=== PATIENT | female | born 1960 | race Two or more races ===

== ENCOUNTER 2020-06-28 11:04 | Outpatient (REF) | payer MEDICAID, SELFPAY ==
--- NOTE | ~2020-06-28 | XR_ITS ---
EXAMINATION: XR CHEST CLINICAL INFORMATION: R06.00 - Dyspnea, unspecified COMPARISON: Chest radiograph 08/09/2019 TECHNIQUE: 2 views of the chest were obtained. FINDINGS: The heart is within normal size. The vascularity is normal. There is mild coarsening bronchiolar markings but no hyperinflation and no airspace consolidation, groundglass opacity, or effusion. The costophrenic sulci are clear. The hilar and mediastinal contours and visualized bony structures are unremarkable. XR/XR chest 2V IMPRESSION: Mild coarsening bronchiolar markings. No hyperinflation or airspace opacities.
[2020-06-28 11:58] LABS: MANUAL DIFF FLAG NO
[2020-06-28 12:03] LABS: Basophils Percent Auto 0.3 % (0-2); Eosinophils Absolute Auto 0.1 X10*3/uL (0.0-0.4); Eosinophils Percent Auto 1.4 % (0-4); Hematocrit 33.8 % (37-47); Hemoglobin 10.3 g/dl (12.0-16.0); Imm Gran Abs Auto 0.03 X10*3/uL (0.00-0.03); Imm Gran Pct Auto 0.5 % (0.0-0.4); Lymphocytes Absolute Auto 1.5 X10*3/uL (1.2-4.9); Lymphocytes Percent Auto 23.1 % (20-40); Mean Corpuscular HGB Conc 30.5 g/dl (31.0-35.0); Mean Corpuscular Hemoglobin 26.8 pg (27.0-33.0); Mean Corpuscular Volume 87.8 fL (80-98); Mean Platelet Volume 8.6 fL (9.4-12.3); Monocytes Absolute Auto 0.6 X10*3/uL (0.1-1.2); Monocytes Percent Auto 9.2 % (2-11); Neutrophils Absolute Auto 4.1 X10*3/uL (2.0-8.3); Neutrophils Percent Auto 65.5 % (45-73); Platelet Count 268 X10*3/uL (160-400); Red Blood Count 3.85 X10*6/uL (4.20-5.50); Red Cell Distribution Width 15.9 % (11.0-16.0); White Blood Count 6.3 X10*3/uL (4.8-10.8)
== END 2020-06-28 11:05 | disposition home or self-care (01) ==
LOC: HO.XRAY 11:04
PROVIDERS: PCP Internal Medicine; Visit Provider Internal Medicine Pulmonary Disease
DX: R06.00 Dyspnea, unspecified (principal); R05 Cough
CPT/HCPCS: 36415; 71046; 82785; 85025; 86003; 99202

== ENCOUNTER 2020-07-07 08:20 | Outpatient (REF) | payer MEDICAID, SELFPAY ==
--- NOTE | 2020-07-07 17:21 | PFT_ITS ---
INDICATION: Dyspnea. SPIROMETRY: The FEV1 to FVC 96% with an FEV1 of 1.31 L, which is 51% predicted, and an FVC of 1.37 L, which is 42% predicted. There was a significant response to bronchodilators noted. Maximum voluntary ventilation 59% predicted. LUNG VOLUMES: Total lung capacity 73% predicted with an expiratory reserve volume of 90% predicted. DIFFUSION CAPACITY: DLCO 42% predicted. To note, the DLCO/VA was 96% predicted. COMPARISONS: None. INTERPRETATION: No obstructive ventilatory defects noted. There was a significant response to bronchodilators noted and also mild to moderate decrease in the maximum voluntary ventilation secondary to deconditioning, although cannot rule out neuromuscular conditions. Lung volumes demonstrated a mild restrictive ventilatory defect with a significant decrease in the expiratory reserve volume likely due to an elevated BMI. Neuromuscular conditions or interstitial lung conditions cannot be ruled out. In addition to that, there was moderate to severe diffusion impairment that completely normalized after correcting for the alveolar volume. Clinical correlation warranted. Graham Schwab MD MR/MODL / [id number]
== END 2020-07-07 08:21 | disposition home or self-care (01) ==
LOC: HO.RESP 08:20
PROVIDERS: PCP Internal Medicine; Visit Provider Internal Medicine Pulmonary Disease
DX: R06.00 Dyspnea, unspecified (principal)
CPT/HCPCS: 94060; 94727; 94729; 99212

== ENCOUNTER → 2020-07-18 10:31 | Outpatient (BNVA) | payer MEDICAID, SELFPAY | PROVIDERS: PCP Internal Medicine; Visit Provider Internal Medicine Pulmonary Disease | DX: J45.50 Severe persistent asthma, uncomplicated (principal); R05 Cough | CPT/HCPCS: 99212 ==

== ENCOUNTER 2020-07-28 10:02 | Outpatient (REF) | payer MEDICAID, SELFPAY ==
[2020-07-28 13:44] LABS: Glucose Urine UA NEG (NEG); Leukocyte Esterase Urine NEG (NEG); Nitrite Urine NEG (NEG); PH 5.5 (5.0-8.0); Specific Gravity - Urine >= 1.030 (1.005-1.025); Urine Blood NEG (NEG); Urine Ketones 5 MG/DL (NEG); Urine Protein TRACE MG/DL (NEG-TRACE)
[2020-07-28 13:54] LABS: Appearance Urine HAZY; Color Urine YELLOW
[2020-07-28 14:12] LABS: Alanine Aminotransferase 14 U/L (0-31); Albumin Level 4.3 g/dL (3.5-5.0); Alkaline Phosphatase 79 U/L (39-117); Anion Gap 17 (12-20); Aspartate Amino Transferase 16 U/L (5-31); Bilirubin Total 0.4 mg/dL (0.0-1.0); Blood Urea Nitrogen 24 mg/dL (9-16); C Reactive Protein 0.51 mg/dL (< or = 0.50); Calcium 9.2 mg/dL (8.4-10.2); Carbon Dioxide 27 mmol/L (22-29); Chloride 101 mmol/L (96-108); Estimated Glomerular Filt Rate 59; Glucose Random 152 mg/dL (60-115); Potassium 4.7 mmol/L (3.3-5.1); Sodium 140 mmol/L (135-145); Total Protein 6.9 g/dL (6.5-8.0)
[2020-07-28 14:25] LABS: Ferritin 8 ng/mL (10-250)
[2020-07-31 15:32] LABS: Gliadin Deamidated IgA Ab 2 Units; Gliadin Deamidated IgG Ab 2 Units
[2020-07-31 23:11] LABS: Immunoglobulin E 11 kU/L (<OR=114)
[2020-07-31 23:37] LABS: Transglutaminase Ab IgG 1 U/mL; Transglutaminase IgA 1 U/mL
== END 2020-07-28 10:03 | disposition home or self-care (01) ==
LOC: HO.LAB 10:02
PROVIDERS: Internal Medicine Pulmonary Disease; PCP Internal Medicine; Referring Provider Internal Medicine; Visit Provider Nurse Practitioner
DX: R13.10 Dysphagia, unspecified (principal); K21.9 Gastro-esophageal reflux disease without esophagitis; R19.7 Diarrhea, unspecified; R11.2 Nausea with vomiting, unspecified; E66.01 Morbid (severe) obesity due to excess calories; J45.50 Severe persistent asthma, uncomplicated; E03.9 Hypothyroidism, unspecified; G89.4 Chronic pain syndrome; Z68.41 Body mass index [BMI] 40.0-44.9, adult; D64.9 Anemia, unspecified; R35.0 Frequency of micturition; Z12.11 Encounter for screening for malignant neoplasm of colon
CPT/HCPCS: 36415; 80053; 81003; 82728; 82785; 83516; 86140; 99202

== ENCOUNTER → 2020-08-02 12:48 | Outpatient (REF) | payer MEDICAID, SELFPAY ==
--- NOTE | 2020-08-02 12:50 | CA_ITS ---
Transthoracic Echocardiogram Patient (Last, First, Middle): Mel More, Gender: Female Date of : 1960 Age: 60 Procedure Date: 08/02/2020 Procedure Type: Transthoracic Echocardiogram Location: OP Height: 162.56 cm Weight: 115.21 kg BSA: 2.17 m2 Heart Rate: bpm BP: 118 / 72 mmHg Bank Courier: ALEJANDRO Referring MD: Lucien Segura MD Grinding Wheel Inspector: Rikki Roa MD Symptoms: R06.00 - Dyspnea, unspecified Study Quality: Technically Difficult ECG Rhythm: Sinus Conclusions: - 1. Normal LV systolic function with mild LVH with impaired relaxation filling pattern 2. Normal cardiac valvular Doppler with limited visualization cardiac valves Findings Procedure Information Contrast agent, definity, is being given per protocol without apparent complications. The patient receives contrast. Left Ventricle Normal left ventricular size and systolic function. There is mildly increased left ventricular wall thickness. The visually estimated ejection fraction is between 60-65%. Spectral Doppler is indicative of an impaired relaxation filling pattern. E/E prime ratio is between 8 and 15 consistent with indeterminate filling pressures. Right Ventricle The right ventricle was not well visualized. Atria The left atrium is normal in size. Interatrial shunt cannot be excluded. The right atrium was not well visualized. Aortic Valve The aortic valve structure and function is likely normal. There is no aortic valve stenosis. There is no aortic valve regurgitation. Mitral Valve Likely normal mitral valve structure and function. There is trace mitral valve regurgitation. There is no mitral valve stenosis. Pulmonic Valve The pulmonic valve was not well visualized. Tricuspid Valve The tricuspid valve was not well visualized. Tricuspid regurgitation envelope is inadequate for calculation of right ventricular systolic pressure. Great Vessels All visible segments of the aorta are normal in size. The pulmonary artery was not well visualized. Venous The inferior vena cava was not well visualized. Pericardium/Pleural The pericardium was not well visualized. Prior Study Comparison No significant change compared to prior study dated: 09/06/2017. Measurements 2D Linear Measurements IVSd: 1.34 0.6-0.9/0.6-1.0 cm LVIDd: 4.39 3.9-5.3/4.2-5.9 cm LVIDd Index: 2.02 2.4-3.2/2.2-3.1 cm/m2 LVIDs: 3.49 2.0-3.6 cm LVPWd: 1.22 0.7-1.1 cm Ao Root: 3.00 2.1-3.5 cm LA Diam: 3.30 2.7-3.8/3.0-4.0 cm LAIDs Index: 1.52 1.5-2.3 cm/m2 LV Mass: 261.14 67-162/88-224 g LV Mass Index: 120.34 43-95/49-115 g/m2 LVOT Diam: 2.20 3.0+(-)1.3 cm 2D Systolic Function EF 4C: 65.40 >55% EF 2C: 56.80 >55% EF BiP: 62.30 >55% Mitral Valve MV Pk E: 0.75 MV PK A: 0.80 MV Decel Time: 209.00 E/A: 0.90 E'Lateral: 8.05 E'Medial: 5.11 E/E' Med: 14.70 E/E' Lat: 9.40 PHT: 61.00 MVA PHT: 3.61 Decel [place]: 3.59 Aortic Valve AoV Pk Blaine: 1.79 AoV Mn Blaine: 1.29 AoV VTI: 0.31 AoV Pk Grad: 13.00 Aov Mn Grad: 8.00 BAUTISTA Cont.VTI: 3.15 LVOT LVOT Pk Blaine: 1.47 LVOT Mn Blaine: 1.09 LVOT VTI: 0.26 LVOT Pk Grad: 9.00 LVOT Mn Grad: 6.00 LVOT Diam: 2.20 LVOT Area: 3.80 Diastolic Function MV Pk E: 0.75 MV Pk A: 0.80 E/A: 0.90 E'Medial: 5.11 E/E' Med: 14.70 E' Laterial: 8.05 E/E' Lat: 9.40 Great Vessels Aorta Ao Root-2D: 3.00 2.0-3.7 cm Ao Asc: 3.30 2.1-3.4 cm Ao Arch: 2.70 Pulmonary Valve PV Pk Blaine: 1.30 Peak PV Grad: 7.00 Updated in Other Vendor System with Status of Final Rikki Roa MD electronically signed on 08/02/2020 5:26:13 PM with status of Final
== END ==
LOC: HO.CARD 12:48
PROVIDERS: Visit Provider Internal Medicine Pulmonary Disease
DX: R06.00 Dyspnea, unspecified (principal)
CPT/HCPCS: 87045; 87046; 93306; Q9957

== ENCOUNTER 2020-08-05 | Outpatient (REF) | payer MEDICAID, SELFPAY ==
[2020-08-16 08:13] LABS: FIT Int Ctl YES; FIT1 NEGATIVE (NEGATIVE); FIT2 NEGATIVE (NEGATIVE)
== END 2020-08-05 00:01 ==
LOC: HO.LNP
PROVIDERS: Visit Provider Nurse Practitioner
DX: R19.7 Diarrhea, unspecified (principal); D64.9 Anemia, unspecified; R13.10 Dysphagia, unspecified
CPT/HCPCS: 82274

== ENCOUNTER 2020-08-22 08:10 | Outpatient (REF) | payer MEDICAID, SELFPAY | END 2020-08-22 08:11 | disposition home or self-care (01) | LOC: HO.MDS 08:10 | PROVIDERS: PCP Internal Medicine; Visit Provider Internal Medicine Pulmonary Disease | DX: J45.50 Severe persistent asthma, uncomplicated (principal) | CPT/HCPCS: 96372; J0517 ==

== ENCOUNTER 2020-09-19 08:50 | Outpatient (REF) | payer MEDICAID, SELFPAY | END 2020-09-19 08:51 | disposition home or self-care (01) | LOC: HO.MDS 08:50 | PROVIDERS: PCP Internal Medicine; Visit Provider Internal Medicine Pulmonary Disease | DX: J45.50 Severe persistent asthma, uncomplicated (principal) | CPT/HCPCS: 96372; 99212; J0517 ==

== ENCOUNTER 2020-10-17 09:02 | Outpatient (REF) | payer MEDICAID, SELFPAY | END 2020-10-17 09:03 | disposition home or self-care (01) | LOC: HO.MDS 09:02 | PROVIDERS: PCP Internal Medicine; Visit Provider Internal Medicine Pulmonary Disease | DX: J45.50 Severe persistent asthma, uncomplicated (principal) | CPT/HCPCS: 96372; J0517 ==

== ENCOUNTER 2020-11-14 09:47 | Outpatient (REF) | payer MEDICAID, SELFPAY | END 2020-11-14 09:48 | disposition home or self-care (01) | LOC: HO.MDS 09:47 | PROVIDERS: Visit Provider Internal Medicine Pulmonary Disease | DX: J45.50 Severe persistent asthma, uncomplicated (principal) | CPT/HCPCS: 96372; J0517 ==

== ENCOUNTER → 2020-12-18 12:54 | Outpatient (BNVA) | payer MEDICAID, SELFPAY | PROVIDERS: PCP Internal Medicine; Referring Provider Internal Medicine; Visit Provider Nurse Practitioner | DX: Z12.11 Encounter for screening for malignant neoplasm of colon (principal); K21.9 Gastro-esophageal reflux disease without esophagitis; R19.7 Diarrhea, unspecified; R13.10 Dysphagia, unspecified; Z80.0 Family history of malignant neoplasm of digestive organs | CPT/HCPCS: 99212 ==

== ENCOUNTER 2021-01-15 13:34 | Outpatient (REF) | payer MEDICAID, SELFPAY | END 2021-01-15 13:35 | disposition home or self-care (01) | LOC: HO.MDS 13:34 | PROVIDERS: PCP Internal Medicine; Visit Provider Internal Medicine Pulmonary Disease | DX: J45.50 Severe persistent asthma, uncomplicated (principal) | CPT/HCPCS: 96372; J0517 ==

== ENCOUNTER 2021-03-28 13:36 | Outpatient (REF) | payer MEDICAID, SELFPAY ==
--- NOTE | ~2021-03-28 | XR_ITS ---
EXAMINATION: XR chest 2V CLINICAL INFORMATION: Reason for Exam U09.9 - Post COVID-19 condition, unspecified COMPARISON: Chest radiograph 06/28/2020 TECHNIQUE: 2 views of the chest XR/XR chest 2V FINDINGS/IMPRESSION: Increased interstitial prominence which may reflect sequelae of atypical/viral infection or interstitial edema. No pneumothorax. Similar appearance of biapical pleural thickening. Unchanged cardiomediastinal silhouette.
== END 2021-03-28 13:37 | disposition home or self-care (01) ==
LOC: HO.XRAY 13:36
PROVIDERS: PCP Internal Medicine; Visit Provider Internal Medicine Pulmonary Disease
DX: R06.02 Shortness of breath (principal); U09.9 Post COVID-19 condition, unspecified; J45.50 Severe persistent asthma, uncomplicated; R06.00 Dyspnea, unspecified
CPT/HCPCS: 71046; 99212

== ENCOUNTER → 2021-05-18 13:47 | Outpatient (BNVA) | payer MEDICAID, SELFPAY | PROVIDERS: PCP Internal Medicine; Visit Provider Internal Medicine Pulmonary Disease | DX: J45.50 Severe persistent asthma, uncomplicated (principal); R06.00 Dyspnea, unspecified | CPT/HCPCS: 94618; 99212 ==

== ENCOUNTER → 2021-05-23 14:33 | Outpatient (REF) | payer MEDICAID, SELFPAY ==
--- NOTE | 2021-05-23 14:37 | CA_ITS ---
Transthoracic Echocardiogram Patient (Last, First, Middle): Mel More, Gender: Female Date of : 1960 Age: 61 Procedure Date: 05/23/2021 Procedure Type: Transthoracic Echocardiogram Location: OP Height: 162.56 cm Weight: 113.85 kg BSA: 2.15 m2 Heart Rate: bpm BP: 110 / 70 mmHg Clam Shovel Operator: WAYNE Gutierrez MD: Lucien Segura MD Digital Production Operator: Rikki Roa MD Symptoms: R06.00 - Dyspnea, unspecified Study Quality: Technically Difficult ECG Rhythm: Sinus Conclusions: - 1. Technically limited study despite use of contrast agent 2. Normal LV systolic function with mild LVH with impaired relaxation filling pattern with LVEF of 60 65% 3. Limited evaluation of cardiac valves with normal Dopplers Findings Left Ventricle Normal left ventricular size and systolic function. There is mildly increased left ventricular wall thickness. The visually estimated ejection fraction is between 60-65%. Spectral Doppler is indicative of an impaired relaxation filling pattern. E/E prime ratio is between 8 and 15 consistent with indeterminate filling pressures. Right Ventricle Normal right ventricular cavity size and systolic function. Atria The left atrium was not well visualized. Interatrial shunt cannot be excluded. The right atrium was not well visualized. Aortic Valve The aortic valve was not well visualized. There is no aortic valve stenosis. There is no aortic valve regurgitation. Mitral Valve The mitral valve was not well visualized. There is trace mitral valve regurgitation. There is no mitral valve stenosis. Pulmonic Valve The pulmonic valve was not well visualized. Tricuspid Valve Likely normal tricuspid valve structure and function. The right ventricular systolic pressure is normal. Great Vessels The aorta was not well visualized. The pulmonary artery was not well visualized. Venous The inferior vena cava was not well visualized. Pericardium/Pleural The pericardium was not well visualized. Prior Study Comparison No significant change compared to prior study dated: 08/02/2020. Measurements 2D Linear Measurements IVSd: 1.19 0.6-0.9/0.6-1.0 cm LVIDd: 4.56 3.9-5.3/4.2-5.9 cm LVIDd Index: 2.12 2.4-3.2/2.2-3.1 cm/m2 LVIDs: 3.37 2.0-3.6 cm LVPWd: 1.24 0.7-1.1 cm LA Diam: 3.70 2.7-3.8/3.0-4.0 cm LAIDs Index: 1.72 1.5-2.3 cm/m2 LV Mass: 256.58 67-162/88-224 g LV Mass Index: 119.34 43-95/49-115 g/m2 LVOT Diam: 2.00 3.0+(-)1.3 cm 2D Systolic Function EF 4C: 65.40 >55% EF 2C: 55.50 >55% EF BiP: 62.70 >55% Mitral Valve MV Pk E: 0.85 MV PK A: 0.82 MV Decel Time: 162.00 E/A: 1.00 E'Lateral: 10.60 E'Medial: 5.22 E/E' Med: 16.20 E/E' Lat: 8.00 PHT: 48.00 MVA PHT: 4.58 Decel [place]: 5.22 Aortic Valve AoV Pk Blaine: 1.52 AoV Mn Blaine: 0.99 AoV VTI: 0.26 AoV Pk Grad: 9.00 Aov Mn Grad: 4.00 ABUTISTA Cont.VTI: 3.13 LVOT LVOT Pk Blaine: 1.36 LVOT Mn Blaine: 0.95 LVOT VTI: 0.26 LVOT Pk Grad: 7.00 LVOT Mn Grad: 4.00 LVOT Diam: 2.00 LVOT Area: 3.14 Diastolic Function MV Pk E: 0.85 MV Pk A: 0.82 E/A: 1.00 E'Medial: 5.22 E/E' Med: 16.20 E' Laterial: 10.60 E/E' Lat: 8.00 Right Ventricle TAPSE (mm): 16.80 TVS' Blaine: 10.30 Tricuspid Valve TR Pk Blaine: 2.39 TR Pk Grad: 23.00 Great Vessels Aorta Sinus of Valsalva: 3.08 2.0-3.5 cm Ao Asc: 3.40 2.1-3.4 cm Ao Arch: 3.20 Updated in Other Vendor System with Status of Final Rikki Roa MD electronically signed on 05/24/2021 8:38:11 AM with status of Final
== END ==
LOC: HO.CARD 14:33
PROVIDERS: Visit Provider Internal Medicine Pulmonary Disease
DX: R06.00 Dyspnea, unspecified (principal)
CPT/HCPCS: 93306; Q9957

== ENCOUNTER 2021-05-30 10:57 | Outpatient (REF) | payer MEDICAID, SELFPAY ==
--- NOTE | ~2021-05-30 | MM_ITS ---
EXAMINATION: MM SCREENING DIGITAL BREAST TOMOSYNTHESIS, BILATERAL CLINICAL INFORMATION: Screening. Asymptomatic. The lifetime risk of breast cancer based on the Tyrer-Cuzick Model is 9%. COMPARISON: Mammography: 10/15/2017 (new baseline); targeted left breast ultrasound 10/17/2017. TECHNIQUE: Digital breast tomosynthesis is performed in both the craniocaudal and mediolateral oblique views along with computer-aided detection (CAD). Synthesized 2D images are generated from the tomosynthesis. Additional bilateral CC and right MLO views are provided. FINDINGS: The breasts are almost entirely fatty (ACR BI-RADS breast composition Category a). There are no significant masses, abnormal calcifications, or other abnormalities. Incidental intramammary node again seen posterior 3:00 left breast. The axilla and skin contours are unremarkable. MM/MM tomosynthesis screening BI IMPRESSION: No mammographic evidence of malignancy. ASSESSMENT: BI-RADS 2: Benign RECOMMENDATION: Routine annual mammography screening. This patient's information was entered into a reminder system with a target due date for their next mammogram.
== END 2021-05-30 10:58 | disposition home or self-care (01) ==
LOC: HO.MAMMO 10:57
PROVIDERS: PCP Internal Medicine; Visit Provider Internal Medicine
DX: Z12.31 Encounter for screening mammogram for malignant neoplasm of breast (principal)
CPT/HCPCS: 77063; 77067

== ENCOUNTER 2021-06-20 09:42 | Outpatient (REF) | payer MEDICAID, SELFPAY | END 2021-06-20 09:43 | disposition home or self-care (01) | LOC: HO.MDS 09:42 | PROVIDERS: PCP Internal Medicine; Visit Provider Internal Medicine Pulmonary Disease | DX: J45.50 Severe persistent asthma, uncomplicated (principal) | CPT/HCPCS: 96372; 99212; J0517 ==

== ENCOUNTER 2021-09-21 09:41 | Outpatient (REF) | payer MEDICAID, SELFPAY ==
--- NOTE | ~2021-09-21 | XR_ITS ---
EXAMINATION: KNEE X-RAY CLINICAL INFORMATION: Pain COMPARISON: None TECHNIQUE: Standing AP view of both knees and lateral and sunrise view of the right knee FINDINGS: Right: Bone alignment is normal. No fracture or dislocation is seen. There is a sclerotic lesion with lucent center in the proximal tibial metaphysis probably representing an old bone infarct. There are small osteophytes at the lateral femoral tibial joint. The joint spaces are normal. There is no joint effusion. Standing AP view of the left knee demonstrates degenerative change at the lateral femoral tibial joint and sclerotic lesion with lucent center in the proximal tibial metaphysis probably representing a bone infarct. XR/XR knee RT 2V IMPRESSION: Mild degenerative changes at the lateral femoral tibial joints. 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
--- NOTE | ~2021-09-21 | XR_ITS ---
EXAMINATION: KNEE X-RAY CLINICAL INFORMATION: Pain COMPARISON: None TECHNIQUE: Standing AP view of both knees and lateral and sunrise view of the right knee FINDINGS: Right: Bone alignment is normal. No fracture or dislocation is seen. There is a sclerotic lesion with lucent center in the proximal tibial metaphysis probably representing an old bone infarct. There are small osteophytes at the lateral femoral tibial joint. The joint spaces are normal. There is no joint effusion. Standing AP view of the left knee demonstrates degenerative change at the lateral femoral tibial joint and sclerotic lesion with lucent center in the proximal tibial metaphysis probably representing a bone infarct. XR/XR knee standing BI IMPRESSION: Mild degenerative changes at the lateral femoral tibial joints. 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
== END 2021-09-21 09:42 | disposition home or self-care (01) ==
LOC: HO.HOSX 09:41
PROVIDERS: Visit Provider Orthopaedic Surgery
DX: M25.561 Pain in right knee (principal); M17.11 Unilateral primary osteoarthritis, right knee; M54.16 Radiculopathy, lumbar region; M71.21 Synovial cyst of popliteal space [Baker], right knee; Z96.643 Presence of artificial hip joint, bilateral
CPT/HCPCS: 73560; 73565; 99212

== ENCOUNTER 2021-10-29 11:45 | Outpatient (REF) | payer MEDICAID, SELFPAY ==
--- NOTE | ~2021-10-29 | XR_ITS ---
EXAMINATION: XR LUMBOSACRAL SPINE WITH OBLIQUES CLINICAL INFORMATION: Radiculopathy. COMPARISON: None TECHNIQUE: AP, both oblique, and lateral views of the lumbar spine. Lateral view of the lumbosacral junction. FINDINGS: There is normal lumbar lordosis. The vertebral heights and alignment are normal. Mild loss of L5-S1 disc height is seen. On oblique views there is no pars defect or listhesis. No acute fracture or dislocation seen. No lytic or sclerotic process. There are bilateral hip prostheses seen. The soft tissues are normal. XR/XR lumbar spine 6V w bending IMPRESSION: Mild degenerative disc changes L5-S1 disc level. No visible acute fracture or dislocation seen. No pars defect or listhesis.
== END 2021-10-29 11:46 | disposition home or self-care (01) ==
LOC: HO.XRAY 11:45
PROVIDERS: PCP Internal Medicine; Visit Provider Nurse Practitioner Family
DX: M47.816 Spondylosis without myelopathy or radiculopathy, lumbar region (principal); M54.16 Radiculopathy, lumbar region; M62.830 Muscle spasm of back; M25.562 Pain in left knee
CPT/HCPCS: 72114; 99202

== ENCOUNTER 2021-11-27 06:14 | Outpatient (REF) | payer MEDICAID, SELFPAY ==
--- NOTE | ~2021-11-27 | FL_ITS ---
EXAMINATION: XR FLUOROSCOPY WITH IMAGES CLINICAL INFORMATION: M25.562 - Pain in left knee COMPARISON: Radiographs right knee 09/21/2021 TECHNIQUE: Fluoroscopy performed by Dr. Hoang Sanford. Fluoroscopy time: 0.2 minutes. Cumulative Dose: 1.43 mGy. DAP: 0.390 Gy-cm2. Images: 2. FINDINGS: There are 2 spinal needles adjacent to the distal femoral shaft with tips at mid depth, presumably on medial and lateral sides. There is a spinal needle overlying the proximal tibia mid depth, presumably on medial side. There is intramedullary proximal tibial bone infarcts again seen similar to prior radiographs. FL/FL guidance in treatment room IMPRESSION: Fluoroscopy for pain management procedures.
== END 2021-11-27 06:15 | disposition home or self-care (01) ==
LOC: CF 06:14
PROVIDERS: Visit Provider Anesthesiology
DX: M25.562 Pain in left knee (principal); M54.16 Radiculopathy, lumbar region; M47.816 Spondylosis without myelopathy or radiculopathy, lumbar region; M62.830 Muscle spasm of back; E66.01 Morbid (severe) obesity due to excess calories; E88.81 Metabolic syndrome and other insulin resistance; E11.9 Type 2 diabetes mellitus without complications
CPT/HCPCS: 64454

== ENCOUNTER → 2021-12-04 10:56 | Outpatient (BNVA) | payer MEDICAID, SELFPAY | PROVIDERS: PCP Internal Medicine; Visit Provider Nurse Practitioner Family | DX: M47.816 Spondylosis without myelopathy or radiculopathy, lumbar region (principal); M54.16 Radiculopathy, lumbar region; M62.830 Muscle spasm of back; M25.562 Pain in left knee; E66.01 Morbid (severe) obesity due to excess calories; M17.11 Unilateral primary osteoarthritis, right knee | CPT/HCPCS: 99212 ==

== ENCOUNTER 2021-12-24 08:36 | Outpatient (REF) | payer MEDICAID, SELFPAY ==
--- NOTE | ~2021-12-24 | MR_ITS ---
EXAMINATION: MR LUMBAR SPINE WITHOUT CONTRAST CLINICAL INFORMATION: Spondylosis. Bilateral lower some new pain, numbness, and weakness. COMPARISON: Lumbar spine radiographs 10/29/2021. TECHNIQUE: MRI of the lumbar spine was obtained using routine sequences without contrast. FINDINGS: Alignment is normal. Vertebral heights are preserved. No acute bone marrow signal changes. There is disc desiccation at multiple levels within the lumbar spine. The tip of the conus medullaris is located at L1. No mass effect on the conus. Visualized distal cord signal intensity is normal. At L1-L2, L2-L3, and L3-L4 the annular contours are normal. No canal or neuroforaminal compromise at these 3 levels. At L4-L5 there is a slightly bulging disc. No canal stenosis. No mass effect on the traversing or foraminal nerve roots. At L5-S1 there is a slightly bulging disc. Bilateral facet degenerative change. No canal stenosis. Partial effacement of the perineural fat with mild mass effect on both L5 foraminal nerve roots. Limited visualization of the retroperitoneal anatomy reveals no abnormal finding. Psoas and paraspinal muscle groups are symmetric. MR/MR lumbar spine wo con IMPRESSION: There is disc degeneration at the levels of L4-L5 and L5-S1. A bulging disc in conjunction with facet degenerative change at L5-S1 causes mild mass effect on both L5 foraminal nerve roots. Otherwise no substantial mass effect on the traversing or foraminal nerve roots elsewhere within the lumbar spine. No canal stenosis.
== END 2021-12-24 08:37 | disposition home or self-care (01) ==
LOC: HO.MRI 08:36
PROVIDERS: Visit Provider Nurse Practitioner Family
DX: M47.812 Spondylosis without myelopathy or radiculopathy, cervical region (principal); M54.16 Radiculopathy, lumbar region; M62.830 Muscle spasm of back
CPT/HCPCS: 72148

== ENCOUNTER 2022-01-08 06:10 | Outpatient (REF) | payer MEDICAID, SELFPAY | END 2022-01-08 06:11 | disposition home or self-care (01) | LOC: CF 06:10 | PROVIDERS: Visit Provider Anesthesiology | DX: Z13.89 Encounter for screening for other disorder (principal) ==

== ENCOUNTER → 2022-02-06 09:33 | Outpatient (BNVA) | payer MEDICAID, SELFPAY | PROVIDERS: PCP Internal Medicine; Visit Provider Anesthesiology | DX: M47.816 Spondylosis without myelopathy or radiculopathy, lumbar region (principal); M17.11 Unilateral primary osteoarthritis, right knee; M71.21 Synovial cyst of popliteal space [Baker], right knee; E66.01 Morbid (severe) obesity due to excess calories; G47.33 Obstructive sleep apnea (adult) (pediatric); Z68.41 Body mass index [BMI] 40.0-44.9, adult; Z96.643 Presence of artificial hip joint, bilateral | CPT/HCPCS: 99212 ==

== ENCOUNTER 2022-03-12 06:10 | Outpatient (REF) | payer MEDICAID, SELFPAY ==
--- NOTE | ~2022-03-12 | FL_ITS ---
EXAMINATION: XR FLUOROSCOPY WITH IMAGES CLINICAL INFORMATION: Pain COMPARISON: Right knee 09/21/2021 TECHNIQUE: Fluoroscopy Supervised By: Liana Mcqueen. Fluoroscopy Time: 0.0. DAP: 0.257 Gycm2. Images: 2. FINDINGS: There are 2 digital images of left knee revealing needle positioned medial to the proximal tibial cortex. There is a geographic intramedullary lesion proximal tibia likely a known bone infarct. FL/FL guidance in treatment room IMPRESSION: Fluoroscopy was provided to referrer for pain management.
== END 2022-03-12 06:11 | disposition home or self-care (01) ==
LOC: CF 06:10
PROVIDERS: Visit Provider Anesthesiology
DX: M25.562 Pain in left knee (principal); M47.816 Spondylosis without myelopathy or radiculopathy, lumbar region; M17.11 Unilateral primary osteoarthritis, right knee; G47.33 Obstructive sleep apnea (adult) (pediatric); E66.01 Morbid (severe) obesity due to excess calories; M19.90 Unspecified osteoarthritis, unspecified site; M17.12 Unilateral primary osteoarthritis, left knee
CPT/HCPCS: 64447

== ENCOUNTER → 2022-03-20 09:55 | Outpatient (BNVA) | payer MEDICAID, SELFPAY | PROVIDERS: PCP Internal Medicine; Visit Provider Internal Medicine Endocrinology, Diabetes & Metabolism | DX: E11.9 Type 2 diabetes mellitus without complications (principal); Z79.84 Long term (current) use of oral hypoglycemic drugs | CPT/HCPCS: 82947; 83036; 99202 ==

== ENCOUNTER 2022-04-16 06:30 | Outpatient (REF) | payer MEDICAID, SELFPAY ==
--- NOTE | ~2022-04-16 | FL_ITS ---
EXAMINATION: XR FLUOROSCOPY WITH IMAGES CLINICAL INFORMATION: Spondylosis without myelopathy or radiculopathy. COMPARISON: None available TECHNIQUE: Fluoroscopy Supervised By: Liana Mcqueen Fluoroscopy Time: 0.8 minutes Cumulative Dose: 28.2 mGy DAP: 7.97 Gycm2 Images: 6 FINDINGS: There are 6 digital images obtained with the needle positioned adjacent to the L5, L4 and L3 pedicles with contrast opacifying the soft tissues. The visualized vertebral height and alignment are normal. There is mild spondylosis at the L3-L4 and L4-L5 disc levels. No lytic or sclerotic process is seen. FL/FL guidance in treatment room IMPRESSION: 1. Fluoroscopy guidance was provided to the referring physician for pain management. 2. There is mild spondylosis at L3-L4 and L4-L5 disc levels.
== END 2022-04-16 06:31 | disposition home or self-care (01) ==
LOC: CF 06:30
PROVIDERS: Visit Provider Anesthesiology
DX: M47.816 Spondylosis without myelopathy or radiculopathy, lumbar region (principal); M17.11 Unilateral primary osteoarthritis, right knee; M17.12 Unilateral primary osteoarthritis, left knee; G47.33 Obstructive sleep apnea (adult) (pediatric); E66.01 Morbid (severe) obesity due to excess calories
CPT/HCPCS: 64493; 64494

== ENCOUNTER → 2022-07-01 08:16 | Outpatient (BNVA) | payer MEDICAID, SELFPAY | PROVIDERS: PCP Internal Medicine; Visit Provider Dietitian, Registered | DX: E11.9 Type 2 diabetes mellitus without complications (principal) | CPT/HCPCS: 97802 ==

== ENCOUNTER → 2022-08-08 10:24 | Outpatient (BNVA) | payer MEDICAID, SELFPAY | PROVIDERS: PCP Internal Medicine; Visit Provider Nurse Practitioner Family | DX: M62.830 Muscle spasm of back (principal); M25.562 Pain in left knee; M17.11 Unilateral primary osteoarthritis, right knee; M47.816 Spondylosis without myelopathy or radiculopathy, lumbar region; E66.01 Morbid (severe) obesity due to excess calories; Z68.41 Body mass index [BMI] 40.0-44.9, adult | CPT/HCPCS: 99212 ==

== ENCOUNTER 2022-08-27 06:08 | Outpatient (REF) | payer MEDICAID, SELFPAY ==
--- NOTE | ~2022-08-27 | FL_ITS ---
EXAMINATION: XR FLUOROSCOPY WITH IMAGES CLINICAL INFORMATION: Spondylosis without myelopathy or radiculopathy, lumbar region. COMPARISON: None available. TECHNIQUE: Fluoroscopy Supervised By: Dr. Hoang Sanford. Fluoroscopy Time: 0.6 minutes. Cumulative Dose: 27.9 mGy. DAP: 0.484 Gycm2. Images: 7. FINDINGS: There are 7 digital images obtained revealing needle positioned bilaterally adjacent to S1, L5 L4 pedicles with contrast opacifying the adjacent soft tissues. FL/FL guidance in treatment room IMPRESSION: Fluoroscopy was provided to referring physician for pain management.
== END 2022-08-27 06:09 | disposition home or self-care (01) ==
LOC: CF 06:08
PROVIDERS: Visit Provider Anesthesiology
DX: M47.816 Spondylosis without myelopathy or radiculopathy, lumbar region (principal)
CPT/HCPCS: 64493; 64494

== ENCOUNTER 2022-08-27 10:51 | Outpatient (AMB) | payer MEDICAID, SELFPAY ==
[2022-08-27 10:59] VITALS: BP 98/72; PULSE 68; RESP 14; O2SAT 94; BMI 40.0
--- NOTE | 2022-08-27 10:59 | A.OFFVIS_ITS ---
Intake Vital Signs 08/27/22 10:59 08/27/22 12:33 Height 5 ft 4 in 54 ft Weight 233 lb 235 lb BMI 40.0 0.4 BP 98/72 118/70 Blood Pressure Location Rt brachial Lt brachial Position Sitting Sitting Respiration 14 14 Pulse 68 67 Pulse Source Pulse Oximeter Pulse Oximeter Pulse Oximetry (%) 94 97 Oxygen Delivery Method Room Air Room Air Comment Pre-op Post-op Intake Visit Reasons: BILATERAL DIAGNOSTIC L3, L4, DRL5 MBB Allergies No Known Allergies [No Known Allergies*] Allergy (Verified 08/27/22 11:00) [facility] Medical History Anemia Anxiety and depression Diabetes Dysphagia Environmental allergies Family history of colon cancer in father Generalized arthritis GERD (gastroesophageal reflux disease) High cholesterol History of cellulitis Hypothyroid Lumbar spondylosis Morbid obesity ELSIE (obstructive sleep apnea) Osteoarthritis of right knee Severe persistent asthma Synovial cyst of popliteal space [Schultz], right knee Urinary frequency Surgical History History of left hip replacement History of right hip replacement Hx of appendectomy Hx of hernia repair Hx of hysterectomy, total Family History Mother HTN (hypertension) Diabetes Skin cancer Father No problems noted. Father HTN (hypertension) Heart attack Social History Household Members: Family Alcohol intake: never Patient Tobacco Use Status: Never used Tobacco Physical Exam Vital Signs: Last Vital Signs Pulse 67 08/27/22 12:33 Resp 14 08/27/22 12:33 BP 118/70 08/27/22 12:33 Pulse Ox 97 08/27/22 12:33 Oxygen Delivery Method Room Air 08/27/22 12:33 BMI result Body Mass Index 0.4 Results Reviewed Results Reviewed: 08/27/22 11:40 Lidocaine HCl 2 % MPF [Xylocaine 2 % MPF] 5 ml .ROUTE .[facility] Assessment & Plan Assessment & Plan (1) Spondylosis of lumbar region without myelopathy or radiculopathy: Code(s): M47.816 - Spondylosis without myelopathy or radiculopathy, lumbar region Plan: Diagnostic medial branch block L3,L4 dorsal ramus L5 bilateral.? ? Informed consent was explained to the patient. All questions were explained and? answered.? The patient was taken inside the operating room where she was positioned prone on the operating table. Time-out was performed delineating correct site, side, the nature of the procedure, patient's allergy, . All operating room staff was participating in OR time-out procedure. ? ? The lower back was prepped with ChloraPrep and draped with sterile towels.? C- arm was brought over the operating field and sq picture of L4-, L5 vertebra and S1 AREA were delineated on the screen.? Point of interest were delineated as confluence of superior articular process of L4 and L5 vertebra bilaterally with corresponding transverse processes as well as confluence of the sacral alae bilaterally with superior articular process of S1.? The projection of the point of interest to the skin were injected with the small amount of local anesthetic lidocaine 2% 1-1.5 cc.? After that 22 gauge 3.5 inch spinal needle was driven sequentially to the points of interest in tunnel vision fashion. After needles gently contacted the bone at the point of interests the needle was injected with small amount of the contrast.? The injection of the contrast did not demonstrate any intravascular or intrathecal spread of the contrast.? After that injection of the? ropivacaine 0.5%-1cc was performed at each needle location.??after that the needles were removed and Bandaids were applied. ? Upon completion of the injections? needle was? removed and sterile Band-Aids were applied.? The patient tolerated procedure very well. Orders: Orders FL guidance in treatment room 08/27/22 M47.816 - Spondylosis without myelopathy or radiculopathy, lumbar region Coding Level of Care Code Procedure Only Diagnoses Spondylosis of lumbar region without myelopathy or radiculopathy M47.816
[2022-08-27 12:33] VITALS: BP 118/70; PULSE 67; RESP 14; O2SAT 97
== END 2022-08-27 12:12 | disposition home or self-care (01) ==
PROVIDERS: PCP Internal Medicine; Visit Provider Anesthesiology
DX: M47.816 Spondylosis without myelopathy or radiculopathy, lumbar region (principal)
CPT/HCPCS: 64493; 64494

== ENCOUNTER 2023-04-03 14:11 | Outpatient (REF) | payer MEDICAID, SELFPAY ==
[2023-04-03 17:47] LABS: Alanine Aminotransferase 16 U/L (0-31); Albumin Level 4.2 g/dL (3.5-5.0); Alkaline Phosphatase 97 U/L (39-117); Anion Gap 11 (12-20); Aspartate Amino Transferase 20 U/L (5-31); Bilirubin Total 0.3 mg/dL (0.0-1.0); Blood Urea Nitrogen 18 mg/dL (9-16); Calcium 9.2 mg/dL (8.4-10.2); Carbon Dioxide 27 mmol/L (22-29); Chloride 106 mmol/L (96-108); Cholesterol 203 mg/dL (<200); Estimated Glomerular Filt Rate > 60; Glucose Random 89 mg/dL (60-115); HDL Cholesterol 35 mg/dL (>40); LDL Cholesterol Calculated 109 mg/dL (<100); Potassium 4.3 mmol/L (3.3-5.1); Sodium 140 mmol/L (135-145); Total Protein 6.9 g/dL (6.5-8.0); Triglycerides 298 mg/dL (<150)
[2023-04-03 18:03] LABS: TSH reflex Free T4 0.35 uIU/mL (0.32-4.0)
== END 2023-04-03 14:12 | disposition home or self-care (01) ==
LOC: HO.CHCLDS 14:11
PROVIDERS: Visit Provider Internal Medicine
DX: E11.9 Type 2 diabetes mellitus without complications (principal)
CPT/HCPCS: 36415; 80053; 80061; 84443

== ENCOUNTER 2023-05-13 13:56 | Outpatient (AMB) | payer MEDICAID, SELFPAY ==
--- NOTE | 2023-05-13 13:58 | MHC.OFFVIS ---
Intake Vital Signs 05/13/23 13:59 Height 5 ft 4 in Weight 226 lb 6.636 oz BMI 38.9 BP 130/74 Blood Pressure Location Lt brachial Position Sitting Pulse 76 Pulse Source Pulse Oximeter Intake Visit Reasons: T2DM- left v/m Intake Note: Patient present today to follow up on Type 2 Diabetes Mellitus. Last Diabetic Eye exam: 2021 Last Podiatry Visit: Doesn't have one Random Glucose: 97 mg/dl HgA1C: 6.2% Clinical Program Director Required: No Accompanied by: MANAGER DIGITAL AD OPERATIONS Allergies No Known Allergies [No Known Allergies*] Allergy (Verified 05/13/23 14:05) HPI HPI Comments History of Present Illness Details 63 YO F who is seen in consultation for T2DM at the request of PCP. Initially diagnosed with T2DM in 2006. Never seen endo before Was initially started on treatment with metformin . Current regimen metformin 500 mg BID Glucometer download shows she is checking her point cares twice a day. Average glucose is 150 with standard deviation of 23 and range of 118-206. 91% range with 9% hyperglycemia and no hypoglycemia Not Reports low sugars . Family history of T2DM in mother, aunt . Has eyes checked yearly, last eye exam Feb 2021, needs to make appt denies retinopathy. Has neuropathy, not , sees podiatry. Denies nephropathy, on LAILA/ARB. Has HLD, on statin.simvastatin but not in med list Denies CAD. Not Had diabetes education. [facility] Medical History Anemia Anxiety and depression Diabetes Dysphagia Environmental allergies Family history of colon cancer in father Generalized arthritis GERD (gastroesophageal reflux disease) High cholesterol History of cellulitis Hypothyroid Lumbar spondylosis Morbid obesity ELSIE (obstructive sleep apnea) Osteoarthritis of right knee Severe persistent asthma Synovial cyst of popliteal space [Schultz], right knee Urinary frequency Surgical History History of left hip replacement History of right hip replacement Hx of appendectomy Hx of hernia repair Hx of hysterectomy, total Family History Mother HTN (hypertension) Diabetes Skin cancer Father No problems noted. Father HTN (hypertension) Heart attack Social History Household Members: Family Alcohol intake: never Patient Tobacco Use Status: Never used Tobacco Physical Exam Vital Signs: Last Vital Signs Pulse 76 05/13/23 13:59 BP 130/74 05/13/23 13:59 BMI result Body Mass Index 38.9 Absence of Cushingoid features. Absence of acromegalic features. Neck exam reveals nl size thyroid about 15 gms. No thyroid nodules palpable. No carotid bruits present. Lungs CTA. Heart S1 S2, Reg R/R. No M/R/ G. Skin exam reveals absence of vitiligo or acanthosis nigricans. Abdominal exam reveals Soft NT/ND with NA BS. No organomegaly present. Neck Other: . Extrem Other: Visual exam of foot performed. No ulcerations or open lesions. No onchomycosis, no callouses.Pulses 2 + distally Sensation intact to monofilament exam. Vibratory sensation sensed is intact with 128 Hz tuning fork Results AMB Hemoglobin A1c AMB Hemoglobin A1c 6.2 % Last Edit by JACKSON Mead on 05/13/23 14:18 Results Reviewed Results Reviewed: Laboratory Last Values Glucose (Clinic) 97 mg/dL (60-115) 05/13/23 14:08 Assessment & Plan Assessment & Plan (1) Diabetes: Code(s): E11.9 - Type 2 diabetes mellitus without complications Plan: This 62-year-old female with history of type 2 diabetes being treated metformin, with excellent glycemic control and no known microvascular or macrovascular complications Plan is continue present treatment. At this point, patient returned to the care of her primary care provider returned back to endocrinology should her HbA1c deteriorate. Her primary care provider can reinitiate the Trulicity when is available or substitute another G LP 1 like Ozempic or Mounjaro Orders: Orders AMB Hemoglobin A1c Today E11.9 - Type 2 diabetes mellitus without complications, Z13.9 - Encounter for screening, unspecified Coding Level of Care Code Est Pt Level 4 (16025) Diagnoses Diabetes E11.9
[2023-05-13 13:59] VITALS: BP 130/74; PULSE 76; BMI 38.9
[2023-05-13 14:12] LABS: Glucose, Whole Blood 97 mg/dL (60-115)
== END 2023-05-13 14:22 | disposition home or self-care (01) ==
PROVIDERS: PCP Internal Medicine; Referring Provider Internal Medicine; Visit Provider Internal Medicine Endocrinology, Diabetes & Metabolism
DX: Z13.9 Encounter for screening, unspecified (principal); E11.9 Type 2 diabetes mellitus without complications
CPT/HCPCS: 99214

== ENCOUNTER → 2023-05-13 13:56 | Outpatient (BNVA) | payer MEDICAID, SELFPAY | PROVIDERS: PCP Internal Medicine; Visit Provider Internal Medicine Endocrinology, Diabetes & Metabolism | DX: E11.9 Type 2 diabetes mellitus without complications (principal) | CPT/HCPCS: 82947; 83036; 99212 ==

== ENCOUNTER 2023-07-18 11:30 | Outpatient (AMB) | payer MEDICAID, SELFPAY ==
--- NOTE | 2023-07-18 11:32 | MHC.OFFVIS ---
Vital Signs 07/18/23 11:34 Height 5 ft 4 in Weight 225 lb 15.581 oz BMI 38.8 BP 100/60 Blood Pressure Location Rt brachial Position Sitting Pulse 68 Pulse Source Pulse Oximeter Intake Visit Reasons: T2DM/lvm Intake Note: Patient present today to follow up on Type 2 Diabetes Mellitus. Last Diabetic Eye exam: Approx 2 years, patient is due Last Podiatry Visit: Does not see a Emergency Management Program Specialist Random Glucose: 236 mg/dl HgA1C: 6.2% 05/13/2023 Pmo Consultant Required: Yes Pmo Consultant Language: Blemish Remover Name: Diane, Medical Staff LM Accompanied by: Sister Allergies No Known Allergies [No Known Allergies*] Allergy (Verified 07/18/23 11:36) Medication List - Last Reconciled 07/18/23 by Brielle Arita PA-C acetaminophen 1,000 mg PO DAILY PRN acetaminophen-codeine 300-30 mg 1 tab PO Q8H PRN benralizumab (Fasenra) 30 mg every 4 weeks for the 1st 3 doses, then every 8 weeks, subcut; 28 days bisacodyl (Dulcolax (bisacodyl)) 10 mg (2 x 5 mg) PO BEDTIME 2 days blood sugar diagnostic (FreeStyle Lite Strips) As directed- checks 4X/day blood-glucose meter (FreeStyle [place] Lite kit) As directed cholecalciferol (vitamin D3) 25 mcg PO DAILY cholecalciferol (vitamin D3) 50 mcg PO DAILY clotrimazole 1% appl topical fluoxetine (Prozac) 20 mg PO BID fluticasone propion-salmeterol 250-50 mcg/dose (Advair Diskus) 1 ea inhalation fluticasone propion-salmeterol 500-50 mcg/dose (Advair Diskus) 1 ea inhalation tcqhevclcxh-sajujammq-vegujeni 200-62.5-25 mcg (Trelegy Ellipta) 1 inh inhalation DAILY 30 days furosemide 40 mg PO DAILY levothyroxine 50 mcg PO DAILY lidocaine 5% 0 patches topical lisinopril 5 mg PO DAILY magnesium 200 mg PO DAILY metformin 500 mg PO BID montelukast 10 mg PO BEDTIME naloxone 4 mg/actuation 0 sprays intranasal omeprazole 20 mg PO BID 30 days oxybutynin chloride 5 mg PO DAILY pantoprazole 40 mg PO BID peg 3350-electrolytes 236-22.74-6.74 -5.86 gram (Golytely) 240 mL PO Q10M 1 day sucralfate (Carafate) 2 grams (2 x 1 gram) PO .daily at 2pm 30 days tizanidine 4 mg PO Q8H PRN 30 days trazodone 150 mg PO BEDTIME PRN triamcinolone acetonide 0.1% appl topical HPI HPI T2DM/lvm: Details: Patient is a 63-year-old female with a significant past medical history of obesity, type 2 diabetes, hyperlipidemia, hypothyroidism, and hypertension presenting today for a follow-up regarding her diabetes. Her last A1c was 6.6. She is currently on metformin 500 mg twice a day. She used to be on Trulicity. She states that this is stopped because of supply issues. She wants to be on Ozempic to help with weight loss. She states that she tolerated the Trulicity well. No family history of thyroid cancer. No personal history of pancreatitis.. She checks her blood sugars. She denies any known history of nephropathy, retinopathy. She is on an LAILA-inhibitor. Her blood pressure today in the office is 100/60. She is on nothing for cholesterol at this point. She is working on her diet. She does report that sometimes she gets tingly in her feet. On exam DP pulse on left is diminished to 1+ and she does report that she does get pain in her calf with walking. She states that she will have to stop and rest and the pain resolves. Her legs are not swollen. This happens in both legs and the left is worse than the right. She states that sometimes it feels like her blood sugars are low when they are around 80. This happened at night sometimes. She would like to cut on the metformin. She states she generally takes it once a day but will sometimes take it twice a day. PENDING SALE TO [facility] Medical History Anemia Anxiety and depression Diabetes Dysphagia Environmental allergies Family history of colon cancer in father Generalized arthritis GERD (gastroesophageal reflux disease) High cholesterol History of cellulitis Hypothyroid Lumbar spondylosis Morbid obesity ELSIE (obstructive sleep apnea) Osteoarthritis of right knee Severe persistent asthma Synovial cyst of popliteal space [Schultz], right knee Urinary frequency Surgical History History of left hip replacement History of right hip replacement Hx of appendectomy Hx of hernia repair Hx of hysterectomy, total Family History Mother HTN (hypertension) Diabetes Skin cancer Father No problems noted. Father HTN (hypertension) Heart attack Social History Household Members: Family Alcohol intake: never Patient Tobacco Use Status: Never used Tobacco Physical Exam Vital Signs: BMI result Body Mass Index 38.8 Const Orientation/consciousness: patient oriented x3 HEENT Ears: hearing grossly normal bilaterally Neck Thyroid: Thyroid normal Lymphatic: no lymphadenopathy noted Resp Auscultation: clear to auscultation bilaterally Cardio Rate: regular rate Rhythm: regular rhythm Heart sounds: S1 normal heart sound present and S2 normal heart sound present Skin General skin exam: no rashes or lesions noted Neuro General: patient oriented x3, gait normal and no focal motor deficits Extrem Other: DP pulse on right 2+ and DP pulse on left 1+. Monofilament sensation intact. Vibratory sensation present but diminished. Skin intact. Results Reviewed Results Reviewed: Laboratory Tests 04/03/23 05/13/23 05/13/23 14:12 14:08 14:11 Sodium 140 Potassium 4.3 Chloride 106 Carbon Dioxide 27 Anion Gap 11 L BUN 18 H Creatinine 0.82 Estimated GFR > 60 Glucose (Clinic) 97 Hgb A1c (Clinic) 6.2 H AST 20 ALT 16 Alkaline Phosphatase 97 Triglycerides 298 H Cholesterol 203 H LDL Cholesterol, Calc 109 H HDL Cholesterol 35 L TSH 0.35 Assessment & Plan Assessment & Plan (1) Controlled type 2 diabetes mellitus: Code(s): E11.9 - Type 2 diabetes mellitus without complications Category: Medical Qualifiers: Diabetes mellitus intermodal truck driver insulin use: without intermodal truck driver use Diabetes mellitus complication status: with circulatory complication Diabetes mellitus complication detail: with other circulatory complications Qualified Code(s): E11.59 - Type 2 diabetes mellitus with other circulatory complications Plan: Will change metformin to 500 mg extended release once a day. Will start her on Ozempic. Discussed risks and benefits and adverse effects such as nausea, vomiting, increased risk of pancreatitis, gastroparesis and thyroid malignancies. We discussed diet changes as well. (2) Claudication in peripheral vascular disease: Code(s): I73.9 - Peripheral vascular disease, unspecified Category: Medical Plan: ? Vascular disease given the diminished pulse on the left. No frequent infections. She does endorse claudication symptoms. I will refer her to vascular surgery. Prefers to follow at [facility] because [place] is closer for her. (3) Peripheral sensory neuropathy due to type 2 diabetes mellitus: Code(s): E11.42 - Type 2 diabetes mellitus with diabetic polyneuropathy Category: Medical Plan: Advised to monitor her feet regularly for infections or sores. (4) Morbid obesity: Code(s): E66.01 - Morbid (severe) obesity due to excess calories Category: Medical Plan: Will try Ozempic (5) High cholesterol: Code(s): E78.00 - Pure hypercholesterolemia, unspecified Category: Medical Plan: Discussed that her triglycerides are elevated and we will possibly start medication if it does not come down with diet changes. I have ordered labs for her to complete prior to her next appointment. Patient understands and agrees with this plan. Orders: Orders Lipid Panel Today E11.9 - Type 2 diabetes mellitus without complications, E66.01 - Morbid (severe) obesity due to excess calories, E78.00 - Pure hypercholesterolemia, unspecified Comprehensive [place]. Panel Fast Today E11.9 - Type 2 diabetes mellitus without complications, E66.01 - Morbid (severe) obesity due to excess calories, E78.00 - Pure hypercholesterolemia, unspecified Hemoglobin A1c Today E11.9 - Type 2 diabetes mellitus without complications, E66.01 - Morbid (severe) obesity due to excess calories, E78.00 - Pure hypercholesterolemia, unspecified Microalbumin, Random (w Creat) Today E11.9 - Type 2 diabetes mellitus without complications, E66.01 - Morbid (severe) obesity due to excess calories, E78.00 - Pure hypercholesterolemia, unspecified Referrals Vascular Surgery Referral E11.42 - Type 2 diabetes mellitus with diabetic polyneuropathy, E11.9 - Type 2 diabetes mellitus without complications, I73.9 - Peripheral vascular disease, unspecified Medications: New semaglutide (Ozempic) for 4 weeks 0.25 mg (0.368 mL) subcut QWEEK 3 mL 2RF metformin ER 500 mg PO DAILY 90 tabs 1RF Discontinued metformin Discontinued Reason: Doctor's Order 500 mg PO BID 180 tabs 1RF E11.9 - Type 2 diabetes mellitus without complications Coding Level of Care Code Est Pt Level 4 (60041) Complex EM visit Add On G2211 Diagnoses Controlled type 2 diabetes mellitus with other circulatory complication, without long-term current use of insulin E11.59 Diabetes mellitus intermodal truck driver insulin use: without detention use Diabetes mellitus complication status: with circulatory complication Diabetes mellitus complication detail: with other circulatory complications Claudication in peripheral vascular disease I73.9 Peripheral sensory neuropathy due to type 2 diabetes mellitus E11.42 Morbid obesity E66.01 High cholesterol E78.00
[2023-07-18 11:34] VITALS: BP 100/60; PULSE 68; BMI 38.8
[2023-07-18 11:45] LABS: Glucose, Whole Blood 236 mg/dL (60-115)
== END 2023-07-18 12:10 | disposition home or self-care (01) ==
LOC: HO.ENCR 11:31
PROVIDERS: PCP Internal Medicine; Visit Provider Physician Assistant
DX: E11.59 Type 2 diabetes mellitus with other circulatory complications (principal); I73.9 Peripheral vascular disease, unspecified; E11.42 Type 2 diabetes mellitus with diabetic polyneuropathy; E66.01 Morbid (severe) obesity due to excess calories; E78.00 Pure hypercholesterolemia, unspecified
CPT/HCPCS: 99214

== ENCOUNTER → 2023-07-18 11:30 | Outpatient (BNVA) | payer MEDICAID, SELFPAY | PROVIDERS: PCP Internal Medicine; Visit Provider Physician Assistant | DX: E11.42 Type 2 diabetes mellitus with diabetic polyneuropathy (principal); E11.59 Type 2 diabetes mellitus with other circulatory complications; I73.9 Peripheral vascular disease, unspecified; E78.00 Pure hypercholesterolemia, unspecified; E66.01 Morbid (severe) obesity due to excess calories; Z68.38 Body mass index [BMI] 38.0-38.9, adult; Z79.84 Long term (current) use of oral hypoglycemic drugs | CPT/HCPCS: 82947; 99212 ==

== ENCOUNTER 2023-08-27 11:52 | Outpatient (REF) | payer MEDICAID, SELFPAY ==
[2023-08-27 14:23] LABS: Estimated Average Glucose 131 mg/dL; Hemoglobin A1c % 6.2 % (<6.0)
[2023-08-27 14:28] LABS: Alanine Aminotransferase 20 U/L (0-31); Albumin Level 4.2 g/dL (3.5-5.0); Alkaline Phosphatase 100 U/L (39-117); Anion Gap 14 (12-20); Aspartate Amino Transferase 19 U/L (5-31); Bilirubin Total 0.3 mg/dL (0.0-1.0); Blood Urea Nitrogen 17 mg/dL (9-16); Calcium 9.9 mg/dL (8.4-10.2); Carbon Dioxide 26 mmol/L (22-29); Chloride 105 mmol/L (96-108); Cholesterol 186 mg/dL (<200); Estimated Glomerular Filt Rate > 60; Glucose Fasting 106 mg/dL (60-99); HDL Cholesterol 35 mg/dL (>40); LDL Cholesterol Calculated 85 mg/dL (<100); Potassium 4.5 mmol/L (3.3-5.1); Sodium 140 mmol/L (135-145); Total Protein 6.8 g/dL (6.5-8.0); Triglycerides 333 mg/dL (<150)
[2023-08-27 14:50] LABS: Creatinine Urine 130.43 mg/dL; Microalbum/Creatinine Ratio Ur 4.6 ug/mg cr (<30)
== END 2023-08-27 11:53 | disposition home or self-care (01) ==
LOC: HO.WFDLDS 11:52
PROVIDERS: Visit Provider Physician Assistant
DX: E11.9 Type 2 diabetes mellitus without complications (principal); E66.01 Morbid (severe) obesity due to excess calories; E78.00 Pure hypercholesterolemia, unspecified
CPT/HCPCS: 36415; 80053; 80061; 82043; 82570; 83036

== ENCOUNTER 2023-08-29 10:58 | Outpatient (AMB) | payer MEDICAID, SELFPAY ==
--- NOTE | 2023-08-29 11:00 | A.OFFVIS_ITS ---
Vital Signs 08/29/23 11:02 Height 5 ft 4 in Weight 224 lb 13.944 oz BMI 38.6 BP 112/78 Blood Pressure Location Rt brachial Position Sitting Pulse 74 Pulse Source Pulse Oximeter Intake Visit Reasons: Type 2 DM/CONFIRMED Intake Note: Patient presents today for a follow-up on Type 2 Diabetes Mellitus: Last diabetic eye exam was on: DUE Last Podiatry Exam was on: DUE Most recent HbA1c: 6.2%, 08/27/2023 Random Glucose- 95 mg/dL, Today Corporate Accountant Required: Yes Corporate Accountant Language: Georgian Accompanied by: Sister Allergies No Known Allergies [No Known Allergies*] Allergy (Verified 07/18/23 11:36) Medication List - Last Reconciled 08/29/23 by Brielle Arita PA-C acetaminophen 1,000 mg PO DAILY PRN acetaminophen-codeine 300-30 mg 1 tab PO Q8H PRN benralizumab (Fasenra) 30 mg every 4 weeks for the 1st 3 doses, then every 8 weeks, subcut; 28 days bisacodyl (Dulcolax (bisacodyl)) 10 mg (2 x 5 mg) PO BEDTIME 2 days blood sugar diagnostic (FreeStyle Lite Strips) As directed- checks 4X/day blood-glucose meter (FreeStyle [place] Lite kit) As directed cholecalciferol (vitamin D3) 25 mcg PO DAILY cholecalciferol (vitamin D3) 50 mcg PO DAILY clotrimazole 1% appl topical dulaglutide (Trulicity) 0.75 mg (0.5 mL) subcut QWEEK fluoxetine (Prozac) 20 mg PO BID fluticasone propion-salmeterol 250-50 mcg/dose (Advair Diskus) 1 ea inhalation fluticasone propion-salmeterol 500-50 mcg/dose (Advair Diskus) 1 ea inhalation jvoolzovbur-ypecmagaf-momqtiae 200-62.5-25 mcg (Trelegy Ellipta) 1 inh inhalation DAILY 30 days furosemide 40 mg PO DAILY levothyroxine 50 mcg PO DAILY lidocaine 5% 0 patches topical lisinopril 5 mg PO DAILY magnesium 200 mg PO DAILY metformin ER 500 mg PO DAILY montelukast 10 mg PO BEDTIME naloxone 4 mg/actuation 0 sprays intranasal omeprazole 20 mg PO BID 30 days oxybutynin chloride 5 mg PO DAILY pantoprazole 40 mg PO BID peg 3350-electrolytes 236-22.74-6.74 -5.86 gram (Golytely) 240 mL PO Q10M 1 day sucralfate (Carafate) 2 grams (2 x 1 gram) PO .daily at 2pm 30 days tizanidine 4 mg PO Q8H PRN 30 days trazodone 150 mg PO BEDTIME PRN triamcinolone acetonide 0.1% appl topical HPI HPI Type 2 DM/CONFIRMED: Details: Patient is a 63-year-old female with a significant past medical history of obesity, type 2 diabetes, hyperlipidemia, hypothyroidism, and hypertension presenting today for a follow-up regarding her diabetes. Her last A1c was 6.2. She is currently on metformin 500 mg twice a day. She was restarted on Trulicity due to her insurance not covering the Ozempic. She states that her blood sugars have been normal at home. No hypoglycemic events. She denies any known history of nephropathy, retinopathy. She is on an LAILA- inhibitor. -at our last visit I did refer her to vascular surgery. She states that she has not yet been scheduled an appointment but she does plan to have the upcoming appointment with her PCP to further discuss. she does report that she does get pain in her calf with walking. She states that she will have to stop and rest and the pain resolves. Her legs are not swollen. This happens in both legs and the left is worse than the right. CV: Her blood pressure today in the office is 112/78. Her last labs did show that her triglycerides were elevated. She states that this has been an issue in the past and she used to be on fish oil for this. She would like to do something like this as opposed to taking a statin. [facility] Medical History (Updated 07/18/23 @ 12:16 by Brielle Arita PA-C) Peripheral sensory neuropathy due to type 2 diabetes mellitus Claudication in peripheral vascular disease Controlled type 2 diabetes mellitus Lumbar spondylosis Synovial cyst of popliteal space [Schultz], right knee History of cellulitis Osteoarthritis of right knee ELSIE (obstructive sleep apnea) Environmental allergies Family history of colon cancer in father Urinary frequency Anemia GERD (gastroesophageal reflux disease) Dysphagia Anxiety and depression High cholesterol Diabetes Severe persistent asthma Generalized arthritis Hypothyroid Morbid obesity Surgical History Hx of appendectomy Hx of hysterectomy, total History of right hip replacement History of left hip replacement Hx of hernia repair Family History Mother HTN (hypertension) Diabetes Skin cancer Father No problems noted. Father HTN (hypertension) Heart attack Social History Household Members: Family Alcohol intake: never Patient Tobacco Use Status: Never used Tobacco Physical Exam Vital Signs: Last Vital Signs Pulse 74 08/29/23 11:02 BP 112/78 08/29/23 11:02 BMI result Body Mass Index 38.6 Const Orientation/consciousness: patient oriented x3 HEENT Ears: hearing grossly normal bilaterally Neck Thyroid: Thyroid normal Lymphatic: no lymphadenopathy noted Resp Auscultation: clear to auscultation bilaterally Cardio Rate: regular rate Rhythm: regular rhythm Heart sounds: S1 normal heart sound present and S2 normal heart sound present Skin General skin exam: no rashes or lesions noted Neuro General: patient oriented x3, gait normal and no focal motor deficits Extrem Other: DP pulse on right 2+ and DP pulse on left 1+. Monofilament sensation intact. Vibratory sensation present but diminished. Skin intact. Results Reviewed Results Reviewed: Laboratory Tests 07/18/23 08/27/23 08/27/23 11:41 11:53 11:59 Sodium 140 Potassium 4.5 Chloride 105 Carbon Dioxide 26 Anion Gap 14 BUN 17 H Creatinine 0.88 Estimated GFR > 60 Glucose (Clinic) 236 H Fasting Glucose 106 H Estimat Average Glucose 131 Hemoglobin A1c % 6.2 H AST 19 ALT 20 Alkaline Phosphatase 100 Triglycerides 333 H Cholesterol 186 LDL Cholesterol, Calc 85 HDL Cholesterol 35 L Urine Creatinine 130.43 Urine Microalbumin 6.0 Microalb/Creat Ratio 4.6 Assessment & Plan Assessment & Plan (1) Controlled type 2 diabetes mellitus: Code(s): E11.9 - Type 2 diabetes mellitus without complications Category: Medical Qualifiers: Diabetes mellitus sports broadcaster insulin use: without half-way use Diabetes mellitus complication status: with circulatory complication Diabetes mellitus complication detail: with other circulatory complications Qualified Code(s): E11.59 - Type 2 diabetes mellitus with other circulatory complications Plan: Continue current regimen. Follow up in 3 months. Sooner if needed. (2) Claudication in peripheral vascular disease: Code(s): I73.9 - Peripheral vascular disease, unspecified Category: Medical Plan: Phone number to vascular surgery at [facility] provided. Patient has an upcoming appointment with her PCP to discuss this. (3) Peripheral sensory neuropathy due to type 2 diabetes mellitus: Code(s): E11.42 - Type 2 diabetes mellitus with diabetic polyneuropathy Category: Medical Plan: Stable. (4) High cholesterol: Code(s): E78.00 - Pure hypercholesterolemia, unspecified Category: Medical Plan: Will restart fish oil. Discussed with patient that she has a cup back on carbohydrates and processed foods. Will recheck in 3 months. Orders: Orders Lipid Panel 3 Months E11.42 - Type 2 diabetes mellitus with diabetic polyneuropathy, E11.59 - Type 2 diabetes mellitus with other circulatory complications, E78.00 - Pure hypercholesterolemia, unspecified, I73.9 - Peripheral vascular disease, unspecified Hemoglobin A1c Today E11.42 - Type 2 diabetes mellitus with diabetic polyneuropathy, E11.59 - Type 2 diabetes mellitus with other circulatory complications, E78.00 - Pure hypercholesterolemia, unspecified, I73.9 - Peripheral vascular disease, unspecified Medications: New omega-3 fatty acids 1,000 mg PO TID 90 days 270 caps 3RF Coding Level of Care Code Est Pt Level 4 (51903) Complex EM visit Add On G2211 Diagnoses Controlled type 2 diabetes mellitus with other circulatory complication, without long-term current use of insulin E11.59 Diabetes mellitus sports broadcaster insulin use: without half-way use Diabetes mellitus complication status: with circulatory complication Diabetes mellitus complication detail: with other circulatory complications Claudication in peripheral vascular disease I73.9 Peripheral sensory neuropathy due to type 2 diabetes mellitus E11.42 High cholesterol E78.00
[2023-08-29 11:02] VITALS: BP 112/78; PULSE 74; BMI 38.6
[2023-08-29 11:11] LABS: Glucose, Whole Blood 95 mg/dL (60-115)
== END 2023-08-29 11:27 | disposition home or self-care (01) ==
PROVIDERS: PCP Internal Medicine; Visit Provider Physician Assistant
DX: E11.59 Type 2 diabetes mellitus with other circulatory complications (principal); I73.9 Peripheral vascular disease, unspecified; E11.42 Type 2 diabetes mellitus with diabetic polyneuropathy; E78.00 Pure hypercholesterolemia, unspecified
CPT/HCPCS: 99214

== ENCOUNTER → 2023-08-29 10:58 | Outpatient (BNVA) | payer MEDICAID, SELFPAY | PROVIDERS: PCP Internal Medicine; Visit Provider Physician Assistant | DX: E11.59 Type 2 diabetes mellitus with other circulatory complications (principal); E11.42 Type 2 diabetes mellitus with diabetic polyneuropathy; I73.9 Peripheral vascular disease, unspecified; E78.00 Pure hypercholesterolemia, unspecified | CPT/HCPCS: 82947; 99212 ==

== ENCOUNTER 2023-10-06 10:35 | Outpatient (REF) | payer MEDICAID, SELFPAY ==
[2023-10-06 14:37] LABS: MANUAL DIFF FLAG NO
[2023-10-06 14:45] LABS: Basophils Percent Auto 0.5 % (0-2); Eosinophils Absolute Auto 0.1 X10*3/uL (0.0-0.4); Eosinophils Percent Auto 0.7 % (0-4); Hematocrit 40.5 % (37.0-47.0); Hemoglobin 12.9 g/dl (12.0-16.0); Imm Gran Abs Auto 0.03 X10*3/uL (0.00-0.03); Imm Gran Pct Auto 0.3 % (0.0-0.4); Lymphocytes Percent Auto 23.3 % (20-40); Mean Corpuscular HGB Conc 31.9 g/dl (31.0-35.0); Mean Corpuscular Hemoglobin 27.4 pg (27.0-33.0); Mean Corpuscular Volume 86.2 fL (80.0-98.0); Mean Platelet Volume 9.6 fL (9.4-12.3); Monocytes Absolute Auto 0.8 X10*3/uL (0.1-1.2); Monocytes Percent Auto 8.8 % (2-11); Neutrophils Absolute Auto 5.7 x10*3/uL (2.0-8.3); Neutrophils Percent Auto 66.4 % (45-73); Platelet Count 251 X10*3/uL (160-400); Red Cell Distribution Width 14.4 % (11.0-16.0); White Blood Count 8.6 X10*3/uL (4.8-10.8)
[2023-10-06 15:14] LABS: Cholesterol 225 mg/dL (<200); HDL Cholesterol 33 mg/dL (>40); TSH reflex Free T4 0.47 uIU/mL (0.32-4.0); Triglycerides 486 mg/dL (<150)
== END 2023-10-06 10:36 | disposition home or self-care (01) ==
LOC: HO.CHCLDS 10:35
PROVIDERS: Visit Provider Internal Medicine
DX: E11.9 Type 2 diabetes mellitus without complications (principal); E03.9 Hypothyroidism, unspecified; E78.00 Pure hypercholesterolemia, unspecified
CPT/HCPCS: 36415; 80061; 84443; 85025

== ENCOUNTER 2023-11-21 14:30 | Outpatient (REF) | payer MEDICAID, SELFPAY ==
[2023-11-21 17:46] LABS: Cholesterol 108 mg/dL (<200); HDL Cholesterol 35 mg/dL (>40); LDL Cholesterol Calculated 25 mg/dL (<100); Triglycerides 242 mg/dL (<150)
[2023-11-22 03:39] LABS: Estimated Average Glucose 134 mg/dL; Hemoglobin A1c % 6.3 % (<6.0); Total Hemoglobin (HGBA1C) 2840.6296 umol/L
[2023-11-24 18:43] LABS: TS Negative Control Passed; TS Panel A 0; TS Panel B 1; TS Positive Control Passed; TSpotTB Negative (Negative)
== END 2023-11-21 14:31 | disposition home or self-care (01) ==
LOC: HO.WFDLDS 14:30
PROVIDERS: Referring Provider Internal Medicine; Visit Provider Physician Assistant
DX: E11.42 Type 2 diabetes mellitus with diabetic polyneuropathy (principal); I73.9 Peripheral vascular disease, unspecified; E11.59 Type 2 diabetes mellitus with other circulatory complications; E78.00 Pure hypercholesterolemia, unspecified; Z11.1 Encounter for screening for respiratory tuberculosis
CPT/HCPCS: 36415; 80061; 83036; 86481

== ENCOUNTER 2023-11-28 10:40 | Outpatient (AMB) | payer MEDICAID, SELFPAY ==
[2023-11-28 10:51] VITALS: BP 96/64; PULSE 101; BMI 38.6
--- NOTE | 2023-11-28 10:51 | MHC.OFFVIS ---
Vital Signs 11/28/23 10:51 Height 5 ft 4 in Weight 224 lb 13.944 oz BMI 38.6 BP 96/64 Blood Pressure Location Rt brachial Position Sitting Pulse 101 H Pulse Source Pulse Oximeter Intake Visit Reasons: T2DM Intake Note: Patient present today to follow up on Type 2 Diabetes Mellitus. Last seen by Brielle RÍOS on 08/29/23. Last Diabetic Eye exam: 2 years ago Last Podiatry Visit: Doesn't have one Random Glucose: 120 mg/dl HgA1C:6.3% 11/21/2023 Box Blank Machine Feeder Required: Yes Box Blank Machine Feeder Language: Cash Specialist Services: Box Blank Machine Feeder Present Information Interpreted: non-clinical & clinical Accompanied by: BAR MACHINE OPERATOR MULTIPLE SPINDLE Allergies No Known Allergies [No Known Allergies*] Allergy (Verified 11/28/23 10:57) HPI Comments Details: Patient is a 63-year-old female with a significant past medical history of obesity, type 2 diabetes, hyperlipidemia, hypothyroidism, and hypertension presenting today for diabetic management. She is accompanied by her BAR MACHINE OPERATOR MULTIPLE SPINDLE. [place] video interpreter for the deaf use. Her hemoglobin A1c is 6.3% 11/21/2023. She is currently on metformin 500 mg ER once a day. She is on Trulicity 0.75 mg weekly. Her blood sugars have been normal at home. No hypoglycemic events. She denies any known history of nephropathy, retinopathy. LAILA inhibitor was discontinued due to low blood pressure, but she reports she is still having systolic BP in the 90s on furosemide 40 mg. Patient states this medication is managed by her PCP. She does associate low blood pressure with lightheadedness, and she is going to contact her PCP to discuss this further. She needs a new referral to vascular surgery. She had discuss this with Santi Wynn. She gets pain in her calf muscles when she walks which is alleviated by stopping. The left is worse than the right. Her legs are not swollen. We reviewed her lipid profile. LDL is at goal and her triglycerides significantly improved after starting fish oil, and she is continuing to work on her diet. ROS: Constitutional: No unexplained weight loss, fever, chills. Cardiovascular: No chest pain, chest pressure or chest discomfort. No palpitations or pedal edema. Skin: No open wounds or rashes. Endocrine: No cold or heat intolerance. No polyuria or polydipsia. Physical exam: Constitutional: Alert, in no distress. Neck: Supple, Full range of motion. No lymphadenopathy. Respiratory: Clear to auscultation. Cardiovascular: S1 S2 regular. No murmurs. Right foot: Warm and well perfused. No clubbing, cyanosis or edema. DP pulse 2+. Decreased vibratory sensation. Intact sensation to monofilament. Left foot: Warm and well perfused. No clubbing, cyanosis or edema. DP pulse 2+. Decreased vibratory sensation. Intact sensation to monofilament. [facility] Medical History (Updated 07/18/23 @ 12:16 by Brielle Arita PA-C) Peripheral sensory neuropathy due to type 2 diabetes mellitus Claudication in peripheral vascular disease Controlled type 2 diabetes mellitus Lumbar spondylosis Synovial cyst of popliteal space [Schultz], right knee History of cellulitis Osteoarthritis of right knee ELSIE (obstructive sleep apnea) Environmental allergies Family history of colon cancer in father Urinary frequency Anemia GERD (gastroesophageal reflux disease) Dysphagia Anxiety and depression High cholesterol Diabetes Severe persistent asthma Generalized arthritis Hypothyroid Morbid obesity Surgical History Hx of appendectomy Hx of hysterectomy, total History of right hip replacement History of left hip replacement Hx of hernia repair Family History Mother HTN (hypertension) Diabetes Skin cancer Father No problems noted. Father HTN (hypertension) Heart attack Social History Household Members: Family Alcohol intake: never Patient Tobacco Use Status: Never used Tobacco Physical Exam Vital Signs: Last Vital Signs Pulse 101 H 11/28/23 10:51 BP 96/64 11/28/23 10:51 BMI result Body Mass Index 38.6 Results Reviewed Results Reviewed: Laboratory Last Values Glucose (Clinic) 120 mg/dL (60-115) H 11/28/23 11:00 Assessment & Plan Assessment & Plan (1) Controlled type 2 diabetes mellitus: Code(s): E11.9 - Type 2 diabetes mellitus without complications Category: Medical Qualifiers: Diabetes mellitus shelter insulin use: without supervisor intermediates use Diabetes mellitus complication status: with circulatory complication Diabetes mellitus complication detail: with other circulatory complications Qualified Code(s): E11.59 - Type 2 diabetes mellitus with other circulatory complications (2) Claudication in peripheral vascular disease: Code(s): I73.9 - Peripheral vascular disease, unspecified Category: Medical Plan In summary this is a 63-year-old female with controlled type 2 diabetes with claudication symptoms. Continue current regimen of metformin and Trulicity. Compliant with home glucose monitoring. She is overdue for an eye exam. She is referred. Referred anew to vascular surgery at [facility]. Follow up in 3 months for type 2 diabetes. Orders: Referrals Vascular Surgery Referral I73.9 - Peripheral vascular disease, unspecified Medications: Refilled metformin ER 500 mg PO DAILY 90 tabs 1RF dulaglutide (Trulicity) 0.75 mg (0.5 mL) subcut QWEEK 2 mL 5RF Coding Level of Care Code Est Pt Level 4 (18475) Complex EM visit Add On G2211 Diagnoses Controlled type 2 diabetes mellitus with other circulatory complication, without long-term current use of insulin E11.59 Diabetes mellitus shelter insulin use: without supervisor intermediates use Diabetes mellitus complication status: with circulatory complication Diabetes mellitus complication detail: with other circulatory complications Claudication in peripheral vascular disease I73.9
[2023-11-28 11:04] LABS: Glucose, Whole Blood 120 mg/dL (60-115)
== END 2023-11-28 11:38 | disposition home or self-care (01) ==
PROVIDERS: PCP Internal Medicine; Visit Provider Physician Assistant Medical
DX: E11.59 Type 2 diabetes mellitus with other circulatory complications (principal); I73.9 Peripheral vascular disease, unspecified
CPT/HCPCS: 99214

== ENCOUNTER → 2023-11-28 10:40 | Outpatient (BNVA) | payer MEDICAID, SELFPAY | PROVIDERS: PCP Internal Medicine; Visit Provider Physician Assistant Medical | DX: E11.59 Type 2 diabetes mellitus with other circulatory complications (principal); I73.9 Peripheral vascular disease, unspecified | CPT/HCPCS: 82947; 99212 ==

== ENCOUNTER 2023-12-11 13:58 | Outpatient (AMB) | payer MEDICAID, SELFPAY ==
--- NOTE | 2023-12-11 14:02 | A.OFFVIS_ITS ---
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 She has pain in her left leg and varicose veins. Non smoker. Patient is diabetic. 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 Mel is a pleasant 63-year-old female patient presenting from her veterinary surgery technician for claudication. States this has been going on for approximately 2 years now. She has a lengthy history of diabetes and currently takes oral medications for it. She does take Trulicity as well. She has a nonsmoker. Complaints include pain over varicos ities especially with palpation, swelling of lower extremities, cramping, fatigue, and heaviness of the lower extremities. It has been affecting their daily activities including walking and standing. It is noted more so in left leg. She does utilize a walker, not in the house, for bilateral hip pain. She also endorses some numbness and tingling particularly in the left lower extremity. Patient denies any previous venous surgery or injections. Patient denies any history of DVT/ PE. Patient denies any history of phlebitis. Trial of compression includes - some elevation, no compression stockings They now present for vascular evaluation regarding their varicose veins. [facility] Medical History Peripheral sensory neuropathy due to type 2 diabetes mellitus Claudication in peripheral vascular disease Controlled type 2 diabetes mellitus Lumbar spondylosis Synovial cyst of popliteal space [Schultz], right knee History of cellulitis Osteoarthritis of right knee ELSIE (obstructive sleep apnea) Environmental allergies Family history of colon cancer in father Urinary frequency Anemia GERD (gastroesophageal reflux disease) Dysphagia Anxiety and depression High cholesterol Diabetes Severe persistent asthma Generalized arthritis Hypothyroid Morbid obesity Surgical History Hx of appendectomy Hx of hysterectomy, total History of right hip replacement History of left hip replacement Hx of hernia repair Family History Mother HTN (hypertension) Diabetes Skin cancer Father No problems noted. Father HTN (hypertension) Heart attack Social History Household Members: Family Alcohol intake: never Patient Tobacco Use Status: Never used Tobacco Review of Systems Const Reports as per HPI and Denies weakness ENT Reports Normal hearing present and Denies dizziness Card Reports as per HPI, Denies chest pain, Denies chest pain at rest, Denies chest pain with activity, Denies dyspnea and Denies dyspnea on exertion Resp Reports as per HPI, Denies cough, Denies dyspnea and Denies dyspnea on exertion GI Reports as per HPI, Denies abdominal pain, Denies nausea and Denies vomiting Musc Denies numbness Skin/Breast Reports as per HPI, Denies erythema and Denies wounds Neuro Reports Normal hearing present, Denies dizziness, Denies numbness, Denies Sensory deficit (Neuro) and Denies weakness Psych Reports no additional complaints Endo Reports no additional complaints Physical Exam Const General: healthy appearing and no acute distress Orientation/consciousness: patient oriented x3 HEENT Head: Yes normal to inspection Ears: hearing grossly normal bilaterally Mouth: Normal oral and palatal mucosa present Resp Effort & Inspection: normal respiratory effort and able to speak in complete sentences Auscultation: clear to auscultation bilaterally Cardio Jugular venous distension: no JVD Rate: regular rate Rhythm: regular rhythm Heart sounds: S1 normal heart sound present and S2 normal heart sound present Bruits: no abdominal aortic bruits, no carotid bruits, no femoral bruits and no renal bruits Peripheral pulses: Peripheral pulses 2+ throughout GI Inspection: Yes normal to inspection Palpation (GI): No Abdominal aortic bruit present Skin General skin exam: no rashes or lesions noted Wounds: no wounds Hair: normal Neuro General: patient oriented x3 Cranial nerves: Yes Normal hearing present Cognition (Neuro): normal cognition Gait exam (Neuro): Normal gait present Motor exam (neuro): 5/5 motor strength present throughout Sensory Exam: No Sensory deficit (Neuro) Extrem Other: Bilateral lower extremities: Trace peripheral edema noted. Palpable DP pulses. Tortuosity noted left lower extremity from the tibial tuberosity anteriorly to just below mid hensley. CEAP: C - 3 E - primary A - superficial P - reflux General: Yes normal to inspection, Yes full ROM, Yes capillary refill normal and Yes normal gait Assessment & Plan Assessment & Plan (1) Varicose veins of both lower extremities with inflammation: Code(s): I83.11 - Varicose veins of right lower extremity with inflammation; I83.12 - Varicose veins of left lower extremity with inflammation Category: Medical Plan: Morelia gimenez as an social media director. Mel is a pleasant 63-year-old Persian- speaking only female presenting for claudication concerns from a going on for approximately 2 years now. In short, the patient has evidence of venous insufficiency. I have discussed the pathophysiology with the patient. In addition I have provided informational material regarding venous disease to the patient. We have discussed conservative measures including compression, elevation, and exercise. I have also provided a handout regarding appropriate use of compression stockings and where to purchase good compression stockings as well. I have taken the liberty of ordering venous insufficiency testing with the patient. They will follow up with me after testing. The patient had an opportunity to ask questions regarding the treatment plan. All questions were answered. No major barriers to understanding were identified. The patient expressed understanding and agreement with the above treatment plan. The patient is aware they should contact our office by phone for worsening of the current condition or the appearance of new symptoms. Thank you for allowing me to participate in the vascular care of this patient. If you have any questions or concerns regarding the treatment for the above condition please do not hesitate to contact me. The office telephone contact is [phone]. This note is constructed using voice recognition software. While every effort has been made to ensure accuracy, pile fabric knitter errors may have been included. Thank you for allowing me to participate in the care of your patient. Yours sincerely, KHUSHBU Mcclelland Orders: Orders US venous duplex LE BI 1 Week I83.11 - Varicose veins of right lower extremity with inflammation, I83.12 - Varicose veins of left lower extremity with inflammation Coding Level of Care Code New Pt New Pt Level 4 (22569) Patient Type New Diagnoses Varicose veins of both lower extremities with inflammation I83.11; I83.12
== END 2023-12-11 14:31 | disposition home or self-care (01) ==
LOC: HO.HVS 13:58
PROVIDERS: PCP Internal Medicine; Visit Provider Physician Assistant Surgical
DX: I83.11 Varicose veins of right lower extremity with inflammation (principal); I83.12 Varicose veins of left lower extremity with inflammation
CPT/HCPCS: 99204

== ENCOUNTER → 2023-12-11 13:58 | Outpatient (BNVA) | payer MEDICAID, SELFPAY | PROVIDERS: PCP Internal Medicine; Visit Provider Physician Assistant Surgical | DX: I83.11 Varicose veins of right lower extremity with inflammation (principal); I83.12 Varicose veins of left lower extremity with inflammation | CPT/HCPCS: 99212 ==

== ENCOUNTER 2023-12-31 12:41 | Outpatient (REF) | payer MEDICAID, SELFPAY | END 2023-12-31 12:42 | disposition home or self-care (01) | LOC: HO.US 12:41 | PROVIDERS: PCP Internal Medicine; Visit Provider Physician Assistant Surgical | DX: I83.11 Varicose veins of right lower extremity with inflammation (principal); I83.12 Varicose veins of left lower extremity with inflammation | CPT/HCPCS: 93970 ==

== ENCOUNTER 2024-01-19 14:26 | Outpatient (REF) | payer MEDICAID, SELFPAY ==
--- NOTE | ~2024-01-19 | MM_ITS ---
EXAMINATION: MM SCREENING DIGITAL BREAST TOMOSYNTHESIS, BILATERAL CLINICAL INFORMATION: Screening. Asymptomatic. COMPARISON: Mammography: Comparison is made with available priors TECHNIQUE: Digital breast mammography with tomosynthesis is performed in both the craniocaudal and mediolateral oblique views along with computer-aided detection (CAD). FINDINGS: There are scattered areas of fibroglandular density (ACR BI-RADS breast composition Category b). There are no significant masses, abnormal calcifications, or other abnormalities. MM/MM tomosynthesis screening BI IMPRESSION: No mammographic evidence of malignancy. ASSESSMENT: BI-RADS BI-RADS 1 - Negative RECOMMENDATION: Routine annual mammography screening. 1 year F/U This examination should not preclude the clinical evaluation of a suspicious palpable abnormality. This patient's information was entered into a reminder system with a target due date for their next mammogram. Electronically signed by: Larissa Ware DO 01/23/2024 05:40 PM ZOHREH
== END 2024-01-19 14:27 | disposition home or self-care (01) ==
LOC: HO.MAMMO 14:26
PROVIDERS: PCP Internal Medicine; Visit Provider Internal Medicine
DX: Z12.31 Encounter for screening mammogram for malignant neoplasm of breast (principal)
CPT/HCPCS: 77063; 77067

== ENCOUNTER → 2024-01-19 15:15 | Outpatient (BNV) | payer MEDICAID, SELFPAY | PROVIDERS: PCP Internal Medicine; Visit Provider Internal Medicine | DX: Z12.31 Encounter for screening mammogram for malignant neoplasm of breast (principal) | CPT/HCPCS: 77063; 77067 ==

== ENCOUNTER 2024-01-22 13:58 | Outpatient (AMB) | payer MEDICAID, SELFPAY ==
--- NOTE | 2024-01-22 14:15 | MHC.OFFVIS ---
Vital Signs 01/22/24 14:16 Height 5 ft 4 in Weight 224 lb BMI 38.4 Intake Visit Reasons: follow up s/p US 12/31/23 Intake Note: follow up US 12/31/23 for Left LE pain more than Right LE w/ some large painful VV on the Left LE w/ some discoloration Allergies No Known Allergies [No Known Allergies*] Allergy (Verified 01/22/24 14:18) HPI HPI follow up s/p US 12/31/23: Details: Very pleasant 63-year-old female presents for evaluation regarding venous disease. She was sent in by endocrine. She noted swelling and discomfort of the legs in particular the left lateral aspect of the legs where she had some varicosities which have been a source of pain and discomfort for her. She now presents for follow-up with venous insufficiency testing. [facility] Medical History Peripheral sensory neuropathy due to type 2 diabetes mellitus Claudication in peripheral vascular disease Controlled type 2 diabetes mellitus Lumbar spondylosis Synovial cyst of popliteal space [Schultz], right knee History of cellulitis Osteoarthritis of right knee ELSIE (obstructive sleep apnea) Environmental allergies Family history of colon cancer in father Urinary frequency Anemia GERD (gastroesophageal reflux disease) Dysphagia Anxiety and depression High cholesterol Diabetes Severe persistent asthma Generalized arthritis Hypothyroid Morbid obesity Surgical History Hx of appendectomy Hx of hysterectomy, total History of right hip replacement History of left hip replacement Hx of hernia repair Family History Mother HTN (hypertension) Diabetes Skin cancer Father No problems noted. Father HTN (hypertension) Heart attack Social History Household Members: Family Alcohol intake: never Patient Tobacco Use Status: Never used Tobacco Review of Systems Const Reports as per HPI ENT Reports no additional complaints Card Denies chest pain, Denies chest pain at rest and Denies chest pain with activity Resp Denies chest congestion and Denies cough GI Reports no additional complaints Musc Details: pain over varicosities, aching of lower extremities, swelling, cramping, heaviness and tiredness, itching Denies abnormal gait Skin/Breast Reports pruritus and Denies wounds Neuro Reports no additional complaints and Denies abnormal gait Psych Denies no additional complaints Physical Exam Vital Signs: BMI result Body Mass Index 38.4 Const General: cooperative, healthy appearing and comfortable Orientation/consciousness: oriented to person, oriented to place and oriented to time Neck Carotids: no bruits Chest Chest palpation & inspection: normal inspection of the chest and normal palpation of entire chest wall Resp Effort & Inspection: normal respiratory effort and able to speak in complete sentences Cardio Rate: regular rate Heart sounds: S1 normal heart sound present and S2 normal heart sound present Peripheral pulses: Peripheral pulses 2+ throughout GI Inspection: Yes normal to inspection Skin Other: +2 edema, large rope-like varicosities greater than 4 mm on left lateral leg CEAP Classification C4 - skin color changes Ep - Etiology Primary As - superficial veins P - reflux General skin exam: dry skin Neuro General: oriented to person, oriented to place and oriented to time Extrem Right lower extremity: full ROM, normal capillary refill and edema Left lower extremity: full ROM, normal capillary refill and edema Psych Mental Status: mental status grossly normal Results Reviewed Results Reviewed: Brief summary of venous insufficiency testing is as follows: right great saphenous vein: negative right small saphenous vein: negative right accessory vein: none present left great saphenous vein: negative left small saphenous vein: negative left accessory vein: none present Please note there is no evidence of any venous aneurysms or significant tortuosity Assessment & Plan Assessment & Plan (1) Varicose veins of left lower extremity with inflammation: Code(s): I83.12 - Varicose veins of left lower extremity with inflammation Category: Medical Plan: This patient has varicose veins with inflammation. They continue to be a source of discomfort for the patient. The patient has tried conservative treatment with compression, leg elevation and exercise program for over 3 months time. They have been compliant with all treatment. This has provided minimal relief for the patient. I do not anticipate this course of treatment will alter the underlying etiology. The patient has been scheduled for lower extremity venous treatment inclusive of --- left leg microphlebectomy. Risks, benefits, and complications of this procedure has been discussed in detail with the patient including but not limited to bleeding, infection, and the development of a DVT. The patient has demonstrated a clear understanding and has consented. We will schedule the patient as soon as possible. Thank you for allowing us to participate in this patient's care. If there are any questions or concerns please do not hesitate to contact us. Coding Level of Care Code Est Pt Level 4 (44807) Diagnoses Varicose veins of left lower extremity with inflammation I83.12
[2024-01-22 14:16] VITALS: BMI 38.4
== END 2024-01-22 14:34 | disposition home or self-care (01) ==
PROVIDERS: PCP Internal Medicine; Visit Provider Surgery Vascular Surgery
DX: I83.12 Varicose veins of left lower extremity with inflammation (principal)
CPT/HCPCS: 99214

== ENCOUNTER → 2024-01-22 13:58 | Outpatient (BNVA) | payer MEDICAID, SELFPAY | PROVIDERS: PCP Internal Medicine; Visit Provider Surgery Vascular Surgery | DX: I83.12 Varicose veins of left lower extremity with inflammation (principal) | CPT/HCPCS: 99212 ==

== ENCOUNTER 2024-03-02 12:43 | Outpatient (AMB) | payer MEDICAID, SELFPAY ==
--- NOTE | 2024-03-02 12:50 | A.OFFVIS_ITS ---
Vital Signs 03/02/24 12:56 Height 5 ft 4 in Weight 232 lb 12.93 oz BMI 40.0 BP 110/62 Blood Pressure Location Rt brachial Position Sitting Pulse 87 Pulse Source Pulse Oximeter Intake Visit Reasons: DM Intake Note: Patient present today to follow up on Type 2 Diabetes Mellitus. Last Diabetic Eye exam: Due, more than 1 year Last Podiatry Visit: Doesn't see a Account Manager Relief Random Glucose: 106 mg/dl HgA1C: 7.0% 03/02/2024 Composite Bond Worker Required: Yes Composite Bond Worker Language: Pack Worker Supervisor Services: Composite Bond Worker Offered & Declined Information Interpreted: non-clinical & clinical Accompanied by: AIR DEFENSE SPECIALIST Allergies No Known Allergies [No Known Allergies*] Allergy (Verified 03/02/24 12:57) HPI Comments Details: Patient is a 64-year-old female with a significant past medical history of obesity, type 2 diabetes, hyperlipidemia, hypothyroidism, and hypertension presenting today for diabetic management. She is accompanied by her AIR DEFENSE SPECIALIST. Glucometer download dated February 16 through March 02: Average glucose 150 1.9 readings per day Highest to 216 Lowest 117 Target range 85% Her hemoglobin A1c is 7% today 03/02/2024. Hemoglobin A1c was 6.3% 11/21/2023. She has not changed her diet, but she has noticed some higher sugars in the evening at times. She likes to snack on bananas. Current regimen: Metformin 500 mg extended release once a day, Trulicity 0.75 mg weekly. Hypoglycemia: None Complications: PVD, neuropathy She is overdue for her eye exam. ROS: Constitutional: No unexplained weight loss, fever, chills. Cardiovascular: No chest pain, chest pressure or chest discomfort. No palpitations or pedal edema. Skin: No open wounds or rashes. Endocrine: No cold or heat intolerance. No polyuria or polydipsia. Physical exam: Constitutional: Alert, in no distress. Neck: Supple, Full range of motion. No lymphadenopathy. Respiratory: Clear to auscultation. Cardiovascular: S1 S2 regular. No murmurs. Right foot: Warm and well perfused. No clubbing, cyanosis or edema. DP pulse 2+. Decreased vibratory sensation. Intact sensation to monofilament. No open wounds. Left foot: Warm and well perfused. No clubbing, cyanosis or edema. DP pulse 2+. Decreased vibratory sensation. Intact sensation to monofilament. No open wounds. PFSH Medical History Peripheral sensory neuropathy due to type 2 diabetes mellitus Claudication in peripheral vascular disease Controlled type 2 diabetes mellitus Lumbar spondylosis Synovial cyst of popliteal space [Schultz], right knee History of cellulitis Osteoarthritis of right knee ELSIE (obstructive sleep apnea) Environmental allergies Family history of colon cancer in father Urinary frequency Anemia GERD (gastroesophageal reflux disease) Dysphagia Anxiety and depression High cholesterol Diabetes Severe persistent asthma Generalized arthritis Hypothyroid Morbid obesity Surgical History Hx of appendectomy Hx of hysterectomy, total History of right hip replacement History of left hip replacement Hx of hernia repair Family History Mother HTN (hypertension) Diabetes Skin cancer Father No problems noted. Father HTN (hypertension) Heart attack Social History Household Members: Family Alcohol intake: never Patient Tobacco Use Status: Never used Tobacco Physical Exam Vital Signs: Last Vital Signs Pulse 87 03/02/24 12:56 BP 110/62 03/02/24 12:56 BMI result Body Mass Index 40.0 Results AMB Hemoglobin A1c AMB Hemoglobin A1c 7.0 % Last Edit by JACKSON Odell on 02/11 03/06 13:14 Results Reviewed Results Reviewed: Laboratory Last Values Glucose (Clinic) 106 mg/dL (60-115) 03/02/24 13:02 Laboratory Tests 08/27/23 08/27/23 10/06/23 11:53 11:59 10:57 Creatinine 0.88 Estimated GFR > 60 Hemoglobin A1c % AST 19 ALT 20 Triglycerides Cholesterol LDL Cholesterol, Calc HDL Cholesterol TSH 0.47 Urine Creatinine 130.43 Urine Microalbumin 6.0 Microalb/Creat Ratio 4.6 11/21/23 14:31 Creatinine Estimated GFR Hemoglobin A1c % 6.3 H AST ALT Triglycerides 242 H Cholesterol 108 LDL Cholesterol, Calc 25 HDL Cholesterol 35 L TSH Urine Creatinine Urine Microalbumin Microalb/Creat Ratio Assessment & Plan Assessment & Plan (1) Controlled type 2 diabetes mellitus: Code(s): E11.9 - Type 2 diabetes mellitus without complications Category: Medical Qualifiers: Diabetes mellitus longterm insulin use: without intermediate designer use Diabetes mellitus complication status: with circulatory complication Diabetes mellitus complication detail: with other circulatory complications Qualified Code(s): E11.59 - Type 2 diabetes mellitus with other circulatory complications Plan In summary this is a 63-year-old female with type 2 diabetes. Hemoglobin A1c increased from 6.3% to 7% with a goal of less than 7% so we will increase metformin from 500 to 750 mg extended release once daily. Continue Trulicity 0.75 mg weekly. She will work on lifestyle modifications. Discussed her diet. She declined referral to dietitian, but she will try to decrease some of the sources of carbohydrates and sugars. Compliant with home glucose monitoring. She will schedule the eye exam. Follow up in 3 months for type 2 diabetes. Orders: Orders AMB Hemoglobin A1c Today E11.42 - Type 2 diabetes mellitus with diabetic polyneuropathy Medications: New metformin ER Replaces Metformin ER 500 mg daily. 750 mg PO DAILY 90 tabs 1RF Discontinued metformin ER Discontinued Reason: Doctor's Order 500 mg PO DAILY 90 tabs 1RF Coding Level of Care Code Est Pt Level 4 (47168) Complex EM visit Add On G2211 Diagnoses Controlled type 2 diabetes mellitus with other circulatory complication, without long-term current use of insulin E11.59 Diabetes mellitus intermediate designer insulin use: without intermediate designer use Diabetes mellitus complication status: with circulatory complication Diabetes mellitus complication detail: with other circulatory complications
[2024-03-02 12:56] VITALS: BP 110/62; PULSE 87; BMI 40.0
[2024-03-02 13:07] LABS: Glucose, Whole Blood 106 mg/dL (60-115)
--- OUTSIDE RECORDS SUMMARY | 2024-03-02 14:17 | XMS_ITS | Clinical Summary ---
Author Organization [employer] Address [address] [facility] [address] [place] [address] Care Team Providers Care Radiation Protection Technician Name Role Phone Benjamin Ireland MD Primary Care Provider [phone] Allergies No known active allergies Medications * This document contains information received from the source organization and may not represent a complete record from that organization. Spacer/Aero-Holdi ng Chambers device Inhale. 020 Active albuterol 108 (90 Base) MCG/ACT inhaler Inhale 2 puffs. 020 Active benzonatate (Tessalon) 100 MG capsule Take 1 capsule by mouth. 3 times every day 022 Active cetirizine (ZyrTEC) 10 MG tablet Take 1 tablet by mouth. 2 times daily 022 Active fluticasone (Flonase) 50 MCG/ACT nasal spray spray 1 spray by intranasal route every day in each nostril 022 Active Multiple Vitamins-Iron (One-Daily/Iron) tablet 1 tab a day 019 Active naloxone (Narcan) 4 mg/0.1 mL nasal spray Administer 0.1 mL into affected nostril(s). 022 Active tolterodine (Detrol) 2 MG tablet Take 1 tablet by mouth. 2 times every day 021 Active Blood Glucose Monitoring Suppl (FreeStyle Lite) device Inject under the skin if needed. Use as instructed Active Elastic Bandages & Supports (Medical Compression Socks) misc Size X-large Activ e FreeStyle lancetsIndication s:Type 2 diabetes mellitus without complication, without long-term current use of insulin (CMS/HCC) 1 each by Other route in the morning. 28 gauge. Use as instructed 100 each 023 Active magnesium 200 MG tabletIndications :Hypomagnesemia Take 1 tablet by mouth daily 90 tablet 1 023 Active Januvia 100 MG tabletIndications :Type 2 diabetes mellitus without complication, without long-term current use of insulin (CMS/HCC) TOME EULALIA HORTONA TODOS LOS ZAPIEN 90 tablet 1 023 Active lidocaine (Lidoderm) 5 % patchIndications: Back pain, unspecified back location, unspecified back pain laterality, unspecified chronicity Apply 1 patch topically in the morning. Remove & discard patch within 12 hours or as directed by MD. 30 patch 11 023 Active triamcinolone (Kenalog) 0.1 % creamIndications: Diabetic necrobiosis lipoidica (CMS/HCC) Apply topically if needed in the morning and at bedtime (pain and swelling). 30 g 2 023 Active Advair Diskus 250-50 MCG/ACT aerosol powderIndications :Moderate persistent allergic asthma INHALE 1 PUFF BY MOUTH 2 TIMES EVERY DAY APPROXIMATELY 12 HOURS APART AT THE SAME TIMES EACH DAY 60 each 5 023 Active Acetaminophen Extra Strength 500 MG tabletIndications :Body aches TAKE 2 TABLETS (1,000 MG) BY MOUTH IF NEEDED EACH DAY FOR MILD PAIN. 60 tablet 023 Active Advair Diskus 500-50 MCG/ACT aerosol powderIndications :Unspecified asthma with (acute) exacerbation INHALE 1 DOSE BY MOUTH TWICE DAILY 12 HOURS APART. RINSE MOUTH AFTER USE 60 each 5 023 Active oxybutynin (Ditropan) 5 MG tabletIndications :Stress incontinence of urine TAKE 1 TABLET BY MOUTH EVERY DAY 90 tablet 1 024 Active FREESTYLE LITE test stripIndications: Type 2 diabetes mellitus without complication, without long-term current use of insulin (CMS/HCC) USE 1 EACH BY OTHER ROUTE 1 (ONE) TIME EACH DAY AT THE SAME TIME. 100 strip 11 024 Active mirtazapine (Remeron SolTab) 15 MG disintegrating tabletIndications :Other depression Take 1 tablet (15 mg) by mouth at bedtime. 30 tablet 024 Active rosuvastatin (Crestor) 40 MG tabletIndications :Hypercholesterol emia Take 1 tablet (40 mg) by mouth Once per day. daily 90 tablet 3 024 Active traZODone (Desyrel) 150 MG tabletIndications :Primary insomnia TOME DOS TABLETAS POR VIA ORAL TODOS LOS ZAPIEN AL ACOSTARSE 180 tablet 1 Active albuterol (5 MG/ML) 0.5% nebulizer solution TAKE 0.5 ML VIA NEBULIZER EVERY 6 HOURS. BY NEBULIZATION ROUTE 3 TIMES EVERY DAY 20 mL 3 024 Active predniSONE (Deltasone) 20 MG tabletIndications :Moderate persistent asthma with exacerbation,Acut e cough 2 tabs once a day 10 tablet 024 Active albuterol (2.5 MG/3ML) 0.083% nebulizer solutionIndicatio ns:Moderate persistent asthma with exacerbation,Acut e cough Take 3 mL (2.5 mg) by nebulization every 6 (six) hours if needed for wheezing. 75 mL 11 024 2024 Active omeprazole (PriLOSEC) [address] capsuleIndication s:Gastroesophagea l reflux disease without esophagitis TAKE 1 CAPSULE BY MOUTH EVERY MORNING 90 capsule 3 024 Active cholecalciferol VITAMIN D (Vitamin D-3) 50 MCG (1999 UT) capsuleIndication s:Vitamin D deficiency TAKE 1 CAPSULE BY MOUTH EVERY DAY 90 capsule 3 024 Active cyclobenzaprine (Flexeril) 10 MG tablet Take 1 tablet (10 mg) by mouth 3 times daily for 10 days. 30 tablet 024 Active acetaminophen-cod eine (Tylenol w/ Codeine #3) 300-30 MG tabletIndications :Chronic pain syndrome Take 1 tablet by mouth every 8 (eight) hours. As needed 84 tablet 025 Active FLUoxetine (PROzac) 20 MG capsule TAKE 2 CAPSULES BY MOUTH EVERY MORNING 180 capsule 1 025 Active levothyroxine (Synthroid, Levoxyl) 50 MCG tabletIndications :Other specified hypothyroidism TAKE 1 TABLET BY MOUTH EVERY DAY 90 tablet 1 025 Active guaiFENesin (Mucinex) 600 MG 12 hr tabletIndications :Acute cough Take 2 tablets (1,200 mg) by mouth 2 times daily. Do not crush, chew, or split. 120 tablet 11 024 2024 levothyroxine (Synthroid, Levoxyl) 50 MCG tabletIndications :Other specified hypothyroidism TAKE 1 TABLET BY MOUTH EVERY DAY 90 tablet 1 024 2024 Discontinued FLUoxetine (PROzac) 20 MG capsule TAKE 2 CAPSULES BY MOUTH EVERY MORNING 180 capsule 1 024 2024 Discontinued acetaminophen-cod eine (Tylenol w/ Codeine #3) 300-30 MG tabletIndications :Chronic pain syndrome Take 1 tablet by mouth every 8 (eight) hours. As needed 84 tablet 024 2024 Discontinued(R eorder (will not trigger notification to Pharmacy)) Active Problems Problem Noted Date Diagnosed Date Moderate episode of recurrent major depressive d isorder 10/06/2023 Uncomplicated bereavement 10/06/2023 Cough 07/19/2021 Dyspeptic diarrhea 05/17/2021 Idiopathic osteoarthritis 05/17/2021 Sleep apnea 04/05/2021 Moderate persistent allergic asthma 03/01/2021 Hypercholesterolemia 02/04/2021 Cramp of both lower extremities 01/31/2021 Symptom of diarrhea 01/31/2021 Mixed stress and urge urinary incontinence 03/01 Chronic pain syndrome 03/07/2017 Hypothyroidism 02/05/2017 Mixed anxiety and depressive disorder 02/05/2017 Obesity 02/05/2017 Type 2 diabetes mellitus 03/08/2006 Encounters Date Type Department Care Team Description 03/02/2024 Orders Only GENERIC EXTERNAL DATA DEPARTMENT Provider, Generic External Data 02/24/2024 Refill [facility] [address] [place] [address] Benjamin Ireland MD Other specified hypothyroidism 02/23/2024 Refill [facility] [address] [place] [address] Benjamin Ireland MD Chronic pain syndrome 01/27/2024 Refill [facility] [address] [place], [place] [phone] Benjamin Ireland MD Chronic pain syndrome 01/20/2024 3:15 PM EST Office Visit [facility] [address] [place] [address] Saad Shankar MD Bronchitis (Primary Dx); Cough, unspecified type; Muscle spasm 01/20/2024 Travel 01/19/2024 Orders Only [facility] [address] [place] [address] Benjamin Ireland MD 01/16/2024 Telephone [facility] [address] [place] [phone] Benjamin Ireland MD Nurse Triage 01/15/2024 Telephone [facility] [address] [place] [address] Benjamin Ireland MD No Show 12/31/2023 Orders Only [facility] External Provider, [facility] 12/30/2023 10:30 AM EST Telemedicine [facility] [address] [place] [address] Marya Montero RN Chronic pain syndrome 12/30/2023 Refill [facility] [address] [place] [address] Marya Montero RN Chronic pain syndrome 12/30/2023 Travel 12/11/2023 Refill [facility] [address] [place] [address] Benjamin Ireland MD Vitamin D deficiency 12/04/2023 Refill [facility] [address] [place] [address] Benjamin Ireland MD Chronic pain syndrome 12/03/2023 Telephone [facility] [address] [place] [phone] Benjamin Ireland MD Durable Medical Equipment from Last 3 Months Immunizations Name Administration Dates Next Due Influenza injectable quadriv alent IIV4 with preservative 02/05/2017 Influenza injectable quadriv alent preservative free 12/25/2022,02/14/2022,01/16/2021 Moderna Covid-19 Vaccine 12+ 05/26/2020,04/29/19 21 Pneumococcal Conjugate PCV 20 04/03/2023 Tdap 01/22/2019 Zoster, Recombinant 03/30/2019,01/22/2019 Social History Tobacco Use Types Packs/Day Years Used Date Smoking Tobacco: Never Smokeless Tobacco: Never Tobacco Cessation:Counseling Given: Not Answered Depression Answer Date Recorded Patient Health Questionnaire-9 Score 15 10/06/2023 Patient Health Questionnaire-9 Score 15 10/06/2023 Last PHQ-9: Questionnaire Data Not on file 0 10/06/2023 Housing Stability Answer Date Recorded What is your housing situation today? I have flavia obregon 03/27/[address] you li ve. Do you have problems with any of the following? None of the above 03/27/2023 Food Insecurity Answer Date Recorded Within the past 12 months, y ou worried that your food would run out before you got money to buy more: Never True 03/27/2023 Within the past 12 months,th e food you bought just didn't last and you didn't have enough money to get more: Never True Transportation Answer Date Recorded In the past 12 months, has l ack of transportation kept you from medical appts, meetings, work or from getting things needed for daily living? No 03/27/2023 Utilities Answer Date Recorded In the past 12 months, has t he electric, gas, oil or water company threatened to shut off services in your home? No 03/27/2023 Depression Answer Date Recorded Patient Health Questionnaire-2 Score 6 10/06/2023 Comments Unknown Sex and Gender Information Value Date Recorded Sex Assigned at Female 12/10/2021 10:32 AM EDT Legal Sex Female 10:32 AM EDT Gender Identity Choose not to disclose 10:32 AM EDT Sexual Orientation Choose not to disclose 2021 10:32 AM EDT Last Filed Vital Signs Vital Sign Reading Time Taken Comments Blood Pressure 98/59 01/20/2024 3:20 PM EST Pulse 74 01/20/2024 3:20 PM EST Temperature 36.6 ??C (97.8 ??F) 01/20/2024 3:20 PM ES T Respiratory Rate 20 01/20/2024 3:20 PM EST Oxygen Saturation 96% 01/20/2024 3:20 PM EST Inhaled Oxygen Concentration - - Weight 101 kg (223 lb) 11/26/2023 10:56 AM EDT Height 162.6 cm (5' 4 ) 11/26/2023 10:56 AM EDT Body Mass Index 38.28 11/26/2023 10:56 AM EDT Plan of Treatment Upcoming Encounters Date Type Department Care Team (Late st Contact Info) Description 03/25/2024 2:00 PM EST Clinical Support [facility] [address] [place] [address] Marya Montero, YESSICA [address] [place] [address] 04/29/2024 1:15 PM EDT Office Visit [facility] [address] [place] [address] Benjamin Ireland MD [address] [place] [address] Health Maintenance Due Date Last Done Comments CT Colonography 1961 Colonoscopy 1961 FIT DNA/Cologuard 1961 FOBT 1961 HIV Screening 1960 Sigmoidoscopy 1961 Eye Exam 1971 Alcohol/Substance Use Screening 1973 Pap Smear 1982 RSV Patients and Patients Aged 60 years or older (1 - Risk 60-74 years 1-dose series) 2021 Colorectal Cancer Screening 08/05/2021 FIT 08/05/2021 08/05/2020 Cervical Cancer Screening 10/21/2022 HPV/Cotest 10/21/2022 10/21/2017 Diabetes: Urine Protein Screening 02/14/2023 02/14/2022, 05/08/2020 COVID-19 Vaccine ( season) 2023 05/26/2020, 04/28/2020 Influenza Vaccine (#1) 2023 , 02/14/2022, 01/16/2021, Additional history exists SDOH Screening 03/27/2024 03/27/2023 Diabetes: Foot Exam 04/03/2024 04/03/2023, 04/03/2023, 04/03/2023, Additional history exists Depression Monitoring (PHQ-9) 04/07/2024 10/06/2023, 10/06/2023 Diabetes: Hemoglobin A1C 04/07/2024 024, 04/03/2023, 12/25/2022, Additional history exists Depression Screening 10/05/2024 10/06/2023, 10/06/19 24 Lipid Panel 10/05/2024 10/06/2023, 03/14, 05/08/2020 Tobacco Screening 11/25/2024 11/26/2023 Mammogram 01/18/2026 01/19/2024, 05/12, 05/30/2021, Additional history exists DTaP/Tdap/Td Vaccines (2 - Td or Tdap) 01/22/2029 01/22/2019 Zoster Vaccines Completed 03/30/2019, 01/22/2019 Hepatitis C Screening Completed 02/14/2022 Pneumococcal Vaccine: Pediatrics (0 to 5 Years) and At-Risk Patients (6 to 64 Years) Completed 04/03/2023 HIB Vaccines Aged Out No longer eligi ble based on patient's age to complete this topic HPV Vaccines Aged Out No longer eligi ble based on patient's age to complete this topic Hepatitis A Vaccines Aged Out No long er eligible based on patient's age to complete this topic Hepatitis B Vaccines Aged Out No long er eligible based on patient's age to complete this topic IPV Vaccines Aged Out No longer eligi ble based on patient's age to complete this topic Meningococcal Vaccine Aged Out No blue manpreet eligible based on patient's age to complete this topic RSV under 20 months Aged Out No longe r eligible based on patient's age to complete this topic Rotavirus Vaccines Aged Out No longer eligible based on patient's age to complete this topic Procedures Procedure Name Priority Date/Time Associated Diagnosis Comments GLUCOSE, WHOLE BLOOD Routine 03/02/2024 1:02 PM EST POCT RAPID COVID ANTIGEN Routine 01/20/2024 3:38 PM EST Cough, unspecified type POCT INFLUENZA B Routine 01/20/2024 3:37 PM EST Cough, unspecified type POCT INFLUENZA A Routine 01/20/2024 3:36 PM EST Cough, unspecified type BI MAMMOGRAM SCREENING TOMOSYNTHESIS BILATERAL Routine 01/19/2024 2:40 PM EST VASC US LOWER EXTREMITY VENOUS DUPLEX BILATERAL Routine 12/31/2023 1:06 PM EST LIPID PANEL, STANDARD Routine 10/06/2023 10:57 AM EDT Hypercholesterolemi a POCT GLYCATED HEMOGLOBIN, TOTAL Routine 10/06/2023 9:13 AM EDT Type 2 diabetes mellitus without complication, without long-term current use of insulin (CMS/HCC) HEPATITIS C AB W/REFL TO HCV RNA, QN, PCR Routine 02/14/2022 12:03 PM EST ALBUMIN, RANDOM URINE W/CREATININE Routine 02/14/2022 12:03 PM EST ZZZ HISTORICAL FECAL IMMUNOCHEMICAL TEST X1 (FIT) Routine 08/05/2020 12:00 AM EDT ZZZ HISTORICAL HPV MRNA E6/E7 Routine 10/21/2017 10:24 AM EDT from Last 3 Months or Most Recently Relevant to Health Maintenance Results * Glucose, Whole Blood (03/02/2024 1:02 PM EST) Glucose, Whole Blood 106 60 - 115 mg/dL [facility] Comment:METER #: [id number] Testing performed in the Endocrinology Department [address] , [address], [place]. 03/02/2024 1:02 PM EST 03/02/2024 1:06 PM EST us Generic External Data Provider LAB BLOOD ORDERAB LES Final Result [facility] [address] [place] [address] [phone] * POCT Rapid Covid-19 BinaxNOW (01/20/2024 3:38 PM EST) Pathologist [facility] Rapid COVID Ag Negative QC Media Lot # [id number] Lot# Expiration Date 3,026 Swab 01/20/2024 3:38 PM EST Saad Duarte MD POINT OF C ARE TEST ENTER/EDIT ORDERABLES Edited Result - Final * POCT Rapid Influenza B OSOM (01/20/2024 3:37 PM EST) [facility] Rapid Influenza B Ag Negative Negative, Indeterminate QC Media Lot # [id number] Lot# Expiration Date Swab 01/20/2024 3:37 PM EST Saad Duarte MD POINT OF CARE TEST ENTER/EDIT ORDERABLES Final Result * POCT Rapid Influenza A OSOM (01/20/2024 3:36 PM EST) [facility] Rapid Influenza A Ag Negative Negative, Indeterminate QC Media Lot # [id number] Lot# Expiration Date Swab Nasopharyngeal structure / Unknown 01/20/2024 3:36 PM EST Saad Duarte MD POINT OF CARE TEST ENTER/EDIT ORDERABLES Final Result * BI Mammogram Screening Tomosynthesis Bilateral (01/19/2024 2:40 PM EST) Anatomical Region Laterality Modality Breast Bilateral Mammography 01/19/2024 2:40 PM EST Narrative 01/23/2024 5:43 PM EST ? [place] [facility] ? [address] ?[place] [address] ? Mammography Report ? Signed ? Patient: Mel [place] ?MR#: [id number] ?? [id number] ? : 1960 ?Acct:[id number] ? Age/Sex: 63 / F ?ADM Date: 01/19/24 ? Loc: HO.MAMMO ? Attending Dr: Benjamin Ireland MD ? Ordering Physician: Benjamin Ireland MD ?Results: 1 ?? Negative ? Date of Service: 01/19/24 ?Follow Up: 1 Year From Orig ?? inal Mammogram ? Procedure(s): MM tomosynthesis screening BI ?? Accession Number(s): [id number] ? cc: Benjamin Ireland MD ? EXAMINATION: ?? MM SCREENING DIGITAL BREAST TOMOSYNTHESIS, BILATERAL ? CLINICAL INFORMATION: ? Screening. Asymptomatic. ? COMPARISON: ?? Mammography: Comparison is made with available priors ? TECHNIQUE: ?? Digital breast mammography with tomosynthesis is performed in both the ?? craniocaudal and mediolateral oblique views along with computer-aided ?? detection (CAD). ? FINDINGS: ?? There are scattered areas of fibroglandular density (ACR BI-RADS breast ?? composition Category b). ? There are no significant masses, abnormal calcifications, or other ?? abnormalities. ? MM/MM tomosynthesis screening BI ?? IMPRESSION: ?? No mammographic evidence of malignancy. ? ASSESSMENT: ? BI-RADS BI-RADS 1 - Negative ? RECOMMENDATION: ?? Routine annual mammography screening. ? 1 year F/U ? This examination should not preclude the clinical evaluation of a ?? suspicious palpable abnormality. ? This patient's information was entered into a reminder system with a ?? target due date for their next mammogram. ? Electronically signed by: ??Larissa Ware DO ??01/23/2024 05:40 PM EST ?? RP ? Dictated By: ?Larissa Ware DO ? Signed By: ?<Electronically signed by Larissa Ware, DO in OV> ? 01/23/24 1740 ? DD/ 1440 ? TD/TT: 01/19/24 1455 ? 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 Procedure Note Donhafsater, Image - [facility]/23/20[facility] [address] [place] [address] Mammography Report Signed Patient: Mel MoreMR#: [id number] : 2Acct:[id number] Age/Sex: 63 / FADM Date: 01/19/24 Loc: HO.MAMMO Attending Dr: Benjamin Ireland MD Ordering Physician: Benjamin Ireland MDResults: 1 Negative Date of Service: 01/19/24Follow Up: 1 Year From Orig inal Mammogram Procedure(s): MM tomosynthesis screening BI Accession Number(s): [id number] cc: Benjamin Ireland MD EXAMINATION: MM SCREENING DIGITAL BREAST TOMOSYNTHESIS, BILATERAL CLINICAL INFORMATION: Screening. Asymptomatic. COMPARISON: Mammography: Comparison is made with available priors TECHNIQUE: Digital breast mammography with tomosynthesis is performed in both the craniocaudal and mediolateral oblique views along with computer-aided detection (CAD). FINDINGS: There are scattered areas of fibroglandular density (ACR BI-RADS breast composition Category b). There are no significant masses, abnormal calcifications, or other abnormalities. MM/MM tomosynthesis screening BI IMPRESSION: No mammographic evidence of malignancy. ASSESSMENT: BI-RADS BI-RADS 1 - Negative RECOMMENDATION: Routine annual mammography screening. 1 year F/U This examination should not preclude the clinical evaluation of a suspicious palpable abnormality. This patient's information was entered into a reminder system with a target due date for their next mammogram. Electronically signed by: Larissa Ware DO 01/23/2024 05:40 PM EST Dictated By: Larissa Ware DO Signed By: <Electronically signed by Larissa Ware DO in OV> 01/23/24 1740 DD/ 1440 TD/TT: 01/19/24 1455 [employer] Installer: us Benjamin Ireland MD IMG BI PROCEDURES Final Res ult * VASC US Lower Extremity Venous Duplex Bilateral (12/31/2023 1:06 PM EST) 12/31/2023 1:06 PM EST Narrative [facility] - 02/06/2024 9:07 AM EST ? [facility] ?[address] ?[place] [address] ? Ultrasound Report ? Signed ? Patient: Mel More ?MR#: [id number] ?? [id number] ? : 1960 ?Acct:[id number] ? Age/Sex: 63 / F ?ADM Date: 12/31/23 ? Loc: HO.US ? Attending Dr: Kisha Valadez PA-C ? Ordering Physician: Kisha Valadez PA-C ?? Date of Service: 12/31/23 ?? Procedure(s): US venous duplex LE BI ?? Accession Number(s): [id number] ? cc: Benjamin Ireland MD; Kisha Valadez PA-C ? EXAMINATION: ?? US LOWER EXTREMITY VENOUS (REFLUX EXAM), BILATERAL ? CLINICAL INDICATION: ?? Chronic venous insufficiency with lower extremity varicose veins with ?? inflammation ? COMPARISON: ?? Lower extremity ultrasound from 08/09/2019 ? TECHNIQUE: ?? Color flow triplex imaging and compression Doppler was performed to ?? evaluate both the deep and the superficial systems bilaterally. To ?? evaluate the superficial system, the examination was performed in the ?? upright position. Color-flow Doppler ultrasound and compression ?? ultrasound were utilized. In addition, maneuvers were utilized to ?? demonstrate reflux. ? FINDINGS: ? 1. DEEP VENOUS ULTRASOUND OF THE RIGHT LOWER EXTREMITY: ?? Common Femoral Vein: Compressible, normal respiratory variation and ?? augmented flow. ? Femoral Vein: Compressible, normal color flow and augmentation. ?? Popliteal Vein: Compressible, normal augmentation. ? Deep Reflux: There is no evidence of reflux in the deep system in ?? either the common femoral vein, superficial femoral or the popliteal ?? vein. ? There is no evidence of a Schultz's cyst. ? 2. SUPERFICIAL ULTRASOUND WITH DOPPLER OF RIGHT LOWER EXTREMITY: ? GREAT SAPHENOUS VEIN: ?? Saphenofemoral Junction: 0.5 cm; Reflux: 0 ms ?? Proximal Thigh: 0.4 cm; Reflux: 0 ms ?? Mid Thigh: 0.3 cm; Reflux: 0 ms ?? Above Knee: 0.3 cm; Reflux: 0 ms ?? At Knee: 0.2 cm; Reflux: 0 ms ?? Below Knee: 0.2 cm; Reflux: 0 ms ?? Mid Calf: 0.2 cm; Reflux: 0 ms ?? Ankle: 0.2 cm; Reflux: 0 ms ? DUPLICATED MEDIAL GREAT SAPHENOUS VEIN: ?? Diameter: None imaged ?? Reflux: NA ? DUPLICATED LATERAL GREAT SAPHENOUS VEIN: ?? Diameter: 0.3 cm ?? Reflux: None ? SMALL SAPHENOUS VEIN: ?? Saphenopopliteal Junction: 0.2 cm; Reflux: 0 ms ?? Proximal: 0.3 cm; Reflux: 0 ms ?? Distal: 0.2 cm; Reflux: 0 ms ? VEIN OF GIACOMINI: ?? Size: NA ?? Reflux: NA ? PERFORATORS: ?? Location: None imaged ?? Size: NA ?? Reflux: NA ? VARICOSITIES: ?? Location: None significant ?? Size: NA ?? Reflux: NA ? 3. DEEP VENOUS ULTRASOUND OF THE LEFT LOWER EXTREMITY: ?? Common Femoral Vein: Compressible, normal respiratory variation and ?? augmented flow. ? Femoral Vein: Compressible, normal color flow and augmentation. ?? Popliteal Vein: Compressible, normal augmentation. ? Deep Reflux: There is no evidence of reflux in the deep system in ?? either the common femoral vein, superficial femoral or the popliteal ?? vein. ? There is no evidence of a Schultz's cyst. ? 4. SUPERFICIAL ULTRASOUND WITH DOPPLER OF LEFT LOWER EXTREMITY: ? GREAT SAPHENOUS VEIN: ?? Saphenofemoral Junction: 0.8 cm; Reflux: 0 ms ?? Proximal Thigh: 0.9 cm; Reflux: 0 ms ?? Mid Thigh: 0.4 cm; Reflux: 0 ms ?? Above Knee: 0.2 cm; Reflux: 0 ms ?? At Knee: 0.3 cm; Reflux: 0 ms ?? Below Knee: 0.2 cm; Reflux: 0 ms ?? Mid Calf: 0.2 cm; Reflux: 0 ms ?? Ankle: 0.2 cm; Reflux: 0 ms ? DUPLICATED MEDIAL GREAT SAPHENOUS VEIN: ?? Diameter: None imaged ?? Reflux: NA ? DUPLICATED LATERAL GREAT SAPHENOUS VEIN: ?? Diameter: 0.4 cm ?? Reflux: None ? SMALL SAPHENOUS VEIN: ?? Saphenopopliteal Junction: 0.5 cm; Reflux: 0 ms ?? Proximal: 0.3 cm; Reflux: 0 ms ?? Distal: 0.2 cm; Reflux: 0 ms ? VEIN OF GIACOMINI: ?? Size: NA ?? Reflux: NA ? PERFORATORS: ?? Location: None imaged ?? Size: NA ?? Reflux: NA ? VARICOSITIES: ?? Location: None significant ?? Size: NA ?? Reflux: NA ? US/US venous duplex LE BI ?? IMPRESSION: ?? 1. ??Right: No significant venous insufficiency or reflux. ?? 2. ??Left: No significant venous insufficiency or reflux. ? Electronically signed by: ??Wiliam Marie MD ??02/06/2024 09:04 AM EST RP ? Dictated By: ?Wiliam Marie MD ? Signed By: ?<Electronically signed by Wiliam Marie MD in OV> ? 02/06/24 0904 ? DD/DT: /20/24 1306 ? TD/TT: /20/24 1350 ? 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 Procedure Note Donotuseinterpreter, Image - 02/06/2024 [place] [address] Ultrasound Report Signed Patient: Mel More#: [id number] : 2Acct:[id number] Age/Sex: 63 / FADM Date: 12/31/23 Loc: HO.US Attending Dr: Kisha Valadez PA-C Ordering Physician: Kisha Valadez PA-C Date of Service: 12/31/23 Procedure(s): US venous duplex LE BI Accession Number(s): [id number] cc: Benjamin Ireland MD; Kisha Valadez PA-C EXAMINATION: US LOWER EXTREMITY VENOUS (REFLUX EXAM), BILATERAL CLINICAL INDICATION: Chronic venous insufficiency with lower extremity varicose veins with inflammation COMPARISON: Lower extremity ultrasound from 08/09/2019 TECHNIQUE: Color flow triplex imaging and compression Doppler was performed to evaluate both the deep and the superficial systems bilaterally. To evaluate the superficial system, the examination was performed in the upright position. Color-flow Doppler ultrasound and compression ultrasound were utilized. In addition, maneuvers were utilized to demonstrate reflux. FINDINGS: 1. DEEP VENOUS ULTRASOUND OF THE RIGHT LOWER EXTREMITY: Common Femoral Vein: Compressible, normal respiratory variation and augmented flow. Femoral Vein: Compressible, normal color flow and augmentation. Popliteal Vein: Compressible, normal augmentation. Deep Reflux: There is no evidence of reflux in the deep system in either the common femoral vein, superficial femoral or the popliteal vein. There is no evidence of a Schultz's cyst. 2. SUPERFICIAL ULTRASOUND WITH DOPPLER OF RIGHT LOWER EXTREMITY: GREAT SAPHENOUS VEIN: Saphenofemoral Junction: 0.5 cm; Reflux: 0 ms Proximal Thigh: 0.4 cm; Reflux: 0 ms Mid Thigh: 0.3 cm; Reflux: 0 ms Above Knee: 0.3 cm; Reflux: 0 ms At Knee: 0.2 cm; Reflux: 0 ms Below Knee: 0.2 cm; Reflux: 0 ms Mid Calf: 0.2 cm; Reflux: 0 ms Ankle: 0.2 cm; Reflux: 0 ms DUPLICATED MEDIAL GREAT SAPHENOUS VEIN: Diameter: None imaged Reflux: NA DUPLICATED LATERAL GREAT SAPHENOUS VEIN: Diameter: 0.3 cm Reflux: None SMALL SAPHENOUS VEIN: Saphenopopliteal Junction: 0.2 cm; Reflux: 0 ms Proximal: 0.3 cm; Reflux: 0 ms Distal: 0.2 cm; Reflux: 0 ms VEIN OF GIACOMINI: Size: NA Reflux: NA PERFORATORS: Location: None imaged Size: NA Reflux: NA VARICOSITIES: Location: None significant Size: NA Reflux: NA 3. DEEP VENOUS ULTRASOUND OF THE LEFT LOWER EXTREMITY: Common Femoral Vein: Compressible, normal respiratory variation and augmented flow. Femoral Vein: Compressible, normal color flow and augmentation. Popliteal Vein: Compressible, normal augmentation. Deep Reflux: There is no evidence of reflux in the deep system in either the common femoral vein, superficial femoral or the popliteal vein. There is no evidence of a Schultz's cyst. 4. SUPERFICIAL ULTRASOUND WITH DOPPLER OF LEFT LOWER EXTREMITY: GREAT SAPHENOUS VEIN: Saphenofemoral Junction: 0.8 cm; Reflux: 0 ms Proximal Thigh: 0.9 cm; Reflux: 0 ms Mid Thigh: 0.4 cm; Reflux: 0 ms Above Knee: 0.2 cm; Reflux: 0 ms At Knee: 0.3 cm; Reflux: 0 ms Below Knee: 0.2 cm; Reflux: 0 ms Mid Calf: 0.2 cm; Reflux: 0 ms Ankle: 0.2 cm; Reflux: 0 ms DUPLICATED MEDIAL GREAT SAPHENOUS VEIN: Diameter: None imaged Reflux: NA DUPLICATED LATERAL GREAT SAPHENOUS VEIN: Diameter: 0.4 cm Reflux: None SMALL SAPHENOUS VEIN: Saphenopopliteal Junction: 0.5 cm; Reflux: 0 ms Proximal: 0.3 cm; Reflux: 0 ms Distal: 0.2 cm; Reflux: 0 ms VEIN OF GIACOMINI: Size: NA Reflux: NA PERFORATORS: Location: None imaged Size: NA Reflux: NA VARICOSITIES: Location: None significant Size: NA Reflux: NA US/US venous duplex LE BI IMPRESSION: 1. Right: No significant venous insufficiency or reflux. 2. Left: No significant venous insufficiency or reflux. Electronically signed by: Wiliam Marie MD 02/06/2024 09:04 AM [facility] Dictated By: Wiliam Marie MD Signed By: <Electronically signed by Wiliam Marie MD in OV> 02/06/24 0904 DD/ 1306 TD/TT: 12/31/23 1350 [employer] System Installer: [facility] External Provider CV VASC ULAR PROCEDURES Final Result Performing Organization Address City/[facility]/ZIP Co de Phone Number [facility] [address] [place] [address] * (ABNORMAL) Lipid Panel, Standard (10/06/2023 10:57 AM EDT) Triglycerides 486(H) <150 mg/dL [facility] Comment:Desirable Triglyceri de: less than 150 mg/dLBorderline High Triglyceride 150-199 mg/dLHigh Triglyceride: 200-499 mg/dLVery High Triglyceride: greater than or equal to 5OO mg/dL Cholesterol 225(H) <200 mg/dL [facility] Comment:Desirable Cholestero l: less than 200 mg/dLBorderline High Cholesterol: 200-239 mg/dLHigh Cholesterol: greater than 239 mg/dL LDL Cholesterol Calculated TNP <100 mg/dL [facility] Comment:Unable to calculate the LDL. The formula of Friedwald,Jo, and Nam is only valid if the triglycerides areless than 400 mg/dl. HDL Cholesterol 33(L) >40 mg/dL [facility] Comment:Desirable HDL: great er than 40 mg/dL Note: This HDL assay may give artificially low results in patients with liver disease. Blood Venous blood specimen / Unknown 10/06/2023 10:57 AM EDT 10/06/2023 2:33 PM EDT Benjamin Ireland MD LAB BLOOD ORDERABLES Final Result [facility] [address] [place] [address] [phone] * (ABNORMAL) POCT HGB A1C (10/06/2023 9:13 AM EDT) Hemoglobin A1C 6.1(A) 4.0 - 6.0 % QC Media Lot # [id number] Lot# Expiration Date [id number] Blood 10/06/2023 9:13 AM EDT Benjamin Ireland MD POINT OF CARE TEST ENTER/ED IT ORDERABLES Final Result * (ABNORMAL) Albumin, Random Urine W/Creatinine (02/14/2022 12:03 PM EST) Creatinine, Random Urine 207 20 - 275 mg/dL [facility] Albumin, Urine 6.6 See Note: mg/dL [facility] Comment: Reference Range: Reference Range Not established Albumin/Creatinin e Ratio, Random Urine 32(H) <30 mcg/mg creat [facility] Comment: The ADA defines abnormalities in albumin excretion as follows: Albuminuria Category ?Result (mcg/mg creatinine) Normal to Mildly increased ?? <30 Moderately increased ? 30-299 Severely increased ? > OR = 300 The ADA recommends that at least two of three specimens collected within a 3-6 month period be abnormal before considering a patient to be within a diagnostic category. 02/14/2022 12:0 3 PM EST 02/14/2022 12:04 PM EST Benjamin Ireland MD LAB URINE ORDERABLES Final Result [facility] [address], [place] [address] [facility] [address] [facility], (N[address]) [place] [address] * Hepatitis C Antibody with Reflex to HCV, RNA, Quantitative, Real-Time PCR (02/14/2022 12:03 PM EST) Pathologist [facility] Hepatitis C Antibody NON-REACT [place] NON-REACT [place] [facility] Index 0.06 <1.00 [facility] Comment: HCV antibody was non-reactive. There is no laboratory evidence of HCV infection. In most cases, no further action is required. However, if recent HCV exposure is suspected, a test for HCV RNA (test code 32220) is suggested. For additional information please refer to http://[employer]/faq/AVD48u7 (This link is being provided for informational/ educational purposes only.) 02/14/2022 12:0 3 PM EST 02/14/2022 12:04 PM EST Benjamin Ireland MD LAB BLOOD ORDERABLES Final Result Performing Organization Address City/[facility]/ZIP Co de Phone Number [facility] [address] [place] [address], [place] [address] [facility] [address] [place] [address], ([address]) [place] [address] * Fecal immunochemical test x1 (FIT) (08/05/2020 12:00 AM EDT) FIT Date 1 08/04/20 [facility] FIT Date 2 08/04/20 [facility] FIT1 NEGATIVE NEGATIVE [facility] FIT2 NEGATIVE NEGATIVE [facility] 08/05/2020 Historical Provider MD HISTORICAL/NON ORDERABLE LABS Final Result Performing Organization Address City/[facility]/ZIP Co de Phone Number [facility] [address] * HPV mRNA E6/E7 (10/21/2017 10:24 AM EDT) HPV mRNA E6/E7 Not Detected NOT DETECTED [facility] Comment: This test was performed using the APTIMA(R) HPV Assay ([employer] This assay detects E6/E7 viral messenger RNA (mRNA) from 14 high-risk HPV types (16,18,31,33,35,39,45,51, 52,56,58,59,66,68). For additional information please refer to: http://[employer]/faq/ESU134g8 (This link is being provided for informational/ educational purposes only.) The analytical performance characteristics of this assay have been determined by [facility] [place], [place]. The modifications have not been cleared or approved by the FDA. This assay has been validated pursuant to the CLIA regulations and is used for clinical purposes. Test Performed by [facility], [facility] [place], [address] [place], [place] Jose C De Leon M.D., Ph.D., Director of Laboratories , CLIA [id number] Please note: ??Effective 10/23/2015, HPV testing will be performed using [employer] APTIMA test which targets mRNA. Detecting mRNA instead of DNA, as in older methods, offers significant improvements in specificity. 10/21/2017 10:2 4 AM EDT Cari Campos CNM HISTORICAL/NON ORDERABLE LABS Final Result Performing Organization Address [facility]/State/[facility] Co de Phone Number [facility] [address] from Last 3 Months or Most Recently Relevant to Health Maintenance Insurance C3 Care Teams Radiation Protection Technician Relationship Specialty Start Date End Date Benjamin Ireland MD [address] [place] [address] PCP - General Internal Medicine 12/02/17 Leena Curtis Customer Contact RepresentativeRelocation Counselor 05/06/23
--- OUTSIDE RECORDS SUMMARY | 2024-03-02 14:17 | XMS_ITS | Clinical Summary ---
Author Organization [facility] Address [address] [place] [address] Care Team Providers Care Rn Social Work Name Role Phone Unavailable Primary Care Provider Unavailabl e Source Comments PLEASE NOTE, if this patient is a minor, it may be UNLAWFUL to discuss sensitive information that is contained in these records (such as FAMILY PLANNING, MENTAL HEALTH or SUBSTANCE ABUSE) with the minor patient's parent or other person without the patient's specific authorization.[facility] Allergies No known active allergies Medications traZODone (DESYREL) 150 mg tablet Take 2 Tablets by mouth nightly at bedtime 60 Tablet 1 12/16/2023 Active FLUoxetine (PROZAC) 20 mg capsule Take 2 Capsules by mouth every morning 60 Capsule 1 12/16/2023 Active mirtazapine (REMERON) 15 mg tablet Take 1 Tablet by mouth nightly at bedtime 30 Tablet 1 12/16/2023 Active Active Problems Problem Noted Date Diagnosed Date Moderate episode of recurren t major depressive disorder ([facility]) 10/06/2023 Assessment & Plan (12/18/2023 6:26 AM EST): A: Mood is stable and insomnia improved. Still waiting on c-pap. P: Cont remeron, trazodone and prozac. Sleep study pending. Will need c-pap. Continue therapy. Dc back to pcp. Refills sent on all rxs today. Assessment & Plan (12/04/2023 10:50 AM EDT): A: Mood is stable but pt reports insomnia xs several months. Trazodone no longer effective. Still waiting on c-pap. P: take 1/2 tab of remeron rather than whole 15 mg which was ineffective. Cont trazodone and prozac. Provider to look into status of c-pap before adding/changing meds. Continue therapy. Uncomplicated bereavement 10/06/2023 Assessment & Plan (12/04/2023 10:51 AM EDT): A: Appropriately grieving the of her mother xs 2 mos. Pt states she feels a bit better. P: cont meds, therapy, and reach out to supports as needed. Cough 07/19/2021 Idiopathic osteoarthritis 05/17/2021 Dyspeptic diarrhea 05/17/2021 Sleep apnea 04/05/2021 Moderate persistent allergic asthma 03/01/2021 Hypercholesterolemia 02/04/2021 Cramp of both lower extremities 01/31/2021 Mixed stress and urge urinary incontinence 03/01 Chronic pain disorder 03/07/2017 Hypothyroidism 02/05/2017 Obesity 02/05/2017 Type 2 diabetes mellitus ([facility]) 03/08/2006 Encounters Date Type Department Care Team Description 12/16/2023 9:00 AM EST Behavioral Health Visit [facility] [address] [place] [address] [place] [address] Dustin Boo, PMHNP Moderate episode of recurrent major depressive disorder ([facility]) (Primary Dx) 12/16/2023 / TELEPHONE [address] [place] [address] Dustin Boo, PMHNP 12/05/2023 / TELEPHONE [facility] [address] [place] [address] Dustin Boo, PMHNP 12/04/2023 / TELEPHONE [facility] [address] [place] [address] Dustin Boo, PMHNP 12/03/2023 / TELEPHONE [facility] [address] [place] [address] Dustin Boo, PMHNP 12/02/2023 10:00 AM EDT Behavioral Health Visit [facility] [address] [place] [phone] Dustin Boo, PMHNP Moderate episode of recurrent major depressive disorder (H[facility]) (Primary Dx); Uncomplicated bereavement from Last 3 Months Family History Relation Name Status Comments Brother Alive Father Mother Sister Alive Social History Tobacco Use Types Packs/Day Years Used Date Smoking Tobacco: Never Smokeless Tobacco: Never Tobacco Cessation:Counseling Given: Not Answered Alcohol Use Standard Drinks/Week Comments Not Currently 0 (1 standard drink = 0.6 oz pur e alcohol) Social Connections Answer Date Recorded Connectedness 0 11/26/2023 Financial Resource Strain Answer Date R ecorded Financial Resource Strain 0 2023 Stress Answer Date Recorded Stress 0 11/26/2023 Physical Activity Answer Date Recorded Physical Activity 0 11/26/2023 Food Insecurity Answer Date Recorded Food 0 11/26/2023 Transportation Needs Answer Date Record ed Transportation 0 11/26/2023 Housing Stability Answer Date Recorded Housing 0 11/26/2023 Safety and Environment Answer Date Josafat rded Safety 0 11/26/2023 Utilities Answer Date Recorded Utilities 0 11/26/2023 Employment Answer Date Recorded Stress 0 11/26/2023 Comments Unknown Sex and Gender Information Value Date Recorded Sex Assigned at Female 11/21/2023 10:46 AM PDT Legal Sex Female 10:46 AM PDT Gender Identity Choose not to disclose 10:46 AM PDT Sexual Orientation Not on file Plan of Treatment Health Maintenance Due Date Last Done Comments Depression Monitoring 1961 Diabetes Foot Exam 1961 Diabetes Microalbumin (w/Creatinine) 1961 HPV Screening 1961 Pap + HPV 1961 Serum Creatinine 1961 TSH Monitoring 1961 Retinopathy Screening 1974 HIV Screening 02/14/1976 Hypertension Screening (#1) 1979 Cervical Cancer Screening 1982 Pap Smear 1982 Breast Cancer Screening (Mammogram) 2001 CT Colonography 2006 Colonoscopy 2006 Colorectal Cancer Screening 2006 FIT/gFOBT 2006 Fecal DNA 2006 Flexible Sigmoidoscopy 2006 Tpk-ICIUL-18 ( season) 2023 021, 04/28/2020 Imm-Influenza (#1) 2023 12/25/2022, 0 02/14/2022, 01/16/2021, Additional history exists Alcohol and Drug Screen 02/11/2024 Diabetes HbA1c 04/07/2024 10/06/2023, 11/07/2021 Lipid Screening 10/05/2024 10/06/2023 Tobacco Screening 12/03/2024 12/04/2023 Imm-DTaP/Tdap/Td (2 - Td or Tdap) 01/22/2029 019 Imm-Zoster, Recombinant Completed 03/30/2019, 01/22 Hepatitis C Screening Completed 02/14/2022 Imm-Pneumococcal Completed 04/03/2023 Cervical Ablation/Cold-Knife Conization Discontinued Cervical Cryotherapy Discontinued Colposcopy Discontinued Endometrial Biopsy Discontinued Excision/Leep Discontinued HPV Genotyping Discontinued Vaginal Pap Discontinued Vulvoscopy Discontinued Insurance [place] MEDICAID [facility]
--- OUTSIDE RECORDS SUMMARY | 2024-03-02 14:18 | XMS_ITS | Encounter Summary ---
Author Organization [facility] Address [address] [place] [address] 7 [place] [address] Care Team Providers Care Hospitality Manager Name Role Phone Benjamin Ireland MD Primary Care Provider [phone] Reason for Visit * Reason Onset Date Comments Med Refill 05/24/2022 Encounter Details Date Type Department Care Team ([facility] st Contact Info) Description 05/24/2022 Telephone [facility] [address] [place], [place] [phone] Benjamin Ireland MD [address] [place] [address] Med Refill Social History Tobacco Use Types Packs/Day Years Used Date Smoking Tobacco: Never Smokeless Tobacco: Never Depression Answer Date Recorded Patient Health Questionnaire-9 Score 0 02/14/2022 Depression Answer Date Recorded Patient Health Questionnaire-2 Score 0 02/14/2022 Comments Unknown Sex and Gender Information Value Date Recorded Sex Assigned at Female 12/10/2021 10:32 AM EDT Legal Sex Female 10:32 AM EDT Gender Identity Choose not to disclose 10:32 AM EDT Sexual Orientation Choose not to disclose 2021 10:32 AM EDT documented as of this encounter Miscellaneous Notes * Telephone Encounter - Elisha Brandt - 05/24/2022 9:51 AM EDT Tc from pt requesting med refill on acetaminophen-codeine (Tylenol w/ Codeine #3) 300-30 MG tablet Please sent to [facility]/pharmacy #[id number] - [place], [place] - [address] [facility] documented in this encounter Plan of Treatment Upcoming Encounters Date Type Department Care Team (Late st Contact Info) Description 03/25/2024 2:00 PM EST Clinical Support [facility] [address] [place] [address] Marya Montero, YESSICA [address] [place] [address] 04/29/2024 1:15 PM EDT Office Visit [facility] [address] [place] [address] Benjamin Ireland MD [address] [place] [address] documented as of this encounter Visit Diagnoses Not on filedocumented in this encounter Additional Health Concerns Assessment Noted Time PHQ-9 Depression Total Score: 0 02/14/19 23 11:24 AM EST documented as of this encounter Care Teams Hospitality Manager Relationship Specialty Start Date End Date Benjamin Ireland MD [address] [place] [address] PCP - General Internal Medicine 12/02/17 Leena Curtis Router Operator PinFirst Sampler 05/06/23 documented as of this encounter
--- OUTSIDE RECORDS SUMMARY | 2024-03-02 14:18 | XMS_ITS | Encounter Summary ---
Author Organization [employer] Address [address] [facility] 7 [place] [address] Care Team Providers Care Dowel Inserting Machine Operator Name Role Phone Benjamin Ireland MD Primary Care Provider [phone] Reason for Visit * Reason Onset Date Comments Med Refill 07/08/2023 Encounter Details Date Type Department Care Team ([facility] st Contact Info) Description 07/08/2023 Telephone [facility] [address] [place] [address] Benjamin Ireland MD [address] [place], [place] [phone] Med Refill Social History Tobacco Use Types Packs/Day Years Used Date Smoking Tobacco: Never Smokeless Tobacco: Never Depression Answer Date Recorded Patient Health Questionnaire-9 Score 0 02/14/2022 Housing Stability Answer Date Recorded What is your housing situation today? I have flavia mindi 03/27/[address] you li [...] encounter Miscellaneous Notes * Telephone Encounter - Josselin Nicholson - 07/08/2023 12:22 PM EDT TC from pt requesting medication refill. Medications needing refill : acetaminophen-codeine (Tylenol w/ Codeine #3) 300-30 MG tablet To be sent to: [facility] documented in this encounter Plan of Treatment Upcoming Encounters Date Type Department Care Team (Late st Contact Info) Description 03/25/2024 2:00 PM EST Clinical Support [facility] [address] [place] [address] Marya Montero, YESSICA [address] [place] [address] 04/29/2024 1:15 PM EDT Office Visit [facility] [address] [place] [address] Benjamin Ireland MD [address] [place] [address] documented as of this encounter Visit Diagnoses Not on filedocumented in this encounter Additional Health Concerns Assessment Noted Time PHQ-9 Depression Total Score: 0 02/14/19 11:24 AM EST documented as of this encounter Care Teams Dowel Inserting Machine Operator Relationship Specialty Start Date End Date Benjamin Ireland MD [address] [place] [address] PCP - General Internal Medicine 12/02/17 Leena Curtis Sexual Assault NursePayroll Clerk 05/06/23 documented as of this encounter
--- OUTSIDE RECORDS SUMMARY | 2024-03-02 14:18 | XMS_ITS | Encounter Summary ---
Author Organization [employer] Address [address] [facility] 7 [place] [address] Care Team Providers Care Signal Maintainer Helper Name Role Phone Benjamin Ireland MD Primary Care Provider [phone] Reason for Visit * Reason Onset Date Comments Med Refill 11/06/2023 Encounter Details Date Type Department Care Team (Late st Contact Info) Description 11/06/2023 Telephone [facility] [address] [place] [address] Benjamin Ireland MD [address] [place] [address] Med Refill Social History Tobacco Use Types [...] encounter Miscellaneous Notes * Telephone Encounter - Rafael Maguire - 11/06/2023 10:07 AM EDT TC from pt requesting medication refill. Medications needing refill : acetaminophen-codeine (Tylenol w/ Codeine #3) 300- 30 MG tablet To be sent to: [facility] - [address] documented in this encounter Plan of Treatment Upcoming Encounters Date Type Department Care Team ([facility] st Contact Info) Description 03/25/2024 2:00 PM EST Clinical Support [facility] [address] [place] [address] Marya Montero RN [address] [place] [address] 04/29/2024 1:15 PM EDT Office Visit [facility] [address] [place] [address] Benjamin Ireland MD [address] [place] [address] documented as of this encounter Visit Diagnoses Not on filedocumented in this encounter Additional Health Concerns Assessment Noted Time PHQ-9 Depression Total Score: 15 024 10:11 AM EDT documented as of this encounter Care Teams Signal Maintainer Helper Relationship Specialty Start Date End Date Benjamin Ireland MD [address] [place] [address] PCP - General Internal Medicine 12/02/17 Leena Curtis Bow Repairer CustomWelding Tester 05/06/23 documented as of this encounter
--- OUTSIDE RECORDS SUMMARY | 2024-03-02 14:18 | XMS_ITS | Encounter Summary ---
Author Organization [employer] Address [address] [facility] 7 [place] [address] Care Team Providers Care Windows Systems Administrator Name Role Phone Benjamin Ireland MD Primary Care Provider [phone] Reason for Visit * Reason Onset Date Comments Appointment Request 09/23/2022 Encounter Details Date Type Department Care Team (Late st Contact Info) Description 09/23/2022 Telephone [facility] [address] [place] [address] Benjamin Ireland MD [address] [place] [address] Appointment Request Social History Tobacco Use Types Packs/Day Years [...] encounter Miscellaneous Notes * Telephone Encounter - Osito Higgins - 09/23/2022 11:20 AM EDT Tc from pt returning call for AGRICULTURAL REAL ESTATE AGENT appt scheduled for today @ 10:30am documented in this encounter Plan of Treatment Upcoming Encounters Date Type Department Care Team (Late st Contact Info) Description 03/25/2024 2:00 PM EST Clinical Support [facility] [address] [place] [address] Marya Montero, RN [address] [place] [address] 04/29/2024 1:15 PM EDT Office Visit [facility] [address] [place] [address] Benjamin Ireland MD [address] [place] [address] documented as of this encounter Visit Diagnoses Not on filedocumented in this encounter Additional Health Concerns Assessment Noted Time PHQ-9 Depression Total Score: 0 02/14/19 23 11:24 AM EST documented as of this encounter Care Teams Windows Systems Administrator Relationship Specialty Start Date End Date Benjamin Ireland MD [address] [place] [address] PCP - General Internal Medicine 12/02/17 Leena Curtis Instrument DesignerDam Attendant 05/06/23 documented as of this encounter
--- OUTSIDE RECORDS SUMMARY | 2024-03-02 14:18 | XMS_ITS | Encounter Summary ---
Author Organization [employer] Address 75 [facility] 7 [place] [address] Care Team Providers Care Piano Stringer Name Role Phone Benjamin Ireland MD Primary Care Provider [phone] Reason for Visit * Reason Onset Date Comments Med Refill 02/23/2024 Encounter Details Date Type Department Care Team ([facility] st Contact Info) Description 02/23/2024 Refill [facility] MED & PEDS [address] [place] [address] Benjamin Ireland MD [address] [place] [address] Chronic pain syndrome Social History Tobacco Use Types Packs/Day Years [...] encounter Miscellaneous Notes * Telephone Encounter - Antonia Alves - 02/23/2024 9:49 AM EST TC from pt requesting medication refill. Medications needing refill : acetaminophen-codeine (Tylenol w/ Codeine #3) 300- 30 MG tablet To be sent to: [facility] - [address] documented in this encounter Plan of Treatment Upcoming Encounters Date Type Department Care Team ([facility] st Contact Info) Description 03/25/2024 2:00 PM EST Clinical Support [facility] MED & PEDS [address] [place] [address] Marya Montero RN 505 [place] [address] 04/29/2024 1:15 PM EDT Office Visit [facility] MED & PEDS [address] [place] [address] Benjamin Ireland MD [address] [place] [address] documented as of this encounter Visit Diagnoses Diagnosis Chronic pain syndrome documented in this encounter Additional Health Concerns Assessment Noted Time PHQ-9 Depression Total Score: 15 024 10:11 AM EDT documented as of this encounter Care Teams Piano Stringer Relationship Specialty Start Date End Date Benjamin Ireland MD [address] [place], [place] [address] [address] PCP - General Internal Medicine 12/02/17 Leena Curtis Outpatient Case ManagerBark Tanner 05/06/23 documented as of this encounter
--- OUTSIDE RECORDS SUMMARY | 2024-03-02 14:18 | XMS_ITS | Encounter Summary ---
Author Organization [employer] Address 75 [facility] 7t [place] [address] Care Team Providers Care Polyethylene Combiner Name Role Phone Benjamin Ireland MD Primary Care Provider [phone] Encounter Details Date Type Department Care Team (Late st Contact Info) Description 03/27/2023 Orders Only [facility] MED & PEDS [address] [place], [place] [phone] Benjamin Ireland MD 505 [place] [address] Type 2 diabetes mellitus without complication, without long-term current use of insulin ([facility]) (Primary Dx) Social History Tobacco Use Types Packs/Day Years Used Date Smoking Tobacco: Never Smokeless Tobacco: Never Depression Answer Date Recorded Patient Health Questionnaire-9 Score 0 02/14/2022 Housing Stability Answer Date Recorded What is your housing situation today? I have flavia sing 03/27/[address] you li [...] AM EDT documented as of this encounter Plan of Treatment Upcoming Encounters Date Type Department Care Team ([facility] st Contact Info) Description 03/25/2024 2:00 PM EST Clinical Support [facility] MED & PEDS [address] [place] [address] Marya Montero RN 505 [place] [address] 04/29/2024 1:15 PM EDT Office Visit [facility] MED & PEDS [address] [place] [address] Benjamin Ireland MD 505 [place] [address] Scheduled Orders Name Type Priority Associated Diagnoses Orde r Schedule Microalbumin, Random Urine w/Creatinine Lab Routine Type 2 diabetes mellitus without complication, without long-term current use of insulin (CMS/HCC) Expected: 03/27/2023 (Approximate), Expires: 03/27/2024 documented as of this encounter Procedures Procedure Name Priority Date/Time Associated Diagnosis Comments TSH W/REFLEX TO FT4 Routine 04/03/2023 2 :12 PM EST Type 2 diabetes mellitus without complication, without long-term current use of insulin (CMS/HCC) LIPID PANEL, STANDARD Routine 04/03/2023 2:12 PM EST Type 2 diabetes mellitus without complication, without long-term current use of insulin (CMS/HCC) COMPREHENSIVE METABOLIC PANEL Routine 04/03/2023 2:12 PM EST Type 2 diabetes mellitus without complication, without long-term current use of insulin (CMS/HCC) documented in this encounter Results * TSH W/Reflex to FT4 (04/03/2023 2:12 PM EST) TSH reflex Free T4 0.35 0.32 - 4.0 uIU/mL [facility] Blood Venous blood specimen / Unknown 04/03/2023 2:12 PM EST 04/03/2023 5:18 PM EST us Benjamin Ireland MD LAB BLOOD ORDERABLES Final Result [facility] [address] [place] [address] [phone] * (ABNORMAL) Lipid Panel, Standard (04/03/2023 2:12 PM EST) Triglycerides 298(H) <150 mg/dL [facility] Comment:Desirable Triglyceri de: less than 150 mg/dLBorderline High Triglyceride 150-199 mg/dLHigh Triglyceride: 200-499 mg/dLVery High Triglyceride: greater than or equal to 5OO mg/dL Cholesterol 203(H) <200 mg/dL [facility] Comment:Desirable Cholestero l: less than 200 mg/dLBorderline High Cholesterol: 200-239 mg/dLHigh Cholesterol: greater than 239 mg/dL LDL Cholesterol Calculated 109(H) <100 mg/dL [facility] Comment:Desirable LDL: less than 100 mg/dLNear Optimal/Above Optimal LDL: 110- 129 mg/dLBorderline High LDL: 130-159 mg/dLHigh LDL: 160-189 mg/dLVery High LDL: greater than or equal to 190 mg/dL HDL Cholesterol 35(L) >40 mg/dL [facility] Comment:Desirable HDL: great er than 40 mg/dL Note: This HDL assay may give artificially low results in patients with liver disease. Blood Venous blood specimen / Unknown 04/03/2023 2:12 PM EST 04/03/2023 5:18 PM EST us Benjamin Ireland MD LAB BLOOD ORDERABLES Final Result [facility] [address] [place] [phone] * (ABNORMAL) Comprehensive Metabolic Panel (04/03/2023 2:12 PM EST) Sodium 140 135 - 145 mmol/L [facility] Potassium 4.3 3.3 - 5.1 mmol/L [facility] Chloride 106 96 - 108 mmol/L [facility] Carbon Dioxide 27 22 - 29 mmol/L [facility] Anion Gap 11(L) 12 - 20 [facility] Urea Nitrogen (BUN) 18(H) 9 - 16 mg/dL [facility] Creatinine, Serum 0.82 0.5 - 1.4 mg/dL [facility] Estimated Glomerular Filt Rate >60 [facility] Comment:NOTE: For -Am erican individuals, multiply the result by 1.210.Chronic Kidney Disease: Estimated GFR < 60 mL/min/1.88y1Bqbsbz Kidney Disease: Estimated GFR < 15 mL/min/1.73m2 Glucose 89 60 - 115 mg/dL [facility] Calcium 9.2 8.4 - 10.2 mg/dL [facility] Bilirubin, Total 0.3 0.0 - 1.0 mg/dL [facility] Aspartate Amino Transferase 20 5 - 31 U/L [facility] Alanine Aminotransferase 16 0 - 31 U/L [facility] Total Protein 6.9 6.5 - 8.0 g/dL [facility] Albumin Level 4.2 3.5 - 5.0 g/dL [facility] Alkaline Phosphatase 97 39 - 117 U/L [facility] Blood Venous blood specimen / Unknown 04/03/2023 2:12 PM EST 04/03/2023 5:18 PM EST us Benjamin Ireland MD LAB BLOOD ORDERABLES Final Result [facility] [address] [place] [address] [phone] documented in this encounter Visit Diagnoses Diagnosis Type 2 diabetes mellitus without complication, without long-term current use of insulin ([facility])- Primary documented in this encounter Additional Health Concerns Assessment Noted Time PHQ-9 Depression Total Score: 0 02/14/19 23 11:24 AM EST documented as of this encounter Care Teams Polyethylene Combiner Relationship Specialty Start Date End Date Benjamin Ireland MD [address] [place] [address] PCP - General Internal Medicine 12/02/17 Leena Curtis JournalistDietary Aide Cook 05/06/23 documented as of this encounter
--- OUTSIDE RECORDS SUMMARY | 2024-03-02 14:18 | XMS_ITS | Encounter Summary ---
Author Organization [employer] [facility] Address 75 [facility] 7 [place] [address] Care Team Providers Care Animal Care Attendant Name Role Phone Benjamin Ireland MD Primary Care Provider [phone] Reason for Visit * Reason Onset Date Comments Medication Question 03/07/2023 Encounter Details Date Type Department Care Team ([facility] st Contact Info) Description 03/07/2023 Telephone C [facility] MED & PEDS [address] [place] [address] Benjamin Ireland MD [address] [place] [address] Medication Question Social History Tobacco Use Types Packs/Day Years [...] encounter Miscellaneous Notes * Telephone Encounter - Marya Montero RN - 03/10/2023 11:38 AM EST [facility] message [facility]. [facility] Tylenol-Codeine #3. [facility], per pharmacist med in stock., will send rx there. * Telephone Encounter - Nora Cronin LPN - 03/10/2023 11:20 AM EST Bench Machine Operator spoke with pt pharmacy , stated they never received neither medication. I also spoke with PCP stated didn't prescribe Tramadol . Sending to Marya as FYI. * Telephone Encounter - Moy Schwab - 03/07/2023 4:50 PM EST TC from pt stating that [facility] Informs that Medication Tramadol and acetaminophen-codeine (Tylenol w/ Codeine #3) 300-30 MG tablet is not covered by insurance, patient does not know reason in why insurance is not covering medication. Bench Machine Operator tried communicating with Pharmacy to verify reason but no answer from pharmacy. Pt also informs she is in a lot of pain. Please contact pt @ [phone] documented in this encounter Plan of Treatment Upcoming Encounters Date Type Department Care Team (Late st Contact Info) Description 03/25/2024 2:00 PM EST Clinical Support [facility] MED & PEDS [address] [place] [address] Marya Montero RN [address] [place] [address] 04/29/2024 1:15 PM EDT Office Visit [facility] MED & PEDS [address] [place] [address] Benjamin Ireland MD [address] [place] [address] documented as of this encounter Visit Diagnoses Diagnosis Chronic pain syndrome documented in this encounter Additional Health Concerns Assessment Noted Time PHQ-9 Depression Total Score: 0 02/14/19 23 11:24 AM EST documented as of this encounter Care Teams Animal Care Attendant Relationship Specialty Start Date End Date Benjamin Ireland MD [address] [place] [address] PCP - General Internal Medicine 12/02/17 Leena Curtis Clinical Laboratory DirectorRisk And Compliance Analytics Director 05/06/23 documented as of this encounter
--- OUTSIDE RECORDS SUMMARY | 2024-03-02 14:18 | XMS_ITS | Encounter Summary ---
Author Organization [employer] Address 75 [facility] 7 [place] [address] Care Team Providers Care City Council Member Name Role Phone Benjamin Ireland MD Primary Care Provider [phone] Reason for Visit * Reason Onset Date Comments Medication 04/09/2023 Encounter Details Date Type Department Care Team ([facility] st Contact Info) Description 04/09/2023 Telephone [facility] MED[facility]INE [address] [place] [address] Benjamin Ireland MD [address] [place], [place] [phone] Medication Social History Tobacco Use Types Packs/Day Years Used Date Smoking Tobacco: Never Smokeless Tobacco: Never Depression Answer Date Recorded Patient Health Questionnaire-9 Score 0 02/14/2022 Housing Stability Answer Date Recorded What is your housing situation today? I have flaviayeimy [place]regon 03/27/[address] you [...] the past 12 months, has t he [employer], gas, oil or water [employer] threatened to shut off services in your [...] encounter Miscellaneous Notes * Telephone Encounter - Moy Zaheer - 04/09/2023 4:10 PM EST Tc from pt calling in regards to acetaminophen-codeine (Tylenol w/ Codeine #3) 300-30 MG tablet. Medication was sent to [facility] but pt wants medication sent to [facility] pharmacy due to [facility] not having medication. If any questions please contact pt at [phone]. documented in this encounter Plan of Treatment Upcoming Encounters Date Type Department Care Team (Late st Contact Info) Description 03/25/2024 2:00 PM EST Clinical Support [facility] MED & PEDS [address] [place] [address] Marya Montero RN [address] [place] [address] 04/29/2024 1:15 PM EDT Office Visit [facility] MED & PEDS [address] [place] [address] Benjamin Ireland MD [address] [place] [address] documented as of this encounter Visit Diagnoses Diagnosis Chronic pain syndrome documented in this encounter Additional Health Concerns Assessment Noted Time PHQ-9 Depression Total Score: 0 02/14/19 23 11:24 AM EST documented as of this encounter Care Teams City Council Member Relationship Specialty Start Date End Date Benjamin Ireland MD [address] [place] [address] PCP - General Internal Medicine 10/23/18 Leena Curtis Confidential InvestigatorForming Process Line Worker 05/06/23 documented as of this encounter
--- OUTSIDE RECORDS SUMMARY | 2024-03-02 14:18 | XMS_ITS | Encounter Summary ---
Author Organization [employer] Address 75 [facility] 7t [place] [address] Care Team Providers Care It Consulting Director Name Role Phone Benjamin Ireland MD Primary Care Provider [phone] Encounter Details Date Type Department Care Team (Latest Contact Info) Description 10/06/2023 Orders Only [facility] CHC MED & PEDS [address] [place], [place] [phone] Benjamin Ireland MD [address] [place] [address] Hypercholesterolemia (Primary Dx); Screening for colon cancer Social History Tobacco Use Types Packs/Day Years [...] [facility] MED [facility] [address] [place] [address] Marya Montero RN 505 [place] [address] 04/29/2024 1:15 PM EDT Office Visit [facility] MED & PEDS [address] [place] [address] Benjamin Ireland MD [address] [place] [address] documented as of this encounter Visit Diagnoses Diagnosis Hypercholesterolemia- Primary Pure hypercholesterolemia Screening for colon cancer Special screening for malignant neoplasms, colon documented in this encounter Additional Health Concerns Assessment Noted Time PHQ-9 Depression Total Score: 15 024 10:11 AM EDT documented as of this encounter Care Teams It Consulting Director Relationship Specialty Start Date End Date Benjamin Ireland MD [address] [place] [address] PCP - General Internal Medicine 12/02/17 Leena Curtis Alarm Installation TechnicianAssociate Software Engineer 05/06/23 documented as of this encounter
--- OUTSIDE RECORDS SUMMARY | 2024-03-02 14:18 | XMS_ITS | Encounter Summary ---
Author Organization [employer] Address [address] [place] [address] 7 [place] [address] Care Team Providers Care U.S. Revenue Officer Name Role Phone Benjamin Ireland MD Primary Care Provider [phone] Reason for Visit * Reason Comments Med Refill Encounter Details Date Type Department Care Team (Late Contact Info) Description 06/25/2022 Refill [facility] MEDICINE [address] [place], [place] [phone] Benjamin Ireland MD [address] [place] [address] Chronic pain syndrome; Intertrigo Social History Tobacco Use Types Packs/Day Years [...] Encounters Date Type Department Care Team (Late Contact Info) Description 03/25/2024 2:00 PM EST Clinical Support [facility] MED & PEDS [address] [place], [place] [phone] Marya Montero RN 505 [place], [place] [phone] 04/29/2024 1:15 PM EDT Office Visit [facility] CHC MED & PEDS [address] [place] [address] Benjamin Ireland MD [address] [place] [address] documented as of this encounter Visit Diagnoses Diagnosis Chronic pain syndrome Intertrigo Other specified erythematous condition documented in this encounter Additional Health Concerns Assessment Noted Time PHQ-9 Depression Total Score: 0 02/14/19 11:24 AM EST documented as of this encounter Care Teams U.S. Revenue Officer Relationship Specialty Start Date End Date Benjamin Ireland MD [address] [place] [address] PCP - General Internal Medicine 12/02/17 Leena Curtis Transportation Operations ManagerCleaning And Maintenance Worker 05/06/23 documented as of this encounter
--- OUTSIDE RECORDS SUMMARY | 2024-03-02 14:18 | XMS_ITS | Encounter Summary ---
Author Organization [employer] Address 75 [facility] 7 [place] [address] Care Team Providers Care Data Communications Software Consultant Name Role Phone Benjamin Ireland MD Primary Care Provider [phone] Reason for Visit * Reason Comments Med Refill Encounter Details Date Type Department Care Team ([facility] st Contact Info) Description 04/10/[address] [facility] MED & PEDS [address] [place], [place] [phone] Benjamin Ireland MD [address] [place] [address] Chronic pain syndrome Social History Tobacco Use [...] the past 12 months, has t he [employer], gas, oil or water [employer] threatened to shut off services in your [...] encounter Miscellaneous Notes * Telephone Encounter - Sarah Cintron - 04/11/2023 10:48 AM EST Spoke with patient. Informed patient that the provider Letter is read for pick and shovel man at medical records. documented in this encounter Plan of Treatment Upcoming Encounters Date Type Department Care Team (Late st Contact Info) Description 03/25/2024 2:00 PM EST Clinical Support [facility] MED & PEDS [address] [place] [address] Marya Montero, YESSICA [address] [place] [address] 04/29/2024 1:15 PM EDT Office Visit [facility] MED & PEDS [address] [place] [address] Benjamin Ireland MD [address] [place] [address] documented as of this encounter Visit Diagnoses Diagnosis Chronic pain syndrome documented in this encounter Additional Health Concerns Assessment Noted Time PHQ-9 Depression Total Score: 0 02/14/19 23 11:24 AM EST documented as of this encounter Care Teams Data Communications Software Consultant Relationship Specialty Start Date End Date Benjamin Ireland MD [address] [place] [address] PCP - General Internal Medicine 12/02/17 Leena Curtis Rental ManagerCigar Packer And Grader 05/06/23 documented as of this encounter
--- OUTSIDE RECORDS SUMMARY | 2024-03-02 14:18 | XMS_ITS | Encounter Summary ---
Author Organization [employer] Address 75 [facility] 7 [place] [address] Care Team Providers Care Crop Nutrition Scientist Name Role Phone Benjamin Ireland MD Primary Care Provider [phone] Reason for Visit * Reason Onset Date Comments Error 05/27/2023 Encounter Details Date Type Department Care Team ([facility] st Contact Info) Description 05/27/2023 Telephone [facility] MEDICINE [address] [place] [address] Benjamin Ireland MD [address] [place] [address] Error Social History Tobacco Use Types Packs/Day Years [...] t he electric, gas, oil or water [employer] threatened to shut off services in your [...] 03/25/2024 2:00 PM EST Clinical Support [facility] MED & PEDS [address] [place] [address] Marya Montero RN [address] [place] [address] 04/29/2024 1:15 PM EDT Office Visit [facility] MED & PEDS [address] [place] [address] Benjamin Ireland MD [address] [place] [address] documented as of this encounter Visit Diagnoses Not on filedocumented in this encounter Additional Health Concerns Assessment Noted Time PHQ-9 Depression Total Score: 0 02/14/19 23 11:24 AM EST documented as of this encounter Care Teams Crop Nutrition Scientist Relationship Specialty Start Date End Date Benjamin Ireland MD [address] [place] [address] PCP - General Internal Medicine 12/02/17 Leena Curtis Grind OperatorContracting Specialist 05/06/23 documented as of this encounter
--- OUTSIDE RECORDS SUMMARY | 2024-03-02 14:18 | XMS_ITS | Encounter Summary ---
Author Organization [employer] Address 75 [facility] 7t [place] [address] Care Team Providers Care Bun Machine Operator Name Role Phone Benjamin Ireland MD Primary Care Provider [phone] Encounter Details Date Type Department Care Team (Late st Contact Info) Description 11/19/2023 Orders Only [facility] MED & PEDS [address] [place], [place] [phone] Benjamin Ireland MD [address] [place] [address] Social History Tobacco Use Types Packs/Day Years [...] 2:00 PM EST Clinical Support [facility] MED & PEDS [address] [place] [address] Marya Montero RN [address] [place] [address] 04/29/2024 1:15 PM EDT Office Visit [facility] MED & PEDS [address] [place] [address] Benjamin Ireland MD [address] [place] [address] documented as of this encounter Visit Diagnoses Not on filedocumented in this encounter Additional Health Concerns Assessment Noted Time PHQ-9 Depression Total Score: 15 024 10:11 AM EDT documented as of this encounter Care Teams Bun Machine Operator Relationship Specialty Start Date End Date Benjamin Ireland MD [address] [place] [address] PCP - General Internal Medicine 12/02/17 Leena Curtis Building Construction ForemanJob Development Specialist 05/06/23 documented as of this encounter
--- OUTSIDE RECORDS SUMMARY | 2024-03-02 14:18 | XMS_ITS | Encounter Summary ---
Author Organization [employer] [facility] Address 75 [facility] 7t [place] [address] Care Team Providers Care Payment Manager Name Role Phone Benjamin Ireland MD Primary Care Provider [phone] Encounter Details Date Type Department Care Team ([facility] st Contact Info) Description 03/02/2024 Orders Only GENERIC EXTERNAL DATA DEPARTMENT Provider, Generic External Data Social History Tobacco Use Types Packs/Day Years [...] Description 03/25/2024 2:00 PM EST Clinical Support [facility] MED & PEDS [address] [place] [address] Marya Montero RN [address] [place], [place] [phone] 04/29/2024 1:15 PM EDT Office Visit [facility] MED & PEDS [address] [place], [place] [phone] Benjamin Ireland MD [address] [place], [place] [phone] documented as of this encounter Procedures Procedure Name Priority Date/Time Associated Diagnosis Comments GLUCOSE, WHOLE BLOOD Routine 03/02/2024 1:02 PM EST documented in this encounter Results * Glucose, Whole Blood (03/02/2024 1:02 PM EST) Glucose, Whole Blood 106 60 - 115 mg/dL [facility] Comment:METER #: [id number] Testing performed in the Endocrinology Department [address] , [address], [facility]. 03/02/2024 1:02 PM EST 03/02/2024 1:06 PM EST us Generic External Data Provider LAB BLOOD ORDERAB LES Final Result [facility] [address] [place] [address] [phone] documented in this encounter Visit Diagnoses Not on filedocumented in this encounter Additional Health Concerns Assessment Noted Time PHQ-9 Depression Total Score: 15 024 10:11 AM EDT documented as of this encounter Care Teams Payment Manager Relationship Specialty Start Date End Date Benjamin Ireland MD [address] [place] [address] PCP - General Internal Medicine 12/02/17 Leena Curtis Biodiesel Plant ManagerCut Off Sawyer Log 05/06/23 documented as of this encounter
--- OUTSIDE RECORDS SUMMARY | 2024-03-02 14:18 | XMS_ITS | Encounter Summary ---
Author Organization [employer] Address 75 [facility] 7 [place] [address] Care Team Providers Care Perlite Grinder Name Role Phone Benjamin Ireland MD Primary Care Provider +1 [phone] Reason for Visit * Reason Onset Date Comments Med Refill 10/02/2023 Encounter Details Date Type Department Care Team (Late st Contact Info) Description 10/02/2023 Telephone [facility] MEDICINE [address] [place] [address] Benjamin Ireland MD [address] [place] [address] Med Refill Social History Tobacco Use Types [...] * Telephone Encounter - Elisha Brandt - 10/02/2023 10:42 AM EDT TC from pt requesting medication refill. Medications needing refill : acetaminophen-codeine (Tylenol w/ Codeine #3) 300- 30 MG tablet To be sent to: [facility] documented in this encounter Plan of Treatment Upcoming Encounters Date Type Department Care Team (Late st Contact Info) Description 03/25/2024 2:00 PM EST Clinical Support [facility] MED & PEDS [address] [place] [address] Marya Montero RN 505 [place] [address] 04/29/2024 1:15 PM EDT Office Visit [facility] MED & PEDS 505 [place] [address] Benjamin Ireland MD [address] [place] [address] documented as of this encounter Visit Diagnoses Not on filedocumented in this encounter Additional Health Concerns Assessment Noted Time PHQ-9 Depression Total Score: 0 02/14/19 23 11:24 AM EST documented as of this encounter Care Teams Perlite Grinder Relationship Specialty Start Date End Date Benjamin Ireland MD NPI: [id number] [place] [id number] PCP - General Internal Medicine 12/02/17 Leena Curtis Oxygen Equipment TechnicianTelephonic Case Manager 05/06/23 documented as of this encounter
--- OUTSIDE RECORDS SUMMARY | 2024-03-02 14:18 | XMS_ITS | Encounter Summary ---
Author Organization [employer] Address 75 [facility] 7 [place] [address] Care Team Providers Care Furniture Refinisher Name Role Phone Benjamin Ireland MD Primary Care Provider +[phone] Reason for Visit * Reason Onset Date Comments Med Refill 06/24/2022 Encounter Details Date Type Department Care Team (Late st Contact Info) Description 06/24/2022 Telephone [facility]INE [address] [place] [address] Benjamin Ireland MD [address] [place] [address] Med Refill Social History Tobacco Use Types [...] encounter Miscellaneous Notes * Telephone Encounter - Marvin Morales - 06/24/2022 11:56 AM EDT Tc from pt requesting med refill acetaminophen-codeine (Tylenol w/ Codeine #3) 300-30 MG tablet documented in this encounter Plan of Treatment Upcoming Encounters Date Type Department Care Team (Late st Contact Info) Description 03/25/2024 2:00 PM EST Clinical Support [facility] MED & PEDS [address] [place] [address] Marya Montero RN 505 [place] [address] 04/29/2024 1:15 PM EDT Office Visit [facility] MED & PEDS [address] [place] [address] Benjamin Ireland MD 505 [place] [address] documented as of this encounter Visit Diagnoses Not on filedocumented in this encounter Additional Health Concerns Assessment Noted Time PHQ-9 Depression Total Score: 0 02/14/19 23 11:24 AM EST documented as of this encounter Care Teams Furniture Refinisher Relationship Specialty Start Date End Date Benjamin Ireland MD 505 [place] [address] PCP - General Internal Medicine 12/02/17 Leena Curtis Nut Blanker OperatorReligious Assistant 05/06/23 documented as of this encounter
--- OUTSIDE RECORDS SUMMARY | 2024-03-02 14:18 | XMS_ITS | Encounter Summary ---
Author Organization [employer] [facility] Address [address] [place] [address] 7 [place] [address] Care Team Providers Care Motor Transport Inspector Name Role Phone Benjamin Ireland MD Primary Care Provider [phone] Encounter Details Date Type Department Care Team (Late Contact Info) Description 03/10/2023 Orders Only [facility] MED & PEDS [address] [place] [address] Benjamin Ireland MD [address] [place] [address] Chronic pain syndrome Social History Tobacco Use [...] [facility] MED [facility] PED[facility] [address] [place] [address] Marya Montero RN 505 [place], [place] [phone] 04/29/2024 1:15 PM EDT Office Visit [facility] MED & PEDS [address] [place] [address] Benjamin Ireland MD 505 [place] [address] documented as of this encounter Visit Diagnoses Diagnosis Chronic pain syndrome documented in this encounter Additional Health Concerns Assessment Noted Time PHQ-9 Depression Total Score: 0 02/14/19 23 11:24 AM EST documented as of this encounter Care Teams Motor Transport Inspector Relationship Specialty Start Date End Date Benjamin Ireland MD 505 [place] [address] PCP - General Internal Medicine 12/02/17 Leena Curtis Card DofferFrame Builder 05/06/23 documented as of this encounter
--- OUTSIDE RECORDS SUMMARY | 2024-03-02 14:18 | XMS_ITS | Encounter Summary ---
Author Organization [employer] Address 75 [facility] 7 [place] [address] Care Team Providers Care Senior Architect/Design Manager Name Role Phone Benjamin Ireland MD Primary Care Provider [phone] [phone] Reason for Visit * Reason Onset Date Comments Nurse Triage 11/19/2023 Encounter Details Date Type Department Care Team ([facility] st Contact Info) Description 11/19/2023 Telephone [facility] MED & PEDS [address] [place] [address] Benjamin Ireland MD [address] [place] [address] Nurse Triage Social History Tobacco Use Types Packs/Day Years [...] encounter Miscellaneous Notes * Telephone Encounter - Benjamin Ireland MD - 11/19/2023 10:04 PM EDT Unsure of which mask and tubing patient would need. I know that we have them at the [facility] and we could provide the mask and tubing that we have * Telephone Encounter - Allyn Barker RN - 11/19/2023 11:24 AM EDT Please see below triage. Pt would like nebulizer solution, and also needs mask and tubing Rx. * Telephone Encounter - Allyn Barker RN - 11/19/2023 11:12 AM EDT Images from the original note were not included. Per chart review pt has hx of asthma. Rx for advair diskus and albuterol inhaler/solution in chart.Pt cancelled PCP follow up today and r/s for 11/25 Call returned to Mel Oliver to triage below. Reports having cough, and SOB. Sx onset last night. Pt also endorses wheezing with mild relief. Pt states clear sputum. Pt also endorses having subjective fever. Mild ST and BR[place]. No COVID-19 testing done. Pt offered SDC appt today for exam. Pt declines. States is just looking for nebulizer solution and mask and tubing. Pt advised can request refills but if having other sx may be more than just asthma exacerbation. Pt advised to seek UC or ER nearest pt if sx worsen. Pt agrees. Request to be sent to PCP and team for albuterol solution, mask andtubing. Protocol Used: COVID-19 - Diagnosed or Suspected (Adult) Protocol-Based Disposition: Discuss with PCP and Callback by Nurse within 1 Hour Video visit offer not recorded Positive Triage Question: * HIGH RISK patient (e.g., weak immune system, age > 64 years, obesity with BMI of 30 or higher,, chronic lung disease) and COVID symptoms (e.g., cough, fever) (Exceptions: Already seen by doctor or LEAD HOUSEKEEPER/PA and no new or worsening symptoms.) * All higher-acuity triage questions were negative Care Advice Discussed: * Reassurance and Education - Suspected COVID-19 and Testing Needed * Cough Medicines * Humidifier * Coughing Spells * Pain and Fever Medicines * Reasons To Call Back - Fever over 103 F (39.4 C) - Chest pain or difficulty breathing occurs - You become worse * Telephone Encounter - Kalpana Morse - 11/19/2023 10:52 AM EDT Symptom: Wheezing Outcome: Talk to a nurse or provider within 15 minutes Reason: Any trouble breathing through the mouth The caller accepted this outcome. Please contact pt at [phone] (kenyan) documented in this encounter Plan of Treatment Upcoming Encounters Date Type Department Care Team ([facility] st Contact Info) Description 03/25/2024 2:00 PM EST Clinical Support [facility] MED & PEDS [address] [place] [address] Marya Montero RN 505 [place] [address] 04/29/2024 1:15 PM EDT Office Visit [facility] MED & PEDS [address] [place] [address] Benjamin Ireland MD [address] [place] [address] documented as of this encounter Visit Diagnoses Not on filedocumented in this encounter Additional Health Concerns Assessment Noted Time PHQ-9 Depression Total Score: 15 024 10:11 AM EDT documented as of this encounter Care Teams Senior Architect/Design Manager Relationship Specialty Start Date End Date Benjamin Ireland MD [address] [place] [address] PCP - General Internal Medicine 12/02/17 Leena Curtis Cardiac Nurse PractitionerKiln Hand 05/06/23 documented as of this encounter
--- OUTSIDE RECORDS SUMMARY | 2024-03-02 14:18 | XMS_ITS | Encounter Summary ---
Author Organization [employer] Address 75 [facility] 7 [place] [address] Care Team Providers Care Overcoiler Name Role Phone Benjamin Ireland MD Primary Care Provider [phone] Reason for Visit * Reason Comments Med Refill Encounter Details Date Type Department Care Team ([facility] st Contact Info) Description 02/24/[address] [facility] CH[facility] MED & PEDS [address] [place], [place] [phone] Benjamin Ireland MD 505 [place] [address] Other specified hypothyroidism Social History Tobacco Use Types Packs/Day Years [...] Description 03/25/2024 2:00 PM EST Clinical Support [facility] MED & PEDS [address] [place] [address] Marya Montero RN 505 [place] [address] 04/29/2024 1:15 PM EDT Office Visit [facility] MED & PEDS 505 [place] [address] Benjamin Ireland MD 505 [place] [address] documented as of this encounter Visit Diagnoses Diagnosis Other specified hypothyroidism documented in this encounter Additional Health Concerns Assessment Noted Time PHQ-9 Depression Total Score: 15 024 10:11 AM EDT documented as of this encounter Care Teams Overcoiler Relationship Specialty Start Date End Date Benjamin Ireland MD 505 [place] [address] PCP - General Internal Medicine 12/02/17 Leena Curtis Command And Control Systems IntegratorPhilanthropy Officer 05/06/23 documented as of this encounter
--- OUTSIDE RECORDS SUMMARY | 2024-03-02 14:18 | XMS_ITS | Encounter Summary ---
Author Organization [employer] Address 75 [facility] 7t [place] [address] Care Team Providers Care Control Tower Radio Operator Name Role Phone Benjamin Ireland MD Primary Care Provider [phone] Encounter Details Date Type Department Care Team ([facility] st Contact Info) Description 12/31/2023 Orders Only [facility] External Provider, [facility] Social History Tobacco Use Types Packs/Day Years [...] Description 03/25/2024 2:00 PM EST Clinical Support [facility] MED & PEDS [address] [place] [address] Marya Montero, YESSICA 505 [place] [address] 04/29/2024 1:15 PM EDT Office Visit [facility] MED & PEDS [address] [place] [address] Benjamin Ireland MD [address] [place] [address] documented as of this encounter Procedures Procedure Name Priority Date/Time Associated Diagnosis Comments [facility] LOWER EXTREMITY VENOUS DUPLEX BILATERAL Routine 12/31/2023 1:06 PM EST documented in this encounter Results * [facility] Lower Extremity Venous Duplex Bilateral (12/31/2023 1:06 PM EST) 12/31/2023 1:06 PM EST Narrative [facility] - 02/06/2024 9:07 AM EST ? [facility] ?[address] ?[place] [address] ? Ultrasound Report ? Signed ? Patient: Mel More ?MR#: [id number] ?? [id number] ? : 1960 ?Acct:[id number] ? Age/Sex: 63 / F ?ADM Date: 11/20/24 ? Loc: HO.US ? Attending Dr: Kisha Valadez PA-C ? Ordering Physician: Kisha Valadez PA-C ?? Date of Service: 12/31/23 ?? Procedure(s): US venous duplex LE BI ?? Accession Number(s): [id number] ? cc: Benjamin Ireland MD; Kisha Valadez [...] ? Signed By: ?<Electronically signed by Wiliam Maire MD in OV> ? 02/06/24 0904 ? DD/ 1306 ? TD/TT: 12/31/23 1350 ? Manager Mortgage: ? Procedure Note Donotuseinterpreter, Image - 02/06/2024 [place] [address] Ultrasound Report Signed Patient: Cortney More#: [id number] : 2Acct:[id number] Age/Sex: 63 / FADM Date: 12/31/23 Loc: HO.US Attending Dr: Kisha Valadez PA-C Ordering Physician: Kisha Valadez PA-C Date of Service: 12/31/23 Procedure(s): US venous duplex LE BI Accession Number(s): [id number] cc: Benjamin Ireland MD; Kisha Valadez PA-C [...] by: Wiliam Marie MD 02/06/2024 09:04 AM EST RP Dictated By: Wiliam Marie MD Signed By: <Electronically signed by Wiliam Marie MD in OV> 02/06/24 0904 DD/ 1306 TD/TT: 12/31/23 1350 Manager Mortgage: [facility] External Provider CV VASC ULAR PROCEDURES Final Result [facility] [address] [place] [address] documented in this encounter Visit Diagnoses Not on filedocumented in this encounter Additional Health Concerns Assessment Noted Time PHQ-9 Depression Total Score: 15 024 10:11 AM EDT documented as of this encounter Care Teams Control Tower Radio Operator Relationship Specialty Start Date End Date Benjamin Ireland MD [address] [place] [address] PCP - General Internal Medicine 12/02/17 Leena Curtis Business InstructorNon Emergency Services Ambulance Driver 05/06/23 documented as of this encounter
--- OUTSIDE RECORDS SUMMARY | 2024-03-02 14:18 | XMS_ITS | Encounter Summary ---
Author Organization [employer] Address 75 [facility] 7 [place] [address] Care Team Providers Care Hand Molder And Caster Name Role Phone Benjamin Ireland MD Primary Care Provider [phone] Reason for Visit * Reason Onset Date Comments PT1 03/04/2023 Encounter Details Date Type Department Care Team ([facility] st Contact Info) Description 03/04/2023 Telephone [facility] CHC MED & PEDS [address] [place] [address] Benjamin Ireland MD [address] [place] [address] PT1 Social History Tobacco Use Types Packs/Day Years [...] encounter Miscellaneous Notes * Telephone Encounter - Caprice Nunes - 03/06/2023 12:15 PM EST PT-1 submitted for patient. They will receive a letter of approval or denial in the mail. * Telephone Encounter - Moy Schwab - 03/04/2023 3:36 PM EST PT1 needed Date: 04/03/23 Time: 1:15 Visits: N/A Address: [address] [place] [address] Facility: [address] [place] [address] Wheel Chair: No (Uses walker) Web Design Intern Needed: yes documented in this encounter Plan of Treatment Upcoming Encounters Date Type Department Care Team (Late st Contact Info) Description 03/25/2024 2:00 PM EST Clinical Support [facility] MED & PEDS [address] [place] [address] Marya Montero RN 505 [place] [address] 04/29/2024 1:15 PM EDT Office Visit [facility] MED & PEDS [address] [place] [address] Benjamin Ireland MD [address] [place] [address] documented as of this encounter Visit Diagnoses Not on filedocumented in this encounter Additional Health Concerns Assessment Noted Time PHQ-9 Depression Total Score: 0 02/14/19 11:24 AM EST documented as of this encounter Care Teams Hand Molder And Caster Relationship Specialty Start Date End Date Benjamin Ireland MD [address] [place] [address] PCP - General Internal Medicine 12/02/17 Leena Curtis Knife Blade PolisherRecycling Coordinator 05/06/23 documented as of this encounter
--- OUTSIDE RECORDS SUMMARY | 2024-03-02 14:18 | XMS_ITS | Encounter Summary ---
Author Organization [employer] Address 75 [facility] 7 [place] [address] Care Team Providers Care Audio Visual Secretary Name Role Phone Benjamin Ireland MD Primary Care Provider [phone] Reason for Visit * Reason Onset Date Comments Med Refill 04/29/2022 Encounter Details Date Type Department Care Team (Late st Contact Info) Description 04/29/2022 Telephone [facility] MEDICINE [address] [place] [address] Benjamin Ireland MD [address] [place] [address] Med Refill Social History Tobacco Use Types [...] * Telephone Encounter - Osito Higgins - 04/29/2022 10:36 AM EDT Tc from pt requesting a med refil for acetaminophen-codeine (Tylenol w/ Codeine #3) 300-30 MG tablet documented in this encounter Plan of Treatment Upcoming Encounters Date Type Department Care Team (Late st Contact Info) Description 03/25/2024 2:00 PM EST Clinical Support [facility] MED & PEDS [address] [place] [address] Marya Montero RN 505 [place] [address] 04/29/2024 1:15 PM EDT Office Visit [facility] MED & PEDS [address] [place] [address] Benjamin Ireland MD [address] [place] [address] documented as of this encounter Visit Diagnoses Not on filedocumented in this encounter Additional Health Concerns Assessment Noted Time PHQ-9 Depression Total Score: 0 02/14/19 23 11:24 AM EST documented as of this encounter Care Teams Audio Visual Secretary Relationship Specialty Start Date End Date Benjamin Ireland MD [address] [place] [address] PCP - General Internal Medicine 12/02/17 Leena Curtis Hand ScudderMerchandise Executive 05/06/23 documented as of this encounter
--- OUTSIDE RECORDS SUMMARY | 2024-03-02 14:19 | XMS_ITS | Encounter Summary ---
Author Organization [facility] [facility] Address [address] [place] [address] 7 [place] [address] Care Team Providers Care Account Auditor Name Role Phone Benjamin Ireland MD Primary Care Provider [phone] Encounter Details Date Type Department Care Team (Late st Contact Info) Description 01/15/[address] [facility] MED & PEDS [address] [place] [address] ProviderRadha MD Social History Tobacco Use Types Packs/Day Years Used Date Smoking Tobacco: Never Assessed Comments Unknown Sex and Gender Information Value [...] Description 03/25/2024 2:00 PM EST Clinical Support [facility] MED & PEDS [address] [place] [address] Marya Montero, YESSICA [address] [place] [address] 04/29/2024 1:15 PM EDT Office Visit [facility] MED & PEDS [address] [place] [address] Benjamin Ireland MD 505 [place] [address] documented as of this encounter Visit Diagnoses Not on filedocumented in this encounter Care Teams Account Auditor Relationship Specialty Start Date End Date Benjamin Ireland MD [address] [place] [address] PCP - General Internal Medicine 12/02/17 Leena Curtis Sales DemonstratorDrill Operator Automatic 05/06/23 documented as of this encounter
--- OUTSIDE RECORDS SUMMARY | 2024-03-02 14:19 | XMS_ITS | Encounter Summary ---
Author Organization [employer] [facility] Address [address] [place] [address] 7 [place] [address] Care Team Providers Care Germ Drier Name Role Phone Benjamin Ireland MD Primary Care Provider [phone] Reason for Visit * Reason Comments Med Refill Encounter Details Date Type Department Care Team (Late Contact Info) Description 03/22/2022 Refill [facility] MED & PEDS [address] [place] [address] Benjamin Ireland MD [address] [place] [address] Moderate persistent allergic asthma (Primary Dx); Type 2 diabetes mellitus with hyperosmolarity without coma, without long-term current use of insulin ([facility]); Other specified hypothyroidism; Stress incontinence of urine; Intertrigo Social History Tobacco Use Types Packs/Day [...] Upcoming Encounters Date Type Department Care Team ([facility] Contact Info) Description 03/25/2024 2:00 PM EST Clinical Support [facility] CHC MED & PEDS [address] [place] [address] Marya Montero, YESSICA [address] [place] [address] 04/29/2024 1:15 PM EDT Office Visit [facility] CHC MED & PEDS [address] [place] [address] Benjamin Ireland MD [address] [place] [address] documented as of this encounter Visit Diagnoses Diagnosis Moderate persistent allergic asthma- Primary Type 2 diabetes mellitus with hyperosmolarity without coma, without long-term current use of insulin ([facility]) Other specified hypothyroidism Stress incontinence of urine Intertrigo Other specified erythematous condition documented in this encounter Additional Health Concerns Assessment Noted Time PHQ-9 Depression Total Score: 0 02/14/19 23 11:24 AM EST documented as of this encounter Care Teams Germ Drier Relationship Specialty Start Date End Date Benjamin Ireland MD [address] [place] [address] PCP - General Internal Medicine 12/02/17 Leena Curtis Seafood Team MemberOrthopedic Cast Specialist 05/06/23 documented as of this encounter
== END 2024-03-02 13:22 | disposition home or self-care (01) ==
PROVIDERS: PCP Internal Medicine; Visit Provider Physician Assistant Medical
DX: E11.59 Type 2 diabetes mellitus with other circulatory complications (principal); E11.42 Type 2 diabetes mellitus with diabetic polyneuropathy

== ENCOUNTER → 2024-03-02 12:43 | Outpatient (BNVA) | payer MEDICAID, SELFPAY | PROVIDERS: PCP Internal Medicine; Visit Provider Physician Assistant Medical | DX: E11.59 Type 2 diabetes mellitus with other circulatory complications (principal); E11.42 Type 2 diabetes mellitus with diabetic polyneuropathy; E78.5 Hyperlipidemia, unspecified; E03.9 Hypothyroidism, unspecified; I10 Essential (primary) hypertension | CPT/HCPCS: 82947; 83036; 99212 ==

== ENCOUNTER 2024-03-19 10:42 | Outpatient (AMB) | payer MEDICAID, SELFPAY ==
--- OUTSIDE RECORDS SUMMARY | 2024-03-19 11:44 | XMS_ITS | Encounter Summary ---
Author Organization [employer] Address 75 [facility] 7 [place] [address] Care Team Providers Care Engineering Inspection Assistant Name Role Phone Benjamin Ireland MD Primary Care Provider [phone] Reason for Visit * Reason Onset Date Comments Nurse Triage 11/19/2023 Encounter Details Date Type Department Care Team ([facility] st Contact Info) Description 11/19/2023 Telephone [facility] CH[facility] MED & PEDS [address] [place] [address] Benjamin Ireland MD [address] [place] [address] Nurse Triage Social History Tobacco Use Types [...] know that we have them at the [facility] and we could provide the mask [...] fever) (Exceptions: Already seen by doctor or FINANCIAL INTERNSHIP/PA and no new or worsening symptoms.) * [...] accepted this outcome. Please contact pt at [phone] (cape verdean) documented in this encounter Plan of Treatment Upcoming Encounters Date Type Department Care Team ([facility] st Contact Info) Description 03/25/2024 2:00 PM EST Clinical Support [facility] MED & PEDS [address] [place] [address] Marya Montero RN [address] [place] [address] 04/29/2024 1:15 PM EDT Office Visit [facility] MED & PEDS [address] [place] [address] Benjamin Ireland MD [address] [place] [address] documented as of this encounter Visit Diagnoses Not on filedocumented in this encounter Additional Health Concerns Assessment Noted Time PHQ-9 Depression Total Score: 15 024 10:11 AM EDT documented as of this encounter Care Teams Engineering Inspection Assistant Relationship Specialty Start Date End Date Benjamin Ireland MD [address] [place] [address] PCP - General Internal Medicine 12/02/17 Leena Curtis River DriverDescriptive Catalog Librarian 05/06/23 documented as of this encounter
--- OUTSIDE RECORDS SUMMARY | 2024-03-19 11:44 | XMS_ITS | Encounter Summary ---
Author Organization [employer] Address 75 [facility] 7 [place] [address] Care Team Providers Care Party Plan Sales Unit Sales Leader Name Role Phone Benjamin Ireland MD Primary Care Provider [phone]- [phone] Reason for Visit * Reason Onset Date Comments PT1 03/04/2023 Encounter Details Date Type Department Care Team ([facility] st Contact Info) Description 03/04/2023 Telephone [facility] MED & PEDS [address] [place] [address] Benjamin Ireland MD 505 [place] [address] PT1 Social History Tobacco Use Types Packs/Day [...] Date: 04/03/23 Time: 1:15 Visits: N/A Address: [address] [place] [address] Facility: [address] [place] [address] Wheel Chair: No (Uses walker) Biochemistry Specialist Needed: yes documented in this encounter Plan of Treatment Upcoming Encounters Date Type Department Care Team (Late st Contact Info) Description 03/25/2024 2:00 PM EST Clinical Support [facility] MED & PEDS [address] [place] [address] Marya Montero RN 505 [place] [address] 04/29/2024 1:15 PM EDT Office Visit [facility] MED & PEDS [address] [place] [address] Benjamin Ireland MD [address] [place] [address] documented as of this encounter Visit Diagnoses Not on filedocumented in this encounter Additional Health Concerns Assessment Noted Time PHQ-9 Depression Total Score: 0 02/14/19 11:24 AM EST documented as of this encounter Care Teams Party Plan Sales Unit Sales Leader Relationship Specialty Start Date End Date Benjamin Ireland MD [address] [place] [address] PCP - General Internal Medicine 12/02/17 Leena Curtis Visiting TeacherControl System Computer Scientist 05/06/23 documented as of this encounter
--- OUTSIDE RECORDS SUMMARY | 2024-03-19 11:44 | XMS_ITS | Encounter Summary ---
Author Organization [employer] Address 75 [facility] 7t [place] [address] Care Team Providers Care Engineer Chief Name Role Phone Benjamin Ireland MD Primary Care Provider [phone] Encounter Details Date Type Department Care Team ([facility] st Contact Info) Description 03/02/2024 Orders Only [...] 2:00 PM EST Clinical Support [facility] MED & PEDS [address] [place] [address] Marya Montero RN 505 [place], [place] [phone] 04/29/2024 1:15 PM EDT Office Visit [facility] MED & PEDS 505 [place], [place] [phone] Benjamin Ireland MD 505 [place], [place] [phone] documented as of this encounter Procedures Procedure Name Priority Date/Time Associated Diagnosis Comments GLUCOSE, WHOLE BLOOD Routine 03/02/2024 1:02 PM EST documented in this encounter Results * Glucose, Whole Blood (03/02/2024 1:02 PM EST) Glucose, Whole Blood 106 60 - 115 mg/dL [facility] Comment:METER #: [id number] Testing performed in the Endocrinology Department [address] , [address], [facility]. 03/02/2024 1:02 PM EST 03/02/2024 1:06 PM EST us Generic External Data Provider LAB BLOOD ORDERAB LES Final Result [facility] [address] [place] [address] [phone] documented in this encounter Visit Diagnoses Not on filedocumented in this encounter Additional Health Concerns Assessment Noted Time PHQ-9 Depression Total Score: 15 024 10:11 AM EDT documented as of this encounter Care Teams Engineer Chief Relationship Specialty Start Date End Date Benjamin Ireland MD [address] [place] [address] PCP - General Internal Medicine 12/02/17 Leena Curtis Milking Machine MechanicForest Examiner 05/06/23 documented as of this encounter
--- OUTSIDE RECORDS SUMMARY | 2024-03-19 11:44 | XMS_ITS | Encounter Summary ---
Author Organization [employer] [facility] Address 75 [facility] 7 [place] [address] Care Team Providers Care Terminal Makeup Operator Name Role Phone Benjamin Ireland MD Primary Care Provider [phone] Reason for Visit * Reason Onset Date Comments Medication Question 03/07/2023 Encounter Details Date Type Department Care Team ([facility] st Contact Info) Description 03/07/2023 Telephone [facility] MED & PEDS [address] [place] [address] Benjamin Ireland MD [address] [place] [address] Medication Question Social History Tobacco Use Types [...] Cronin LPN - 03/10/2023 11:20 AM EST Food And Beverage Outlets Manager spoke with pt pharmacy , stated they never received neither medication. I also spoke with PCP stated didn't prescribe Tramadol . Sending to Marya as FYI. * Telephone Encounter - Moy Schwab - 03/07/2023 4:50 PM EST TC from pt stating that [facility] Informs that Medication Tramadol and acetaminophen-codeine (Tylenol w/ Codeine #3) 300-30 MG tablet is not covered by insurance, patient does not know reason in why insurance is not covering medication. Food And Beverage Outlets Manager tried communicating with Pharmacy to verify reason but no answer from pharmacy. Pt also informs she is in a lot of pain. Please contact pt @ [phone] documented in this encounter Plan of Treatment Upcoming Encounters Date Type Department Care Team (Late st Contact Info) Description 03/25/2024 2:00 PM EST Clinical Support [facility] MED & PEDS [address] [place] [address] Marya Montero RN 505 [place] [address] 04/29/2024 1:15 PM EDT Office Visit [facility] MED & PEDS [address] [place] [address] Benjamin Ireland MD [address] [place] [address] documented as of this encounter Visit Diagnoses Diagnosis Chronic pain syndrome documented in this encounter Additional Health Concerns Assessment Noted Time PHQ-9 Depression Total Score: 0 02/14/19 23 11:24 AM EST documented as of this encounter Care Teams Terminal Makeup Operator Relationship Specialty Start Date End Date Benjamin Ireland MD 505 [place] [address] PCP - General Internal Medicine 12/02/[address] Machinery InspectorApplied Marine Physics Professor 05/06/23 documented as of this encounter
--- OUTSIDE RECORDS SUMMARY | 2024-03-19 11:44 | XMS_ITS | Encounter Summary ---
Author Organization [employer] Address 75 [facility] 7t [place] [address] Care Team Providers Care Curling Machine Operator Name Role Phone Benjamin Ireland MD Primary Care Provider [phone] Encounter Details Date Type Department Care Team (Latest Contact Info) Description 10/06/2023 Orders Only [facility] CHC MED & PEDS [address] [place], [place] [phone] Benjamin Ireland MD [address] [place] [address] Hypercholesterolemia (Primary Dx); Screening for colon cancer [...] 2:00 PM EST Clinical Support [facility] MED & PEDS [address] [place] [address] Marya Montero RN 505 [place] [address] 04/29/2024 1:15 PM EDT Office Visit [facility] MED & PEDS [address] [place] [address] Benjamin Ireland MD [address] [place] [address] documented as of this encounter Visit Diagnoses Diagnosis Hypercholesterolemia- Primary Pure hypercholesterolemia Screening for colon cancer Special screening for malignant neoplasms, colon documented in this encounter Additional Health Concerns Assessment Noted Time PHQ-9 Depression Total Score: 15 024 10:11 AM EDT documented as of this encounter Care Teams Curling Machine Operator Relationship Specialty Start Date End Date Benjamin Ireland MD [address] [place] [address] PCP - General Internal Medicine 12/02/17 Leena Curtis Chicle Grinder FeederCt Manager 05/06/23 documented as of this encounter
--- OUTSIDE RECORDS SUMMARY | 2024-03-19 11:44 | XMS_ITS | Encounter Summary ---
Author Organization [email or web address] Address 75 [facility] 7 [place] [address] Care Team Providers Care Cloth Printing Back Tender Name Role Phone Benjamin Ireland MD Primary Care Provider [phone] Reason for Visit * Reason Onset Date Comments Med Refill 04/29/2022 Encounter Details Date Type Department Care Team ([facility] st Contact Info) Description 04/29/2022 Telephone [facility] MEDICINE [address] [place] [address] Benjamin Ireland MD [address] [place] [address] Med Refill Social History Tobacco Use Types [...] not to disclose 2021 10:32 AM EDT COVID-19 Exposure Response Date Recorded In the last 10 days, have yo u been in contact with someone who was confirmed or suspected to have Coronavirus/COVID-19? No / Unsure 07/16/2022 9:57 AM EDT documented as of this encounter Miscellaneous Notes * Telephone Encounter - Osito Higgins - 04/29/2022 10:36 AM EDT Tc from pt requesting a med refil for acetaminophen-codeine (Tylenol w/ Codeine #3) 300-30 MG tablet documented in this encounter Plan of Treatment Upcoming Encounters Date Type Department Care Team ([facility] st Contact Info) Description 03/25/2024 2:00 PM EST Clinical Support [facility] MED & PEDS [address] [place] [address] Marya Montero RN 505 [place] [address] 04/29/2024 1:15 PM EDT Office Visit [facility] MED & PEDS [address] [place] [address] Benjamin Ireland MD [address] [place] [address] documented as of this encounter Visit Diagnoses Not on filedocumented in this encounter Additional Health Concerns Assessment Noted Time PHQ-9 Depression Total Score: 0 02/14/19 23 11:24 AM EST documented as of this encounter Care Teams Cloth Printing Back Tender Relationship Specialty Start Date End Date Benjamin Ireland MD [address] [place] [address] PCP - General Internal Medicine 12/02/17 Leena Curtis Toll Ticket ClerkKinder Teacher 05/06/23 documented as of this encounter
--- OUTSIDE RECORDS SUMMARY | 2024-03-19 11:44 | XMS_ITS | Clinical Summary ---
Author Organization [facility] Address [address] [place] [address] Care Team Providers Care Lead Cytogenetic Technologist Name Role Phone Unavailable Primary Care Provider [...] episode of recurren t major depressive disorder ([facility]) 10/06/2023 Assessment & Plan (12/18/2023 6:26 AM [...] 02/05/2017 Obesity 02/05/2017 Type 2 diabetes mellitus ([facility]) 03/08/2006 Family History Relation Name Status Comments Brother [...] 2006 Fecal DNA 2006 Flexible Sigmoidoscopy 2006 [id number] ( season) 2023 021, 04/28/2020 Imm-Influenza (#1) [...] Discontinued Vaginal Pap Discontinued Vulvoscopy Discontinued Insurance [place] MEDICAID [facility]
--- OUTSIDE RECORDS SUMMARY | 2024-03-19 11:44 | XMS_ITS | Encounter Summary ---
Author Organization [employer] Address [address] [facility] 7t [place] [address] Care Team Providers Care Director Of Construction Name Role Phone Benjamin Ireland MD Primary Care Provider [phone] Encounter Details Date Type Department Care Team (Late st Contact Info) Description 03/27/2023 Orders Only [facility] CHC MED & PEDS [address] [place], [place] [phone] Benjamin Ireland MD [address] [place] [address] Type 2 diabetes mellitus without complication, without long-term current use of insulin ([facility]) (Primary Dx) Social History Tobacco Use Types [...] Upcoming Encounters Date Type Department Care Team ([facility] st Contact Info) Description 03/25/2024 2:00 PM EST Clinical Support [facility] MED & PEDS [address] [place] [address] Marya Montero RN [address] [place] [address] 04/29/2024 1:15 PM EDT Office Visit [facility] MED & PEDS [address] [place] [address] Benjamin Ireland MD [address] [place] [address] Scheduled Orders Name Type Priority Associated Diagnoses [...] Free T4 0.35 0.32 - 4.0 uIU/mL [facility] Blood Venous blood specimen / Unknown 04/03/2023 2:12 PM EST 04/03/2023 5:18 PM EST us Benjamin Ireland MD LAB BLOOD ORDERABLES Final Result [facility] [address] [place] [phone] * (ABNORMAL) Lipid Panel, Standard (04/03/2023 2:12 PM EST) Triglycerides 298(H) <150 mg/dL [facility] Comment:Desirable Triglyceri de: less than 150 mg/dLBorderline High Triglyceride 150-199 mg/dLHigh Triglyceride: 200-499 mg/dLVery High Triglyceride: greater than or equal to 5OO mg/dL Cholesterol 203(H) <200 mg/dL [facility] Comment:Desirable Cholestero l: less than 200 mg/dLBorderline High Cholesterol: 200-239 mg/dLHigh Cholesterol: greater than 239 mg/dL LDL Cholesterol Calculated 109(H) <100 mg/dL [facility] Comment:Desirable LDL: less than 100 mg/dLNear Optimal/Above Optimal LDL: 110- 129 mg/dLBorderline High LDL: 130-159 mg/dLHigh LDL: 160-189 mg/dLVery High LDL: greater than or equal to 190 mg/dL HDL Cholesterol 35(L) >40 mg/dL [facility] Comment:Desirable HDL: great er than 40 mg/dL Note: This HDL assay may give artificially low results in patients with liver disease. Blood Venous blood specimen / Unknown 04/03/2023 2:12 PM EST 04/03/2023 5:18 PM EST us Benjamin Ireland MD LAB BLOOD ORDERABLES Final Result [facility] [address] [place] [phone] * (ABNORMAL) Comprehensive Metabolic Panel (04/03/2023 2:12 PM EST) Sodium 140 135 - 145 mmol/L [facility] Potassium 4.3 3.3 - 5.1 mmol/L [facility] Chloride 106 96 - 108 mmol/L [facility] Carbon Dioxide 27 22 - 29 mmol/L [facility] Anion Gap 11(L) 12 - 20 [facility] Urea Nitrogen (BUN) 18(H) 9 - 16 mg/dL [facility] Creatinine, Serum 0.82 0.5 - 1.4 mg/dL [facility] Estimated Glomerular Filt Rate >60 [facility] Comment:NOTE: For -Am erican individuals, multiply the result by 1.210.Chronic Kidney Disease: Estimated GFR < 60 mL/min/1.63f3Bruyft Kidney Disease: Estimated GFR < 15 mL/min/1.73m2 Glucose 89 60 - 115 mg/dL [facility] Calcium 9.2 8.4 - 10.2 mg/dL [facility] Bilirubin, Total 0.3 0.0 - 1.0 mg/dL [facility] Aspartate Amino Transferase 20 5 - 31 U/L [facility] Alanine Aminotransferase 16 0 - 31 U/L [facility] Total Protein 6.9 6.5 - 8.0 g/dL [facility] Albumin Level 4.2 3.5 - 5.0 g/dL [facility] Alkaline Phosphatase 97 39 - 117 U/L [facility] Blood Venous blood specimen / Unknown 04/03/2023 2:12 PM EST 04/03/2023 5:18 PM EST us Benjamin Ireland MD LAB BLOOD ORDERABLES Final Result [facility] [address] [place] [address] [phone] documented in this encounter Visit Diagnoses Diagnosis Type 2 diabetes mellitus without complication, without long-term current use of insulin ([facility])- Primary documented in this encounter Additional Health Concerns Assessment Noted Time PHQ-9 Depression Total Score: 0 02/14/19 23 11:24 AM EST documented as of this encounter Care Teams Director Of Construction Relationship Specialty Start Date End Date Benjamin Ireland MD [address] [place] [address] PCP - General Internal Medicine 12/02/17 Leena Curtis Fuel Tank Sealer And TesterMusic Coordinator 05/06/23 documented as of this encounter
--- OUTSIDE RECORDS SUMMARY | 2024-03-19 11:44 | XMS_ITS | Encounter Summary ---
Author Organization [employer] [facility] Address [address] [place] [address] 7 [place] [address] Care Team Providers Care Fire Prevention Forester Name Role Phone Benjamin Ireland MD Primary Care Provider [phone] Reason for Visit * Reason Comments Med Refill Encounter Details Date Type Department Care Team (Late Contact Info) Description 03/22/2022 Refill [facility] MED & PEDS [address] [place] [address] Benjamin Ireland MD [address] [place] [address] Moderate persistent allergic asthma (Primary Dx); Type 2 diabetes mellitus with hyperosmolarity without coma, without long-term current use of insulin ([facility]); Other specified hypothyroidism; Stress incontinence of urine; [...] Upcoming Encounters Date Type Department Care Team ([facility] Contact Info) Description 03/25/2024 2:00 PM EST Clinical Support [facility] MED & PEDS [address] [place] [address] Marya Montero, YESSICA [address] [place] [address] 04/29/2024 1:15 PM EDT Office Visit [facility] MED & PEDS [address] [place] [address] Benjamin Ireland MD [address] [place] [address] documented as of this encounter Visit Diagnoses Diagnosis Moderate persistent allergic asthma- Primary Type 2 diabetes mellitus with hyperosmolarity without coma, without long-term current use of insulin ([facility]) Other specified hypothyroidism Stress incontinence of urine Intertrigo Other specified erythematous condition documented in this encounter Additional Health Concerns Assessment Noted Time PHQ-9 Depression Total Score: 0 02/14/19 23 11:24 AM EST documented as of this encounter Care Teams Fire Prevention Forester Relationship Specialty Start Date End Date Benjamin Ireland MD [address] [place] [address] PCP - General Internal Medicine 12/02/17 Leena Curtis Research TechnologistSkein Dyer 05/06/23 documented as of this encounter
--- OUTSIDE RECORDS SUMMARY | 2024-03-19 11:44 | XMS_ITS | Encounter Summary ---
Author Organization [employer] Address 75 [facility] 7 [place] [address] Care Team Providers Care Dinkey Locomotive Operator Name Role Phone Benjamin Ireland MD Primary Care Provider [phone] Reason for Visit * Reason Comments Med Refill Encounter Details Date Type Department Care Team ([facility] st Contact Info) Description 02/24/2024 Refill [facility] MED & PEDS [address] [place], [place] [phone] Benjamin Ireland MD [address] [place] [address] Other specified hypothyroidism Social History Tobacco Use [...] Description 03/25/2024 2:00 PM EST Clinical Support [facility] MED & PEDS [address] [place] [address] Marya Montero RN [address] [place] [address] 04/29/2024 1:15 PM EDT Office Visit [facility] MED & PEDS [address] [place] [address] Benjamin Ireland MD [address] [place] [address] documented as of this encounter Visit Diagnoses Diagnosis Other specified hypothyroidism documented in this encounter Additional Health Concerns Assessment Noted Time PHQ-9 Depression Total Score: 15 024 10:11 AM EDT documented as of this encounter Care Teams Dinkey Locomotive Operator Relationship Specialty Start Date End Date Benjamin Ireland MD [address] [place] [address] PCP - General Internal Medicine 12/02/17 Leena Curtis Completion SupervisorRn Picu 05/06/23 documented as of this encounter
--- OUTSIDE RECORDS SUMMARY | 2024-03-19 11:44 | XMS_ITS | Encounter Summary ---
Author Organization [employer] Address 75 [facility] 7 [place] [address] Care Team Providers Care White Shoe Ragger Name Role Phone Benjamin Ireland MD Primary Care Provider [phone] Reason for Visit * Reason Onset Date Comments Med Refill 02/23/2024 Encounter Details Date Type Department Care Team ([facility] st Contact Info) Description 02/23/2024 Refill [facility] CH[facility] MED & PEDS [address] [place] [address] Benjamin Ireland MD [address] [place] [address] Chronic pain syndrome Social History Tobacco Use [...] 30 MG tablet To be sent to: [facility] - [address] documented in this encounter Plan of Treatment Upcoming Encounters Date Type Department Care Team ([facility] st Contact Info) Description 03/25/2024 2:00 PM EST Clinical Support [facility] MED & PEDS [address] [place] [address] Marya Montero RN [address] [place] [address] 04/29/2024 1:15 PM EDT Office Visit [facility] MED & PEDS [address] [place] [address] Benjamin Ireland MD [address] [place] [address] documented as of this encounter Visit Diagnoses Diagnosis Chronic pain syndrome documented in this encounter Additional Health Concerns Assessment Noted Time PHQ-9 Depression Total Score: 15 024 10:11 AM EDT documented as of this encounter Care Teams White Shoe Ragger Relationship Specialty Start Date End Date Benjamin Ireland MD [address] [place], [place] [address] [address] PCP - General Internal Medicine 12/02/17 Leena Curtis Compliance AssociateBuyers' Agent 05/06/23 documented as of this encounter
--- OUTSIDE RECORDS SUMMARY | 2024-03-19 11:44 | XMS_ITS | Encounter Summary ---
Author Organization [employer] [facility] Address [address] [place] [address] 7 [place] [address] Care Team Providers Care Dress Fitter Name Role Phone Benjamin Ireland MD Primary Care Provider [phone]- [phone] Encounter Details Date Type Department Care Team (Late Contact Info) Description 03/10/2023 Orders Only [facility] MED & PEDS [address] [place] [address] Benjamin Ireland MD [address] [place] [address] Chronic pain syndrome Social History Tobacco Use [...] [facility] MED & PEDS [address] [place] [address] Marya Montero RN [address] [place], [place] [phone] 04/29/2024 1:15 PM EDT Office Visit [facility] MED & PEDS [address] [place] [address] Benjamin Ireland MD [address] [place] [address] documented as of this encounter Visit Diagnoses Diagnosis Chronic pain syndrome documented in this encounter Additional Health Concerns Assessment Noted Time PHQ-9 Depression Total Score: 0 02/14/19 23 11:24 AM EST documented as of this encounter Care Teams Dress Fitter Relationship Specialty Start Date End Date Benjamin Ireland MD [address] [place] [address] PCP - General Internal Medicine 12/02/17 Leena Curtis Vascular TechFur Sorter 05/06/23 documented as of this encounter
--- OUTSIDE RECORDS SUMMARY | 2024-03-19 11:44 | XMS_ITS | Encounter Summary ---
Author Organization [employer] [facility] Address [address] [place] [address] 7 [place] [address] Care Team Providers Care Acute Care Assistant Name Role Phone Benjamin Ireland MD Primary Care Provider [phone] [phone] Encounter Details Date Type Department Care Team (Late st Contact Info) Description 01/15/2022 Abstract [facility] MED & PEDS [address] [place] [address] ProviderRadha MD Social History Tobacco Use Types [...] Clinical Support [facility] MED & PEDS [address] [place] [address] Marya Montero, YESSICA [address] [place] [address] 04/29/2024 1:15 PM EDT Office Visit [facility] MED & PEDS [address] [place] [address] Benjamin Ireland MD [address] [place] [address] documented as of this encounter Visit Diagnoses Not on filedocumented in this encounter Care Teams Acute Care Assistant Relationship Specialty Start Date End Date Benjamin Ireland MD [address] [place] [address] PCP - General Internal Medicine 12/02/17 Leena Curtis Motor Equipment CaptainFast Food Restaurant Manager 05/06/23 documented as of this encounter
--- OUTSIDE RECORDS SUMMARY | 2024-03-19 11:44 | XMS_ITS | Encounter Summary ---
Author Organization [employer] Address 75 [facility] 7 [place] [address] Care Team Providers Care Spd Tech Name Role Phone Benjamin Ireland MD Primary Care Provider [phone] Reason for Visit * Reason Comments Med Refill Encounter Details Date Type Department Care Team ([facility] st Contact Info) Description 04/10/2023 Refill [facility] MED & PEDS [address] [place], [place] [phone] Benjamin Ireland MD 505 [place] [address] Chronic pain syndrome Social History Tobacco Use [...] the past 12 months, has t he [employer], gas, oil or water [employer] threatened to shut off services in your [...] that the provider Letter is read for lease picker at medical records. documented in this encounter Plan of Treatment Upcoming Encounters Date Type Department Care Team (Late st Contact Info) Description 03/25/2024 2:00 PM EST Clinical Support [facility] MED & PEDS [address] [place] [address] Marya Montero, YESSICA 505 [place] [address] 04/29/2024 1:15 PM EDT Office Visit [facility] [address] [place] [address] Benjamin Ireland MD [address] [place] [address] documented as of this encounter Visit Diagnoses Diagnosis Chronic pain syndrome documented in this encounter Additional Health Concerns Assessment Noted Time PHQ-9 Depression Total Score: 0 02/14/19 23 11:24 AM EST documented as of this encounter Care Teams Spd Tech Relationship Specialty Start Date End Date Benjamin Ireland MD [address] [place] [address] PCP - General Internal Medicine 12/02/17 Leena Curtis Relay RepairerGroup Supervisor Yard 05/06/23 documented as of this encounter
--- OUTSIDE RECORDS SUMMARY | 2024-03-19 11:44 | XMS_ITS | Encounter Summary ---
Author Organization [employer] Address [address] [place] [address] 7 [place] [address] Care Team Providers Care Cotton Jammer Name Role Phone Benjamin Ireland MD Primary Care Provider [phone] Reason for Visit * Reason Comments Med Refill Encounter Details Date Type Department Care Team (Late Contact Info) Description 06/25/2022 Refill [facility] MEDICINE [address] [place], [place] [phone] Benjamin Ireland MD 505 [place] [address] Chronic pain syndrome; Intertrigo Social History Tobacco [...] Description 03/25/2024 2:00 PM EST Clinical Support [facility] MED & PEDS [address] [place], [place] [phone] Marya Montero RN 505 [place], [place] [phone] 04/29/2024 1:15 PM EDT Office Visit [facility] MED & PEDS [address] [place] [address] Benjamin Ireland MD 505 [place] [address] documented as of this encounter Visit Diagnoses Diagnosis Chronic pain syndrome Intertrigo Other specified erythematous condition documented in this encounter Additional Health Concerns Assessment Noted Time PHQ-9 Depression Total Score: 0 02/14/19 11:24 AM EST documented as of this encounter Care Teams Cotton Jammer Relationship Specialty Start Date End Date Benjamin Ireland MD 505 [place] [address] PCP - General Internal Medicine 12/02/17 Leena Curtis Order Processing ManagerTransmission Inspector 05/06/23 documented as of this encounter
--- OUTSIDE RECORDS SUMMARY | 2024-03-19 11:44 | XMS_ITS | Encounter Summary ---
Author Organization [employer] Address 75 [facility] 7 [place] [address] Care Team Providers Care Taxation Economist Name Role Phone Benjamin Ireland MD Primary Care Provider [phone] Reason for Visit * Reason Onset Date Comments Medication 04/09/2023 Encounter Details Date Type Department Care Team ([facility] st Contact Info) Description 04/09/2023 Telephone [facility] [address] [place] [address] Benjamin rIeland MD 505 [place], [place] [phone] Medication Social History Tobacco Use Types Packs/Day [...] the past 12 months, has t he [employer], gas, oil or water [employer] threatened to shut off services in your [...] 300-30 MG tablet. Medication was sent to [facility] but pt wants medication sent to [facility] pharmacy due to [facility] not having medication. If any questions please contact pt at [phone]. documented in this encounter Plan of Treatment Upcoming Encounters Date Type Department Care Team (Late st Contact Info) Description 03/25/2024 2:00 PM EST Clinical Support [facility] MED & PEDS [address] [place] [address] Marya Montero RN 505 [place] [address] 04/29/2024 1:15 PM EDT Office Visit [facility] MED & PEDS [address] [place] [address] Benjamin Ireland MD [address] [place] [address] documented as of this encounter Visit Diagnoses Diagnosis Chronic pain syndrome documented in this encounter Additional Health Concerns Assessment Noted Time PHQ-9 Depression Total Score: 0 02/14/19 23 11:24 AM EST documented as of this encounter Care Teams Taxation Economist Relationship Specialty Start Date End Date Benjamin Ierland MD [address] [place] [address] PCP - General Internal Medicine 10/23/18 Leena Curtis Electrical Test TechnicianHydrometeorologist 05/06/23 documented as of this encounter
--- OUTSIDE RECORDS SUMMARY | 2024-03-19 11:44 | XMS_ITS | Encounter Summary ---
Author Organization [employer] Address 75 [facility] 7 [place] [address] Care Team Providers Care Cutter Out Name Role Phone Benjamin Ireland MD Primary Care Provider [phone] Reason for Visit * Reason Onset Date Comments Med Refill 10/02/2023 Encounter Details Date Type Department Care Team (Late st Contact Info) Description 10/02/2023 Telephone [facility] MEDICINE [address] [place] [address] Benjamin Ireland MD 505 [place] [address] Med Refill Social History Tobacco Use Types [...] 30 MG tablet To be sent to: [facility] documented in this encounter Plan of Treatment Upcoming Encounters Date Type Department Care Team (Late st Contact Info) Description 03/25/2024 2:00 PM EST Clinical Support [facility] MED & PEDS [address] [place] [address] Marya Montero RN 505 [place] [address] 04/29/2024 1:15 PM EDT Office Visit [facility] MED & PEDS [address] [place] [address] Benjamin Ireland MD 505 [place] [address] documented as of this encounter Visit Diagnoses Not on filedocumented in this encounter Additional Health Concerns Assessment Noted Time PHQ-9 Depression Total Score: 0 02/14/19 23 11:24 AM EST documented as of this encounter Care Teams Cutter Out Relationship Specialty Start Date End Date Benjamin Ireland MD NPI: [id number] [place] [address] PCP - General Internal Medicine 12/02/17 Leena Curtis Workforce Management CoordinatorDriver Supervisor 05/06/23 documented as of this encounter
--- OUTSIDE RECORDS SUMMARY | 2024-03-19 11:44 | XMS_ITS | Encounter Summary ---
Author Organization [employer] Address 75 [facility] 7 [place] [address] Care Team Providers Care Resident Engineer Name Role Phone Benjamin Ireland MD Primary Care Provider [phone] Reason for Visit * Reason Onset Date Comments Error 05/27/2023 Encounter Details Date Type Department Care Team ([facility] st Contact Info) Description 05/27/2023 Telephone [facility] MEDICINE [address] [place] [address] Benjamin Ireland MD [address] [place] [address] Error Social History Tobacco Use Types Packs/Day [...] t he electric, gas, oil or water [employer] threatened to shut off services in your [...] 2:00 PM EST Clinical Support [facility] MED & PEDS 505 [place] [address] Marya Montero RN 505 [place] [address] 04/29/2024 1:15 PM EDT Office Visit [facility] MED & PEDS [address] [place] [address] Benjamin Ireland MD [address] [place] [address] documented as of this encounter Visit Diagnoses Not on filedocumented in this encounter Additional Health Concerns Assessment Noted Time PHQ-9 Depression Total Score: 0 02/14/19 23 11:24 AM EST documented as of this encounter Care Teams Resident Engineer Relationship Specialty Start Date End Date Benjamin Ireland MD 505 [place] [address] PCP - General Internal Medicine 12/02/17 Leena Curtis Ornamental Brick InstallerAws Developer 05/06/23 documented as of this encounter
--- OUTSIDE RECORDS SUMMARY | 2024-03-19 11:44 | XMS_ITS | Encounter Summary ---
Author Organization [employer] Address [address] [place] [address] 7 [place] [address] Care Team Providers Care Private Equity Analyst Name Role Phone Benjamin Ireland MD Primary Care Provider [phone] Reason for Visit * Reason Onset Date Comments Med Refill 05/24/2022 Encounter Details Date Type Department Care Team ([facility] st Contact Info) Description 05/24/[address] [facility] CHC MED & PEDS [address] [place], [place] [phone] Benjamin Ireland MD [address] [place] [address] Med Refill Social History Tobacco Use Types [...] #3) 300-30 MG tablet Please sent to [facility]/pharmacy #[id number] - [place], [place] - [address] [facility] documented in this encounter Plan of Treatment Upcoming Encounters Date Type Department Care Team (Late st Contact Info) Description 03/25/2024 2:00 PM EST Clinical Support [facility] MED & PEDS [address] [place] [address] Marya Montero, YESSICA 505 [place] [address] 04/29/2024 1:15 PM EDT Office Visit [facility] MED & PEDS [address] [place] [address] Benjamin Ireland MD 505 [place] [address] documented as of this encounter Visit Diagnoses Not on filedocumented in this encounter Additional Health Concerns Assessment Noted Time PHQ-9 Depression Total Score: 0 02/14/19 23 11:24 AM EST documented as of this encounter Care Teams Private Equity Analyst Relationship Specialty Start Date End Date Benjamin Ireland MD 505 [place] [address] PCP - General Internal Medicine 12/02/17 Leena Curtis Vending Machine AttendantSteel Molder 05/06/23 documented as of this encounter
--- OUTSIDE RECORDS SUMMARY | 2024-03-19 11:44 | XMS_ITS | Encounter Summary ---
Author Organization [employer] Address 75 [facility] 7 [place] [address] Care Team Providers Care Veneer Press Operator Name Role Phone Benjamin Ireland MD Primary Care Provider [phone] Reason for Visit * Reason Onset Date Comments Med Refill 07/08/2023 Encounter Details Date Type Department Care Team ([facility] st Contact Info) Description 07/08/2023 Telephone [facility] MEDICINE 230 [place] [address] Benjamin Ireland MD 505 [place], [place] [phone] Med Refill Social History Tobacco Use Types [...] 300-30 MG tablet To be sent to: [facility] Pharmacy documented in this encounter Plan of Treatment Upcoming Encounters Date Type Department Care Team (Late st Contact Info) Description 03/25/2024 2:00 PM EST Clinical Support [facility] MED & PEDS 505 [place] [address] Marya Montero, YESSICA 505 [place] [address] 04/29/2024 1:15 PM EDT Office Visit [facility] MED & PEDS 505 [place] [address] Benjamin Ireland MD [address] [place] [address] documented as of this encounter Visit Diagnoses Not on filedocumented in this encounter Additional Health Concerns Assessment Noted Time PHQ-9 Depression Total Score: 0 02/14/19 11:24 AM EST documented as of this encounter Care Teams Veneer Press Operator Relationship Specialty Start Date End Date Benjamin Ireland MD 505 [place] [address] PCP - General Internal Medicine 12/02/17 Leena Curtis Cargo Service AgentGear Tester 05/06/23 documented as of this encounter
--- OUTSIDE RECORDS SUMMARY | 2024-03-19 11:44 | XMS_ITS | Encounter Summary ---
Author Organization [employer] Address [address] [facility] 7t [place] [address] Care Team Providers Care Technology Instructor Name Role Phone Benjamin Ireland MD Primary Care Provider [phone] Encounter Details Date Type Department Care Team (Late st Contact Info) Description 11/19/2023 Orders Only [facility] CHC MED & PEDS [address] [place], [place] [phone] Benjamin Ireland MD [address] [place] [address] Social History Tobacco Use Types Packs/Day Years [...] 03/25/2024 2:00 PM EST Clinical Support [facility] MED & PEDS [address] [place] [address] Marya Montero RN [address] [place] [address] 04/29/2024 1:15 PM EDT Office Visit [facility] MED & PEDS 505 [place] [address] Benjamin Ireland MD [address] [place] [address] documented as of this encounter Visit Diagnoses Not on filedocumented in this encounter Additional Health Concerns Assessment Noted Time PHQ-9 Depression Total Score: 15 024 10:11 AM EDT documented as of this encounter Care Teams Technology Instructor Relationship Specialty Start Date End Date Benjamin Ireland MD [address] [place] [address] PCP - General Internal Medicine 12/02/17 Leena Curtis Occupational Therapy AideWooden Furniture Polisher 05/06/23 documented as of this encounter
--- OUTSIDE RECORDS SUMMARY | 2024-03-19 11:44 | XMS_ITS | Encounter Summary ---
Author Organization [employer] Address 75 [facility] 7 [place] [address] Care Team Providers Care Record Tester Name Role Phone Benjamin Ireland MD Primary Care Provider [phone] Reason for Visit * Reason Onset Date Comments Med Refill 11/06/2023 Encounter Details Date Type Department Care Team (Late st Contact Info) Description 11/06/2023 Telephone [facility] MEDICINE [address] [place] [address] Benjamin Ireland MD [address] [place] [address] Med Refill Social History Tobacco Use Types [...] 30 MG tablet To be sent to: [facility] - [address] documented in this encounter Plan of Treatment Upcoming Encounters Date Type Department Care Team ([facility] st Contact Info) Description 03/25/2024 2:00 PM EST Clinical Support [facility] MED & PEDS [address] [place] [address] Marya Montero RN 505 [place] [address] 04/29/2024 1:15 PM EDT Office Visit [facility] MED & PEDS [address] [place] [address] Benjamin Ireland MD 505 [place] [address] documented as of this encounter Visit Diagnoses Not on filedocumented in this encounter Additional Health Concerns Assessment Noted Time PHQ-9 Depression Total Score: 15 024 10:11 AM EDT documented as of this encounter Care Teams Record Tester Relationship Specialty Start Date End Date Benjamin Ireland MD [address] [place] [address] PCP - General Internal Medicine 12/02/17 Leena Curtis Lien SearcherPipe Line Inspector 05/06/23 documented as of this encounter
--- OUTSIDE RECORDS SUMMARY | 2024-03-19 11:44 | XMS_ITS | Encounter Summary ---
Author Organization [employer] Address 75 [facility] 7 [place] [address] Care Team Providers Care Marine Equipment Design Engineer Name Role Phone Benjamin Ireland MD Primary Care Provider [phone] Reason for Visit * Reason Onset Date Comments Med Refill 06/24/2022 Encounter Details Date Type Department Care Team (Late st Contact Info) Description 06/24/2022 Telephone [facility] MEDICINE [address] [place] [address] Benjamin Ireland MD [address] [place] [address] Med Refill Social History Tobacco Use Types [...] [facility] [address] [place] [address] Marya Montero RN [address] [place] [address] 04/29/2024 1:15 PM EDT Office Visit [facility] MED & PEDS 505 [place] [address] Benjamin Ireland MD [address] [place] [address] documented as of this encounter Visit Diagnoses Not on filedocumented in this encounter Additional Health Concerns Assessment Noted Time PHQ-9 Depression Total Score: 0 02/14/19 23 11:24 AM EST documented as of this encounter Care Teams Marine Equipment Design Engineer Relationship Specialty Start Date End Date Benjamin Ireland MD [address] [place] [address] PCP - General Internal Medicine 12/02/17 Leena Curtis Rough And Trueing Machine OperatorGrades 1 Thru 6 Home Teacher 05/06/23 documented as of this encounter
--- OUTSIDE RECORDS SUMMARY | 2024-03-19 11:44 | XMS_ITS | Encounter Summary ---
Author Organization [employer] Address [address] [facility] 7 [place] [address] Care Team Providers Care Metal Spinner Name Role Phone Benjamin Ireland MD Primary Care Provider [phone] Reason for Visit * Reason Onset Date Comments Appointment Request 09/23/2022 Encounter Details Date Type Department Care Team ([facility] st Contact Info) Description 09/23/2022 Telephone [facility] MEDICINE [address] [place] [address] Benjamin Ireland MD [address] [place] [address] Appointment Request Social History Tobacco Use Types [...] EDT Tc from pt returning call for [facility] appt scheduled for today @ 10:30am documented in this encounter Plan of Treatment Upcoming Encounters Date Type Department Care Team (Late st Contact Info) Description 03/25/2024 2:00 PM EST Clinical Support [facility] MED & PEDS [address] [place] [address] Marya Montero RN [address] [place] [address] 04/29/2024 1:15 PM EDT Office Visit [facility] MED & PEDS [address] [place] [address] Benjamin Ireland MD [address] [place] [address] documented as of this encounter Visit Diagnoses Not on filedocumented in this encounter Additional Health Concerns Assessment Noted Time PHQ-9 Depression Total Score: 0 02/14/19 11:24 AM EST documented as of this encounter Care Teams Metal Spinner Relationship Specialty Start Date End Date Benjamin Ireland MD [address] [place] [address] PCP - General Internal Medicine 12/02/17 Leena Curtis Supervisor Liquid YeastMechanical Equipment Test Engineer 05/06/23 documented as of this encounter
--- OUTSIDE RECORDS SUMMARY | 2024-03-19 11:44 | XMS_ITS | Clinical Summary ---
Author Organization [employer] Address [address] [facility] [address] [place] [address] Care Team Providers Care Proof Reader Name Role Phone Benjamin Ireland MD Primary Care Provider [phone] Allergies No known active allergies Medications * [...] DEPARTMENT Provider, Generic External Data 02/24/2024 Refill [facility] [address] [place] [address] Benjamin Ireland MD Other specified hypothyroidism 02/23/2024 Refill [facility] [address] [place] [address] Benjamin Ireland MD Chronic pain syndrome 01/27/2024 Refill [facility] [address], [place] [phone] Benjamin Ireland MD Chronic pain syndrome 01/20/2024 3:15 PM EST Office Visit [facility] [address] [place] [address] Saad Shankar MD Bronchitis (Primary Dx); Cough, unspecified type; Muscle spasm 01/20/2024 Travel 01/19/2024 Orders Only [facility] [address] [place] [address] Benjamin Ireland MD 01/16/2024 Telephone [facility] [address] [facility] [place] [address] Benjamin Ireland MD Nurse Triage 01/15/2024 Telephone [facility] [address] [place] [address] Benjamin Ireland MD No Show 12/31/2023 Orders Only [facility] External Provider, [facility] 12/30/2023 10:30 AM EST Telemedicine [facility] [address] [place] [address] Marya Montero RN Chronic pain syndrome 12/30/2023 Refill [facility] [address] [place] [address] Marya Montero RN Chronic pain syndrome 12/30/2023 Travel from Last 3 Months Immunizations Name Administration [...] [facility] [address] [place] [address] Marya Montero, YESSICA [address] [facility] [place] [address] 04/29/2024 1:15 PM EDT Office Visit [facility] [address] [place] [address] Benjamin Ireland MD [address] [place] [address] Health Maintenance Due Date Last Done Comments [...] 2023 , 02/14/2022, 01/16/2021, Additional history exists Diabetes: Hemoglobin A1C 01/06/20242 024, 04/03/2023, 12/25/2022, Additional history exists SDOH Screening 03/27/2024 03/27/2023 Diabetes: Foot Exam 04/03/2024 04/03/2023, 04/03/2023, 04/03/2023, Additional history exists Depression Monitoring (PHQ-9) 04/07/2024 10/06/2023, 10/06/2023 Depression Screening 10/05/2024 10/06/2023, 10/06/19 24 Lipid Panel 10/05/2024 10/06/2023, 03/14, 05/08/2020 Tobacco Screening 11/25/2024 11/26/2023 Mammogram 01/18/2026 01/19/2024, 05/12, 05/30/2021, Additional history exists DTaP/Tdap/Td Vaccines (2 - Td or Tdap) 01/22/2029 01/22/2019 Zoster Vaccines Completed 03/30/2019, 01/22/2019 Hepatitis C Screening Completed 02/14/2022 Pneumococcal Vaccine: 50+ Years Completed 04/03/2023 HIB Vaccines Aged Out No [...] Glucose, Whole Blood (03/02/2024 1:02 PM EST) [facility] Glucose, Whole Blood 106 60 - 115 mg/dL [facility] Comment:METER #: [id number] Testing performed in the Endocrinology Department [address] , [address], [facility]. 03/02/2024 1:02 PM EST 03/02/2024 1:06 PM EST us Generic External Data Provider LAB BLOOD ORDERAB LES Final Result [facility] [address] [place] [phone] * POCT Rapid Covid-19 BinaxNOW (01/20/2024 3:38 PM EST) [facility] Rapid COVID Ag Negative QC Media Lot # [id number] Lot# Expiration Date [id number] Swab 01/20/2024 3:38 PM EST us Saad Duarte MD POINT OF C ARE TEST ENTER/EDIT ORDERABLES Edited Result - Final * POCT Rapid Influenza B OSOM (01/20/2024 3:37 PM EST) Pathologist [facility] Rapid Influenza B Ag Negative Negative, Indeterminate QC Media Lot # [id number] Lot# Expiration Date Swab 01/20/2024 3:37 PM EST Saad Duarte MD POINT OF CARE TEST ENTER/EDIT ORDERABLES Final Result * POCT Rapid Influenza A OSOM (01/20/2024 3:36 PM EST) Pathologist [facility] Rapid Influenza A Ag Negative Negative, Indeterminate QC Media Lot # [id number] Lot# Expiration Date Swab Nasopharyngeal structure / Unknown 01/20/2024 3:36 PM EST Saad Duarte MD POINT OF CARE TEST ENTER/EDIT ORDERABLES Final Result * BI Mammogram Screening Tomosynthesis Bilateral (01/19/2024 2:40 PM EST) Anatomical Region Laterality Modality Breast Bilateral Mammography 01/19/2024 2:40 PM EST Narrative 01/23/2024 5:43 PM EST ? [facility] ? [address] [facility] [address] ? Mammography Report ? Signed ? Patient: Mel More ?MR#: [id number] ?? [id number] ? : 1960 ?Acct:[id number] ? Age/Sex: 63 / F ?ADM Date: 12/09/24 ? Loc: HO.MAMMO ? Attending Connie Ireland MD ? Ordering Physician: Benjamin Ireland MD ?Results: 1 ?? Negative ? Date of Service: 01/19/24 ?Follow Up: 1 Year From Orig ?? inal Mammogram ? Procedure(s): MM tomosynthesis screening BI ?? Accession Number(s): [id number] ? cc: Benjamin Ireland MD ? EXAMINATION: [...] DD/ 1440 ? TD/TT: 01/19/24 1455 ? Electronics Teacher: ? Procedure Note Donotuseinterpreter, Image - 01/23/2024 [facility] [address] [place] [address] Dr. [place], [place] [address] Mammography Report Signed Patient: Mel MoreMR#: [id number] : 2Acct:[id number] Age/Sex: 63 / FADM Date: 01/19/24 Loc: HO.MAMMO Attending Dr: Benjamin Ireland MD Ordering Physician: Benjamin Ireland MDResults: 1 Negative Date of Service: 01/19/24Follow Up: 1 Year From Orig inal Mammogram Procedure(s): MM tomosynthesis screening BI Accession Number(s): [id number] cc: Benjamin Ireland MD EXAMINATION: MM SCREENING [...] by Larissa Ware DO in OV> 01/23/24 3560 DD/ 1440 TD/TT: 01/19/24 1455 Electronics Teacher: us Benjamin Ireland MD IMG BI PROCEDURES Final Res ult * VASC US Lower Extremity Venous Duplex Bilateral (12/31/2023 1:06 PM EST) 12/31/2023 1:06 PM EST Narrative [facility] - 02/06/2024 9:07 AM EST ? [facility] ?[address] ?[place] [address] ? Ultrasound Report ? Signed ? Patient: Mel More ?MR#: [id number] ?? [id number] ? : 1960 ?Acct:[id number] ? Age/Sex: 63 / F ?ADM Date: 12/31/23 ? Loc: HO.US ? Attending Dr: Kisha Valadez PA-C ? Ordering Physician: Kisha Valadez PA-C ?? Date of Service: 12/31/23 ?? Procedure(s): US venous duplex LE BI ?? Accession Number(s): [id number] ? cc: Benjamin Ireland MD; Kisha Valadez [...] DD/ 1306 ? TD/TT: 12/31/23 1350 ? Electronics Teacher: ? Procedure Note Fannie, Image - 02/06/[address] [address] Ultrasound Report Signed Patient: Mel More#: [id number] : 2Acct:[id number] Age/Sex: 63 / FADM Date: 12/31/23 Loc: HO.US Attending Dr: Kisha Valadez PA-C Ordering Physician: Kisha Valadez PA-C Date of Service: 12/31/23 Procedure(s): US venous duplex LE BI Accession Number(s): [id number] cc: Benjamin Ireland MD; Kisha Valadez PA-C [...] by: Wiliam Marie MD 02/06/2024 09:04 AM [facility] Dictated By: Wiliam Marie MD Signed By: <Electronically signed by Wiliam Marie MD in OV> 02/06/24 0904 DD/ 1306 TD/TT: 12/31/23 1350 Electronics Teacher: us [facility] External Provider CV VASC ULAR PROCEDURES Final Result [facility] [address] [place] [phone] * (ABNORMAL) Lipid Panel, Standard (10/06/2023 10:57 AM EDT) Triglycerides 486(H) <150 mg/dL [facility] Comment:Desirable Triglyceri de: less than 150 mg/dLBorderline High Triglyceride 150-199 mg/dLHigh Triglyceride: 200-499 mg/dLVery High Triglyceride: greater than or equal to 5OO mg/dL Cholesterol 225(H) <200 mg/dL [facility] Comment:Desirable Cholestero l: less than 200 mg/dLBorderline High Cholesterol: 200-239 mg/dLHigh Cholesterol: greater than 239 mg/dL LDL Cholesterol Calculated TNP <100 mg/dL [facility] Comment:Unable to calculate the LDL. The formula of Friedwald,Jo, and Nam is only valid if the triglycerides areless than 400 mg/dl. HDL Cholesterol 33(L) >40 mg/dL [facility] Comment:Desirable HDL: great er than 40 mg/dL Note: This HDL assay may give artificially low results in patients with liver disease. Blood Venous blood specimen / Unknown 10/06/2023 10:57 AM EDT 10/06/2023 2:33 PM EDT us Benjamin Ireland MD LAB BLOOD ORDERABLES Final Result [facility] [address] [place] [address] [phone] * (ABNORMAL) POCT HGB A1C (10/06/2023 9:13 AM EDT) Hemoglobin A1C 6.1(A) 4.0 - 6.0 % QC Media Lot # [id number] Lot# Expiration Date [id number] Blood 10/06/2023 9:13 AM EDT us Benjamin Ireland MD POINT OF CARE TEST ENTER/ED IT ORDERABLES Final Result * (ABNORMAL) Albumin, Random Urine W/Creatinine (02/14/2022 12:03 PM EST) Creatinine, Random Urine 207 20 - 275 mg/dL [facility] Albumin, Urine 6.6 See Note: mg/dL [facility] [place] [facility] Comment: Reference Range: Reference Range Not established Albumin/Creatinin e Ratio, Random Urine 32(H) <30 mcg/mg creat [facility] [place] [facility] Comment: The ADA defines abnormalities in albumin [...] Ireland MD LAB URINE ORDERABLES Final Result Performing Organization Address City/[facility] Co de Phone Number [facility] [address], [place] [address] [facility] [place] [facility] [address] [facility], (Nl2) [place] [address] * Hepatitis C Antibody with Reflex to HCV, RNA, Quantitative, Real-Time PCR (02/14/2022 12:03 PM EST) Hepatitis C Antibody NON-REACT [place] NON-REACT [place]NE [facility] [place] [facility] Index 0.06 <1.00 [facility] [place] [facility] Comment: HCV antibody was non-reactive. There is no laboratory evidence of HCV infection. In most cases, no further action is required. However, if recent HCV exposure is suspected, a test for HCV RNA (test code 93441) is suggested. For additional information please refer to http://education.[employer]/faq/EJJ99q2 (This link is being provided for informational/ educational purposes only.) 02/14/2022 12:0 3 PM EST 02/14/2022 12:04 PM EST Benjamin Ireland MD LAB BLOOD ORDERABLES Final Result [facility] [address] [facility], 3rd Fl, [place] [address] [facility] [address] [facility], (N[address]) [place] [address] * Fecal immunochemical test x1 (FIT) (08/05/2020 12:00 AM EDT) FIT Date 1 08/04/20 [facility] FIT Date 2 08/04/20 [facility] FIT1 NEGATIVE NEGATIVE [facility] FIT2 NEGATIVE NEGATIVE [facility] 08/05/2020 us Historical Provider MD HISTORICAL/NON ORDERABLE LABS Final Result [facility] [address] * HPV mRNA E6/E7 (10/21/2017 10:24 AM EDT) HPV mRNA E6/E7 Not Detected NOT DETECTED [facility] Comment: This test was performed using the APTIMA(R) HPV Assay ([employer] This assay detects E6/E7 viral messenger RNA (mRNA) from 14 high-risk HPV types (16,18,31,33,35,39,45,51, 52,56,58,59,66,68). For additional information please refer to: http://education.[employer]/faq/EZW907n3 (This link is being provided for informational/ educational purposes only.) The analytical performance characteristics of this assay have been determined by [facility] [place], [place]. The modifications have not been cleared or approved by the FDA. This assay has been validated pursuant to the CLIA regulations and is used for clinical purposes. Test Performed by [facility], [facility] [place], [address] [place] [address] Jose C De Leon M.D., Ph.D., Director of Laboratories , CLIA [id number] Please note: ??Effective 10/23/2015, HPV testing will be performed using [employer]'s APTIMA test which targets mRNA. Detecting mRNA instead of DNA, as in older methods, offers significant improvements in specificity. 10/21/2017 10:2 4 AM EDT Cari Rifaviankeaton CNPiper HISTORICAL/NON ORDERABLE LABS Final Result [facility] [address] from Last 3 Months or Most Recently Relevant to Health Maintenance Insurance [employer] C3 Care Teams Proof Reader Relationship Specialty Start Date End Date Benjamin Ireland MD [address] [place] [address] PCP - General Internal Medicine 12/02/17 Leena Curtis Warehouse DirectorParcel [employer] Delivery 05/06/23
--- NOTE | 2024-03-19 11:46 | MHC.OFFVIS ---
Intake Visit Reasons: Left microphlebectomy Accompanied by: Self / Same As Patient Allergies No Known Allergies [No Known Allergies*] Allergy (Verified 03/19/24 11:46) PFSH Medical History (Reviewed 03/19/24 @ :46 by Morelia Castañeda) Peripheral sensory neuropathy due to type 2 diabetes mellitus Claudication in peripheral vascular disease Controlled type 2 diabetes mellitus Lumbar spondylosis Synovial cyst of popliteal space [Schultz], right knee History of cellulitis Osteoarthritis of right knee ELSIE (obstructive sleep apnea) Environmental allergies Family history of colon cancer in father Urinary frequency Anemia GERD (gastroesophageal reflux disease) Dysphagia Anxiety and depression High cholesterol Diabetes Severe persistent asthma Generalized arthritis Hypothyroid Morbid obesity Surgical History Hx of appendectomy Hx of hysterectomy, total History of right hip replacement History of left hip replacement Hx of hernia repair Family History Mother HTN (hypertension) Diabetes Skin cancer Father No problems noted. Father HTN (hypertension) Heart attack Social History Household Members: Family Alcohol intake: never Patient Tobacco Use Status: Never used Tobacco Office Procedures Vascular Office Procedure Details Details: Diagnosis: Left Leg varicose veins with inflammation Procedure: Left leg Microphlebectomy Anesthesia: Local Infiltration 10 cc, Tumescent: 0 cc. Varicose veins were marked in the standing position on the left leg and the patient was then placed in the supine position. The left lower extremity was prepared and draped to allow knee flexion in the sterile field. The patient had large superficial varicose veins with significant symptoms of pain. It was therefore determined to perform microphlebectomies of the clusters of varicose veins. The patient had bulging varicose veins which were previously marked in the standing position. A small stab incision was made longitudinally directly overlying the varicose vein in the calf and the varicose vein was grasped with a hemostat aided by a vein hook. It was then dissected as far proximally and distally as possible and avulsed. A total of 11 stab incisions were made and the procedure of stab phlebectomies was repeated 11 times. Hemostasis was checked and stab incision sites were closed with steri-strips and sterile dressing was given with gauze and krilex wrap followed by an kelli bandage. There were no complications and blood loss was minimal. Post-Op instructions were given and a follow-up appointment was recommended. [id number] - Phleb Veins, Extrem - up to 20 All charges added?: Procedure code (CPT) selection complete Assessment & Plan Assessment & Plan (1) Varicose veins of left lower extremity with inflammation: Comment: 03/19/2024 - left leg microphlebectomy Code(s): I83.12 - Varicose veins of left lower extremity with inflammation Category: Medical Plan: See op note Coding Level of Care Code Procedure Only Diagnoses Varicose veins of left lower extremity with inflammation I83.12 CPT Codes Details - Vascular 5: [id number] - Phleb Veins, Extrem - up to 20 ([id number])
== END 2024-03-19 11:36 | disposition home or self-care (01) ==
PROVIDERS: PCP Internal Medicine; Visit Provider Surgery Vascular Surgery
DX: I83.12 Varicose veins of left lower extremity with inflammation (principal)
CPT/HCPCS: 37765

== ENCOUNTER → 2024-03-19 10:42 | Outpatient (BNVA) | payer MEDICAID, SELFPAY | PROVIDERS: PCP Internal Medicine; Visit Provider Surgery Vascular Surgery | DX: I83.12 Varicose veins of left lower extremity with inflammation (principal) | CPT/HCPCS: 37765 ==

== ENCOUNTER 2024-04-01 11:24 | Outpatient (AMB) | payer MEDICAID, SELFPAY ==
--- NOTE | 2024-04-01 11:26 | A.OFFVIS_ITS ---
Vital Signs 04/01/24 11:27 Height 5 ft 4 in Weight 232 lb BMI 39.8 Intake Visit Reasons: 2 week follow up micro Intake Note: 2 week followup Left LE micro 03/19/24. Pt has some large lumps where she had incisions. States they were draining clear fluid and painful. Water Softener Service Supervisor Required: No Accompanied by: AUTOMOTIVE PAINT TECHNICIAN Allergies No Known Allergies [No Known Allergies*] Allergy (Verified 04/01/24 11:31) HPI HPI 2 week follow up micro: Details: Mel is presenting today with her AUTOMOTIVE PAINT TECHNICIAN for a follow up to left lower extremity microphlebectomy, that was performed on 03/19/2024. Her AUTOMOTIVE PAINT TECHNICIAN we will be interpret ing for us. She states she has been doing well. She does have concerns about 2 lower incisions that appear to be more swollen and draining clear fluid. She endorses some slight pain to palpation in that area as well. She denies any bleeding or redness in the area. She denies fevers and chills. [facility] Medical History Peripheral sensory neuropathy due to type 2 diabetes mellitus Claudication in peripheral vascular disease Controlled type 2 diabetes mellitus Lumbar spondylosis Synovial cyst of popliteal space [Schultz], right knee History of cellulitis Osteoarthritis of right knee ELSIE (obstructive sleep apnea) Environmental allergies Family history of colon cancer in father Urinary frequency Anemia GERD (gastroesophageal reflux disease) Dysphagia Anxiety and depression High cholesterol Diabetes Severe persistent asthma Generalized arthritis Hypothyroid Morbid obesity Surgical History Hx of appendectomy Hx of hysterectomy, total History of right hip replacement History of left hip replacement Hx of hernia repair Family History Mother HTN (hypertension) Diabetes Skin cancer Father No problems noted. Father HTN (hypertension) Heart attack Social History Household Members: Family Alcohol intake: never Patient Tobacco Use Status: Never used Tobacco Review of Systems ENT Reports Normal hearing present Neuro Reports Normal hearing present and Denies Sensory deficit (Neuro) Physical Exam Vital Signs: BMI result Body Mass Index 39.8 Const General: healthy appearing and no acute distress Orientation/consciousness: patient oriented x3 HEENT Head: Yes normal to inspection Ears: hearing grossly normal bilaterally Mouth: Normal oral and palatal mucosa present Resp Effort & Inspection: normal respiratory effort and able to speak in complete sentences Auscultation: clear to auscultation bilaterally Cardio Jugular venous distension: no JVD Rate: regular rate Rhythm: regular rhythm Heart sounds: S1 normal heart sound present and S2 normal heart sound present Bruits: no abdominal aortic bruits, no carotid bruits, no femoral bruits and no renal bruits Peripheral pulses: Peripheral pulses 2+ throughout GI Inspection: Yes normal to inspection Palpation (GI): No Abdominal aortic bruit present Skin General skin exam: no rashes or lesions noted Wounds: no wounds Hair: normal Neuro General: patient oriented x3 Cranial nerves: Yes CN's II-XII intact bilaterally and Yes Normal hearing present Cognition (Neuro): normal cognition Gait exam (Neuro): Normal gait present Motor exam (neuro): 5/5 motor strength present throughout Sensory Exam: No Sensory deficit (Neuro) Extrem Other: Left lower extremity: Most incision sites in the lateral aspect of the leg are scabbed over. No Steri-Strips remain. On the medial aspect of the calf retirement down the leg there is 2 incision sites next to each other with some slight clear serous fluid drainage and slight swelling. There is no erythema or warmth in the area. General: Yes normal to inspection, Yes full ROM, Yes capillary refill normal and Yes normal gait Assessment & Plan Assessment & Plan (1) Varicose veins of left lower extremity with inflammation: Comment: 03/19/2024 - left leg microphlebectomy Code(s): I83.12 - Varicose veins of left lower extremity with inflammation Category: Medical Plan: Mel is presenting today for a 2 week follow up status post left lower extremity microphlebectomy, performed on 03/19/2024. She states she has concerns of 2 incision sites which are draining clear fluid. She denies any redness or warmth at the site. She does endorse some slight pain to palpation of the area. She states the Steri-Strips off of off on their own. She has no other concerns today. We discussed to keep those areas covered with a Band-Aid and change the Band-Aid as needed. We discussed warm compresses and Ibuprofen as needed for pain. We discussed that if any of the areas become red, inflamed, or feel warm to the touch, to please reach out to our office; however, it is unlikely to have any infectious process a couple weeks out from the procedure. We will not need to follow up with her unless there are any more concerns of venous disease. Thank you for allowing us to participate in the patient's care. If there are any questions or concerns, please do not hesitate to reach out to us. Coding Level of Care Code Est Pt Level 4 (27959) Diagnoses Varicose veins of left lower extremity with inflammation I83.12
[2024-04-01 11:27] VITALS: BMI 39.8
--- OUTSIDE RECORDS SUMMARY | 2024-04-01 12:43 | XMS_ITS | Clinical Summary ---
Author Organization [facility] Address [address] [place] [address] Care Team Providers Care Health Safety Manager Name Role Phone Unavailable Primary Care Provider [...] episode of recurren t major depressive disorder ([facility]) 10/06/2023 Assessment & Plan (12/18/2023 6:26 [...] 02/05/2017 Obesity 02/05/2017 Type 2 diabetes mellitus ([facility]) 03/08/2006 Family History Relation Name Status Comments [...] Diabetes Microalbumin (w/Creatinine) 1960 HPV Screening 1960 Hepatitis C Screening 1961 Pap + HPV 1960 Serum Creatinine 1961 TSH Monitoring 1961 Retinopathy Screening 1974 HIV Screening 02/14/1976 Hypertension Screening (#1) 1979 Cervical Cancer Screening 1982 Pap Smear 1982 Breast Cancer Screening (Mammogram) 2001 CT Colonography 2006 Colonoscopy 2006 Colorectal Cancer Screening 2006 FIT/gFOBT 2006 Fecal DNA 2006 Flexible Sigmoidoscopy 2006 [id number] () 10/12/2023 021, 04/28/2020 Imm-Influenza (#1) 2023 12/25/2022, 0 02/14/2022, 01/16/2021, Additional history exists Alcohol and Drug Screen 02/11/2024 Diabetes HbA1c 04/07/2024 10/06/2023, 11/07/2021 Lipid Screening 10/05/2024 10/06/2023 Tobacco Screening 12/03/2024 12/04/2023 Imm-DTaP/Tdap/Td (2 - Td or Tdap) 01/22/2029 019 Imm-Zoster, Recombinant Completed 03/30/2019, 01/22 Imm-Pneumococcal Completed 04/03/2023 Cervical Ablation/Cold-Knife Conization Discontinued Cervical Cryotherapy Discontinued Colposcopy Discontinued Endometrial Biopsy Discontinued Excision/Leep Discontinued HPV Genotyping Discontinued Vaginal Pap Discontinued Vulvoscopy Discontinued Insurance [place] MEDICAID [facility]
--- OUTSIDE RECORDS SUMMARY | 2024-04-01 12:43 | XMS_ITS | Encounter Summary ---
Author Organization [employer] Address [address] [facility] 7 [place] [address] Care Team Providers Care Habilitative Interventionist Name Role Phone Benjamin Ireland MD Primary Care Provider [phone] Reason for Visit * Reason Onset Date Comments Med Refill 06/24/2022 Encounter Details Date Type Department Care Team (Late st Contact Info) Description 06/24/2022 Telephone [facility] [address] [place] [address] Benjamin Ireland MD [address] [place] [phone] Med Refill Social History Tobacco Use Types [...] Care Team (Late st Contact Info) Description 04/29/2024 1:15 PM EDT Office Visit [facility] [address] [place] [address] Benjamin Ireland MD [address] [place] [address] 05/18/2024 11:00 AM EDT Office Visit [facility] [address] [place] [address] documented as of this encounter Visit Diagnoses Not on filedocumented in this encounter Additional Health Concerns Assessment Noted Time PHQ-9 Depression Total Score: 0 02/14/19 23 11:24 AM EST documented as of this encounter Care Teams Habilitative Interventionist Relationship Specialty Start Date End Date Benjamin Ireland MD [address] [place] [address] PCP - General Internal Medicine 12/02/17 Leena Curtis Flash Ranging CrewmemberCleaners 05/06/23 documented as of this encounter
--- OUTSIDE RECORDS SUMMARY | 2024-04-01 12:43 | XMS_ITS | Encounter Summary ---
Author Organization [employer] Address [address] [facility] 7t [place] [address] Care Team Providers Care Cpc Name Role Phone Benjamin Ireland MD Primary Care Provider [phone] Encounter Details Date Type Department Care Team (Latest Contact Info) Description 03/25/2024 Travel Social History Tobacco Use Types Packs/Day Years [...] Description 04/29/2024 1:15 PM EDT Office Visit [facility] MED & PEDS [address] [place] [address] Benjamin Ireland MD [address] [place] [address] 05/18/2024 11:00 AM EDT Office [facility] MEDICINE [address] [place] [address] documented as of this encounter Visit Diagnoses Not on filedocumented in this encounter Additional Health Concerns Assessment Noted Time PHQ-9 Depression Total Score: 15 024 10:11 AM EDT documented as of this encounter Care Teams Cpc Relationship Specialty Start Date End Date Benjamin Ireland MD [address] [place] [address] PCP - General Internal Medicine 12/02/17 Leena Curtis Recreation Establishment ManagerRestaurant Greeter 05/06/23 documented as of this encounter
--- OUTSIDE RECORDS SUMMARY | 2024-04-01 12:43 | XMS_ITS | Encounter Summary ---
Author Organization [employer] Address [address] [facility] 7 [place] [address] Care Team Providers Care Scuba Diving Instructor Name Role Phone Benjamin Ireland MD Primary Care Provider [phone] Reason for Visit * Reason Onset Date Comments Medication 04/09/2023 Encounter Details Date Type Department Care Team ([facility] st Contact Info) Description 04/09/2023 Telephone [facility] MEDICINE [address] [place] [address] Benjamin Ireland MD [address] [place], [place] [phone] Medication Social History Tobacco Use Types Packs/Day [...] the past 12 months, has t he [employer], gas, oil or water [employer] threatened to shut off services in your [...] 300-30 MG tablet. Medication was sent to [facility] but pt wants medication sent to [facility] pharmacy due to [facility] not having medication. If any questions please contact pt at [phone]. documented in this encounter Plan of Treatment Upcoming Encounters Date Type Department Care Team (Late st Contact Info) Description 04/29/2024 1:15 PM EDT Office Visit [facility] MED & PEDS [address] [place] [address] Benjamin Ireland MD [address] [place] [address] 05/18/2024 11:00 AM EDT Office Visit [facility] MEDICINE [address] [place] [address] documented as of this encounter Visit Diagnoses Diagnosis Chronic pain syndrome documented in this encounter Additional Health Concerns Assessment Noted Time PHQ-9 Depression Total Score: 0 02/14/19 23 11:24 AM EST documented as of this encounter Care Teams Scuba Diving Instructor Relationship Specialty Start Date End Date Benjamin Ireland MD [address] [place] [address] PCP - General Internal Medicine 12/02/17 Leena Curtis Life TrainerTechnology Director 05/06/23 documented as of this encounter
--- OUTSIDE RECORDS SUMMARY | 2024-04-01 12:43 | XMS_ITS | Encounter Summary ---
Author Organization [employer] Address [address] [facility] 7 [place] [address] Care Team Providers Care Clerk Telegraph Service Name Role Phone Benjamin Ireland MD Primary Care Provider [phone] Reason for Visit * Reason Onset Date Comments Appointment Request 09/23/2022 Encounter Details Date Type Department Care Team ([facility] st Contact Info) Description 09/23/2022 Telephone [facility] MEDICINE [address] [place] [address] Benjamin Ireland MD 505 [place] [address] Appointment Request Social History Tobacco Use Types [...] EDT Tc from pt returning call for SUPERVISOR SMOKE CONTROL appt scheduled for today @ 10:30am documented in this encounter Plan of Treatment Upcoming Encounters Date Type Department Care Team (Late st Contact Info) Description 04/29/2024 1:15 PM EDT Office Visit [facility] MED & PEDS [address] [place] [address] Benjamin Ireland MD 505 [place] [address] 05/18/2024 11:00 AM EDT Office Visit [facility] MEDICINE [address] [place] [address] documented as of this encounter Visit Diagnoses Not on filedocumented in this encounter Additional Health Concerns Assessment Noted Time PHQ-9 Depression Total Score: 0 02/14/19 23 11:24 AM EST documented as of this encounter Care Teams Clerk Telegraph Service Relationship Specialty Start Date End Date Benjamin Ireland MD [address] [place] [address] PCP - General Internal Medicine 12/02/17 Leena Curtis Private Security GuardDress Marker 05/06/23 documented as of this encounter
--- OUTSIDE RECORDS SUMMARY | 2024-04-01 12:43 | XMS_ITS | Encounter Summary ---
Author Organization [employer] Address [address] [place] [address] 7 [place] [address] Care Team Providers Care Province Archivist Name Role Phone Benjamin Ireland MD Primary Care Provider [phone] Reason for Visit * Reason Onset Date Comments Med Refill 05/24/2022 Encounter Details Date Type Department Care Team ([facility] st Contact Info) Description 05/24/2022 Telephone [facility] MED & PEDS [address] [place], [place] [phone] Benjamin Ireland MD [address] [place] [address] Med Refill Social History Tobacco Use Types [...] #3) 300-30 MG tablet Please sent to [facility]/pharmacy #[id number] - [place], [place] - [address] [facility] documented in this encounter Plan of Treatment Upcoming Encounters Date Type Department Care Team (Late st Contact Info) Description 04/29/2024 1:15 PM EDT Office Visit [facility] MED & PEDS [address] [place] [address] Benjamin Ireland MD [address] [place] [address] 05/18/2024 11:00 AM EDT Office Visit [facility] MEDICINE [address] [place] [address] documented as of this encounter Visit Diagnoses Not on filedocumented in this encounter Additional Health Concerns Assessment Noted Time PHQ-9 Depression Total Score: 0 02/14/19 23 11:24 AM EST documented as of this encounter Care Teams Province Archivist Relationship Specialty Start Date End Date Benjamin Ireland MD [address] [place] [address] PCP - General Internal Medicine 12/02/17 Leena Curtis Airframe And Powerplant MechanicEnvironmental Remediation Engineer 05/06/23 documented as of this encounter
--- OUTSIDE RECORDS SUMMARY | 2024-04-01 12:43 | XMS_ITS | Encounter Summary ---
Author Organization [facility] [facility] Address [address] [facility] 7t [place] [address] Care Team Providers Care Anesthesiologist Attending Name Role Phone Benjamin Ireland MD Primary Care Provider [phone] Encounter Details Date Type Department Care Team ([facility] st Contact Info) Description 03/02/2024 Orders Only [...] Description 04/29/2024 1:15 PM EDT Office Visit [facility] CHC MED & PEDS 505 [place] [address] Benjamin Ireland MD 505 [place] [address] 05/18/2024 11:00 AM EDT Office Visit [facility] MEDICINE 230 [place] [address] documented as of this encounter Procedures Procedure Name Priority Date/Time Associated Diagnosis Comments GLUCOSE, WHOLE BLOOD Routine 03/02/2024 1:02 PM EST documented in this encounter Results * Glucose, Whole Blood (03/02/2024 1:02 PM EST) Glucose, Whole Blood 106 60 - 115 mg/dL [facility] Comment:METER #: [id number] Testing performed in the Endocrinology Department [address], [address], [facility]. 03/02/2024 1:02 PM EST 03/02/2024 1:06 PM EST us Generic External Data Provider LAB BLOOD ORDERAB LES Final Result [facility] [address] [place] [address] [phone] documented in this encounter Visit Diagnoses Not on filedocumented in this encounter Additional Health Concerns Assessment Noted Time PHQ-9 Depression Total Score: 15 10/05/2 024 10:11 AM EDT documented as of this encounter Care Teams Anesthesiologist Attending Relationship Specialty Start Date End Date Benjamin Ireland MD [address] [place] [address] PCP - General Internal Medicine 12/02/17 Leena Curtis Technical AgronomistAirline Station Agent 05/06/23 documented as of this encounter
--- OUTSIDE RECORDS SUMMARY | 2024-04-01 12:43 | XMS_ITS | Encounter Summary ---
Author Organization [employer] [facility] Address [address] [place] [address] 7 [place] [address] Care Team Providers Care Director Ehs Name Role Phone Benjamin Ireland MD Primary Care Provider [phone] Reason for Visit * Reason Comments Med Refill Encounter Details Date Type Department Care Team ([facility] Contact Info) Description 06/25/2022 Refill [facility] MEDICINE [address] [place], [place] [phone] Benjamin Ireland MD [address] [place] [address] Chronic pain syndrome; Intertrigo Social History Tobacco [...] Upcoming Encounters Date Type Department Care Team ([facility] Contact Info) Description 04/29/2024 1:15 PM EDT Office Visit [facility] CH[facility] MED & PEDS [address] [place] [address] Benjamin Ireland MD [address] [place], [place] [phone] 05/18/2024 11:00 AM EDT Office Visit [facility] MEDICINE [address] [place] [address] documented as of this encounter Visit Diagnoses Diagnosis Chronic pain syndrome Intertrigo Other specified erythematous condition documented in this encounter Additional Health Concerns Assessment Noted Time PHQ-9 Depression Total Score: 0 02/14/19 23 11:24 AM EST documented as of this encounter Care Teams Director Ehs Relationship Specialty Start Date End Date Benjamin Ireland MD [address] [place] [address] PCP - General Internal Medicine 12/02/17 Leena Curtis Public DefenderTransport Medic 05/06/23 documented as of this encounter
--- OUTSIDE RECORDS SUMMARY | 2024-04-01 12:43 | XMS_ITS | Encounter Summary ---
Author Organization [employer] Address [address] [facility] 7t [place] [address] Care Team Providers Care Roofer Metal Name Role Phone Benjamin Ireland MD Primary Care Provider [phone] Encounter Details Date Type Department Care Team (Late st Contact Info) Description 11/19/2023 Orders Only [facility] CH[facility] MED & PEDS [address] [place], [place] [phone] Benjamin Ireland MD [address] [place] [address] Social History Tobacco Use Types Packs/Day Years [...] Description 04/29/2024 1:15 PM EDT Office Visit [facility] MED & PEDS [address] [place] [address] Benjamin Ireland MD [address] [place] [address] 05/18/2024 11:00 AM EDT Office Visit [facility] MEDICINE [address] [place] [address] documented as of this encounter Visit Diagnoses Not on filedocumented in this encounter Additional Health Concerns Assessment Noted Time PHQ-9 Depression Total Score: 15 024 10:11 AM EDT documented as of this encounter Care Teams Roofer Metal Relationship Specialty Start Date End Date Benjamin Ireland MD [address] [place] [address] PCP - General Internal Medicine 12/02/17 Leena Curtis Inspector Packer Glass ContainerCrew Clerk 05/06/23 documented as of this encounter
--- OUTSIDE RECORDS SUMMARY | 2024-04-01 12:43 | XMS_ITS | Encounter Summary ---
Author Organization [employer] Address [address] [facility] 7t [place] [address] Care Team Providers Care Net Programmer Name Role Phone Benjamin Ireland MD Primary Care Provider [phone] Encounter Details Date Type Department Care Team ([facility] [place] [facility] st Contact Info) Description 03/25/2024 Telephone [facility] MED & PEDS [address] [place], [place] [phone] Marya Montero, RN 505 [place] [address] Social History Tobacco Use Types Packs/Day Years [...] Telephone Encounter - Marya Montero RN - 03/25/2024 9:18 AM EST .What MOP MACHINE OPERATOR Tier would you like this patient to be? Tier 1 = HIGH RISK, Monthly MOP MACHINE OPERATOR visits Tier 2 = MODerate RISK, Q3 Month visits Tier 3 = LOW RISK = Q4-6 month visits documented in this encounter Plan of Treatment Upcoming Encounters Date Type Department Care Team (Late st Contact Info) Description 04/29/2024 1:15 PM EDT Office Visit [facility] MED & PEDS [address] [place] [address] Benjamin Ireland MD [address] [place] [address] 05/18/2024 11:00 AM EDT Office [facility] MEDICINE [address] [place] [address] documented as of this encounter Visit Diagnoses Not on filedocumented in this encounter Additional Health Concerns Assessment Noted Time PHQ-9 Depression Total Score: 15 024 10:11 AM EDT documented as of this encounter Care Teams Net Programmer Relationship Specialty Start Date End Date Benjamin Irealnd MD [address] [place] [address] PCP - General Internal Medicine 12/02/17 Leena Curtis AnchorerErp Specialist 05/06/23 documented as of this encounter
--- OUTSIDE RECORDS SUMMARY | 2024-04-01 12:43 | XMS_ITS | Encounter Summary ---
Author Organization [employer] [facility] Address [address] [place] [address] 7 [place] [address] Care Team Providers Care Escapement Maker Name Role Phone Benjamin Ireland MD Primary Care Provider [phone] Reason for Visit * Reason Comments Med Refill Encounter Details Date Type Department Care Team (Late Contact Info) Description 03/22/2022 Refill [facility] MED & PEDS [address] [place] [address] Benjamin Ireland MD [address] [place] [address] Moderate persistent allergic asthma (Primary Dx); Type 2 diabetes mellitus with hyperosmolarity without coma, without long-term current use of insulin ([facility]); Other specified hypothyroidism; Stress incontinence [...] Upcoming Encounters Date Type Department Care Team ([facility] Contact Info) Description 04/29/2024 1:15 PM EDT Office Visit [facility] CH[facility] MED & PEDS [address] [place] [address] Benjamin Ireland MD [address] [place] [id number] 05/18/2024 11:00 AM EDT Office Visit [facility] MEDICINE [address] [place] [address] documented as of this encounter Visit Diagnoses Diagnosis Moderate persistent allergic asthma- Primary Type 2 diabetes mellitus with hyperosmolarity without coma, without long-term current use of insulin ([facility]) Other specified hypothyroidism Stress incontinence of urine Intertrigo Other specified erythematous condition documented in this encounter Additional Health Concerns Assessment Noted Time PHQ-9 Depression Total Score: 0 02/14/19 23 11:24 AM EST documented as of this encounter Care Teams Escapement Maker Relationship Specialty Start Date End Date Benjamin Ireland MD [address] [place] [id number] PCP - General Internal Medicine 12/02/17 Leena Curtis Performance Solutions SpecialistLife Sciences Teacher 05/06/23 documented as of this encounter
--- OUTSIDE RECORDS SUMMARY | 2024-04-01 12:43 | XMS_ITS | Encounter Summary ---
Author Organization [employer] Address [address] [facility] 7 [place] [address] Care Team Providers Care Packerhead Machine Operator Name Role Phone Benjamin Ireland MD Primary Care Provider [phone] Reason for Visit * Reason Onset Date Comments Med Refill 04/29/2022 Encounter Details Date Type Department Care Team ([facility] st Contact Info) Description 04/29/[address] [facility] MEDICINE [address] [place] [address] Benjamin Ireland MD [address] [place] [address] Med Refill Social History Tobacco Use Types [...] Upcoming Encounters Date Type Department Care Team ([facility] st Contact Info) Description 04/29/2024 1:15 PM EDT Office Visit [facility] CH[facility] MED & PEDS [address] [place] [address] Benjamin Ireland MD [address] [place] [address] 05/18/2024 11:00 AM EDT Office Visit [facility] MEDICINE [address] [place] [address] documented as of this encounter Visit Diagnoses Not on filedocumented in this encounter Additional Health Concerns Assessment Noted Time PHQ-9 Depression Total Score: 0 02/14/19 23 11:24 AM EST documented as of this encounter Care Teams Packerhead Machine Operator Relationship Specialty Start Date End Date Benjamin Ireland MD [address] [place] [address] PCP - General Internal Medicine 12/02/17 Leena Curtis Oracle Fusion ConsultantBirdcage Assembler 05/06/23 documented as of this encounter
--- OUTSIDE RECORDS SUMMARY | 2024-04-01 12:43 | XMS_ITS | Encounter Summary ---
Author Organization [employer] Address [address] [facility] 7 [place] [address] Care Team Providers Care Etcher Aircraft Name Role Phone Benjamin Ireland MD Primary Care Provider [phone] Reason for Visit * Reason Comments Med Refill Encounter Details Date Type Department Care Team ([facility] st Contact Info) Description 04/10/2023 Refill [facility] MED & PEDS [address] [place], [place] [phone] Benjamin Ireland MD [address] [place] [address] Chronic pain syndrome Social History Tobacco Use [...] the past 12 months, has t he [employer], gas, oil or water [employer] threatened to shut off services in your [...] that the provider Letter is read for fish bait picker at medical records. documented in this encounter Plan of Treatment Upcoming Encounters Date Type Department Care Team (Late st Contact Info) Description 04/29/2024 1:15 PM EDT Office Visit [facility] CHC MED & PEDS [address] [place] [address] Benjamin Ireland MD [address] [place] [address] 05/18/2024 11:00 AM EDT Office Visit [facility] MEDICINE [address] [place] [address] documented as of this encounter Visit Diagnoses Diagnosis Chronic pain syndrome documented in this encounter Additional Health Concerns Assessment Noted Time PHQ-9 Depression Total Score: 0 02/14/19 23 11:24 AM EST documented as of this encounter Care Teams Etcher Aircraft Relationship Specialty Start Date End Date Benjamin Ireland MD [address] [place] [address] PCP - General Internal Medicine 12/02/17 Leena Curtis Dba DeveloperCan Feeder 05/06/23 documented as of this encounter
--- OUTSIDE RECORDS SUMMARY | 2024-04-01 12:43 | XMS_ITS | Encounter Summary ---
Author Organization [employer] Address [address] [facility] 7t [place] [address] Care Team Providers Care Tier And Detonator Name Role Phone Benjamin Ireland MD Primary Care Provider [phone] Reason for Visit * Reason Onset Date Comments Med Refill 03/22/2024 Encounter Details Date Type Department Care Team ([facility] st Contact Info) Description 03/22/2024 Refill [facility] CH[facility] MED & PEDS [address] [place] [address] Marya Montero, RN [address] [place] [address] Chronic pain syndrome Social History Tobacco Use [...] Description 04/29/2024 1:15 PM EDT Office Visit [facility] MED & PEDS [address] [place] [address] Benjamin Ireland MD 505 [place] [address] 05/18/2024 11:00 AM EDT Office Visit [facility] MEDICINE [address] [place] [address] documented as of this encounter Visit Diagnoses Diagnosis Chronic pain syndrome documented in this encounter Additional Health Concerns Assessment Noted Time PHQ-9 Depression Total Score: 15 024 10:11 AM EDT documented as of this encounter Care Teams Tier And Detonator Relationship Specialty Start Date End Date Benjamin Ireland MD [address] [place] [address] PCP - General Internal Medicine 12/02/17 Leena Curtis Billing TypistSafety Deposit Supervisor 05/06/23 documented as of this encounter
--- OUTSIDE RECORDS SUMMARY | 2024-04-01 12:43 | XMS_ITS | Encounter Summary ---
Author Organization [employer] Address [address] [facility] 7t [place] [address] Care Team Providers Care Dukey Rider Name Role Phone Benjamin Ireland MD Primary Care Provider [phone] Encounter Details Date Type Department Care Team (Late st Contact Info) Description 03/27/2023 Orders Only [facility] MED & PEDS [address] [place], [place] [phone] Benjamin Ireland MD [address] [place] [address] Type 2 diabetes mellitus without complication, without long-term current use of insulin ([facility]) (Primary Dx) Social History Tobacco [...] t he electric, gas, oil or water [employer] threatened to shut off services in your [...] Description 04/29/2024 1:15 PM EDT Office Visit [facility] MED & PEDS [address] [place], [place] [phone] Benjamin Ireland MD [address] [place], [place] [phone] 05/18/2024 11:00 AM EDT Office Visit [facility] MEDICINE [address] [place] [address] Scheduled Orders Name Type Priority Associated Diagnoses [...] T4 0.35 0.32 - 4.0 uIU/mL [facility] Blood Venous blood specimen / Unknown 04/03/2023 2:12 PM EST 04/03/2023 5:18 PM EST us Benjamin Ireland MD LAB BLOOD ORDERABLES Final Result Performing Organization Address [facility] Co de Phone Number [facility] [address] [place] [phone] * (ABNORMAL) Lipid Panel, Standard (04/03/2023 2:12 PM EST) Triglycerides 298(H) <150 mg/dL [facility] Comment:Desirable Triglyceri de: less than 150 mg/dLBorderline High Triglyceride 150-199 mg/dLHigh Triglyceride: 200-499 mg/dLVery High Triglyceride: greater than or equal to 5OO mg/dL Cholesterol 203(H) <200 mg/dL [facility] Comment:Desirable Cholestero l: less than 200 mg/dLBorderline High Cholesterol: 200-239 mg/dLHigh Cholesterol: greater than 239 mg/dL LDL Cholesterol Calculated 109(H) <100 mg/dL [facility] Comment:Desirable LDL: less than 100 mg/dLNear Optimal/Above Optimal LDL: 110- 129 mg/dLBorderline High LDL: 130-159 mg/dLHigh LDL: 160-189 mg/dLVery High LDL: greater than or equal to 190 mg/dL HDL Cholesterol 35(L) >40 mg/dL [facility] Comment:Desirable HDL: great er than 40 mg/dL Note: This HDL assay may give artificially low results in patients with liver disease. Blood Venous blood specimen / Unknown 04/03/2023 2:12 PM EST 04/03/2023 5:18 PM EST us Benjamin Ireland MD LAB BLOOD ORDERABLES Final Result Performing Organization Address City/[facility]/ZIP Co de Phone Number [facility] [address] [place] [phone] * (ABNORMAL) Comprehensive Metabolic Panel (04/03/2023 2:12 PM EST) Sodium 140 135 - 145 mmol/L [facility] Potassium 4.3 3.3 - 5.1 mmol/L [facility] Chloride 106 96 - 108 mmol/L [facility] Carbon Dioxide 27 22 - 29 mmol/L [facility] Anion Gap 11(L) 12 - 20 [facility] Urea Nitrogen (BUN) 18(H) 9 - 16 mg/dL [facility] Creatinine, Serum 0.82 0.5 - 1.4 mg/dL [facility] Estimated Glomerular Filt Rate >60 [facility] Comment:NOTE: For -Am erican individuals, multiply the result by 1.210.Chronic Kidney Disease: Estimated GFR < 60 mL/min/1.07w0Wqckis Kidney Disease: Estimated GFR < 15 mL/min/1.73m2 Glucose 89 60 - 115 mg/dL [facility] Calcium 9.2 8.4 - 10.2 mg/dL [facility] Bilirubin, Total 0.3 0.0 - 1.0 mg/dL [facility] Aspartate Amino Transferase 20 5 - 31 U/L [facility] Alanine Aminotransferase 16 0 - 31 U/L [facility] Total Protein 6.9 6.5 - 8.0 g/dL [facility] Albumin Level 4.2 3.5 - 5.0 g/dL [facility] Alkaline Phosphatase 97 39 - 117 U/L [facility] Blood Venous blood specimen / Unknown 04/03/2023 2:12 PM EST 04/03/2023 5:18 PM EST us Benjaimn Ireland MD LAB BLOOD ORDERABLES Final Result [facility] [address] [place] [phone] documented in this encounter Visit Diagnoses Diagnosis Type 2 diabetes mellitus without complication, without long-term current use of insulin ([facility])- Primary documented in this encounter Additional Health Concerns Assessment Noted Time PHQ-9 Depression Total Score: 0 02/14/19 23 11:24 AM EST documented as of this encounter Care Teams Dukey Rider Relationship Specialty Start Date End Date Benjamin Ireland MD [address] [place] [phone] PCP - General Internal Medicine 12/02/17 Leena Curtis Information Systems AnalystCity Alderman 05/06/23 documented as of this encounter
--- OUTSIDE RECORDS SUMMARY | 2024-04-01 12:43 | XMS_ITS | Encounter Summary ---
Author Organization [employer] Address 75 [facility] 7 [place] [address] Care Team Providers Care Motor Coach Driver Name Role Phone Benjamin Ireland MD Primary Care Provider [phone] Reason for Visit * Reason Comments Med Refill Encounter Details Date Type Department Care Team ([facility] st Contact Info) Description 03/23/2024 Refill [facility] CH[facility] MED & PEDS [address] [place], [place] [phone] Benjamin Ireland MD [address] [place] [address] Primary insomnia Social History Tobacco Use Types Packs/Day Years [...] Upcoming Encounters Date Type Department Care Team ([facility] st Contact Info) Description 04/29/2024 1:15 PM EDT Office Visit [facility] MED & PEDS [address] [place] [address] Benjamin Ireland MD [address] [place] [address] 05/18/2024 11:00 AM EDT Office Visit [facility] MEDICINE [address] [place] [address] documented as of this encounter Visit Diagnoses Diagnosis Primary insomnia Persistent disorder of initiating or maintaining sleep documented in this encounter Additional Health Concerns Assessment Noted Time PHQ-9 Depression Total Score: 15 024 10:11 AM EDT documented as of this encounter Care Teams Motor Coach Driver Relationship Specialty Start Date End Date Benjamin Ireland MD [address] [place] [address] PCP - General Internal Medicine 12/02/17 Leena Curtis Press CatcherUtility Engineer 05/06/23 documented as of this encounter
--- OUTSIDE RECORDS SUMMARY | 2024-04-01 12:43 | XMS_ITS | Encounter Summary ---
Author Organization [employer] Address 75 [facility] 7t [place] [address] Care Team Providers Care Respiratory Scientist Name Role Phone Benjamin Ireland MD Primary Care Provider [phone] Encounter Details Date Type Department Care Team (Latest Contact Info) Description 10/06/2023 Orders Only [facility] CH[facility] MED & PEDS [address] [place], [place] [phone] Benjamin Ireland MD [address] [place] [address] Hypercholesterolemia (Primary Dx); Screening for colon cancer [...] Description 04/29/2024 1:15 PM EDT Office Visit [facility] MED & PEDS [address] [place] [address] Benjamin Ireland MD [address] [place] [address] 05/18/2024 11:00 AM EDT Office Visit [facility] MEDICINE [address] [place] [address] documented as of this encounter Visit Diagnoses Diagnosis Hypercholesterolemia- Primary Pure hypercholesterolemia Screening for colon cancer Special screening for malignant neoplasms, colon documented in this encounter Additional Health Concerns Assessment Noted Time PHQ-9 Depression Total Score: 15 024 10:11 AM EDT documented as of this encounter Care Teams Respiratory Scientist Relationship Specialty Start Date End Date Benjamin Ireland MD [address] [place] [address] PCP - General Internal Medicine 12/02/17 Leena Curtis Jboss ArchitectMessenger Office 05/06/23 documented as of this encounter
--- OUTSIDE RECORDS SUMMARY | 2024-04-01 12:43 | XMS_ITS | Encounter Summary ---
Author Organization [employer] Address [address] [facility] 7 [place] [address] Care Team Providers Care New Car Salesperson Name Role Phone Benjamin Ireland MD Primary Care Provider [phone] Reason for Visit * Reason Onset Date Comments Error 05/27/2023 Encounter Details Date Type Department Care Team ([facility] st Contact Info) Description 05/27/2023 Telephone [facility] MEDICINE [address] [place] [address] Benjamin Ireland MD [address] [place] [address] Error Social History Tobacco Use Types Packs/Day Years Used Date Smoking Tobacco: Never Smokeless Tobacco: Never Depression Answer Date Recorded Patient Health Questionnaire-9 Score 0 02/14/2022 Housing Stability Answer Date Recorded What is your housing situation today? I have flaviaeyimy obregon 03/27/[address] you [...] t he electric, gas, oil or water [employer] threatened to shut off services in your [...] Description 04/29/2024 1:15 PM EDT Office Visit [facility] CH[facility] MED & PEDS [address] [place] [address] Benjamin Ireland MD [address] [place] [address] 05/18/2024 11:00 AM EDT Office Visit [facility] MEDICINE [address] [place] [address] documented as of this encounter Visit Diagnoses Not on filedocumented in this encounter Additional Health Concerns Assessment Noted Time PHQ-9 Depression Total Score: 0 02/14/19 23 11:24 AM EST documented as of this encounter Care Teams New Car Salesperson Relationship Specialty Start Date End Date Benjamin Ireland MD [address] [place] [address] PCP - General Internal Medicine 12/02/17 Leena Curtis Snapper OnDistrict Fire Management Officer 05/06/23 documented as of this encounter
--- OUTSIDE RECORDS SUMMARY | 2024-04-01 12:43 | XMS_ITS | Encounter Summary ---
Author Organization [employer] Address [address] [facility] 7 [place] [address] Care Team Providers Care Hash Slinger Name Role Phone Benjamin Ireland MD Primary Care Provider [phone] Reason for Visit * Reason Onset Date Comments Med Refill 07/08/2023 Encounter Details Date Type Department Care Team ([facility] st Contact Info) Description 07/08/2023 Telephone [facility] MEDICINE [address] [place] [address] Benjamin Ireland MD [address] [place], [place] [phone] Med Refill Social History Tobacco Use Types [...] 300-30 MG tablet To be sent to: [facility] Pharmacy documented in this encounter Plan of Treatment Upcoming Encounters Date Type Department Care Team (Late st Contact Info) Description 04/29/2024 1:15 PM EDT Office Visit [facility] MED & PEDS [address] [place] [address] Benjamin Ireland MD [address] [place] [address] 05/18/2024 11:00 AM EDT Office Visit [facility] MEDICINE [address] [place] [address] documented as of this encounter Visit Diagnoses Not on filedocumented in this encounter Additional Health Concerns Assessment Noted Time PHQ-9 Depression Total Score: 0 02/14/19 23 11:24 AM EST documented as of this encounter Care Teams Hash Slinger Relationship Specialty Start Date End Date Benjamin Ireland MD [address] [place] [address] PCP - General Internal Medicine 12/02/17 Leena Curtis Map CompilerMarble Supervisor 05/06/23 documented as of this encounter
--- OUTSIDE RECORDS SUMMARY | 2024-04-01 12:43 | XMS_ITS | Encounter Summary ---
Author Organization [employer] Address [address] [facility] 7 [place] [address] Care Team Providers Care Image Processing Engineer Name Role Phone Benjamin Ireland MD Primary Care Provider [phone] Reason for Visit * Reason Onset Date Comments Med Refill 11/06/2023 Encounter Details Date Type Department Care Team (Late st Contact Info) Description 11/06/2023 Telephone [facility] MEDICINE [address] [place] [address] Benjamin Ireland MD [address] [place] [address] Med Refill Social History Tobacco Use Types [...] 30 MG tablet To be sent to: [facility] - [place], [place] - [address] [place] [address] documented in this encounter Plan of Treatment Upcoming Encounters Date Type Department Care Team ([facility] st Contact Info) Description 04/29/2024 1:15 PM EDT Office Visit [facility] CHC MED & PEDS [address] [place] [address] Benjamin Ireland MD [address] [place] [address] 05/18/2024 11:00 AM EDT Office Visit [facility] MEDICINE [address] [place] [address] documented as of this encounter Visit Diagnoses Not on filedocumented in this encounter Additional Health Concerns Assessment Noted Time PHQ-9 Depression Total Score: 15 024 10:11 AM EDT documented as of this encounter Care Teams Image Processing Engineer Relationship Specialty Start Date End Date Benjamin Ireland MD [address] [place] [address] PCP - General Internal Medicine 12/02/17 Leena Curtis Software Database ArchitectTelephone Engineer 05/06/23 documented as of this encounter
--- OUTSIDE RECORDS SUMMARY | 2024-04-01 12:43 | XMS_ITS | Encounter Summary ---
Author Organization [employer] Address [address] [facility] 7 [place] [address] Care Team Providers Care Furnishings Conservator Name Role Phone Benjamin Ireland MD Primary Care Provider [phone] Reason for Visit * Reason Onset Date Comments Med Refill 03/22/2024 Encounter Details Date Type Department Care Team (Late st Contact Info) Description 03/22/2024 Telephone [facility] MEDICINE [address] [place] [address] Benjamin Ireland MD [address] [place] [address] Med Refill Social History Tobacco Use Types [...] encounter Miscellaneous Notes * Telephone Encounter - David Fuentes - 03/22/2024 10:37 AM EST TC from pt requesting medication refill. Medications needing refill : acetaminophen-codeine (Tylenol w/ Codeine #3) 300-30 MG tablet To be sent to: [facility] - [address] documented in this encounter Plan of Treatment Upcoming Encounters Date Type Department Care Team ([facility] st Contact Info) Description 04/29/2024 1:15 PM EDT Office Visit [facility] CHC MED & PEDS [address] [place] [address] Benjamin Ireland MD [address] [place] [address] 05/18/2024 11:00 AM EDT Office Visit [facility] MEDICINE [address] [place] [address] documented as of this encounter Visit Diagnoses Not on filedocumented in this encounter Additional Health Concerns Assessment Noted Time PHQ-9 Depression Total Score: 15 024 10:11 AM EDT documented as of this encounter Care Teams Furnishings Conservator Relationship Specialty Start Date End Date Benjamin Ireland MD [address] [place] [address] PCP - General Internal Medicine 12/02/17 Leena Curtis Radiology SpecialistHeel Nailing Machine Operator 05/06/23 documented as of this encounter
--- OUTSIDE RECORDS SUMMARY | 2024-04-01 12:43 | XMS_ITS | Encounter Summary ---
Author Organization [employer] Address [address] [facility] 7t [place] [address] Care Team Providers Care Access Liaison Name Role Phone Benjamin Ireland MD Primary Care Provider [phone] Reason for Visit * Reason Comments controlled substance treatment Encounter Details Date Type Department Care Team (Latest Contact Info) Description 03/25/2024 2:00 PM EST Clinical Support [facility] CHC MED & PEDS [address] [place] [address] Marya Montero, RN [address] [place] [address] Chronic pain syndrome Social History Tobacco Use [...] AM EDT documented as of this encounter Progress Notes * Marya Montero RN - 03/25/2024 2:00 PM EST S: INSULATION BOARD HEAD SAW OPERATOR [place]. Patient here with UTILITY SALES AND SERVICE MANAGER. Patient is taking Tylenol-Codeine #3 Q8hrs PRN. Patient states she takes medication as prescribed. Advised patient of alternative pain management options. Patient also uses Celebrex and Lidocaine patches. Denies any adverse reactions. Denies smoking, ETOH or illicit drugs use. Current pain level is 9/10 located in the lower back, L leg. States medication usually provides 70% pain relief when taken. Last PCP visit was on 11/26/23, next f/u with PCP 04/29/24. No questions/ concerns at this time. O: VSS. MEDICAL LABORATORY TECHNICIAN checked on 03/25/24. Pill count performed, patient has 79 pills left, 79 expected. Medication is not being overused. .BPI updated today. Pain severity score of (8), activity interference score of (8.5). Previous BPI completed (08/12/23) with pain severity score of (7), activity interference score of (7). Utox performed, positive for MOP only, as expected. A: Chronic opioid use r/t chronic pain. P: Patient to cont. with current pain medication regimen as needed and take medication only as directed. Next INSULATION BOARD HEAD SAW OPERATOR/ chronic pain group visit scheduled for 05/18/24 @ 11am. F/u with PCP 04/29/24. Appt reminder given. F/u sooner PRN. Patient verbalized understanding and agreed to plan. documented in this encounter Plan of Treatment Upcoming Encounters Date Type Department Care Team (Late st Contact Info) Description 04/29/2024 1:15 PM EDT Office Visit [facility] MED & PEDS 505 [facility] [place] [address] Benjamin Ireland MD [address] [place] [address] 05/18/2024 11:00 AM EDT Office Visit [facility] MEDICINE [address] [place] [address] documented as of this encounter Procedures Procedure Name Priority Date/Time Associated Diagnosis Comments POCT ARABELLA-14 URINE DRUG SCREEN Routine 03/25/2024 3:05 PM EST Chronic pain syndrome documented in this encounter Results * POCT ARABELLA-14 Urine Drug Screen (03/25/2024 3:05 PM EST) Opiate Screen, Urine Positive Urine Urine specimen obtained by clean catch procedure / Unknown 03/25/2024 3:05 PM EST Narrative Marya Montero RN - 03/25/2024 3:05 PM EST Lot# [id number] Exp: 09-29-25 Benjamin Ireland MD POINT OF CARE TEST ENTER/ED IT ORDERABLES Final Result documented in this encounter Visit Diagnoses Diagnosis Chronic pain syndrome documented in this encounter Additional Health Concerns Assessment Noted Time PHQ-9 Depression Total Score: 15 024 10:11 AM EDT documented as of this encounter Care Teams Access Liaison Relationship Specialty Start Date End Date Benjamin Ireland MD [address] [place] [address] PCP - General Internal Medicine 12/02/17 Leena Curtis Health Sciences Department ChairCorporate Real Estate Specialist 05/06/23 documented as of this encounter
--- OUTSIDE RECORDS SUMMARY | 2024-04-01 12:43 | XMS_ITS | Clinical Summary ---
Author Organization [employer] Address 75 [facility] 7t [place] [address] Care Team Providers Care Thermostat Mechanic Name Role Phone Benjamin Ireland MD Primary Care Provider [phone] [phone] Allergies No known active allergies Medications * [...] day. daily 90 tablet 3 024 Active albuterol (5 MG/ML) 0.5% nebulizer solution [...] cholecalciferol VITAMIN D (Vitamin D-3) 50 MCG (2000 UT) capsuleIndication s:Vitamin D deficiency TAKE 1 CAPSULE BY MOUTH EVERY DAY 90 capsule 3 024 Active cyclobenzaprine (Flexeril) 10 MG tablet Take 1 tablet (10 mg) by mouth 3 times daily for 10 days. 30 tablet 024 Active FLUoxetine (PROzac) 20 MG capsule TAKE 2 CAPSULES BY MOUTH EVERY MORNING 180 capsule 1 025 Active levothyroxine (Synthroid, Levoxyl) 50 MCG tabletIndications :Other specified hypothyroidism TAKE 1 TABLET BY MOUTH EVERY DAY 90 tablet 1 025 Active acetaminophen-cod eine (Tylenol w/ Codeine #3) 300-30 MG tabletIndications :Chronic pain syndrome Take 1 tablet by mouth every 8 (eight) hours. As needed 84 tablet 025 Active traZODone (Desyrel) 150 MG tabletIndications :Primary insomnia TOME DOS TABLETAS POR VIA ORAL TODOS LOS ZAPIEN AL ACOSTARSE 180 tablet 1 025 Active traZODone (Desyrel) 150 MG tabletIndications :Primary insomnia TOME DOS TABLETAS POR VIA ORAL TODOS LOS ZAPIEN AL ACOSTARSE 180 tablet 1 024 2024 Discontinued acetaminophen-cod eine (Tylenol w/ Codeine #3) 300-30 MG tabletIndications :Chronic pain syndrome Take 1 tablet by mouth every 8 (eight) hours. As needed 84 tablet 025 2024 Discontinued(R eorder (will not trigger notification [...] Encounters Date Type Department Care Team Description 03/25/2024 2:00 PM EST Clinical Support [facility] [address] [place] [address] Marya Montero RN Chronic pain syndrome 03/25/2024 Travel 03/25/2024 Telephone [facility] [address] [place] [address] Marya Montero RN 03/23/2024 Refill [facility] [address] [place] [address] Benjamin Ireland MD Primary insomnia 03/22/2024 Refill [facility] [address] [place] [address] Marya Montero RN Chronic pain syndrome 03/22/2024 Telephone [facility] [address] [place] [address] Benjamin Ireland MD Med Refill 03/02/2024 Orders Only GENERIC EXTERNAL DATA DEPARTMENT Provider, Generic External Data 02/24/2024 Refill [facility] [address] [place] [address] Benjamin Ireland MD Other specified hypothyroidism 02/23/2024 Refill [facility] [address] [place] [address] Benjamin Ireland MD Chronic pain syndrome 01/27/2024 Refill [facility] [address] [place] [address] Benjamin Ireland MD Chronic pain syndrome 01/20/2024 3:15 PM EST Office Visit [facility] [address] [place] [address] Saad Shankar MD Bronchitis (Primary Dx); Cough, unspecified type; Muscle spasm 01/20/2024 Travel 01/19/2024 Orders Only [facility] [address] [place] [address] Benjamin Ireland MD 01/16/2024 Telephone [facility] [address] [place] [address] Benjamin Ireland MD Nurse Triage 01/15/2024 Telephone [facility] [address] [place] [address] Benjamin Ireland MD No Show 12/31/2023 Orders Only [facility] External Provider, [facility] from Last 3 Months Immunizations Name Administration [...] Description 04/29/2024 1:15 PM EDT Office Visit [facility] [address] [place] [address] Benjamin Ireland MD [address] [place] [address] 05/18/2024 11:00 AM EDT Office Visit [facility] [address] [place] [address] Health Maintenance Due Date Last Done Comments [...] Diabetes: Urine Protein Screening 02/14/2023 02/14/2022, 05/08/2020 Diabetes: Hemoglobin A1C 01/06/2024 024, 04/03/2023, 12/25/2022, Additional history exists SDOH [...] 02/14/2022 Pneumococcal Vaccine: 50+ Years Completed 04/03/2023 COVID-19 Vaccine Completed 03/10/2024, , 04/28/2020 Influenza Vaccine Completed 03/10/2024, , 02/14/2022, Additional history exists HIB Vaccines Aged Out No longer eligi [...] 03/25/2024 3:05 PM EST Chronic pain syndrome GLUCOSE, WHOLE BLOOD Routine 03/02/2024 1:02 PM [...] Recently Relevant to Health Maintenance Results * POCT ARABELLA-14 Urine Drug Screen (03/25/2024 3:05 PM EST) Opiate Screen, Urine Positive Urine Urine specimen obtained by clean catch procedure / Unknown 03/25/2024 3:05 PM EST Narrative Marya Montero RN - 03/25/2024 3:05 PM EST Lot# [id number] Exp: 09-29-25 Benjamin Ireland MD POINT OF CARE TEST ENTER/ED IT ORDERABLES Final Result * Glucose, Whole Blood (03/02/2024 1:02 PM EST) Glucose, Whole Blood 106 60 - 115 mg/dL [facility] Comment:METER #: [id number] Testing performed in the Endocrinology Department [address] , [address], [facility]. 03/02/2024 1:02 PM EST 03/02/2024 1:06 PM EST Generic External Data Provider LAB BLOOD ORDERAB LES Final Result [facility] [address] [place] [phone] * POCT Rapid Covid-19 BinaxNOW (01/20/2024 3:38 PM EST) Pathologist [facility] Rapid COVID Ag Negative QC Media Lot # [id number] Lot# Expiration Date 026 Swab 01/20/2024 3:38 PM EST Saad Duarte MD POINT OF C ARE TEST ENTER/EDIT ORDERABLES Edited Result - Final * POCT Rapid Influenza B OSOM (01/20/2024 3:37 PM EST) [facility] Rapid Influenza B Ag Negative Negative, Indeterminate QC Media Lot # [id number] Lot# Expiration Date Swab 01/20/2024 3:37 PM EST Saad Duarte MD POINT OF CARE TEST ENTER/EDIT ORDERABLES Final Result * POCT Rapid Influenza A OSOM (01/20/2024 3:36 PM EST) [facility] Rapid Influenza A Ag Negative Negative, Indeterminate QC Media Lot # [id number] Lot# Expiration Date Swab Nasopharyngeal structure / Unknown 01/20/2024 3:36 PM EST Saad Duarte MD POINT OF CARE TEST ENTER/EDIT ORDERABLES Final Result * BI Mammogram Screening Tomosynthesis Bilateral (01/19/2024 2:40 PM EST) Anatomical Region Laterality Modality Breast Bilateral Mammography 01/19/2024 2:40 PM EST Narrative 01/23/2024 5:43 PM EST ? [facility] ? [address] ?[place] [address] ? Mammography Report ? Signed ? Patient: Mel More ?MR#: [id number] ?? [id number] ? : 1960 ?Acct:[id number] ? Age/Sex: 63 / F ?ADM Date: 01/19/24 ? Loc: HO.MAMMO ? Attending Dr: Benjamin Ireland MD ? Ordering Physician: Benjamin Ireland MD ?Results: 1 ?? Negative ? Date of Service: 01/19/24 ?Follow Up: 1 Year From Orig ?? inal Mammogram ? Procedure(s): MM tomosynthesis screening BI ?? Accession Number(s): [id number] ? cc: Benjamin Ireland MD ? EXAMINATION: [...] DD/ 1440 ? TD/TT: 01/19/24 1455 ? Technology Adoption Manager: ? Procedure Note Donedwinainterpreter, Image - 01/23/2024 [facility] [address] [place] [address] Mammography Report Signed Patient: Mel MoreMR#: [id number] : 2Acct:[id number] Age/Sex: 63 / FADM Date: 01/19/24 Loc: HO.MAMMO Attending Dr: Benjamin Ireland MD Ordering Physician: Benjamin Ireland MDResults: 1 Negative Date of Service: 01/19/24Follow Up: 1 Year From Orig ina Mammogram Procedure(s): MM tomosynthesis screening BI Accession Number(s): [id number] cc: Benjamin Ireland MD EXAMINATION: MM SCREENING [...] 01/23/24 1740 DD/ 1440 TD/TT: 01/19/24 1455 Technology Adoption Manager: us Benjamin Ireland MD IMG BI PROCEDURES Final Res ult * VASC US Lower Extremity Venous Duplex Bilateral (12/31/2023 1:06 PM EST) 12/31/2023 1:06 PM EST Narrative [facility] - 02/06/2024 9:07 AM EST ? [facility] ?[address] ?[place] [address] ? Ultrasound Report ? Signed ? Patient: Mel More ?MR#: [id number] ?? [id number] ? : 1960 ?Acct:[id number] ? Age/Sex: 63 / F ?ADM Date: 12/31/23 ? Loc: HO.US ? Attending Dr: Kisha Valadez PA-C ? Ordering Physician: Kisha Valadez PA-C ?? Date of Service: 12/31/23 ?? Procedure(s): US venous duplex LE BI ?? Accession Number(s): [id number] ? cc: Benjamin Ireland MD; Kisha Valadez [...] DD/ 1306 ? TD/TT: 12/31/23 1350 ? Technology Adoption Manager: ? Procedure Note Donotuseinterpreter, Image - 02/06/[address] [address] Ultrasound Report Signed Patient: Mel MoreMR#: [id number] : 2Acct:[id number] Age/Sex: 63 / FADM Date: 12/31/23 Loc: HO.US Attending Dr: Kisha Valadez PA-C Ordering Physician: Kisha Valadez PA-C Date of Service: 12/31/23 Procedure(s): US venous duplex LE BI Accession Number(s): [id number] cc: Benjamin Ireland MD; Kisha Valadez PA-C [...] by: Wiliam Marie MD 02/06/2024 09:04 AM [facility] Dictated By: Wiliam Marie MD Signed By: <Electronically signed by Wiliam Marie MD in OV> 02/06/24 0904 DD/ 1306 TD/TT: 12/31/23 1350 Technology Adoption Manager: [facility] External Provider CV VASC ULAR PROCEDURES Final Result Performing Organization Address [facility]/ZIP Co de Phone Number [facility] [address] [place] [address] * (ABNORMAL) Lipid Panel, Standard (10/06/2023 10:57 AM EDT) Triglycerides 486(H) <150 mg/dL [facility] Comment:Desirable Triglyceri de: less than 150 mg/dLBorderline High Triglyceride 150-199 mg/dLHigh Triglyceride: 200-499 mg/dLVery High Triglyceride: greater than or equal to 5OO mg/dL Cholesterol 225(H) <200 mg/dL [facility] Comment:Desirable Cholestero l: less than 200 mg/dLBorderline High Cholesterol: 200-239 mg/dLHigh Cholesterol: greater than 239 mg/dL LDL Cholesterol Calculated TNP <100 mg/dL [facility] Comment:Unable to calculate the LDL. The formula of Friedwald,Jo, and Nam is only valid if the triglycerides areless than 400 mg/dl. HDL Cholesterol 33(L) >40 mg/dL [facility] Comment:Desirable HDL: great er than 40 mg/dL Note: This HDL assay may give artificially low results in patients with liver disease. Blood Venous blood specimen / Unknown 10/06/2023 10:57 AM EDT 10/06/2023 2:33 PM EDT us Benjamin Ireland MD LAB BLOOD ORDERABLES Final Result Performing Organization Address City/[facility]/ZIP Co de Phone Number [facility] [address] [place] [phone] [phone] * (ABNORMAL) POCT HGB A1C (10/06/2023 9:13 AM EDT) Hemoglobin A1C 6.1(A) 4.0 - 6.0 % QC Media Lot # [id number] Lot# Expiration Date [id number] Blood 10/06/2023 9:13 AM EDT Benjamin Ireland MD POINT OF CARE TEST ENTER/ED IT ORDERABLES Final Result * (ABNORMAL) Albumin, Random Urine W/Creatinine (02/14/2022 12:03 PM EST) Pathologist [facility] Creatinine, Random Urine 207 20 - 275 mg/dL [employer] Albumin, Urine 6.6 See Note: mg/dL [employer] Comment: Reference Range: Reference Range Not established Albumin/Creatinin e Ratio, Random Urine 32(H) <30 mcg/mg creat [employer] Comment: The ADA defines abnormalities in albumin [...] 3 PM EST 02/14/2022 12:04 PM EST us Benjamin Ireland MD LAB URINE ORDERABLES Final Result [facility] [address] [facility], [facility], [place] [address] [employer] [address], (Nl2) [place] [address] * Hepatitis C Antibody with Reflex to HCV, RNA, Quantitative, Real-Time PCR (02/14/2022 12:03 PM EST) Pathologist [facility] Hepatitis C Antibody NON-REACT [place] NON-REACT [place] [employer] Index 0.06 <1.00 [employer] [facility] Comment: HCV antibody was non-reactive. There is no laboratory evidence of HCV infection. In most cases, no further action is required. However, if recent HCV exposure is suspected, a test for HCV RNA (test code 12263) is suggested. For additional information please refer to http://[employer]/faq/YKS28e6 (This link is being provided for informational/ educational purposes only.) 02/14/2022 12:0 3 PM EST 02/14/2022 12:04 PM EST Benjamin Ireland MD LAB BLOOD ORDERABLES Final Result [facility] [address] [place] [address], [place] [address] [employer] [address] [place] [address], (Nl2) [place] [address] * Fecal immunochemical test x1 (FIT) (08/05/2020 12:00 AM EDT) FIT Date 1 08/04/20 [facility] FIT Date 2 08/04/20 [facility] FIT1 NEGATIVE NEGATIVE [facility] FIT2 NEGATIVE NEGATIVE [facility] 08/05/2020 Historical Provider HISTORICAL/NON ORDERABLE LABS Final Result Performing Organization Address City/[facility]/ZIP Co de Phone Number [facility] [address] * HPV mRNA E6/E7 (10/21/2017 10:24 AM EDT) HPV mRNA E6/E7 Not Detected NOT DETECTED [facility] Comment: This test was performed using the APTIMA(R) HPV Assay ([employer] This assay detects E6/E7 viral messenger RNA (mRNA) from 14 high-risk HPV types (16,18,31,33,35,39,45,51, 52,56,58,59,66,68). For additional information please refer to: http://education.[employer]/faq/KQP525k2 (This link is being provided for informational/ educational purposes only.) The analytical performance characteristics of this assay have been determined by [employer] [place], [place]. The modifications have not been cleared or approved by the FDA. This assay has been validated pursuant to the CLIA regulations and is used for clinical purposes. Test Performed by [facility], [employer] [facility], [address] [place], [place] Jose C De Leon M.D., Ph.D., Director of Laboratories , CLIA [id number] Please note: ??Effective 10/23/2015, HPV testing will be performed using [employer]'s APTIMA test which targets mRNA. Detecting mRNA instead of DNA, as in older methods, offers significant improvements in specificity. 10/21/2017 10:2 4 AM EDT Cari Campos CNM HISTORICAL/NON ORDERABLE LABS Final Result [facility] [address] from Last 3 Months or Most Recently Relevant to Health Maintenance [place] [address] C3 Care Teams Thermostat Mechanic Relationship Specialty Start Date End Date Benjamin Ireland MD [address] [place] [address] PCP - General Internal Medicine 12/02/17 Leena Curtis Coding Team LeadBabysitter 05/06/23
--- OUTSIDE RECORDS SUMMARY | 2024-04-01 12:43 | XMS_ITS | Encounter Summary ---
Author Organization [employer] Address 75 [facility] 7 [place] [address] Care Team Providers Care Textile Machine Maintenance Mechanic Name Role Phone Benjamin Ireland MD Primary Care Provider +[phone] Reason for Visit * Reason Onset Date Comments Nurse Triage 11/19/2023 Encounter Details Date Type Department Care Team ([facility] st Contact Info) Description 11/19/2023 Telephone [facility] [address] [place] [address] Benjamin Ireland MD [address] [place] [address] Nurse Triage Social History Tobacco Use Types [...] know that we have them at the [facility] and we could provide the mask and [...] fever) (Exceptions: Already seen by doctor or MANAGER PHYSICAL/PA and no new or worsening symptoms.) * [...] accepted this outcome. Please contact pt at [phone] ([email or web address]) documented in this encounter Plan of Treatment Upcoming Encounters Date Type Department Care Team ([facility] st Contact Info) Description 04/29/2024 1:15 PM EDT Office Visit [facility] [address] [place] [address] Benjamin Ireland MD [address] [place] [address] 05/18/2024 11:00 AM EDT Office Visit [facility] [address] [place] [address] documented as of this encounter Visit Diagnoses Not on filedocumented in this encounter Additional Health Concerns Assessment Noted Time PHQ-9 Depression Total Score: 15 024 10:11 AM EDT documented as of this encounter Care Teams Textile Machine Maintenance Mechanic Relationship Specialty Start Date End Date Benjamin Ireland MD [address] [place] [address] PCP - General Internal Medicine 12/02/17 Leena Curtis Retail SalesmanBusiness Analysis Professional 05/06/23 documented as of this encounter
--- OUTSIDE RECORDS SUMMARY | 2024-04-01 12:43 | XMS_ITS | Encounter Summary ---
Author Organization [employer] [facility] Address [address] [place] [address] [address] Care Team Providers Care Services Engineer Name Role Phone Benjamin Ireland MD Primary Care Provider [phone] Encounter Details Date Type Department Care Team (Late st Contact Info) Description 01/15/2022 Abstract [facility] PEDS [address] [place] [address] ProviderRadha MD Social History Tobacco Use Types [...] Description 04/29/2024 1:15 PM EDT Office Visit [facility] [address] [place] [address] Benjamin Ireland MD [address] [place] [address] 05/18/2024 11:00 AM EDT Office Visit [facility] [address] [place] [address] documented as of this encounter Visit Diagnoses Not on filedocumented in this encounter Care Teams Services Engineer Relationship Specialty Start Date End Date Benjamin Ireland MD [address] [place] [address] PCP - General Internal Medicine 12/02/17 Leena Curtis Puddler Pile DrivingTactical/Mobile Watch Officer 05/06/23 documented as of this encounter
--- OUTSIDE RECORDS SUMMARY | 2024-04-01 12:43 | XMS_ITS | Encounter Summary ---
Author Organization [employer] Address 75 [facility] 7 [place] [address] Care Team Providers Care Business Architect Name Role Phone Benjamin Ireland MD Primary Care Provider [phone] Reason for Visit * Reason Onset Date Comments Med Refill 10/02/2023 Encounter Details Date Type Department Care Team (Late st Contact Info) Description 10/02/2023 Telephone [facility] [address] [place] [address] Benjamin Ireland MD [address] [place] [address] Med Refill Social History Tobacco Use Types [...] 30 MG tablet To be sent to: [facility] documented in this encounter Plan of Treatment Upcoming Encounters Date Type Department Care Team (Late st Contact Info) Description 04/29/2024 1:15 PM EDT Office Visit [facility] [address] [place] [address] Benjamin Ireland MD [address] [place] [address] 05/18/2024 11:00 AM EDT Office Visit [facility] [address] [place] [address] documented as of this encounter Visit Diagnoses Not on filedocumented in this encounter Additional Health Concerns Assessment Noted Time PHQ-9 Depression Total Score: 0 02/14/19 23 11:24 AM EST documented as of this encounter Care Teams Business Architect Relationship Specialty Start Date End Date Benjamin Ireland MD [address] [place] [address] PCP - General Internal Medicine 12/02/17 Leena Curtis Sample Case PorterSurgical Instruments Inspector 05/06/23 documented as of this encounter
--- OUTSIDE RECORDS SUMMARY | 2024-04-01 12:44 | XMS_ITS | Encounter Summary ---
Author Organization [email or web address] [facility] Address 75 [facility] 7 [place] [address] Care Team Providers Care Biomedical Engineering Internship Name Role Phone Benjamin Ireland MD Primary Care Provider [phone] Reason for Visit * Reason Onset Date Comments Medication Question 03/07/2023 Encounter Details Date Type Department Care Team ([facility] st Contact Info) Description 03/07/2023 Telephone [facility] P[facility] [address] [place] [address] Benjamin Ireland MD [address] [place] [address] Medication Question Social History Tobacco Use Types [...] Cronin LPN - 03/10/2023 11:20 AM EST Box Stacker spoke with pt pharmacy , stated they never received neither medication. I also spoke with PCP stated didn't prescribe Tramadol . Sending to Marya as FYI. * Telephone Encounter - Moy Schwab - 03/07/2023 4:50 PM EST TC from pt stating that [facility] Informs that Medication Tramadol and acetaminophen-codeine (Tylenol w/ Codeine #3) 300-30 MG tablet is not covered by insurance, patient does not know reason in why insurance is not covering medication. Box Stacker tried communicating with Pharmacy to verify reason but no answer from pharmacy. Pt also informs she is in a lot of pain. Please contact pt @ [phone] documented in this encounter Plan of Treatment Upcoming Encounters Date Type Department Care Team (Late st Contact Info) Description 04/29/2024 1:15 PM EDT Office Visit [facility] [address] [place] [address] Benjamin Ireland MD [address] [place] [address] 05/18/2024 11:00 AM EDT Office Visit [facility] [address] [place] [address] documented as of this encounter Visit Diagnoses Diagnosis Chronic pain syndrome documented in this encounter Additional Health Concerns Assessment Noted Time PHQ-9 Depression Total Score: 0 02/14/19 11:24 AM EST documented as of this encounter Care Teams Biomedical Engineering Internship Relationship Specialty Start Date End Date Benjamin Ireland MD [address] [place] [address] PCP - General Internal Medicine 12/02/17 Leena Curtis Sterilization TechnicianMetal Sander 05/06/23 documented as of this encounter
--- OUTSIDE RECORDS SUMMARY | 2024-04-01 12:44 | XMS_ITS | Encounter Summary ---
Author Organization [employer] [facility] Address [address] [place] [address] 7 [place] [address] Care Team Providers Care Steel Detailer Name Role Phone Benjamin Ireland MD Primary Care Provider [phone] [phone] Encounter Details Date Type Department Care Team (Late Contact Info) Description 03/10/2023 Orders Only [facility] MED & PEDS [address] [place] [address] Benjamin Ireland MD [address] [place] [address] Chronic pain syndrome Social History Tobacco Use [...] Department Care Team (Late Contact Info) Description 04/29/2024 1:15 PM EDT Office Visit [facility] MED & PEDS [address] [place] [address] Benjamin Ireland MD [address] [place] [address] 05/18/2024 11:00 AM EDT Office Visit [facility] [address] [place] [address] documented as of this encounter Visit Diagnoses Diagnosis Chronic pain syndrome documented in this encounter Additional Health Concerns Assessment Noted Time PHQ-9 Depression Total Score: 0 02/14/19 23 11:24 AM EST documented as of this encounter Care Teams Steel Detailer Relationship Specialty Start Date End Date Benjamin Ireland MD [address] [place] [address] PCP - General Internal Medicine 12/02/17 Leena Curtis Machine Veneer RepairerInsect Control Aide 05/06/23 documented as of this encounter
--- OUTSIDE RECORDS SUMMARY | 2024-04-01 12:44 | XMS_ITS | Encounter Summary ---
Author Organization [employer] Address 75 [facility] 7 [place] [address] Care Team Providers Care Hand Scraper Name Role Phone Benjamin Ireland MD Primary Care Provider [phone] Reason for Visit * Reason Onset Date Comments PT1 03/04/2023 Encounter Details Date Type Department Care Team ([facility] st Contact Info) Description 03/04/2023 Telephone [facility] [address] [place] [address] Benjamin Ireland MD 505 [place] [address] PT1 Social History Tobacco Use Types Packs/Day [...] Date: 04/03/23 Time: 1:15 Visits: N/A Address: [address] [place] [address] Facility: [address] [facility] Wheel Chair: No (Uses walker) Orchid Hand Needed: yes documented in this encounter Plan of Treatment Upcoming Encounters Date Type Department Care Team (Late st Contact Info) Description 04/29/2024 1:15 PM EDT Office Visit [facility] 505 [place] [address] Benjamin Ireland MD [address] [place] [address] 05/18/2024 11:00 AM EDT Office Visit [facility] [address] [place], [place] [phone] documented as of this encounter Visit Diagnoses Not on filedocumented in this encounter Additional Health Concerns Assessment Noted Time PHQ-9 Depression Total Score: 0 02/14/19 11:24 AM EST documented as of this encounter Care Teams Hand Scraper Relationship Specialty Start Date End Date Benjamin Ireland MD 505 [place] [address] PCP - General Internal Medicine 12/02/17 Leena Curtis Cigarette CatcherApron Cleaner 05/06/23 documented as of this encounter
== END 2024-04-01 11:42 | disposition home or self-care (01) ==
PROVIDERS: PCP Internal Medicine; Visit Provider Physician Assistant Surgical
DX: I83.12 Varicose veins of left lower extremity with inflammation (principal)
CPT/HCPCS: 99214

== ENCOUNTER → 2024-04-01 11:24 | Outpatient (BNVA) | payer MEDICAID, SELFPAY | PROVIDERS: PCP Internal Medicine; Visit Provider Physician Assistant Surgical | DX: I83.12 Varicose veins of left lower extremity with inflammation (principal) | CPT/HCPCS: 99212 ==

== ENCOUNTER 2024-04-09 16:25 | Outpatient (REF) | payer MEDICAID, SELFPAY ==
[2024-04-09 17:58] LABS: Appearance Urine Cloudy; Color Urine Dark Yellow; Glucose Urine UA Negative (Negative); Leukocyte Esterase Urine Negative (Negative); Nitrite Urine Negative (Negative); PH 5.5 (5.0-9.0); Specific Gravity - Urine >= 1.030 (1.005-1.025); Urine Blood Negative (Negative); Urine Ketones Trace mg/dL (Negative); Urine Protein Trace mg/dL (Neg-Trace)
--- OUTSIDE RECORDS SUMMARY | 2024-04-09 18:02 | XMS_ITS | Encounter Summary ---
Author Organization [employer] Address 75 [facility] 7 [place] [address] Care Team Providers Care Voicer Name Role Phone Benjamin Ireland MD Primary Care Provider [phone] Reason for Visit * Reason Comments Med Refill Encounter Details Date Type Department Care Team ([facility] st Contact Info) Description 03/23/2024 Refill [facility] [address] [place], [place] [phone] Benjamin Ireland MD [address] [place] [address] Primary insomnia Social History Tobacco Use Types [...] Upcoming Encounters Date Type Department Care Team ([facility] st Contact Info) Description 04/29/2024 1:15 PM EDT Office Visit [facility] [address] [place] [address] Benjamin Ireland MD [address] [place] [address] 05/18/2024 11:00 AM EDT Office Visit [facility] [address] [place] [address] documented as of this encounter Visit Diagnoses Diagnosis Primary insomnia Persistent disorder of initiating or maintaining sleep documented in this encounter Additional Health Concerns Assessment Noted Time PHQ-9 Depression Total Score: 15 024 10:11 AM EDT documented as of this encounter Care Teams Voicer Relationship Specialty Start Date End Date Benjamin Ireland MD 505 [place] [address] PCP - General Internal Medicine 12/02/17 Leena Curtis Utilities Service InvestigatorAccount Adjuster 05/06/23 documented as of this encounter
--- OUTSIDE RECORDS SUMMARY | 2024-04-09 18:02 | XMS_ITS | Encounter Summary ---
Author Organization [employer] Address 75 [facility] 7 [place] [address] Care Team Providers Care Marine Service Station Attendant Name Role Phone Benjamin Ireland MD Primary Care Provider [phone] Reason for Visit * Reason Comments Care Coordination Outreach Encounter Details Date Type Department Care Team (Latest Contact Info) Description 04/06/2024 Patient Outreach [facility] MED & [facility]EDS [address] [place], [place] [phone] Benjamin Ireland MD 505 [place] [address] Care Coordination (Outreach) Social History Tobacco Use Types Packs/Day Years [...] as of this encounter Progress Notes * Pattie Cronin - 04/06/2024 1:59 PM EST CHW Pattie Cronin , placed outbound call to patient in regards to offer services. CHW introducing herself from [facility] CM Department with CHW's name, department and direct contact [phone] requesting call back. Will re-attempt to contact within 5 days. and address not confirmed. documented in this encounter Plan of Treatment Upcoming Encounters Date Type Department Care Team ([facility] st Contact Info) Description 04/29/2024 1:15 PM EDT Office Visit [facility] & P[facility]S [address] [place] [address] Benjamin Ireland MD [address] [place] [address] 05/18/2024 11:00 AM EDT Office Visit [facility] MEDICINE [address] [place] [address] documented as of this encounter Visit Diagnoses Not on filedocumented in this encounter Additional Health Concerns Assessment Noted Time PHQ-9 Depression Total Score: 15 024 10:11 AM EDT documented as of this encounter Care Teams Marine Service Station Attendant Relationship Specialty Start Date End Date Benjamin Ireland MD 505 [place] [address] PCP - General Internal Medicine 12/02/17 Leena Curtis Property SupervisorAir Conditioning Manager 05/06/23 documented as of this encounter
--- OUTSIDE RECORDS SUMMARY | 2024-04-09 18:02 | XMS_ITS | Encounter Summary ---
Author Organization [employer] Address 75 [facility] 7 [place] [address] Care Team Providers Care Ultrasound Supervisor Name Role Phone Benjamin Ireland MD Primary Care Provider [phone] Reason for Visit * Reason Onset Date Comments Med Refill 03/22/2024 Encounter Details Date Type Department Care Team (Late st Contact Info) Description 03/22/2024 Telephone [facility] [address] [place] [address] Benjamin Ireland MD [address] [place] [address] Med Refill Social History Tobacco Use Types [...] 300-30 MG tablet To be sent to: [facility] - [address] documented in this encounter Plan of Treatment Upcoming Encounters Date Type Department Care Team ([facility] st Contact Info) Description 04/29/2024 1:15 PM EDT Office Visit [facility] 505 [place] [address] Benjamin Ireland MD [address] [place] [address] 05/18/2024 11:00 AM EDT Office Visit [facility] [address] [place] [address] documented as of this encounter Visit Diagnoses Not on filedocumented in this encounter Additional Health Concerns Assessment Noted Time PHQ-9 Depression Total Score: 15 024 10:11 AM EDT documented as of this encounter Care Teams Ultrasound Supervisor Relationship Specialty Start Date End Date Benjamin Ireland MD [address] [place] [address] PCP - General Internal Medicine 12/02/17 Leena Curtis Manager Market DevelopmentNephrology Nurse 05/06/23 documented as of this encounter
--- OUTSIDE RECORDS SUMMARY | 2024-04-09 18:02 | XMS_ITS | Encounter Summary ---
Author Organization [employer] Address [address] [facility] 7 [place] [address] Care Team Providers Care Solvent Recoverer Name Role Phone Benjamin Ireland MD Primary Care Provider [phone] Encounter Details Date Type Department Care Team (Late st Contact Info) Description 04/09/2024 3:30 PM EST Office Visit [facility] 505 [place], [place] [phone] Benjamin Ireland MD [address] [place] [address] Cellulitis of left lower extremity (Primary Dx); Type 2 diabetes mellitus without complication, without long-term current use of insulin ([facility]); Burning with urination Social History Tobacco Use Types Packs/Day Years [...] AM EDT documented as of this encounter Last Filed Vital Signs Vital Sign Reading Time Taken Comments Blood Pressure 159/75 04/09/2024 3:40 PM EST Pulse 79 04/09/2024 3:40 PM EST Temperature - - Respiratory Rate 21 04/09/2024 3:40 PM EST Oxygen Saturation 97% 04/09/2024 3:40 PM EST Inhaled Oxygen Concentration - - Weight 104 kg (230 lb) 04/09/2024 3:40 PM EST Height 162.6 cm (5' 4 ) 04/09/2024 3:40 PM EST Body Mass Index 39.48 04/09/2024 3:40 PM EST documented in this encounter Progress Notes * Benjamin Ireland MD - 04/09/2024 3:30 PM EST Subjective Patient ID: Mel Oliver is a 64 y.o. adult who presents for No chief complaint on file.. HPI Patient is here for follow-up after an ED evaluation. She was evaluated on March 2023 for left lower abdominal pain of 2 days duration. Associated with nausea but no vomiting. No associated vaginal bleeding or discharge. No fever or chills reported. Patient was also complaining of dysuria without frequency. In the emergency room she was hemodynamically stable, afebrile. The physical exam was positive withsome lower abdominal tenderness bilaterally with extension to the flank. Labs: WBC, H&H stable. LFTs are reassuring. Lactate mildly elevated at 2.5. Patient was startedon IV fluid. UA shows concentration. Treated with IV morphine with improvement. CT abdomen and pelvis: No acute finding. Given patient's pain was controlled she was discharged home. Tylenol and ibuprofen well recommended to take every 6 hours for pain control also advised lidocaine patch over the back. Appropriate hydration also recommended. Patient reports that since discharge he has been feeling the same. Has lower abdominal pain withoutfever. Some nausea without vomiting. With mild burning with urination. Patient is also complaining of redness around a puncture wound of the left leg after a micro phlebectomy performed on March 19, 2024. Mrs. Mel Oliver is also requesting to get a form filled out for clearance to get a dental procedure. No reported fever or other constitutional symptoms today. Patient Active Problem List Diagnosis Chronic pain syndrome Cough Cramp of both lower extremities Symptom of diarrhea Dyspeptic diarrhea Hypercholesterolemia Hypothyroidism Idiopathic osteoarthritis Mixed anxiety and depressive disorder Mixed stress and urge urinary incontinence Moderate persistent allergic asthma Obesity Sleep apnea Type 2 diabetes mellitus (CMS/HCC) Moderate episode of recurrent major depressive disorder (CMS/HCC) Uncomplicated bereavement Current Outpatient Medications on File Prior to Visit Medication Sig Dispense Refill Acetaminophen Extra Strength 500 MG tablet TAKE 2 TABLETS (1,000 MG) BY MOUTH IF NEEDED EACH DAY FOR MILD PAIN. 60 tablet 0 acetaminophen-codeine (Tylenol w/ Codeine #3) 300-30 MG tablet Take 1 tablet by mouth every 8 (eight) hours. As needed 84 tablet 0 Advair Diskus 250-50 MCG/ACT aerosol powder INHALE 1 PUFF BY MOUTH 2 TIMES EVERY DAY APPROXIMATELY 12 HOURS APART AT THE SAME TIMES EACH DAY 60 each 5 Advair Diskus 500-50 MCG/ACT aerosol powder INHALE 1 DOSE BY MOUTH TWICE DAILY 12 HOURS APART. RINSE MOUTH AFTER USE 60 each 5 albuterol (2.5 MG/3ML) 0.083% nebulizer solution Take 3 mL (2.5 mg) by nebulization every 6 (six) hours if needed for wheezing. 75 mL 11 albuterol (5 MG/ML) 0.5% nebulizer solution TAKE 0.5 ML VIA NEBULIZER EVERY 6 HOURS. BY NEBULIZATION ROUTE 3 TIMES EVERY DAY 20 mL 3 albuterol 108 (90 Base) MCG/ACT inhaler Inhale 2 puffs. benzonatate (Tessalon) 100 MG capsule Take 1 capsule by mouth. 3 times every day Blood Glucose Monitoring Suppl (ebridge Lite) device Inject under the skin if needed. Use as instructed cetirizine (ZyrTEC) 10 MG tablet Take 1 tablet by mouth. 2 times daily cholecalciferol VITAMIN D (Vitamin D-3) 50 MCG (2000 UT) capsule TAKE 1 CAPSULE BY MOUTH EVERY DAY 90 capsule 3 cyclobenzaprine (Flexeril) 10 MG tablet Take 1 tablet (10 mg) by mouth 3 times daily for 10 days. 30 tablet 0 Elastic Bandages & Supports (Medical Compression Socks) [facility] Size [facility] FLUoxetine (PROzac) 20 MG capsule TAKE 2 CAPSULES BY MOUTH EVERY MORNING 180 capsule 1 fluticasone (Flonase) 50 MCG/ACT nasal spray spray 1 spray by intranasal route every day in each nostril FreeStyle lancets 1 each by Other route in the morning. 28 gauge. Use as instructed 100 each 0 FREESTYLE LITE test strip USE 1 EACH BY OTHER ROUTE 1 (ONE) TIME EACH DAY AT THE SAME TIME. 100 strip 11 Januvia 100 MG tablet TOME EULALIA TABLETA TODOS LOS ZAPIEN 90 tablet 1 levothyroxine (Synthroid, Levoxyl) 50 MCG tablet TAKE 1 TABLET BY MOUTH EVERY DAY 90 tablet 1 lidocaine (Lidoderm) 5 % patch Apply 1 patch topically in the morning. Remove & discard patch within 12 hours or as directed by MD. 30 patch 11 magnesium 200 MG tablet Take 1 tablet by mouth daily 90 tablet 1 mirtazapine (Remeron SolTab) 15 MG disintegrating tablet Take 1 tablet (15 mg) by mouth at bedtime.30 tablet 0 Multiple Vitamins-Iron (One-Daily/Iron) tablet 1 tab a day naloxone (Narcan) 4 mg/0.1 mL nasal spray Administer 0.1 mL into affected nostril(s). omeprazole (PriLOSEC) [address] capsule TAKE 1 CAPSULE BY MOUTH EVERY MORNING 90 capsule 3 oxybutynin (Ditropan) 5 MG tablet TAKE 1 TABLET BY MOUTH EVERY DAY 90 tablet 1 predniSONE (Deltasone) 20 MG tablet 2 tabs once a day 10 tablet 0 rosuvastatin (Crestor) 40 MG tablet Take 1 tablet (40 mg) by mouth Once per day. daily 90 tablet 3 Spacer/Aero-Holding Chambers device Inhale. tolterodine (Detrol) 2 MG tablet Take 1 tablet by mouth. 2 times every day traZODone (Desyrel) 150 MG tablet TOME DOS TABLETAS POR VIA ORAL TODOS LOS ZAPIEN AL ACOSTARSE 180 tablet 1 triamcinolone (Kenalog) 0.1 % cream Apply topically if needed in the morning and at bedtime (pain and swelling). 30 g 2 No current facility-administered medications on file prior to visit. No Known Allergies Review of Systems Constitutional: Negative for appetite change, chills and diaphoresis. Eyes: Negative for pain, redness and itching. Respiratory: Negative for cough, choking and shortness of breath. Genitourinary: Positive for dysuria. Skin: Positive for wound. Objective BP (!) 159/75 (BP Location: Left arm, Patient Position: Sitting, BP Cuff Size: Adult long) Pulse 79 Resp 21 Ht 5' 4 (1.626 m) Wt 230 lb (104 kg) SpO2 97% BMI 39.48 kg/m?? Physical Exam Constitutional: General: Mel is not in acute distress. Appearance: Normal appearance. Mel is not ill-appearing, toxic-appearing or diaphoretic. Cardiovascular: Rate and Rhythm: Normal rate. Heart sounds: No murmur heard. No friction rub. Pulmonary: Effort: Pulmonary effort is normal. Abdominal: Palpations: Abdomen is soft. Skin: Comments: 3 x 3 mm erythematous lesion around the puncture of the left distal leg. Tender to palpation. No fluctuance. Neurological: Mental Status: Mel is alert. Assessment/Plan Diagnoses and all orders for this visit: Cellulitis of left lower extremity Comments: Warm compresses Keflex as directed Call the office if no improvement in the next 72 hours. Type 2 diabetes mellitus without complication, without long-term current use of insulin ([facility]) Comments: Stable No change. Orders: - POCT Glucose - POCT HGB A1C Burning with urination Comments: Urine culture sent. Patient will be contacted with results. The UA is not compatible with a urinary tract infection. Orders: - POCT Urinalysis - Urinalysis, Complete, with Reflex to Culture - cephalexin (Keflex) 500 MG capsule; Take 1 capsule (500 mg) by mouth 3 times daily for 10 days. documented in this encounter Plan of Treatment Upcoming Encounters Date Type Department Care Team (Late st Contact Info) Description 04/29/2024 1:15 PM EDT Office Visit [facility] & PEDS [address] [place] [address] Benjamin Ireland MD [address] [place] [address] 05/18/2024 11:00 AM EDT Office Visit [facility] [address] [place] [address] Pending Results Name Type Priority Associated Diagnoses Date /Time Urinalysis, Complete, with Reflex to Culture Lab Routine Burning with urination 04/09/2024 4:16 PM EST documented as of this encounter Procedures Procedure Name Priority Date/Time Associated Diagnosis Comments POCT URINALYSIS DIPSTICK Routine 04/09/2024 4:24 PM EST Burning with urination POCT GLYCATED HEMOGLOBIN, TOTAL Routine 04/09/2024 4:19 PM EST Type 2 diabetes mellitus without complication, without long-term current use of insulin ([facility]) POCT GLUCOSE Routine 04/09/2024 4:18 PM EST Type 2 diabetes mellitus without complication, without long-term current use of insulin ([facility]) URINALYSIS, COMPLETE, WITH REFLEX TO CULTURE Routine 04/09/2024 4:16 PM EST Burning with urination documented in this encounter Results * POCT Urinalysis (04/09/2024 4:24 PM EST) Color, UA Dark Amita Clarity, UA Clear Glucose, UA Negative Bilirubin, UA Few 15 Comment:small Ketones, UA Positive Comment:trace Spec Grav, UA 1.030 Blood, UA Negative Negative, None Detected pH, UA 5.5 Protein, UA Many Comment:30mg/dL Urobilinogen, UA 0.2 Leukocytes, UA Negative Negative, Rare, Trace Nitrite, UA Negative Negative, None Detected Appearance, UA clear QC Media Lot # [id number] Lot# Expiration Date Urine 04/09/2024 4:24 PM EST Benjamin Ireland MD POINT OF CARE TEST ENTER/ED IT ORDERABLES Final Result * (ABNORMAL) POCT HGB A1C (04/09/2024 4:19 PM EST) Hemoglobin A1C 6.5(A) 4.0 - 6.0 % QC Media Lot # [id number] Lot# Expiration Date Blood 04/09/2024 4:19 PM EST Benjamin Ireland MD POINT OF CARE TEST ENTER/ED IT ORDERABLES Final Result * POCT Glucose (04/09/2024 4:18 PM EST) Glucose Blood, POC 112 60 - 200 mg/dL QC Media Lot # [id number] Lot# Expiration Date ,025 Blood Capillary blood specimen / Unknown 04/09/2024 4:18 PM EST Benjamin Ireland MD POINT OF CARE TEST ENTER/ED IT ORDERABLES Final Result documented in this encounter Visit Diagnoses Diagnosis Cellulitis of left lower extremity- Primary Type 2 diabetes mellitus without complication, without long-term current use of insulin ([facility]) Burning with urination Dysuria documented in this encounter Additional Health Concerns Assessment Noted Time PHQ-9 Depression Total Score: 15 024 10:11 AM EDT documented as of this encounter Care Teams Solvent Recoverer Relationship Specialty Start Date End Date Benjamin Ireland MD [address] [place] [address] PCP - General Internal Medicine 12/02/17 Leena Curtis Knitted Cloth ExaminerSustainable Agriculture Specialist 05/06/23 documented as of this encounter
--- OUTSIDE RECORDS SUMMARY | 2024-04-09 18:02 | XMS_ITS | Encounter Summary ---
Author Organization [employer] Address 75 [facility] 7t [place] [address] Care Team Providers Care Motor Equipment Captain Name Role Phone Benjamin Ireland MD Primary Care Provider [phone] Reason for Visit * Reason Onset Date Comments Med Refill 03/22/2024 Encounter Details Date Type Department Care Team ([facility] st Contact Info) Description 03/22/2024 Refill [facility]S [address] [place] [address] Marya Montero, RN [address] [place] [address] Chronic pain syndrome Social History Tobacco Use [...] [facility] [address] [place] [address] Benjamin Ireland MD [address] [place] [address] 05/18/2024 11:00 AM EDT Office Visit [facility] [address] [place] [address] documented as of this encounter Visit Diagnoses Diagnosis Chronic pain syndrome documented in this encounter Additional Health Concerns Assessment Noted Time PHQ-9 Depression Total Score: 15 024 10:11 AM EDT documented as of this encounter Care Teams Motor Equipment Captain Relationship Specialty Start Date End Date Benjamin Ireland MD [address] [place] [address] PCP - General Internal Medicine 12/02/17 Leena Curtis Triage Registered NurseInsights Strategist 05/06/23 documented as of this encounter
--- OUTSIDE RECORDS SUMMARY | 2024-04-09 18:02 | XMS_ITS | Encounter Summary ---
Author Organization [employer] Address [address] [place] [address] 7 [place] [address] Care Team Providers Care Digital Associate Media Director Name Role Phone Benjamin Ireland MD Primary Care Provider [phone] Reason for Visit * Reason Onset Date Comments Med Refill 05/24/2022 Encounter Details Date Type Department Care Team ([facility] st Contact Info) Description 05/24/2022 Telephone [facility] MED & PEDS [address] [place], [place] [phone] Benjamin Ireland MD [address] [place] [address] Med Refill Social History Tobacco Use Types [...] #3) 300-30 MG tablet Please sent to [facility]/pharmacy #[id number] - [place], [place] - [address] [facility] documented in this encounter Plan of Treatment Upcoming Encounters Date Type Department Care Team (Late st Contact Info) Description 04/29/2024 1:15 PM EDT Office Visit [facility] PEDS [address] [place] [address] Benjamin Ireland MD [address] [place] [address] 05/18/2024 11:00 AM EDT Office Visit [facility] MED[facility] [address] [place] [address] documented as of this encounter Visit Diagnoses Not on filedocumented in this encounter Additional Health Concerns Assessment Noted Time PHQ-9 Depression Total Score: 0 02/14/19 23 11:24 AM EST documented as of this encounter Care Teams Digital Associate Media Director Relationship Specialty Start Date End Date Benjamin Ireland MD [address] [place] [address] PCP - General Internal Medicine 12/02/17 Leena Curtis Epidemiology InternBioinformatics Technician 05/06/23 documented as of this encounter
--- OUTSIDE RECORDS SUMMARY | 2024-04-09 18:02 | XMS_ITS | Clinical Summary ---
Author Organization [employer] Address 75 [facility] 7t [place] [address] Care Team Providers Care Neurology Physician Name Role Phone Benjamin Ireland MD Primary Care Provider [phone] [phone] Allergies No known active allergies Medications * [...] AL ACOSTARSE 180 tablet 1 025 Active cephalexin (Keflex) 500 MG capsuleIndication s:Burning with urination Take 1 capsule (500 mg) by mouth 3 times daily for 10 days. 30 capsule 025 2024 Active traZODone (Desyrel) 150 MG tabletIndications :Primary [...] Encounters Date Type Department Care Team Description 04/09/2024 3:30 PM EST Office Visit [facility] [address] [place] [address] Benjamin Ireland MD Cellulitis of left lower extremity (Primary Dx); Type 2 diabetes mellitus without complication, without long-term current use of insulin ([facility]); Burning with urination 04/09/2024 Travel 04/07/2024 Telephone [facility] [address] [place] [address] Lindsay De Anda RN ER Follow-up 04/06/2024 Patient Outreach [facility] [address] [place] [address] Benjamin Ireland MD Care Coordination (Outreach) 03/25/2024 2:00 PM EST Clinical Support [facility] [address] [place] [address] Marya Montero, building custodial supervisor pain syndrome 03/25/2024 Travel 03/25/2024 Telephone [facility] [address] [place] [address] Marya Montero RN 03/23/2024 Refill [facility] [address] [place] [address] Benjamin Ireland MD Primary insomnia 03/22/2024 Refill [facility] [address] [place] [address] Marya Montero RN Chronic pain syndrome 03/22/2024 Telephone [facility] [address] [place] [address] Benjamin Ireland MD Med Refill 03/02/2024 Orders Only GENERIC EXTERNAL DATA DEPARTMENT Provider, Generic External Data 02/24/2024 Refill [facility] [address] [place] [address] Benjamin Ireland MD Other specified hypothyroidism 02/23/2024 Refill [facility] [address] [place] [address] Benjamin Ireland MD Chronic pain syndrome 01/27/2024 Refill [facility] [address] [place] [address] Benjamin Ireland MD Chronic pain syndrome 01/20/2024 3:15 PM EST Office Visit [facility] [address] [place] [address] Saad Shankar MD Bronchitis (Primary Dx); Cough, unspecified type; Muscle spasm 01/20/2024 Travel 01/19/2024 Orders Only [facility] [address] [place] [address] Benjamin Ireland MD 01/16/2024 Telephone [facility] [address] [place] [address] Benjamin Ireland MD Nurse Triage 01/15/2024 Telephone [facility] [address] [place] [address] Benjamin Ireland MD No Show from Last 3 Months Immunizations Name Administration [...] Pulse 79 04/09/2024 3:40 PM EST Temperature 36.6 ??C (97.8 ??F) 01/20/2024 3:20 PM ES T Respiratory Rate 21 04/09/2024 3:40 PM EST Oxygen Saturation 97% 04/09/2024 3:40 PM EST Inhaled Oxygen Concentration - - Weight 104 kg (230 lb) 04/09/2024 3:40 PM EST Height 162.6 cm (5' 4 ) 04/09/2024 3:40 PM EST Body Mass Index 39.48 04/09/2024 3:40 PM EST Plan of Treatment Upcoming Encounters Date Type Department Care Team (Late st Contact Info) Description 04/29/2024 1:15 PM EDT Office Visit [facility] [address] [place] [address] Benjamin Ireland MD [address] [place] [address] 05/18/2024 11:00 AM EDT Office Visit [facility] [address] [place] [address] Health Maintenance Due Date Last Done Comments [...] Diabetes: Urine Protein Screening 02/14/2023 02/14/2022, 05/08/2020 SDOH Screening 03/27/2024 03/27/2023 Diabetes: Foot Exam 04/03/2024 04/03/2023, 04/03/2023, 04/03/2023, Additional history exists Depression Monitoring (PHQ-9) 04/07/2024 10/06/2023, 10/06/2023 Depression Screening 10/05/2024 10/06/2023, 10/06/19 Lipid Panel 10/05/2024 10/06/2023, 03/14, 05/08/2020 Diabetes: Hemoglobin A1C 10/07/2024 025, 10/06/2023, 04/03/2023, Additional history exists Tobacco Screening 04/09/2025 04/09/2024 Mammogram 01/18/2026 01/19/2024, 05/12, 05/30/2021, Additional history [...] without long-term current use of insulin (CMS/HCC) POCT GLUCOSE Routine 04/09/2024 4:18 PM EST Type 2 diabetes mellitus without complication, without long-term current use of insulin (CMS/HCC) URINALYSIS, COMPLETE, WITH REFLEX TO CULTURE Routine 04/09/2024 4:16 PM EST Burning with urination POCT ARABELLA-14 URINE DRUG SCREEN Routine 03/25/2024 [...] TOMOSYNTHESIS BILATERAL Routine 01/19/2024 2:40 PM EST LIPID PANEL, STANDARD Routine 10/06/2023 10:57 AM EDT Hypercholesterolemi a HEPATITIS C AB W/REFL TO HCV RNA, QN, PCR Routine 02/14/2022 12:03 PM EST ALBUMIN, RANDOM URINE W/CREATININE Routine 02/14/2022 12:03 PM EST SHANA HISTORICAL FECAL IMMUNOCHEMICAL TEST X1 (FIT) Routine 08/05/2020 12:00 AM EDT SHANA HISTORICAL HPV MRNA E6/E7 Routine 10/21/2017 10:24 AM EDT from Last 3 Months or Most Recently Relevant to Health Maintenance Results * POCT Urinalysis (04/09/2024 4:24 PM [...] POCT HGB A1C (04/09/2024 4:19 PM EST) Pathologist [facility] Hemoglobin A1C 6.5(A) 4.0 - 6.0 % QC Media Lot # [id number] Lot# Expiration Date Blood 04/09/2024 4:19 PM EST Benjamin Ireland MD POINT OF CARE TEST ENTER/ED IT ORDERABLES Final Result * POCT Glucose (04/09/2024 4:18 PM EST) Pathologist [facility] Glucose Blood, POC 112 60 - 200 mg/dL QC Media Lot # [id number] Lot# Expiration Date 73,025 Blood Capillary blood specimen / Unknown 04/09/2024 4:18 PM EST Benjamin Ireland MD POINT OF CARE TEST ENTER/ED IT ORDERABLES Final Result * POCT ARABELLA-14 Urine Drug Screen (03/25/2024 3:05 PM EST) Pathologist [facility] Opiate Screen, Urine Positive Urine Urine specimen obtained by clean catch procedure / Unknown 03/25/2024 3:05 PM EST Narrative Marya Montero RN - 03/25/2024 3:05 PM EST Lot# [id number] Exp: 09-29-25 Benjamin Ireland MD POINT OF CARE TEST ENTER/ED IT ORDERABLES Final Result * Glucose, Whole Blood (03/02/2024 1:02 PM EST) [facility] Glucose, Whole Blood 106 60 - 115 mg/dL [facility] Comment:METER #: [id number] Testing performed in the Endocrinology Department [address] , [address], [facility]. 03/02/2024 1:02 PM EST 03/02/2024 1:06 PM EST Result [facility] Generic External Data Provider LAB BLOOD ORDERAB LES Final Result [facility] [address] [place] [address] [phone] * POCT Rapid Covid-19 BinaxNOW (01/20/2024 3:38 PM EST) [facility] Rapid COVID Ag Negative QC Media Lot # [id number] Lot# Expiration Date ,026 Swab 01/20/2024 3:38 PM EST Saad Duarte MD POINT OF C ARE TEST ENTER/EDIT ORDERABLES Edited Result - Final * POCT Rapid Influenza B OSOM (01/20/2024 3:37 PM EST) [facility] Rapid Influenza B Ag Negative Negative, Indeterminate QC Media Lot # [id number] Lot# Expiration Date ,025 Swab 01/20/2024 3:37 PM EST Saad Duarte MD POINT OF CARE TEST ENTER/EDIT ORDERABLES Final Result * POCT Rapid Influenza A OSOM (01/20/2024 3:36 PM EST) Rapid Influenza A Ag Negative Negative, Indeterminate QC Media Lot # [id number] Lot# Expiration Date Swab Nasopharyngeal structure / Unknown 01/20/2024 3:36 PM EST Saad Duarte MD POINT OF CARE TEST ENTER/EDIT ORDERABLES Final Result * BI Mammogram Screening Tomosynthesis Bilateral (01/19/2024 2:40 PM EST) Anatomical Region Laterality Modality Breast Bilateral Mammography 01/19/2024 2:40 PM EST Narrative 01/23/2024 5:43 PM EST ? [facility] ? [address] [place] [address] ? Mammography Report ? Signed ? Patient: Mel More ?MR#: [id number] ?? [id number] ? : 1960 ?Acct:[id number] ? Age/Sex: 63 / F ?ADM Date: 01/19/24 ? Loc: HO.MAMMO ? Attending Dr: Benjamin Ireland MD ? Ordering Physician: Benjamin Ireland MD ?Results: 1 ?? Negative ? Date of Service: 01/19/24 ?Follow Up: 1 Year From Orig ?? inal Mammogram ? Procedure(s): MM tomosynthesis screening BI ?? Accession Number(s): [id number] ? cc: Benjamin Ireland MD ? EXAMINATION: [...] ??Larissa Ware DO ??01/23/2024 05:40 PM EST ? Dictated By: ?Larissa Ware DO ? Signed By: ?<Electronically signed by Larissa Ware, DO in OV> ? 01/23/24 1740 ? DD/ 1440 ? TD/TT: 01/19/24 1455 ? Building Construction Professor: ? Procedure Note Adán Greco - 01/23/2024 [facility] [address] [place], [place] [address] Mammography Report Signed Patient: Mel More#: [id number] : 2Acct:[id number] Age/Sex: 63 / FADM Date: 01/19/24 Loc: HO.MAMMO Attending Dr: Benjamin Ireland MD Ordering Physician: Benjamin Ireland MDResults: 1 Negative Date of Service: 01/19/24Follow Up: 1 Year From Orig ina Mammogram Procedure(s): MM tomosynthesis screening BI Accession Number(s): [id number] cc: Benjamin Ireland MD EXAMINATION: MM SCREENING [...] by: Larissa Ware DO 01/23/2024 05:40 PM [facility] Dictated By: Larissa Ware DO Signed By: <Electronically signed by Larissa Ware DO in OV> 01/23/24 1740 DD/ 1440 TD/TT: 01/19/24 1455 Building Construction Professor: us Benjamin Ireland MD IMG BI PROCEDURES Final Res ult * (ABNORMAL) Lipid Panel, Standard (10/06/2023 10:57 AM EDT) Triglycerides 486(H) <150 mg/dL [facility] Comment:Desirable Triglyceri de: less than 150 mg/dLBorderline High Triglyceride 150-199 mg/dLHigh Triglyceride: 200-499 mg/dLVery High Triglyceride: greater than or equal to 5OO mg/dL Cholesterol 225(H) <200 mg/dL [facility] Comment:Desirable Cholestero l: less than 200 mg/dLBorderline High Cholesterol: 200-239 mg/dLHigh Cholesterol: greater than 239 mg/dL LDL Cholesterol Calculated TNP <100 mg/dL [facility] Comment:Unable to calculate the LDL. The formula of Friedwald,Jo, and Nam is only valid if the triglycerides areless than 400 mg/dl. HDL Cholesterol 33(L) >40 mg/dL [facility] Comment:Desirable HDL: great er than 40 mg/dL Note: This HDL assay may give artificially low results in patients with liver disease. Blood Venous blood specimen / Unknown 10/06/2023 10:57 AM EDT 10/06/2023 2:33 PM EDT us Benjamin Ireland MD LAB BLOOD ORDERABLES Final Result [facility] [address] [place] [phone] * (ABNORMAL) Albumin, Random Urine W/Creatinine (02/14/2022 12:03 PM EST) Creatinine, Random Urine 207 20 - 275 mg/dL [employer] [place] [employer] Albumin, Urine 6.6 See Note: mg/dL [employer] [place] [facility] Comment: Reference Range: Reference Range Not established Albumin/Creatinin e Ratio, Random Urine 32(H) <30 mcg/mg creat [facility] [employer] [place] [employer] Comment: The ADA defines abnormalities in albumin [...] URINE ORDERABLES Final Result Performing Organization Address City/[facility] Co de Phone Number [address], [facility] [place] [address] [employer] [facility] [address] [place] [address], (Nl2) [place] [phone] * Hepatitis C Antibody with Reflex to HCV, RNA, Quantitative, Real-Time PCR (02/14/2022 12:03 PM EST) Pathologist [facility] Hepatitis C Antibody NON-REACT [place] NON-REACT [place] [employer] [place] Index 0.06 <1.00 [employer] [place] [facility] Comment: HCV antibody was non-reactive. There is no laboratory evidence of HCV infection. In most cases, no further action is required. However, if recent HCV exposure is suspected, a test for HCV RNA (test code 73182) is suggested. For additional information please refer to http://education.[employer]/faq/QWW60z7 (This link is being provided for informational/ educational purposes only.) 02/14/2022 12:0 3 PM EST 02/14/2022 12:04 PM EST Benjamin Ireland MD LAB BLOOD ORDERABLES Final Result Performing Organization Address City/[facility] Co de Phone Number [address], [facility] [place] [address] [employer] [place] [employer] [address] [place] [address], (Nl2) [place] [address] * Fecal immunochemical test x1 (FIT) (08/05/2020 12:00 AM EDT) Pathologist [facility] FIT Date 1 08/04/20 [facility] FIT Date 2 08/04/20 [facility] FIT1 NEGATIVE NEGATIVE [facility] FIT2 NEGATIVE NEGATIVE [facility] 08/05/2020 Historical Provider MD HISTORICAL/NON ORDERABLE LABS Final Result Performing Organization Address [facility]/ZIP Co de Phone Number [facility] [address] * HPV mRNA E6/E7 (10/21/2017 10:24 AM EDT) HPV mRNA E6/E7 Not Detected NOT DETECTED [facility] Comment: This test was performed using the APTIMA(R) HPV Assay ([employer] This assay detects E6/E7 viral messenger RNA (mRNA) from 14 high-risk HPV types (16,18,31,33,35,39,45,51, 52,56,58,59,66,68). For additional information please refer to: http://education.[employer]/faq/VYX158m3 (This link is being provided for informational/ educational purposes only.) The analytical performance characteristics of this assay have been determined by [employer] [place], [place]. The modifications have not been cleared or approved by the FDA. This assay has been validated pursuant to the CLIA regulations and is used for clinical purposes. Test Performed by [facility], [employer] [place], [address] [place] [address] Jose C De Leon M.D., Ph.D., Director of Laboratories , CLIA [id number] Please note: ??Effective 10/23/2015, HPV testing will be performed using [employer]'s APTIMA test which targets mRNA. Detecting mRNA instead of DNA, as in older methods, offers significant improvements in specificity. 10/21/2017 10:2 4 AM EDT Cari Campos CNM HISTORICAL/NON ORDERABLE LABS Final Result Performing Organization Address [facility] Co de Phone Number [facility] [address] from Last 3 Months or Most Recently Relevant to Health Maintenance Insurance Care Teams Neurology Physician Relationship Specialty Start Date End Date Benjamin Ireland MD [address] [place] [phone] PCP - General Internal Medicine 12/02/17 Leena Curtis Lead Case ManagerCommunity Development Officer 05/06/23
--- OUTSIDE RECORDS SUMMARY | 2024-04-09 18:02 | XMS_ITS | Encounter Summary ---
Author Organization [employer] Address 75 [facility] 7 [place] [address] Care Team Providers Care Emergency Department Director Name Role Phone Benjamin Ireland MD Primary Care Provider [phone] Reason for Visit * Reason Onset Date Comments Med Refill 06/24/2022 Encounter Details Date Type Department Care Team (Late st Contact Info) Description 06/24/2022 Telephone [facility] [address] [place] [address] Benjamin Ireland MD [address] [place] [phone] Med Refill Social History Tobacco Use Types [...] Description 04/29/2024 1:15 PM EDT Office Visit [facility] [address] [place] [address] Benjamin Ireland MD [address] [place] [address] 05/18/2024 11:00 AM EDT Office Visit [facility] [address] [place] [address] documented as of this encounter Visit Diagnoses Not on filedocumented in this encounter Additional Health Concerns Assessment Noted Time PHQ-9 Depression Total Score: 0 02/14/19 23 11:24 AM EST documented as of this encounter Care Teams Emergency Department Director Relationship Specialty Start Date End Date Benjamin Ireland MD [address] [place] [address] PCP - General Internal Medicine 12/02/17 Leena Curtis Executive Vice PresidentFibre Optics Jointer 05/06/23 documented as of this encounter
--- OUTSIDE RECORDS SUMMARY | 2024-04-09 18:02 | XMS_ITS | Encounter Summary ---
Author Organization [employer] [facility] Address [address] [place] [address] 7 [place] [address] Care Team Providers Care Roofing Machine Operator Name Role Phone Benjamin Ireland MD Primary Care Provider [phone] Reason for Visit * Reason Comments Med Refill Encounter Details Date Type Department Care Team ([facility] Contact Info) Description 06/25/2022 Refill [facility] [address] [place], [place] [phone] Benjamin Ireland MD [address] [place] [address] Chronic pain syndrome; Intertrigo Social History Tobacco [...] Upcoming Encounters Date Type Department Care Team ([facility] Contact Info) Description 04/29/2024 1:15 PM EDT Office Visit [facility] [address] [place] [address] Benjamin Ireland MD [address] [place], [place] [phone] 05/18/2024 11:00 AM EDT Office Visit [facility] [address] [place] [address] documented as of this encounter Visit Diagnoses Diagnosis Chronic pain syndrome Intertrigo Other specified erythematous condition documented in this encounter Additional Health Concerns Assessment Noted Time PHQ-9 Depression Total Score: 0 02/14/19 23 11:24 AM EST documented as of this encounter Care Teams Roofing Machine Operator Relationship Specialty Start Date End Date Benjamin Ireland MD [address] [place] [address] PCP - General Internal Medicine 12/02/17 Leena Curtis Barrel TesterEhs Engineer 05/06/23 documented as of this encounter
--- OUTSIDE RECORDS SUMMARY | 2024-04-09 18:02 | XMS_ITS | Encounter Summary ---
Author Organization [employer] Address 75 [facility] 7t [place] [address] Care Team Providers Care Cork Tile Floor Layer Name Role Phone Benjamin Ireland MD Primary Care Provider [phone] Encounter Details Date Type Department Care Team ([facility] st Contact Info) Description 03/25/2024 Telephone [facility] [address] [place], [place] [phone] Marya Montero, RN [address] [place] [address] Social History Tobacco Use Types Packs/Day Years [...] RN - 03/25/2024 9:18 AM EST .What PATROL MAN Tier would you like this patient to be? Tier 1 = HIGH RISK, Monthly PATROL MAN visits Tier 2 = MODerate RISK, Q3 Month visits Tier 3 = LOW RISK = Q4-6 month visits documented in this encounter Plan of Treatment Upcoming Encounters Date Type Department Care Team (Late st Contact Info) Description 04/29/2024 1:15 PM EDT Office Visit [facility] [address] [place] [address] Benjamin Ireland MD [address] [place] [address] 05/18/2024 11:00 AM EDT Office Visit [facility] [address] [place] [address] documented as of this encounter Visit Diagnoses Not on filedocumented in this encounter Additional Health Concerns Assessment Noted Time PHQ-9 Depression Total Score: 15 024 10:11 AM EDT documented as of this encounter Care Teams Cork Tile Floor Layer Relationship Specialty Start Date End Date Benjamin Ireland MD [address] [place] [address] PCP - General Internal Medicine 12/02/17 Leena Curtis Glycerin SupervisorTraining Generalist 05/06/23 documented as of this encounter
--- OUTSIDE RECORDS SUMMARY | 2024-04-09 18:02 | XMS_ITS | Encounter Summary ---
Author Organization [employer] Address 75 [facility] 7t [place] [address] Care Team Providers Care Manager Trust Name Role Phone Benjamin Ireland MD Primary Care Provider [phone] Encounter Details Date Type Department Care Team (Latest Contact Info) Description 04/09/2024 Travel Social History Tobacco Use Types Packs/Day [...] Description 04/29/2024 1:15 PM EDT Office Visit [facility]S [address] [place] [address] Benjamin Ireland MD [address] [place] [address] 05/18/2024 11:00 AM EDT Office Visit [facility] MED[facility] [address] [place] [address] documented as of this encounter Visit Diagnoses Not on filedocumented in this encounter Additional Health Concerns Assessment Noted Time PHQ-9 Depression Total Score: 15 024 10:11 AM EDT documented as of this encounter Care Teams Manager Trust Relationship Specialty Start Date End Date Benjamin Ireland MD [address] [place] [address] PCP - General Internal Medicine 12/02/17 Leena Curtis Inspector BarrelPlastics Repairer 05/06/23 documented as of this encounter
--- OUTSIDE RECORDS SUMMARY | 2024-04-09 18:02 | XMS_ITS | Clinical Summary ---
Author Organization [facility] Address [address] [place] [address] Care Team Providers Care Design Chief Name Role Phone Unavailable Primary Care Provider [...] episode of recurren t major depressive disorder ([facility]) 10/06/2023 Assessment & Plan (12/18/2023 6:26 AM [...] 02/05/2017 Obesity 02/05/2017 Type 2 diabetes mellitus ([facility]) 03/08/2006 Family History Relation Name [...] 2006 Fecal DNA 2006 Flexible Sigmoidoscopy 2006 Ako-MAMDK-00 () 10/12/2023 021, 04/28/2020 Imm-Influenza (#1) 2023 [...] Discontinued Vaginal Pap Discontinued Vulvoscopy Discontinued Insurance [place] MEDICAID [facility]
--- OUTSIDE RECORDS SUMMARY | 2024-04-09 18:02 | XMS_ITS | Encounter Summary ---
Author Organization [employer] Address 75 [facility] 7t [place] [address] Care Team Providers Care Exhibition Organiser Name Role Phone Benjamin Ireland MD Primary Care Provider [phone] Reason for Visit * Reason Onset Date Comments ER Follow-up 04/07/2024 Encounter Details Date Type Department Care Team ([facility] st Contact Info) Description 04/07/2024 Telephone [facility] & PEDS [address] [place] [address] Lindsay De Anda RN ER Follow-up Social History Tobacco Use Types Packs/Day Years [...] encounter Miscellaneous Notes * Telephone Encounter - Lindsay De Anda RN - 04/07/2024 9:55 AM EST TC to pt to follow up after ER visit. Pt still endorsing feeling sick . Office follow up offered to pt and pt verbally agreed. Appointment scheduled for 04/09/26 at 3:30pm. Pt verbalized understanding and agreement with plan. documented in this encounter Plan of Treatment Upcoming Encounters Date Type Department Care Team (Late st Contact Info) Description 04/29/2024 1:15 PM EDT Office Visit [facility] & PEDS [address] [place] [address] Benjamin Ireland MD [address] [place] [address] 05/18/2024 11:00 AM EDT Office Visit [facility] MED[facility] [address] [place] [address] documented as of this encounter Visit Diagnoses Not on filedocumented in this encounter Additional Health Concerns Assessment Noted Time PHQ-9 Depression Total Score: 15 024 10:11 AM EDT documented as of this encounter Care Teams Exhibition Organiser Relationship Specialty Start Date End Date Benjamin Ireland MD [address] [place] [address] PCP - General Internal Medicine 12/02/17 Leena Curtis Air DirectorB2B Sales Manager 05/06/23 documented as of this encounter
--- OUTSIDE RECORDS SUMMARY | 2024-04-09 18:02 | XMS_ITS | Encounter Summary ---
Author Organization [employer] Address 75 [facility] 7t [place] [address] Care Team Providers Care Insurance Adviser Name Role Phone Benjamin Ireland MD Primary Care Provider [phone] Reason for Visit * Reason Comments controlled substance treatment Encounter Details Date Type Department Care Team (Latest Contact Info) Description 03/25/2024 2:00 PM EST Clinical Support [facility] MED & PEDS 505 [place] [address] Marya Montero, RN 505 [place] [address] Chronic pain syndrome Social History Tobacco Use [...] RN - 03/25/2024 2:00 PM EST 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 Patient here with MANAGER OF FINANCIAL. Patient is taking Tylenol-Codeine #3 Q8hrs PRN. [...] questions/ concerns at this time. O: VSS. PROSTHETICS LAB TECHNICIAN checked on 03/25/24. Pill count performed, [...] and take medication only as directed. 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 F/u with PCP 04/29/24. Appt reminder given. F/u sooner PRN. Patient verbalized understanding and agreed to plan. documented in this encounter Plan of Treatment Upcoming Encounters Date Type Department Care Team (Late st Contact Info) Description 04/29/2024 1:15 PM EDT Office Visit [facility] MED & PEDS 505 [facility] [place] [address] Benajmin Ireland MD 505 [place] [address] 05/18/2024 11:00 AM EDT Office Visit [facility] MEDICINE [address] [place] [address] documented as of this encounter Procedures Procedure [...] RN - 03/25/2024 3:05 PM EST Lot# [id number] Exp: 09-29-25 Bnejamin Ireland MD POINT OF CARE TEST ENTER/ED IT ORDERABLES Final Result documented in this encounter Visit Diagnoses Diagnosis Chronic pain syndrome documented in this encounter Additional Health Concerns Assessment Noted Time PHQ-9 Depression Total Score: 15 024 10:11 AM EDT documented as of this encounter Care Teams Insurance Adviser Relationship Specialty Start Date End Date Benjamin Ireland MD 505 [facility] [place] [address] PCP - General Internal Medicine 12/02/17 Leena Curtis Manager MultimediaTelecom Coordinator 05/06/23 documented as of this encounter
--- OUTSIDE RECORDS SUMMARY | 2024-04-09 18:03 | XMS_ITS | Encounter Summary ---
Author Organization [employer] Address 75 [facility] 7t [place] [address] Care Team Providers Care Pet Care Technician Name Role Phone Benjamin Ireland MD Primary Care Provider [phone] Encounter Details Date Type Department Care Team (Late st Contact Info) Description 03/27/2023 Orders Only [facility] CH[facility] MED & PEDS 505 [place], [place] [phone] Benjamin Ireland MD 505 [place] [address] Type 2 diabetes mellitus without complication, without long-term current use of insulin ([facility]) (Primary Dx) Social History Tobacco Use Types [...] t he electric, gas, oil or water [employer] threatened to shut off services in your [...] Description 04/29/2024 1:15 PM EDT Office Visit [facility] CH[facility] MED & PEDS 505 [place], [place] [phone] Benjamin Ireland MD 505 [place], [place] [phone] 05/18/2024 11:00 AM EDT Office Visit [facility] MEDICINE 230 [place] [address] Scheduled Orders Name Type Priority Associated Diagnoses [...] Free T4 0.35 0.32 - 4.0 uIU/mL [facility] Blood Venous blood specimen / Unknown 04/03/2023 2:12 PM EST 04/03/2023 5:18 PM EST us Benjamin Ireland MD LAB BLOOD ORDERABLES Final Result Performing Organization Address [facility] Co de Phone Number [facility] [address] [place] [phone] * (ABNORMAL) Lipid Panel, Standard (04/03/2023 2:12 PM EST) Triglycerides 298(H) <150 mg/dL [facility] Comment:Desirable Triglyceri de: less than 150 mg/dLBorderline High Triglyceride 150-199 mg/dLHigh Triglyceride: 200-499 mg/dLVery High Triglyceride: greater than or equal to 5OO mg/dL Cholesterol 203(H) <200 mg/dL [facility] Comment:Desirable Cholestero l: less than 200 mg/dLBorderline High Cholesterol: 200-239 mg/dLHigh Cholesterol: greater than 239 mg/dL LDL Cholesterol Calculated 109(H) <100 mg/dL [facility] Comment:Desirable LDL: less than 100 mg/dLNear Optimal/Above Optimal LDL: 110- 129 mg/dLBorderline High LDL: 130-159 mg/dLHigh LDL: 160-189 mg/dLVery High LDL: greater than or equal to 190 mg/dL HDL Cholesterol 35(L) >40 mg/dL [facility] Comment:Desirable HDL: great er than 40 mg/dL Note: This HDL assay may give artificially low results in patients with liver disease. Blood Venous blood specimen / Unknown 04/03/2023 2:12 PM EST 04/03/2023 5:18 PM EST us Benjamin Ireland MD LAB BLOOD ORDERABLES Final Result Performing Organization Address City/[facility]/ZIP Co de Phone Number [facility] [address] [place] [address] [phone] * (ABNORMAL) Comprehensive Metabolic Panel (04/03/2023 2:12 PM EST) Sodium 140 135 - 145 mmol/L [facility] Potassium 4.3 3.3 - 5.1 mmol/L [facility] Chloride 106 96 - 108 mmol/L [facility] Carbon Dioxide 27 22 - 29 mmol/L [facility] Anion Gap 11(L) 12 - 20 [facility] Urea Nitrogen (BUN) 18(H) 9 - 16 mg/dL [facility] Creatinine, Serum 0.82 0.5 - 1.4 mg/dL [facility] Estimated Glomerular Filt Rate >60 [facility] Comment:NOTE: For -Am erican individuals, multiply the result by 1.210.Chronic Kidney Disease: Estimated GFR < 60 mL/min/1.86c2Yjxroa Kidney Disease: Estimated GFR < 15 mL/min/1.73m2 Glucose 89 60 - 115 mg/dL [facility] Calcium 9.2 8.4 - 10.2 mg/dL [facility] Bilirubin, Total 0.3 0.0 - 1.0 mg/dL [facility] Aspartate Amino Transferase 20 5 - 31 U/L [facility] Alanine Aminotransferase 16 0 - 31 U/L [facility] Total Protein 6.9 6.5 - 8.0 g/dL [facility] Albumin Level 4.2 3.5 - 5.0 g/dL [facility] Alkaline Phosphatase 97 39 - 117 U/L [facility] Blood Venous blood specimen / Unknown 04/03/2023 2:12 PM EST 04/03/2023 5:18 PM EST us Benjamin Ireland MD LAB BLOOD ORDERABLES Final Result [facility] [address] [place] [address] [phone] documented in this encounter Visit Diagnoses Diagnosis Type 2 diabetes mellitus without complication, without long-term current use of insulin ([facility])- Primary documented in this encounter Additional Health Concerns Assessment Noted Time PHQ-9 Depression Total Score: 0 02/14/19 23 11:24 AM EST documented as of this encounter Care Teams Pet Care Technician Relationship Specialty Start Date End Date Benjamin Ireland MD [address] [place] [address] PCP - General Internal Medicine 12/02/17 Leena Curtis Telephone Sales RepresentativeRegional Director Of Finance 05/06/23 documented as of this encounter
--- OUTSIDE RECORDS SUMMARY | 2024-04-09 18:03 | XMS_ITS | Encounter Summary ---
Author Organization [employer] Address 75 [facility] 7 [place] [address] Care Team Providers Care Superintendent Geophysical Laboratory Name Role Phone Benjamin Ireland MD Primary Care Provider [phone] Reason for Visit * Reason Onset Date Comments Nurse Triage 11/19/2023 Encounter Details Date Type Department Care Team ([facility] st Contact Info) Description 11/19/2023 Telephone [facility] MED & PEDS 505 [place] [address] Benjamin Ireland MD 505 [place] [address] Nurse Triage Social History Tobacco Use Types [...] [facility] could provide the mask [...] fever) (Exceptions: Already seen by doctor or STRUCTURAL DESIGNER/PA and no new or worsening symptoms.) * [...] accepted this outcome. Please contact pt at [phone] ([email or web address]) documented in this encounter Plan of Treatment Upcoming Encounters Date Type Department Care Team ([facility] st Contact Info) Description 04/29/2024 1:15 PM EDT Office Visit [facility] MED & PEDS [address] [place] [address] Benjamin Ireland MD 505 [place] [address] 05/18/2024 11:00 AM EDT Office Visit [facility] MEDICINE [address] [place] [address] documented as of this encounter Visit Diagnoses Not on filedocumented in this encounter Additional Health Concerns Assessment Noted Time PHQ-9 Depression Total Score: 15 024 10:11 AM EDT documented as of this encounter Care Teams Superintendent Geophysical Laboratory Relationship Specialty Start Date End Date Benjamin Ireland MD [address] [place] [address] PCP - General Internal Medicine 12/02/17 Leena Curtis Automatic Oven OperatorGre Instructor 05/06/23 documented as of this encounter
--- OUTSIDE RECORDS SUMMARY | 2024-04-09 18:03 | XMS_ITS | Encounter Summary ---
Author Organization [employer] [facility] Address [address] [place] [address] 7 [place] [address] Care Team Providers Care Inside Meter Tester Name Role Phone Benjamin Ireland MD Primary Care Provider [phone] Reason for Visit * Reason Comments Med Refill Encounter Details Date Type Department Care Team (Late Contact Info) Description 03/22/2022 Refill [facility] MED & PEDS [address] [place] [address] Benjamin Ireland MD 505 [place] [address] Moderate persistent allergic asthma (Primary Dx); Type 2 diabetes mellitus with hyperosmolarity without coma, without long-term current use of insulin ([facility]); Other specified hypothyroidism; Stress incontinence [...] Upcoming Encounters Date Type Department Care Team ([facility] [address] Contact Info) Description 04/29/2024 1:15 PM EDT Office Visit [facility] MED & PEDS 505 [place] [address] Benjamin Ireland MD 505 [facility] [place] [address] 05/18/2024 11:00 AM EDT Office Visit [facility] MEDICINE [address] [place] [address] documented as of this encounter Visit Diagnoses Diagnosis Moderate persistent allergic asthma- Primary Type 2 diabetes mellitus with hyperosmolarity without coma, without long-term current use of insulin ([facility]) Other specified hypothyroidism Stress incontinence of urine Intertrigo Other specified erythematous condition documented in this encounter Additional Health Concerns Assessment Noted Time PHQ-9 Depression Total Score: 0 02/14/19 23 11:24 AM EST documented as of this encounter Care Teams Inside Meter Tester Relationship Specialty Start Date End Date Benjamin Ireland MD 505 [facility] [place] [address] PCP - General Internal Medicine 12/02/17 Leena Curtis Blood TyperBlock Trimmer 05/06/23 documented as of this encounter
--- OUTSIDE RECORDS SUMMARY | 2024-04-09 18:03 | XMS_ITS | Encounter Summary ---
Author Organization [employer] Address 75 [facility] 7t [place] [address] Care Team Providers Care Public Safety Dispatcher Name Role Phone Benjamin Ireland MD Primary Care Provider [phone] Encounter Details Date Type Department Care Team (Late st Contact Info) Description 11/19/2023 Orders Only [facility] CHC MED & PEDS 505 [place], [place] [phone] Benjamin Ireland MD 505 [place] [address] Social History Tobacco Use Types Packs/Day Years [...] Description 04/29/2024 1:15 PM EDT Office Visit [facility] CHC MED & PEDS 505 [place] [address] Benjamin Ireland MD [address] [place] [address] 05/18/2024 11:00 AM EDT Office Visit [facility] MEDICINE [address] [place] [address] documented as of this encounter Visit Diagnoses Not on filedocumented in this encounter Additional Health Concerns Assessment Noted Time PHQ-9 Depression Total Score: 15 024 10:11 AM EDT documented as of this encounter Care Teams Public Safety Dispatcher Relationship Specialty Start Date End Date Benjamin Ireland MD 505 [place] [address] PCP - General Internal Medicine 12/02/17 Leena Curtis Glove StitcherBricklayer Helper 05/06/23 documented as of this encounter
--- OUTSIDE RECORDS SUMMARY | 2024-04-09 18:03 | XMS_ITS | Encounter Summary ---
Author Organization [employer] Address 75 [facility] 7 [place] [address] Care Team Providers Care College Or University Department Head Name Role Phone Benjamin Ireland MD Primary Care Provider [phone]- [phone] Reason for Visit * Reason Onset Date Comments PT1 03/04/2023 Encounter Details Date Type Department Care Team ([facility] st Contact Info) Description 03/04/2023 Telephone [facility] CHC MED & PEDS 505 [place] [address] Benjamin Ireland MD 505 [place] [address] PT1 Social History Tobacco Use Types Packs/Day [...] Date: 04/03/23 Time: 1:15 Visits: N/A Address: [address] [place] [address] Facility: 505 [facility] Wheel Chair: No (Uses walker) Boat Worker Needed: yes documented in this encounter Plan of Treatment Upcoming Encounters Date Type Department Care Team (Late st Contact Info) Description 04/29/2024 1:15 PM EDT Office Visit [facility] CHC MED & PEDS [address] [place] [address] Benjamin Ireland MD [address] [place] [address] 05/18/2024 11:00 AM EDT Office Visit [facility] MEDICINE 230 [place], [place] [phone] documented as of this encounter Visit Diagnoses Not on filedocumented in this encounter Additional Health Concerns Assessment Noted Time PHQ-9 Depression Total Score: 0 02/14/19 11:24 AM EST documented as of this encounter Care Teams College Or University Department Head Relationship Specialty Start Date End Date Benjamin Ireland MD [address] [place] [address] PCP - General Internal Medicine 12/02/17 Leena Curtis Flatwork FolderNozzleman 05/06/23 documented as of this encounter
--- OUTSIDE RECORDS SUMMARY | 2024-04-09 18:03 | XMS_ITS | Encounter Summary ---
Author Organization [employer] Address 75 [facility] 7t [place] [address] Care Team Providers Care Chart Collector Name Role Phone Benjamin Ireland MD Primary Care Provider [phone] Encounter Details Date Type Department Care Team (Latest Contact Info) Description 10/06/2023 Orders Only [facility] CHC MED & PEDS [address] [place], [place] [phone] Benjamin Ireland MD 505 [place] [address] Hypercholesterolemia (Primary Dx); Screening for colon cancer [...] Description 04/29/2024 1:15 PM EDT Office Visit [facility] CHC MED & PEDS [address] [place] [address] Benjamin Ireland MD 505 [place] [address] 05/18/2024 11:00 AM EDT Office Visit [facility] MEDICINE [address] [place] [address] documented as of this encounter Visit Diagnoses Diagnosis Hypercholesterolemia- Primary Pure hypercholesterolemia Screening for colon cancer Special screening for malignant neoplasms, colon documented in this encounter Additional Health Concerns Assessment Noted Time PHQ-9 Depression Total Score: 15 024 10:11 AM EDT documented as of this encounter Care Teams Chart Collector Relationship Specialty Start Date End Date Benjamin Ireland MD [address] [place] [address] PCP - General Internal Medicine 12/02/17 Leena Curtis Flame Cutting SupervisorAutocad Draftsman 05/06/23 documented as of this encounter
--- OUTSIDE RECORDS SUMMARY | 2024-04-09 18:03 | XMS_ITS | Encounter Summary ---
Author Organization [employer] [facility] Address [address] [place] [address], [place] [address] Care Team Providers Care Thermite Bomb Loader Name Role Phone Benjamin Ireland MD Primary Care Provider [phone]- [phone] Encounter Details Date Type Department Care Team (Late st Contact Info) Description 01/15/2022 Abstract [facility] MED & PEDS [address] [place] [address] ProviderRadha MD Social History Tobacco Use Types [...] Description 04/29/2024 1:15 PM EDT Office Visit [facility] MED & PEDS 505 [place] [address] Benjamin Ireland MD 505 [place] [address] 05/18/2024 11:00 AM EDT Office Visit [facility] MEDICINE [address] [place] [address] documented as of this encounter Visit Diagnoses Not on filedocumented in this encounter Care Teams Thermite Bomb Loader Relationship Specialty Start Date End Date Benjamin Ireland MD [address] [place] [address] PCP - General Internal Medicine 12/02/17 Leena Curtis Supervisor CartographyCellular Equipment Installer 05/06/23 documented as of this encounter
--- OUTSIDE RECORDS SUMMARY | 2024-04-09 18:03 | XMS_ITS | Encounter Summary ---
Author Organization [employer] [facility] Address [address] [place] [address] 7 [place] [address] Care Team Providers Care Core Checker Name Role Phone Benjamin Ireland MD Primary Care Provider [phone]- [phone] Encounter Details Date Type Department Care Team (Late Contact Info) Description 03/10/2023 Orders Only [facility] MED & PEDS [address] [place] [address] Benjamin Ireland MD 505 [place] [address] Chronic pain syndrome Social History Tobacco Use [...] Description 04/29/2024 1:15 PM EDT Office Visit [facility] MED & PEDS [address] [place] [address] Benjamin Ireland MD 505 [place] [address] 05/18/2024 11:00 AM EDT Office Visit [facility] MEDICINE 230 [place] [address] documented as of this encounter Visit Diagnoses Diagnosis Chronic pain syndrome documented in this encounter Additional Health Concerns Assessment Noted Time PHQ-9 Depression Total Score: 0 02/14/19 23 11:24 AM EST documented as of this encounter Care Teams Core Checker Relationship Specialty Start Date End Date Benjamin Ireland MD [address] [place] [address] PCP - General Internal Medicine 12/02/17 Leena Curtis Automobile And Property UnderwriterCertified Hearing Instrument Dispenser 05/06/23 documented as of this encounter
--- OUTSIDE RECORDS SUMMARY | 2024-04-09 18:03 | XMS_ITS | Encounter Summary ---
Author Organization [employer] [facility] Address 75 [facility] 7 [place] [address] Care Team Providers Care Plate Maker Name Role Phone Benjamin Ireland MD Primary Care Provider +1 [phone] Reason for Visit * Reason Onset Date Comments Medication Question 03/07/2023 Encounter Details Date Type Department Care Team ([facility] st Contact Info) Description 03/07/2023 Telephone [facility] MED & PEDS [address] [place] [address] Benjamin Ireland MD 505 [place] [address] Medication Question Social History Tobacco Use Types [...] Cronin LPN - 03/10/2023 11:20 AM EST Automatic Pilot Mechanic spoke with pt pharmacy , stated they never received neither medication. I also spoke with PCP stated didn't prescribe Tramadol . Sending to Marya as FYI. * Telephone Encounter - Moy Schwab - 03/07/2023 4:50 PM EST TC from pt stating that [facility] Informs that Medication Tramadol and acetaminophen-codeine (Tylenol w/ Codeine #3) 300-30 MG tablet is not covered by insurance, patient does not know reason in why insurance is not covering medication. Automatic Pilot Mechanic tried communicating with Pharmacy to verify reason but no answer from pharmacy. Pt also informs she is in a lot of pain. Please contact pt @ [phone] documented in this encounter Plan of Treatment Upcoming Encounters Date Type Department Care Team (Late st Contact Info) Description 04/29/2024 1:15 PM EDT Office Visit [facility] CHC MED & PEDS [address] [place] [address] Benjamin Ireland MD 505 [place] [address] 05/18/2024 11:00 AM EDT Office Visit [facility] MEDICINE 230 [place] [address] documented as of this encounter Visit Diagnoses Diagnosis Chronic pain syndrome documented in this encounter Additional Health Concerns Assessment Noted Time PHQ-9 Depression Total Score: 0 02/14/19 11:24 AM EST documented as of this encounter Care Teams Plate Maker Relationship Specialty Start Date End Date Benjamin Ireland MD 505 [place] [address] PCP - General Internal Medicine 12/02/17 Leena Curtis Refined Syrup OperatorPeanut Picker 05/06/23 documented as of this encounter
--- OUTSIDE RECORDS SUMMARY | 2024-04-09 18:03 | XMS_ITS | Encounter Summary ---
Author Organization [employer] Address 75 [facility] 7 [place] [address] Care Team Providers Care Stainless Steel Finisher Name Role Phone Benjamin Ireland MD Primary Care Provider +[phone] Reason for Visit * Reason Onset Date Comments Med Refill 11/06/2023 Encounter Details Date Type Department Care Team (Late st Contact Info) Description 11/06/2023 Telephone [facility] MEDICINE [address] [place] [address] Benjamin Ireland MD [address] [place] [address] Med Refill Social History Tobacco Use Types [...] 30 MG tablet To be sent to: [facility] - [place], [place] - [address] [place] [address] documented in this encounter Plan of Treatment Upcoming Encounters Date Type Department Care Team ([facility] st Contact Info) Description 04/29/2024 1:15 PM EDT Office Visit [facility] CHC MED & PEDS 505 [place] [address] Benjamin Ireland MD 505 [place] [address] 05/18/2024 11:00 AM EDT Office Visit [facility] MEDICINE [address] [place] [address] documented as of this encounter Visit Diagnoses Not on filedocumented in this encounter Additional Health Concerns Assessment Noted Time PHQ-9 Depression Total Score: 15 024 10:11 AM EDT documented as of this encounter Care Teams Stainless Steel Finisher Relationship Specialty Start Date End Date Benjamin Ireland MD 505 [place] [address] PCP - General Internal Medicine 12/02/17 Leena Cutris Shipper/ReceiverPharmacy Assistant 05/06/23 documented as of this encounter
--- OUTSIDE RECORDS SUMMARY | 2024-04-09 18:03 | XMS_ITS | Encounter Summary ---
Author Organization [employer] Address 75 [facility] 7 [place] [address] Care Team Providers Care Childcare Worker Name Role Phone Benjamin Ireland MD Primary Care Provider [phone] Reason for Visit * Reason Comments Med Refill Encounter Details Date Type Department Care Team ([facility] st Contact Info) Description 04/10/2023 Refill [facility] CHC MED & PEDS [address] [place], [place] [phone] Benjamin Ireland MD 505 [place] [address] Chronic pain syndrome Social History Tobacco Use [...] the past 12 months, has t he [employer], gas, oil or water [email or web address] threatened to shut off services in your [...] the provider Letter is read for pick up and delivery driver at medical records. documented in this encounter Plan of Treatment Upcoming Encounters Date Type Department Care Team (Late st Contact Info) Description 04/29/2024 1:15 PM EDT Office Visit [facility] CHC MED & PEDS [address] [place] [address] Benjamin Ireland MD [address] [place] [address] 05/18/2024 11:00 AM EDT Office Visit [facility] MEDICINE 230 [place] [address] documented as of this encounter Visit Diagnoses Diagnosis Chronic pain syndrome documented in this encounter Additional Health Concerns Assessment Noted Time PHQ-9 Depression Total Score: 0 02/14/19 23 11:24 AM EST documented as of this encounter Care Teams Childcare Worker Relationship Specialty Start Date End Date Benjamin Ireland MD 505 [place] [address] PCP - General Internal Medicine 12/02/17 Leena Curtis Founder And CeoCafe Site Attendant 05/06/23 documented as of this encounter
--- OUTSIDE RECORDS SUMMARY | 2024-04-09 18:03 | XMS_ITS | Encounter Summary ---
Author Organization [employer] Address [address] [facility] 7t [place] [address] Care Team Providers Care Assembly Riveter Name Role Phone Benjamin Ireland MD Primary Care Provider [phone] Encounter Details Date Type Department Care Team [...] [facility] [address] [place] [address] Benjamin Ireland MD [address] [place] [address] 05/18/2024 11:00 AM EDT Office Visit [facility] [address] [place] [address] documented as of this encounter Visit Diagnoses Not on filedocumented in this encounter Additional Health Concerns Assessment Noted Time PHQ-9 Depression Total Score: 15 024 10:11 AM EDT documented as of this encounter Care Teams Assembly Riveter Relationship Specialty Start Date End Date Benjamin Ireland MD [address] [place] [address] PCP - General Internal Medicine 12/02/17 Leena Curtis Device Test EngineerBolting Machine Operator 05/06/23 documented as of this encounter
--- OUTSIDE RECORDS SUMMARY | 2024-04-09 18:03 | XMS_ITS | Encounter Summary ---
Author Organization [employer] Address 75 [facility] 7 [place] [address] Care Team Providers Care Terrazzo Supervisor Name Role Phone Benjamin Ireland MD Primary Care Provider [phone] Reason for Visit * Reason Onset Date Comments Medication 04/09/2023 Encounter Details Date Type Department Care Team ([facility] st Contact Info) Description 04/09/2023 Telephone [facility] [address] [place] [address] Benjamin Ireland MD [address] [place], [place] [phone] Medication Social History Tobacco Use Types Packs/Day [...] the past 12 months, has t he Cript[employer], gas, oil or water [employer] threatened to shut off services in your [...] 300-30 MG tablet. Medication was sent to [facility] but pt wants medication sent to [facility] pharmacy due to [facility] not having medication. If any questions please contact pt at [phone]. documented in this encounter Plan of Treatment Upcoming Encounters Date Type Department Care Team (Late st Contact Info) Description 04/29/2024 1:15 PM EDT Office Visit [facility] [address] [place] [address] Benjamin Ireland MD [address] [place] [address] 05/18/2024 11:00 AM EDT Office Visit [facility] [address] [place] [address] documented as of this encounter Visit Diagnoses Diagnosis Chronic pain syndrome documented in this encounter Additional Health Concerns Assessment Noted Time PHQ-9 Depression Total Score: 0 02/14/19 23 11:24 AM EST documented as of this encounter Care Teams Terrazzo Supervisor Relationship Specialty Start Date End Date Benjamin Ireland MD [address] [place] [address] PCP - General Internal Medicine 12/02/17 Leena Curtis Covering Machine TenderTicket Chopper Assembler 05/06/23 documented as of this encounter
--- OUTSIDE RECORDS SUMMARY | 2024-04-09 18:03 | XMS_ITS | Encounter Summary ---
Author Organization [employer] Address 75 [facility] 7 [place] [address] Care Team Providers Care Manufacturing Engineering Technologist Name Role Phone Benjamin Ireland MD Primary Care Provider [phone] Reason for Visit * Reason Onset Date Comments Med Refill 10/02/2023 Encounter Details Date Type Department Care Team (Late st Contact Info) Description 10/02/[address] [facility] [address] [place] [address] Benjamin Ireland MD [address] [place] [address] Med Refill Social History Tobacco Use Types [...] 30 MG tablet To be sent to: [facility] documented in this encounter Plan of Treatment Upcoming Encounters Date Type Department Care Team (Late st Contact Info) Description 04/29/2024 1:15 PM EDT Office Visit [facility] [address] [place] [address] Benjamin Ireland MD [address] [place] [address] 05/18/2024 11:00 AM EDT Office Visit [facility] [address] [place] [address] documented as of this encounter Visit Diagnoses Not on filedocumented in this encounter Additional Health Concerns Assessment Noted Time PHQ-9 Depression Total Score: 0 02/14/19 23 11:24 AM EST documented as of this encounter Care Teams Manufacturing Engineering Technologist Relationship Specialty Start Date End Date Benjamin Ireland MD [address] [place] [address] PCP - General Internal Medicine 12/02/17 Leena Curtis Alcoholism WorkerElectric Motor Fitter 05/06/23 documented as of this encounter
--- OUTSIDE RECORDS SUMMARY | 2024-04-09 18:03 | XMS_ITS | Encounter Summary ---
Author Organization [employer] Address [address] [facility] 7 [place] [address] Care Team Providers Care Service Department Manager Name Role Phone Benjamin Ireland MD Primary Care Provider [phone] Reason for Visit * Reason Onset Date Comments Error 05/27/2023 Encounter Details Date Type Department Care Team ([facility] st Contact Info) Description 05/27/2023 Telephone [facility] [address] [place] [address] Benjamin Ireland MD [address] [place] [address] Error Social History Tobacco Use Types Packs/Day [...] t he electric, gas, oil or water [employer] threatened to shut off services in your [...] Description 04/29/2024 1:15 PM EDT Office Visit [facility] [address] [place] [address] Benjamin Ireland MD [address] [place] [address] 05/18/2024 11:00 AM EDT Office Visit [facility] [address] [place] [address] documented as of this encounter Visit Diagnoses Not on filedocumented in this encounter Additional Health Concerns Assessment Noted Time PHQ-9 Depression Total Score: 0 02/14/19 23 11:24 AM EST documented as of this encounter Care Teams Service Department Manager Relationship Specialty Start Date End Date Benjamin Ireland MD [address] [place] [address] PCP - General Internal Medicine 12/02/17 Leena Curtis Pusher RunnerSmall Business Director 05/06/23 documented as of this encounter
--- OUTSIDE RECORDS SUMMARY | 2024-04-09 18:03 | XMS_ITS | Encounter Summary ---
Author Organization [employer] Address [address] [facility] 7 [place] [address] Care Team Providers Care Brass Instrument Repair Technician Name Role Phone Benjamin Ireland MD Primary Care Provider [phone] Reason for Visit * Reason Onset Date Comments Med Refill 07/08/2023 Encounter Details Date Type Department Care Team ([facility] st Contact Info) Description 07/08/2023 Telephone [facility] [address] [place] [address] Benjamin Ireland MD [address] [place], [place] [phone] Med Refill Social History Tobacco Use Types [...] Miscellaneous Notes * Telephone Encounter - Josselin Nicholosn - 07/08/2023 12:22 PM EDT TC from pt requesting medication refill. Medications needing refill : acetaminophen-codeine (Tylenol w/ Codeine #3) 300-30 MG tablet To be sent to: [facility] documented in this encounter Plan of Treatment Upcoming Encounters Date Type Department Care Team (Late st Contact Info) Description 04/29/2024 1:15 PM EDT Office Visit [facility] [address] [place] [address] Benjamin Ireland MD [address] [place] [address] 05/18/2024 11:00 AM EDT Office Visit [facility] [address] [place] [address] documented as of this encounter Visit Diagnoses Not on filedocumented in this encounter Additional Health Concerns Assessment Noted Time PHQ-9 Depression Total Score: 0 02/14/19 23 11:24 AM EST documented as of this encounter Care Teams Brass Instrument Repair Technician Relationship Specialty Start Date End Date Benjamin Ireland MD [address] [place] [address] PCP - General Internal Medicine 12/02/17 Leena Curtis SteersmanSemiconductor Wafer Inspector 05/06/23 documented as of this encounter
[2024-04-09 18:19] LABS: Bacteria Urine Trace (None Seen); Calcium Oxalate Crystals Urine Present; WBC Urine 0-5 /HPF (0-5)
== END 2024-04-09 16:26 | disposition home or self-care (01) ==
LOC: HO.CHCLNP 16:25
PROVIDERS: Visit Provider Internal Medicine
DX: R30.0 Dysuria (principal)
CPT/HCPCS: 81001

== ENCOUNTER 2024-07-02 10:07 | Outpatient (REF) | payer MEDICAID, SELFPAY ==
--- OUTSIDE RECORDS SUMMARY | 2024-07-02 10:23 | XMS_ITS | Clinical Summary ---
Author Organization [facility] Address [address] [place] [address] Care Team Providers Care Senior Patrol Agent Name Role Phone Unavailable Primary Care Provider [...] episode of recurren t major depressive disorder ([facility]) 10/06/2023 Assessment & Plan (12/18/2023 6:26 AM [...] Sleep apnea 04/05/2021 Moderate persistent allergic asthma ([facility]) Hypercholesterolemia 02/04/2021 Cramp of both lower extremities 01/31/2021 Mixed stress and urge urinary incontinence 03/01 Chronic pain disorder 03/07/2017 Hypothyroidism 02/05/2017 Obesity 02/05/2017 Type 2 diabetes mellitus ([facility]) 03/08/2006 Family History Relation Name Status Comments [...] Health Maintenance Due Date Last Done Comments Anxiety Screening 1961 Depression Monitoring 1961 Diabetes Foot Exam 1961 HPV Screening 1961 Pap + HPV 1961 Serum Creatinine 1961 Urine Albumin Creatinine Rat io Screening 1961 Retinopathy Screening 1974 HIV Screening 02/14/1976 Hypertension Screening (#1) 1979 Cervical Cancer Screening 1982 Pap Smear 1982 Breast Cancer Screening (Mammogram) 2001 CT Colonography 2006 Colonoscopy 2006 Colorectal Cancer Screening 2006 FIT/gFOBT 2006 Fecal DNA 2006 Flexible Sigmoidoscopy 2006 [id number] ( season) 2023 021, 04/28/2020 Imm-Influenza (#1) 2023 12/25/2022, 0 02/14/2022, 01/16/2021, Additional history exists Alcohol and Drug Screen 02/11/2024 Diabetes HbA1c 04/07/2024 10/06/2023, 11/07/2021 Lipid Screening 10/05/2024 10/06/2023 TSH Monitoring 10/05/2024 10/06/2023 Tobacco Screening 12/03/2024 12/04/2023 Imm-DTaP/Tdap/Td (2 - Td or Tdap) 01/22/2029 019 Imm-Zoster, Recombinant Completed 03/30/2019, 01/22 Hepatitis C Screening Completed 02/14/2022 Imm-Pneumococcal Completed 04/03/2023 Cervical Ablation/Cold-Knife Conization Discontinued Cervical Cryotherapy Discontinued Colposcopy Discontinued Endometrial Biopsy Discontinued Excision/Leep Discontinued HPV Genotyping Discontinued Vaginal Pap Discontinued Vulvoscopy Discontinued Insurance [place] [employer]
[2024-07-02 14:20] LABS: MANUAL DIFF FLAG NO
[2024-07-02 14:26] LABS: Basophils Percent Auto 0.4 % (0-2); Eosinophils Absolute Auto 0.1 X10*3/uL (0.0-0.4); Eosinophils Percent Auto 1.5 % (0-4); Hematocrit 36.3 % (37.0-47.0); Hemoglobin 11.4 g/dl (12.0-16.0); Imm Gran Abs Auto 0.03 X10*3/uL (0.00-0.03); Imm Gran Pct Auto 0.4 % (0.0-0.4); Lymphocytes Absolute Auto 1.8 X10*3/uL (1.2-4.9); Lymphocytes Percent Auto 23.6 % (20-40); Mean Corpuscular HGB Conc 31.4 g/dl (31.0-35.0); Mean Corpuscular Hemoglobin 27.8 pg (27.0-33.0); Mean Corpuscular Volume 88.5 fL (80.0-98.0); Mean Platelet Volume 9.1 fL (9.4-12.3); Monocytes Absolute Auto 0.7 X10*3/uL (0.1-1.2); Monocytes Percent Auto 8.9 % (2-11); Neutrophils Absolute Auto 4.9 x10*3/uL (2.0-8.3); Neutrophils Percent Auto 65.2 % (45-73); Platelet Count 231 X10*3/uL (160-400); Red Cell Distribution Width 14.2 % (11.0-16.0); White Blood Count 7.6 X10*3/uL (4.8-10.8)
[2024-07-02 14:54] LABS: Alanine Aminotransferase 30 U/L (0-31); Albumin Level 4.3 g/dL (3.5-5.0); Alkaline Phosphatase 88 U/L (39-117); Anion Gap 11 (12-20); Aspartate Amino Transferase 33 U/L (5-31); Bilirubin Direct < 0.2 mg/dL (0.0-0.5); Bilirubin Total 0.2 mg/dL (0.0-1.0); Blood Urea Nitrogen 14 mg/dL (9-16); Calcium 9.2 mg/dL (8.4-10.2); Carbon Dioxide 27 mmol/L (22-29); Chloride 106 mmol/L (96-108); Cholesterol 234 mg/dL (<200); Estimated Glomerular Filt Rate > 60; Glucose Fasting 100 mg/dL (60-99); HDL Cholesterol 31 mg/dL (>40); Iron 35 mcg/dL (30-160); Percent Iron Saturation 10 % (15-50); Potassium 4.2 mmol/L (3.3-5.1); Sodium 140 mmol/L (135-145); TSH reflex Free T4 0.85 uIU/mL (0.32-4.0); Total Iron Binding Capacity 364 mcg/dL (228-428); Total Protein 6.9 g/dL (6.5-8.0); Triglycerides 582 mg/dL (<150); Unsaturated Iron Binding 329 ug/dL
[2024-07-02 15:11] LABS: Vitamin B12 293 pg/mL (200-900)
== END 2024-07-02 10:08 | disposition home or self-care (01) ==
LOC: HO.CHCLDS 10:07
PROVIDERS: Visit Provider Pediatrics
DX: E11.59 Type 2 diabetes mellitus with other circulatory complications (principal); Z12.11 Encounter for screening for malignant neoplasm of colon; R42 Dizziness and giddiness
CPT/HCPCS: 36415; 80048; 80061; 80076; 82607; 82746; 83540; 84443; 85025

== ENCOUNTER 2024-07-06 15:52 | Outpatient (AMB) | payer MEDICAID, SELFPAY ==
--- NOTE | 2024-07-06 15:55 | MHC.OFFVIS ---
Vital Signs 07/06/24 15:58 Height 5 ft 4 in Weight 233 lb 3.985 oz BMI 40.0 BP 100/58 L Blood Pressure Location Rt brachial Position Sitting Pulse 90 Pulse Source Pulse Oximeter Pulse Oximetry (%) 95 Oxygen Delivery Method Room Air Intake Visit Reasons: Type II diabetes Intake Note: Patient present today to follow up on Type 2 Diabetes Mellitus. Last Diabetic Eye exam: Due, more than 1 year Last Podiatry Visit: Doesn't see a Offset Lithographic Press Operator Random Glucose: 128 mg/dl HgA1C: 6.3% 07/06/2024 Media Consultant Required: Yes Media Consultant Language: Accounts Payable Payroll Coordinator Services: Media Consultant Offered & Declined Accompanied by: Daughter Allergies No Known Allergies [No Known Allergies*] Allergy (Verified 07/06/24 15:59) HPI Comments Details: Patient is a 64-year-old female with a significant past medical history of obesity, type 2 diabetes, hyperlipidemia, hypothyroidism, and hypertension presenting today for diabetic management. She is accompanied by her daughter. She forgot her glucometer today. Hemoglobin A1c is 6.3% today. Current regimen: Metformin 750 mg extended release once a day, Trulicity 0.75 mg weekly. Hypoglycemia: None Complications: PVD, neuropathy She has an appointment scheduled for her eye exam. We reviewed her lab results. She has mild anemia with borderline low B12 and normal iron though iron saturation is mildly decreased. She has hypertriglyceridemia and low HDL cholesterol. LDL cholesterol could not be calculated. TSH is normal. AST is mildly elevated at 33, and her ALT and alkaline phosphatase are normal. Patient reports she was taking a medication for cholesterol, but she does not remember what it was called, and she says that her primary care for the instructed her to discontinue it a month ago. Patient says she does not eat unhealthy foods and eat large portions, and she is still struggling to lose weight. She is frustrated by this. She knows it effects her joints and her breathing. She is asthmatic. ROS: Constitutional: No unexplained weight loss, fever, chills. Cardiovascular: No chest pain, chest pressure or chest discomfort. No palpitations or pedal edema. Skin: No open wounds or rashes. Endocrine: No cold or heat intolerance. No polyuria or polydipsia. Physical exam: Constitutional: Alert, in no distress. Neck: Supple, Full range of motion. No lymphadenopathy. Respiratory: Clear to auscultation. Cardiovascular: S1 S2 regular. No murmurs. Extremities: No edema PFSH Medical History (Updated 07/06/24 @ 16:53 by KHUSHBU Shah) Obesity, Class III, BMI 40-49.9 (morbid obesity) LFT elevation Peripheral sensory neuropathy due to type 2 diabetes mellitus Claudication in peripheral vascular disease Controlled type 2 diabetes mellitus Lumbar spondylosis Synovial cyst of popliteal space [Schultz], right knee History of cellulitis Osteoarthritis of right knee ELSIE (obstructive sleep apnea) Environmental allergies Family history of colon cancer in father Urinary frequency Anemia GERD (gastroesophageal reflux disease) Dysphagia Anxiety and depression High cholesterol Diabetes Severe persistent asthma Generalized arthritis Hypothyroid Morbid obesity Surgical History Hx of appendectomy Hx of hysterectomy, total History of right hip replacement History of left hip replacement Hx of hernia repair Family History Mother HTN (hypertension) Diabetes Skin cancer Father No problems noted. Father HTN (hypertension) Heart attack Social History Household Members: Family Alcohol intake: never Patient Tobacco Use Status: Never used Tobacco Physical Exam Vital Signs: Last Vital Signs Pulse 90 07/06/24 15:58 BP 100/58 L 07/06/24 15:58 Pulse Ox 95 07/06/24 15:58 Oxygen Delivery Method Room Air 07/06/24 15:58 BMI result Body Mass Index 40.0 Results AMB Hemoglobin A1c AMB Hemoglobin A1c 6.3 % Last Edit by JACKSON Odell on 07/06/24 16:13 Results Reviewed Results Reviewed: Laboratory Last Values Glucose (Clinic) 128 mg/dL (60-115) H 07/06/24 16:03 Laboratory Tests 08/27/23 07/02/24 11:59 Unknown Plt Count 231 Creatinine 0.78 Estimated GFR > 60 AST 33 H ALT 30 Triglycerides 582 H Cholesterol 234 H HDL Cholesterol 31 L Vitamin B12 293 TSH 0.85 Urine Creatinine 130.43 Urine Microalbumin 6.0 Microalb/Creat Ratio 4.6 Assessment & Plan Assessment & Plan (1) Controlled type 2 diabetes mellitus: Code(s): E11.9 - Type 2 diabetes mellitus without complications Category: Medical Qualifiers: Diabetes mellitus terminal carman insulin use: without terminal carman use Diabetes mellitus complication status: with circulatory complication Diabetes mellitus complication detail: with other circulatory complications Qualified Code(s): E11.59 - Type 2 diabetes mellitus with other circulatory complications (2) Obesity, Class III, BMI 40-49.9 (morbid obesity): Code(s): E66.813 - Obesity, class 3 Category: Medical (3) LFT elevation: Code(s): R79.89 - Other specified abnormal findings of blood chemistry Category: Medical Plan In summary this is a 63-year-old female with controlled type 2 diabetes with obesity on metformin and Trulicity. Declined referral to dietitian, but she has decreased carbohydrates and sugars in her diet. Despite this she has not lost weight. We will switch her to Mounjaro 2.5 mg weekly from Trulicity to promote weight loss. Start Mounjaro 2.5 mg one week after the last dose of Trulicity. Continue metformin 750 mg daily. She denies contraindications to it. We reviewed potential side effects. Bring glucometer to next appointment. Eye exam is scheduled. Start B12 1000 mcg daily. Check liver ultrasound to screen for hepatic steatosis. Check hepatitis serologies. I have reached out to her primary care provider's office to clarify the issue with her cholesterol medication, and I will await his call back. Follow up in 3 months for type 2 diabetes. Orders: Orders Microalbumin, Random (w Creat) Today E11.9 - Type 2 diabetes mellitus without complications, R79.89 - Other specified abnormal findings of blood chemistry Alanine Aminotransferase Today R79.89 - Other specified abnormal findings of blood chemistry Hepatitis A,B,C Profile Today R79.89 - Other specified abnormal findings of blood chemistry US abdomen tejada w elastography Today E66.813 - Obesity, class 3, R79.89 - Other specified abnormal findings of blood chemistry AMB Hemoglobin A1c Today E11.59 - Type 2 diabetes mellitus with other circulatory complications Vitamin B12 Today R79.89 - Other specified abnormal findings of blood chemistry, Z91.89 - Other specified personal risk factors, not elsewhere classified Aspartate Amino Transferase Today R79.89 - Other specified abnormal findings of blood chemistry Hepatitis A IgM Today R79.89 - Other specified abnormal findings of blood chemistry Medications: New cyanocobalamin (vitamin B-12) 1,000 mcg PO DAILY 90 tabs 1RF dextrose (TRUEplus Glucose) until symptoms of low blood sugar are controlled 15 grams (32 mL) PO Q15M PRN 128 mL 3RF hypoglycemia tirzepatide (Mounjaro) replaces Trulicity 2.5 mg (0.5 mL) subcut QWEEK 2 mL 1RF Patient Instructions: If you experience low blood sugar (less than 70), treat this by eating a chewable fruit candy like skittles or jelly beans (about 8 pieces), 4 ounces (1/2 cup) of fruit juice (not diet), 1 tablespoon of honey or 4 glucose tablets or 1 pack of glucose gel. If your blood sugar is under 55, take double the amount of one of the above. Recheck your blood sugar in 15 minutes. Continue Metformin 750 mg once daily. We will change Trulicity to Mounjaro if it is covered by insurance. Start Mounjaro 2.5 mg one week after the last dose of Trulicity. We will call you to schedule an ultrasound of the liver. Please have labwork done a few days before your next visit with me. Si tiene un nivel bajo de az?car en la swathi (menos de 70), tr?telo comiendo un caramelo masticable de fruta opal Skittles o Jelly Beans (aproximadamente 8 piezas), 113 ml (1/2 taza) de jugo de fruta (no de dieta), 1 cucharada de miel, 4 tabletas de glucosa o 1 paquete de gel de glucosa. Si zaragoza nivel de az?car en la swathi es camryn de 55, tome el doble de la cantidad de edie de los medicamentos mencionados. Vuelva a medir zaragoza nivel de az?car en la swathi en 15 minutos. Contin?e con la metformina 750 mg shelley vez al d?a. Cambiaremos Trulicity por Mounjaro si est? cubierto por el seguro. Comience con Mounjaro 2.5 mg shelley semana despu?s de la ?ltima dosis de Trulicity. Le llamaremos para programar shelley ecograf?a hep?alejandra. Por favor, h?gase an?lisis de laboratorio unos d?as antes de zaragoza pr?xima consulta. Comience a celena b12 1 pastilla al d?a. Coding Level of Care Code Est Pt Level 4 (29789) Complex EM visit Add On G2211 Diagnoses Controlled type 2 diabetes mellitus with other circulatory complication, without long-term current use of insulin E11.59 Diabetes mellitus terminal carman insulin use: without terminal carman use Diabetes mellitus complication status: with circulatory complication Diabetes mellitus complication detail: with other circulatory complications Obesity, Class III, BMI 40-49.9 (morbid obesity) E66.813 LFT elevation R79.89
--- OUTSIDE RECORDS SUMMARY | 2024-07-06 15:55 | XMS_ITS | Clinical Summary ---
Author Organization [facility] Address [address] [place] [address] Care Team Providers Care Water And Fire Technician Name Role Phone Unavailable Primary Care Provider [...] episode of recurren t major depressive disorder ([facility]) 10/06/2023 Assessment & Plan (12/18/2023 6:26 AM [...] Sleep apnea 04/05/2021 Moderate persistent allergic asthma ([facility]) Hypercholesterolemia 02/04/2021 Cramp of both lower extremities 01/31/2021 Mixed stress and urge urinary incontinence 03/01 Chronic pain disorder 03/07/2017 Hypothyroidism 02/05/2017 Obesity 02/05/2017 Type 2 diabetes mellitus ([facility]) 03/08/2006 Family History Relation Name Status [...] 2006 Fecal DNA 2006 Flexible Sigmoidoscopy 2006 [id number] ( season) 2023 021, 04/28/2020 Imm-Influenza (#1) [...] Discontinued Vaginal Pap Discontinued Vulvoscopy Discontinued Insurance [place] [employer]
[2024-07-06 15:58] VITALS: BP 100/58; PULSE 90; O2SAT 95; BMI 40.0
[2024-07-06 16:08] LABS: Glucose, Whole Blood 128 mg/dL (60-115)
== END 2024-07-06 16:40 | disposition home or self-care (01) ==
LOC: HO.ENCR 15:53
PROVIDERS: PCP Internal Medicine; Visit Provider Physician Assistant Medical
DX: E11.59 Type 2 diabetes mellitus with other circulatory complications (principal); E66.813 Obesity, class 3; R79.89 Other specified abnormal findings of blood chemistry

== ENCOUNTER → 2024-07-06 15:52 | Outpatient (BNVA) | payer MEDICAID, SELFPAY | PROVIDERS: PCP Internal Medicine; Visit Provider Physician Assistant Medical | DX: E11.59 Type 2 diabetes mellitus with other circulatory complications (principal); E66.813 Obesity, class 3; R79.89 Other specified abnormal findings of blood chemistry; Z79.85 Long-term (current) use of injectable non-insulin antidiabetic drugs | CPT/HCPCS: 82947; 83036; 99212 ==

== ENCOUNTER 2024-08-31 13:22 | Outpatient (AMB) | payer MEDICAID, SELFPAY ==
[2024-08-31 13:25] VITALS: BP 116/60; PULSE 99; O2SAT 95; BMI 40.1
--- NOTE | 2024-08-31 13:25 | A.OFFVIS_ITS ---
Vital Signs 08/31/24 13:25 Height 5 ft 4 in Weight 233 lb 11.04 oz BMI 40.1 BP 116/60 Blood Pressure Location Rt brachial Position Sitting Pulse 99 Pulse Source Pulse Oximeter Pulse Oximetry (%) 95 Oxygen Delivery Method Room Air Intake Visit Reasons: T2DM Intake Note: Patient present today to follow up on Type 2 Diabetes Mellitus. Last Diabetic Eye exam: 08/2024, Eye & Lasik Last Podiatry Visit: Doesn't see a Trading Specialist Random Glucose: 140 mg/dL HgA1C: 6.3% 07/06/2024 Supervisor Fur Floor Worker Required: Yes Supervisor Fur Floor Worker Language: Church Official Services: Supervisor Fur Floor Worker Present (Lunagames) Supervisor Fur Floor Worker Name: Elisabeth #[id number] Accompanied by: Self / Same As Patient Allergies No Known Allergies (No Known Allergies*) Allergy (Verified 08/31/24 13:30) HPI Comments Details: Patient is a 64-year-old female with a significant past medical history of obesity, type 2 diabetes, hyperlipidemia, hypothyroidism, and hypertension presenting today for diabetic management. Stateless video tracer bullet section supervisor on standby, but the patient spoke Argentine for the majority of the visit. She forgot her glucometer today. Hemoglobin A1c is 6.3% 07/06/2024. Current regimen: Metformin 750 mg extended release once a day, Trulicity 0.75 mg weekly. insurance denied Mounjaro. Ozempic approved, but the pharmacy did not pick it up. Hypoglycemia: None Complications: PVD, neuropathy Due to an IT issue with the order, the liver ultrasound has not been scheduled yet for evaluation of elevated liver enzymes. I spoke with IT today and re- entered the order. She is followed by pulmonology at [facility] for asthma. During the past 2-3 days she has increased wheezing and a nonproductive cough. Denies chest pain, congestion, fevers or chills. She is on Trelegy. Last required prednisone a couple months ago. She is going to call her buildings painter after the visit regarding her symptoms. Reports positive cologuard result, and she has a colonoscopy 10/12/24. Reports ptosis of the left eye lid in admission due to eye infection recently. Stroke was ruled out per patient. She was evaluated by her eye doctor, and they referred her to [facility] for surgery. ROS: Constitutional: No unexplained weight loss, fever, chills. ENT: Denies congestion, sore throat, ear pain, sinus pain Respiratory: See HPI Cardiovascular: No chest pain, chest pressure or chest discomfort. No palpit ations or pedal edema. Skin: No open wounds or rashes. Endocrine: No cold or heat intolerance. No polyuria or polydipsia. Physical exam: Constitutional: Alert, in no distress. Eyes: Ptosis of the left eyelid noted Nose: No discharge. Sinuses nontender. Mouth/throat: Normal, no erythema, exudates or edema Neck: Supple, Full range of motion. No lymphadenopathy. Respiratory: Clear to auscultation. No dyspnea. Cardiovascular: S1 S2 regular. No murmurs. Extremities: No edema [facility] Medical History (Updated 07/06/24 @ 16:53 by KHUSHBU Shah) Obesity, Class III, BMI 40-49.9 (morbid obesity) LFT elevation Peripheral sensory neuropathy due to type 2 diabetes mellitus Claudication in peripheral vascular disease Controlled type 2 diabetes mellitus Lumbar spondylosis Synovial cyst of popliteal space [Schultz], right knee History of cellulitis Osteoarthritis of right knee ELSIE (obstructive sleep apnea) Environmental allergies Family history of colon cancer in father Urinary frequency Anemia GERD (gastroesophageal reflux disease) Dysphagia Anxiety and depression High cholesterol Diabetes Severe persistent asthma Generalized arthritis Hypothyroid Morbid obesity Surgical History (Updated 08/31/24 @ 13:31 by JACKSON Power) Hx of colonoscopy Hx of appendectomy Hx of hysterectomy, total History of right hip replacement History of left hip replacement Hx of hernia repair Family History Mother HTN (hypertension) Diabetes Skin cancer Father No problems noted. Father HTN (hypertension) Heart attack Social History Household Members: Family Alcohol intake: never Patient Tobacco Use Status: Never used Tobacco Physical Exam Vital Signs: Last Vital Signs Pulse 99 08/31/24 13:25 BP 116/60 08/31/24 13:25 Pulse Ox 95 08/31/24 13:25 Oxygen Delivery Method Room Air 08/31/24 13:25 BMI result Body Mass Index 40.1 Results Reviewed Results Reviewed: Laboratory Last Values Glucose (Clinic) 140 mg/dL (60-115) H 08/31/24 13:30 Assessment & Plan Assessment & Plan (1) Controlled type 2 diabetes mellitus: Code(s): E11.9 - Type 2 diabetes mellitus without complications Category: Medical (2) Obesity, Class III, BMI 40-49.9 (morbid obesity): Code(s): E66.813 - Obesity, class 3 Category: Medical (3) LFT elevation: Code(s): R79.89 - Other specified abnormal findings of blood chemistry Category: Medical Plan In summary this is a 63-year-old female with controlled type 2 diabetes with obesity on metformin and Trulicity. Declined referral to dietitian, but she has decreased carbohydrates and sugars in her diet. Despite this she has not lost weight so she will switch Trulicity to Ozempic 0.25 mg weekly.She denies contraindications to it. Continue metformin 750 mg daily. Bring glucometer to next appointment. Check liver ultrasound to screen for hepatic steatosis. Ordered screening tests for hepatitis. Follow up in 1 month for type 2 diabetes. Orders: Orders US abdomen tejada w elastography Today R79.89 - Other specified abnormal findings of blood chemistry Medications: New semaglutide (Ozempic) for 4 weeks 0.25 mg (0.368 mL) subcut QWEEK 3 mL 1RF lancets (FreeStyle Lancets) As directed to check blood sugar once daily. 100 ea 5RF Refilled blood sugar diagnostic (FreeStyle Lite Strips) DIRECTED to check blood sugar once daily 100 strips 5RF E11.59 - Type 2 diabetes mellitus with other circulatory complications Discontinued dulaglutide (Trulicity) Discontinued Reason: Doctor's Order 0.75 mg (0.5 mL) subcut QWEEK 2 mL 1RF Coding Level of Care Code Est Pt Level 4 (76768) Complex EM visit Add On G2211 Diagnoses Controlled type 2 diabetes mellitus E11.9 Obesity, Class III, BMI 40-49.9 (morbid obesity) E66.813 LFT elevation R79.89
[2024-08-31 13:36] LABS: Glucose, Whole Blood 140 mg/dL (60-115)
--- OUTSIDE RECORDS SUMMARY | 2024-08-31 14:30 | XMS_ITS | Encounter Summary ---
Author Organization [employer] Address [address] [facility] [address] [place] [address] Care Team Providers Care Geospatial Specialist Name Role Phone Benjamin Ireland MD Primary Care Provider [phone] Reason for Visit * Reason Comments Med Refill Encounter Details Date Type Department Care Team ([facility] st Contact Info) Description 07/29/2024 Refill C [facility] [address] [place], [place] [phone] Benjamin Ireland MD [address] [place] [address] Other specified hypothyroidism Social History Tobacco Use Types Packs/Day Years Used Date Smoking Tobacco: Never Smokeless Tobacco: Never Depression Answer Date Recorded Patient Health Questionnaire-9 Score 12 04/29/2024 Patient Health Questionnaire-9 Score 12 04/29/2024 Last PHQ-9: Questionnaire Data Not on file 0 04/29/2024 Housing Stability Answer Date Recorded What is your housing situation today? I have flavia obregon 04/15/[address] you li ve. Do you have problems with any of the following? None of the above 04/15/2024 Food Insecurity Answer Date Recorded Within the past 12 months, y ou worried that your food would run out before you got money to buy more: Never True 2024 Within the past 12 months,th e food you bought just didn't last and you didn't have enough money to get more: Sometimes True 04/29/2024 Transportation Answer Date Recorded In the past 12 months, has l ack of transportation kept you from medical appts, meetings, work or from getting things needed for daily living? No 04/15/2024 Utilities Answer Date Recorded In the past 12 months, has t he electric, gas, oil or water company threatened to shut off services in your home? No 04/15/2024 Depression Answer Date Recorded Patient Health Questionnaire-2 Score 3 04/29/2024 Internet Access Answer Date Recorded Internet Access Q1 Yes 04/15/2024 Internet Access Q2 Not on file 04/15/2024 Comments Unknown Sex and Gender Information Value Date Recorded Sex Assigned at Female 12/10/2021 10:32 AM EDT Legal Sex Female 10:32 AM EDT Gender Identity Female 05/18/2024 2:49 PM EDT Sexual Orientation Choose not to disclose 2021 10:32 AM EDT documented as of this encounter Plan of Treatment Upcoming Encounters Date Type Department Care Team (Late st Contact Info) Description 09/02/2024 10:30 AM EDT Office Visit [facility] [address] [place] [address] TarDorina vela, OD [address] [place] [address] 09/29/2024 10:30 AM EDT Clinical Support [facility] MED [facility] PEDS [address] [place] [address] Marya Montero, YESSICA [address] [place] [address] 10/28/2024 2:30 PM EDT Office Visit [facility] PED[facility] [address] [place] [address] Benjamin Ireland MD [address] [place] [address] documented as of this encounter Visit Diagnoses Diagnosis Other specified hypothyroidism documented in this encounter Additional Health Concerns Assessment Noted Time PHQ-9 Depression Total Score: 12 025 1:40 PM EDT documented as of this encounter Care Teams Geospatial Specialist Relationship Specialty Start Date End Date Benjamin Ireland MD [address] [place] [address] PCP - General Internal Medicine 12/02/17 Leena Curtis Accounting OfficerCredit Reporter 05/06/23 [facility] 07/13/24 documented as of this encounter
== END 2024-08-31 13:57 | disposition home or self-care (01) ==
LOC: HO.ENCR 13:23
PROVIDERS: PCP Internal Medicine; Visit Provider Physician Assistant Medical
DX: E11.9 Type 2 diabetes mellitus without complications (principal); E66.813 Obesity, class 3; R79.89 Other specified abnormal findings of blood chemistry

== ENCOUNTER → 2024-08-31 13:22 | Outpatient (BNVA) | payer MEDICAID, SELFPAY | PROVIDERS: PCP Internal Medicine; Visit Provider Physician Assistant Medical | DX: E11.9 Type 2 diabetes mellitus without complications (principal); E66.813 Obesity, class 3; R79.89 Other specified abnormal findings of blood chemistry | CPT/HCPCS: 82947; 99212 ==

== ENCOUNTER 2024-10-01 12:38 | Outpatient (REF) | payer MEDICAID, SELFPAY ==
--- OUTSIDE RECORDS SUMMARY | 2024-10-01 12:40 | XMS_ITS | Clinical Summary ---
Author Organization [facility] Address [address] [place] [address] Care Team Providers Care Sql Architect Name Role Phone Unavailable Primary Care Provider [...] episode of recurren t major depressive disorder ([facility]) 10/06/2023 Assessment & Plan (12/18/2023 6:26 AM [...] Sleep apnea 04/05/2021 Moderate persistent allergic asthma ([facility]) Hypercholesterolemia 02/04/2021 Cramp of both lower extremities 01/31/2021 Mixed stress and urge urinary incontinence 03/01 Chronic pain disorder 03/07/2017 Hypothyroidism 02/05/2017 Obesity 02/05/2017 Type 2 diabetes mellitus ([facility]) 007 Family History Relation Name Status Comments Brother [...] 2006 Fecal DNA 2006 Flexible Sigmoidoscopy 2006 [id number] () 10/12/2023 021, 04/28/2020 Alcohol and Drug Screen 02/11/2024 Hemoglobin A1c 04/07/2024 10/06/2023, 11/07/2021 Lipid Screening 10/05/2024 10/06/2023 TSH Monitoring 10/05/2024 10/06/2023 Imm-Influenza (#1) 2024 12/25/2022, 0 02/14/2022, 01/16/2021, Additional history exists Tobacco Screening 12/03/2024 12/04/2023 Imm-DTaP/Tdap/Td (2 - Td or Tdap) 01/22/2029 019 Imm-Zoster, Recombinant Completed 03/30/2019, 01/22 Hepatitis C Screening Completed 02/14/2022 Imm-Pneumococcal 50+ Completed 04/03/2023 Cervical Ablation/Cold-Knife Conization Discontinued Cervical Cryotherapy Discontinued Colposcopy Discontinued Endometrial Biopsy Discontinued Excision/Leep Discontinued HPV Genotyping Discontinued Vaginal Pap Discontinued Vulvoscopy Discontinued [place] [employer]
--- OUTSIDE RECORDS SUMMARY | 2024-10-01 12:40 | XMS_ITS | Encounter Summary ---
Author Organization [employer] Address [address] [facility] [address] [place] [address] Care Team Providers Care Knot Bumper Name Role Phone Benjamin Ireland MD Primary Care Provider Leobardo Ortiz RN Unavailable [phone] Diane Sosa Unavailable Reason for Visit * Reason Comments Med Refill Encounter Details Date Type Department Care Team ([facility] Contact Info) Description 07/29/2024 Refill [facility] [address] [place], [place] [phone] Benjamin Ireland MD [address] [place] [address] Other specified hypothyroidism Social History Tobacco Use [...] Upcoming Encounters Date Type Department Care Team ([facility] st Contact Info) Description 10/05/2024 10:45 AM EDT Office Visit [facility] [address] [place] [address] Benjamin Ireland MD [address] [place] [address] 10/28/2024 2:30 PM EDT Office Visit [facility] [address] [place] [address] Benjamin Ireland MD [address] [place] [address] documented as of this encounter Visit Diagnoses Diagnosis Other specified hypothyroidism documented in this encounter Additional Health Concerns Assessment Noted Time PHQ-9 Depression Total Score: 12 025 1:40 PM EDT documented as of this encounter Care Teams Knot Bumper Relationship Specialty Start Date End Date Benjamin Ireland MD [address] [place] [address] PCP - General Internal Medicine 12/02/17 Leobardo Ortiz, YESSICA [address] [place] [address] Registered Nurse Family Medicine 09/20/24 Diane Sosa 09/20/24 Leena Curtis Poultry Barn ManagerPostbed Stitcher 05/06/23 [facility] 07/13/24 documented as of this encounter
[2024-10-01 16:10] LABS: Appearance Urine Clear; Glucose Urine UA Negative (Negative); PH 5.0 (5.0-9.0); Specific Gravity - Urine >= 1.030 (1.005-1.025); UMIC TRIGGER UA YES
== END 2024-10-01 12:39 | disposition home or self-care (01) ==
LOC: HO.CHCLNP 12:38
PROVIDERS: Visit Provider Family Medicine
DX: R30.0 Dysuria (principal)
CPT/HCPCS: 81001; 87086

== ENCOUNTER 2024-10-05 13:37 | Outpatient (AMB) | payer MEDICAID, SELFPAY ==
--- OUTSIDE RECORDS SUMMARY | 2024-10-01 10:45 | XMS_ITS | Encounter Summary ---
Author Organization [employer] Address [address] [facility] [address] [place] [address] Care Team Providers Care Berry Picker Name Role Phone Benjamin Ireland MD Primary Care Provider Leobardo Ortiz RN Unavailable [phone] Diane Sosa Unavailable Reason for Referral * Consultation (STAT) - Authorized Specialty Diagnoses / Procedures Referred By [facility] Referred To Contact General Surgery Diagnoses Abscess, perianal Janee Lechuga MD [address] [place] [address] Phone: tel: fax: Bobby Claudio MD [address] [place] [address] 3rd [place] [address] Phone: tel: fax: Referral ID Status Reason Start Date Expiration Date Visits Requested Visits Authorized [id number] Authorized Specialty Services Required 10/01/2024 10/01/2025 1 1 Reason for Visit * Reason Comments Abscess Encounter Details Date Type Department Care Team ([facility] st Contact Info) Description 10/01/2024 10:45 AM EDT Office Visit [facility] [address] [place], [place] [phone] Janee Lechuga MD [address] [place], [place] [phone] Dysuria (Primary Dx); Diarrhea, unspecified type; Abscess, perianal; Neck pain Social History Tobacco Use Types Packs/Day Years [...] as of this encounter Progress Notes * Janee Lechuga MD - 10/01/2024 10:45 AM EDT Images from the original note were not included. Subjective Patient ID: Mel Oliver is a 64 y.o. female who presents for Abscess. Mel Shay presents with multiple complaints including urethral pain, burning urination, diarrhea, colon pain, and neck pain. She was recently hospitalized for 10 days at [facility]. The patient reports urethral pain and burning sensation during urination that started 2 days ago. She experiences frequent urination, which is painful each time. Additionally, she complains of lower back pain that intensifies when urinating. Mel also mentions abdominal pain, which she associates with her previous experiences of urinary tract infections. Concurrent with her urinary symptoms, Mel is experiencing diarrhea and internal colon pain. She is currently using metronidazole for the diarrhea. The patient also reports neck pain that has been present for 4 days. She describes a sensation of hot water and uses ice for relief. The neck pain is exacerbated by arm movement and is causing her significant discomfort. Mel mentions that her blood sugar levels have been low recently. During her hospital stay, she received insulin and had elevated blood sugar readings of 200 and something. It appears her medication regimen may have been adjusted, as she notes that her metformin was discontinued, possibly due toconcerns about lactic acidosis. Review of Systems Constitutional: Negative for fever. Gastrointestinal: Positive for diarrhea. Negative for blood in stool. Genitourinary: Positive for dysuria. Musculoskeletal: Positive for arthralgias and myalgias. Objective Visit Vitals Smoking Status Never Physical Exam Exam conducted with a traffic police officer present. Constitutional: Appearance: She is obese. Comments: cushingoid appearance and dorsocervical fat pad Genitourinary: Comments: Induration in area 2.5 cm x 2.0 approximately, pheglmon vs abscess Assessment/Plan Problem List Items Addressed This Visit Diarrhea Acute on chronic in the setting of recently hospitalization with use of antibiotics no red flags, recommended supportive care. Dysuria - Primary POC dipstick negative nitrates/LE, given recently antibiotic use and diarrhea, concern of doing empiric treatment and worsening symptoms, at this point proceed with Ucx. Relevant Orders Culture, Urine, Routine Urinalysis Complete Abscess, perianal R sided perianal induration concern of abscess vs phlegmon, given limitations in clinic will need to refer urgently to surgical provider. Patient was also counseled if worsening to visit ED. Relevant Orders Referral to General Surgery Neck pain Paraspinal pain, difficult to assess given fat pad, polytenderness in area difficult to determine location of pain, at this moment proceed with MSK relaxer documented in this encounter Miscellaneous Notes * Assessment & Plan Note - Janee Lechuga MD - 10/01/2024 11:41 AM EDT Associated Problem(s): Neck pain Paraspinal pain, difficult to assess given fat pad, polytenderness in area difficult to determine location of pain, at this moment proceed with MSK relaxer * Assessment & Plan Note - Janee Lechuga MD - 10/01/2024 11:40 AM EDT Associated Problem(s): Abscess, perianal R sided perianal induration concern of abscess vs phlegmon, given limitations in clinic will need to refer urgently to surgical provider. Patient was also counseled if worsening to visit ED. * Assessment & Plan Note - Janee Lechuga MD - 10/01/2024 11:36 AM EDT Associated Problem(s): Diarrhea Acute on chronic in the setting of recently hospitalization with use of antibiotics no red flags, recommended supportive care. * Assessment & Plan Note - Janee Lechuga MD - 10/01/2024 11:34 AM EDT Associated Problem(s): Dysuria POC dipstick negative nitrates/LE, given recently antibiotic use and diarrhea, concern of doing empiric treatment and worsening symptoms, at this point proceed with Ucx. documented in this encounter Plan of Treatment Scheduled Referrals Name Type Priority Associated Diagnoses Orde r Schedule Referral to General Surgery Outpatient Referral STAT Abscess, perianal Expected: 10/01/2024 (Approximate), Expires: 10/01/2025 documented as of this encounter Procedures Procedure Name Priority Date/Time Associated Diagnosis Comments URINALYSIS, COMPLETE Routine 10/01/2024 12:38 PM EDT Dysuria CULTURE, URINE, ROUTINE Routine 10/01/2024 12:00 AM EDT Dysuria documented in this encounter Results * (ABNORMAL) Urinalysis Complete (10/01/2024 12:38 PM EDT) Color Urine Dark Yellow [facility] Appearance Urine Clear [facility] PH 5.0 5.0 - 9.0 [facility] Glucose Urine UA Negative Negative mg/dL [facility] Urine Blood Negative Negative [facility] Specific [place] - Urine >=1.030(H) 1.005 - 1.025 [facility] Urine Protein Trace Neg-Trace mg/dL [facility] Urine Ketones Trace Negative mg/dL [facility] Nitrite Urine Negative Negative [facility] Leukocyte Esterase Urine Trace(A) Negative [facility] RBC Urine 0-2 0 - 2 /HPF [facility] Urine WBC 0-5 0 - 5 /HPF [facility] Urine Squamous Epithelial Cell 6-10 0 - 2 /HPF [facility] Urine Bacteria None Seen None Seen [facility] Hyaline Casts, Urine 11-20 0 - 2 /LPF [facility] Urine (Urine, Random) 10/01/2024 12:38 PM EDT 10/01/2024 4:16 PM EDT Janee Lechuga MD LAB URINE ORDERABLES Final Re sult [facility] [address] [place] [phone] * Culture, Urine, Routine (10/01/2024 12:00 AM EDT) Urine Urine specimen obtained by clean catch procedure / Unknown 10/01/2024 10/01/2024 Comment:UACC Narrative [facility] - 10/04/2024 8:44 AM EDT Urine Culture Report Result Urine Culture 10,000 to 50,000 cfu/ml Urine Culture Mixed bacterial aamir characteristic of Urine Culture urogenital contamination. Specimen Source: Urine clean catch Janee Lechuga MD LAB MICROBIOLOGY - GENERAL OR DERABLES Final Result [facility] [address] [place] [address] [phone] documented in this encounter Visit Diagnoses Diagnosis Dysuria- Primary Diarrhea, unspecified type Abscess, perianal Abscess of anal and rectal regions Neck pain Cervicalgia documented in this encounter Additional Health Concerns Assessment Noted Time PHQ-9 Depression Total Score: 12 025 1:40 PM EDT documented as of this encounter Care Teams Berry Picker Relationship Specialty Start Date End Date Benjamin Ireland MD [address] [place] [address] PCP - General Internal Medicine 12/02/17 Leobardo Ortiz, YESSICA [address] [place] [address] Registered Nurse Family Medicine 09/20/24 Diane Sosa 09/20/24 Leena Curtis Warehouse ClerkNetwork Coordinator 05/06/23 [facility] documented as of this encounter
--- NOTE | 2024-10-05 13:43 | A.OFFVIS_ITS ---
Vital Signs 10/05/24 13:46 Height 5 ft 4 in Weight 230 lb 2.601 oz BMI 39.5 BP 102/74 Blood Pressure Location Rt brachial Position Sitting Pulse 94 Pulse Source Pulse Oximeter Pulse Oximetry (%) 94 Oxygen Delivery Method Room Air Intake Visit Reasons: Type II diabetes Intake Note: Patient present today to follow up on Type 2 Diabetes Mellitus. Last Diabetic Eye exam: 08/2024, Eye & Lasik Last Podiatry Visit: Doesn't see a Revenue Director Random Glucose: 118 mg/dL HgA1C: 7.1% 10/05/2024 Auto Mechanic Apprentice Required: Yes Auto Mechanic Apprentice Language: Pressing Machine Operator Services: Auto Mechanic Apprentice Present Auto Mechanic Apprentice Name: Adair John Information Interpreted: non-clinical & clinical Accompanied by: Self / Same As Patient Allergies No Known Allergies (No Known Allergies*) Allergy (Verified 10/05/24 13:54) HPI Comments Details: Patient is a 64-year-old female with a significant past medical history of obesity, type 2 diabetes, hyperlipidemia, hypothyroidism, and hypertension presenting today for diabetic management. Bengali video boat finisher on standby, but the patient spoke Paraguayan for the majority of the visit. Hemoglobin A1c is 7.1% up from 6.3%. Reviewed glucometer download Target range 50% Highest to 92 Lowest 133 Average glucose 191 Current regimen: Metformin 750 mg extended release once a day and Ozempic 0.25 mg weekly. Previously on Trulicity which did not help with weight loss. Insurance denied Mounjaro. She denies side effects on Ozempic. She lost 3 lb over the last month. Hypoglycemia: None Complications: PVD, neuropathy Patient has elevated LFTs. Liver ultrasound was ordered, but it was not scheduled due to hospitalization. Reports positive cologuard result, and she has a colonoscopy 10/12/24. Her eye doctor referred her to [place] for surgery for her left eye, but she is deferring it for now because she was hospitalized again recently at [facility]. Patient reports she had an infection in her lungs and fluid in the lungs. She reports being treated with steroids and antibiotics. She has had higher sugars since the course of steroids. She is followed closely by pulmonology. ROS: Constitutional: No fevers or chills or unexplained weight loss. She has been fatigued since the hospitalization. ENT: Denies congestion, sore throat, ear pain, sinus pain Respiratory: Endorses intermittent dry cough and dyspnea on exertion. Denies hemoptysis and sputum production. Cardiovascular: No chest pain, chest pressure or chest discomfort. No palpitations. Skin: No open wounds or rashes. Endocrine: No cold or heat intolerance. No polyuria or polydipsia. Physical exam: Constitutional: Alert, in no distress. Neck: Supple, Full range of motion. No lymphadenopathy. Respiratory: Clear to auscultation. Cardiovascular: S1 S2 regular. No murmurs. Extremities: No edema [facility] Medical History (Updated 07/06/24 @ 16:53 by KHUSHBU Shah) Obesity, Class III, BMI 40-49.9 (morbid obesity) LFT elevation Peripheral sensory neuropathy due to type 2 diabetes mellitus Claudication in peripheral vascular disease Controlled type 2 diabetes mellitus Lumbar spondylosis Synovial cyst of popliteal space [Schultz], right knee History of cellulitis Osteoarthritis of right knee ELSIE (obstructive sleep apnea) Environmental allergies Family history of colon cancer in father Urinary frequency Anemia GERD (gastroesophageal reflux disease) Dysphagia Anxiety and depression High cholesterol Diabetes Severe persistent asthma Generalized arthritis Hypothyroid Morbid obesity Surgical History (Updated 08/31/24 @ 13:31 by JACKSON Power) Hx of colonoscopy Hx of appendectomy Hx of hysterectomy, total History of right hip replacement History of left hip replacement Hx of hernia repair Family History Mother HTN (hypertension) Diabetes Skin cancer Father No problems noted. Father HTN (hypertension) Heart attack Social History Household Members: Family Alcohol intake: never Patient Tobacco Use Status: Never used Tobacco Physical Exam Vital Signs: Last Vital Signs Pulse 94 10/05/24 13:46 BP 102/74 10/05/24 13:46 Pulse Ox 94 10/05/24 13:46 Oxygen Delivery Method Room Air 10/05/24 13:46 BMI result Body Mass Index 39.5 Results AMB Hemoglobin A1c AMB Hemoglobin A1c 7.1 % Last Edit by JACKSON Odell on 10/05/24 14:00 Results Reviewed Results Reviewed: Laboratory Last Values Glucose (Clinic) 118 mg/dL (60-115) H 10/05/24 13:49 Hgb A1c (Clinic) 7.1 % (4.0-6.0) H 10/05/24 13:55 Laboratory Tests 08/27/23 07/02/24 11:59 Unknown Plt Count 231 Creatinine 0.78 Estimated GFR > 60 AST 33 H ALT 30 Triglycerides 582 H Cholesterol 234 H HDL Cholesterol 31 L Vitamin B12 293 TSH 0.85 Urine Creatinine 130.43 Urine Microalbumin 6.0 Microalb/Creat Ratio 4.6 Assessment & Plan Assessment & Plan (1) Controlled type 2 diabetes mellitus: Code(s): E11.9 - Type 2 diabetes mellitus without complications Category: Medical (2) Obesity, Class III, BMI 40-49.9 (morbid obesity): Code(s): E66.813 - Obesity, class 3 Category: Medical (3) LFT elevation: Code(s): R79.89 - Other specified abnormal findings of blood chemistry Category: Medical Plan In summary this is a 63-year-old female with controlled type 2 diabetes with obesity on metformin and Ozempic. Continue metformin 750 mg daily. Increase Ozempic to 0.5 mg weekly. Bring glucometer to all appointments. Lifestyle modifications reviewed with the patient. Declines referral to dietitian. Check liver ultrasound to screen. Additional lab orders are pending. Follow up in 1 month for type 2 diabetes. Orders: Orders US abdomen tejada w elastography Today R79.89 - Other specified abnormal findings of blood chemistry AMB Hemoglobin A1c Today E11.59 - Type 2 diabetes mellitus with other circulatory complications Medications: New blood-glucose meter (FreeStyle Lite Meter kit) As directed to monitor blood glucose. 1 ea 0RF E11.9 - Type 2 diabetes mellitus without complications semaglutide (Ozempic) 0.5 mg (0.736 mL) subcut QWEEK 3 mL 2RF Discontinued semaglutide (Ozempic) for 4 weeks Discontinued Reason: Doctor's Order 0.25 mg (0.368 mL) subcut QWEEK 3 mL 1RF Coding Level of Care Code Est Pt Level 4 (52131) Complex EM visit Add On G2211 Diagnoses Controlled type 2 diabetes mellitus E11.9 Obesity, Class III, BMI 40-49.9 (morbid obesity) E66.813 LFT elevation R79.89
[2024-10-05 13:46] VITALS: BP 102/74; PULSE 94; O2SAT 94; BMI 39.5
[2024-10-05 13:55] LABS: Glucose, Whole Blood 118 mg/dL (60-115)
--- OUTSIDE RECORDS SUMMARY | 2024-10-05 14:36 | XMS_ITS | Encounter Summary ---
Author Organization [employer] Address [address] [facility] [address] [place] [address] Care Team Providers Care Seafood Farmer Name Role Phone Benjamin Ireland MD Primary Care Provider Leobardo Ortiz RN Unavailable [phone] Diane Sosa Unavailable Reason for Visit * Reason Comments Med Refill Encounter Details Date Type Department Care Team ([facility] Contact Info) Description 07/21/2024 Refill [facility] CH[facility] MED & PEDS [address] [place], [place] [phone] Benjamin Ireland MD [address] [place] [address] Other specified hypothyroidism Social History Tobacco Use [...] as of this encounter Plan of Treatment Not on file documented as of this encounter Visit Diagnoses Diagnosis Other specified hypothyroidism documented in this encounter Additional Health Concerns Assessment Noted Time PHQ-9 Depression Total Score: 12 025 1:40 PM EDT documented as of this encounter Care Teams Seafood Farmer Relationship Specialty Start Date End Date Benjamin Ireland MD [address] [place] [address] PCP - General Internal Medicine 12/02/17 Loebardo Ortiz, YESSICA [address] [place] [address] Registered Nurse Family Medicine 09/20/24 Diane Sosa 09/20/24 Leena Curtis Cattle ProducersFarmworker Fryer Farm 05/06[facility]23 [facility] documented as of this encounter
--- OUTSIDE RECORDS SUMMARY | 2024-10-05 14:36 | XMS_ITS | Encounter Summary ---
Author Organization [employer] Address [address] [facility] [address] [place] [address] Care Team Providers Care Real Estate Director Name Role Phone Benjamin Ireland MD Primary Care Provider Leobardo Ortiz RN Unavailable [phone] Diane Sosa Unavailable Reason for Visit * Reason Comments Med Refill Encounter Details Date Type Department Care Team ([facility] Contact Info) Description 08/02/2024 Refill [facility] CHC MED & PEDS [address] [place], [place] [phone] Benjamin Ireland MD [address] [place] [address] Other specified hypothyroidism Social History Tobacco Use [...] documented as of this encounter Care Teams Real Estate Director Relationship Specialty Start Date End Date Benjamin Ireland MD [address] [place] [address] PCP - General Internal Medicine 12/02/17 Leobardo Ortiz, YESSICA [address] [place] [address] Registered Nurse Family Medicine 09/20/24 Diane Sosa 09/20/24 Leena Curtis Social Service WorkerSupervisor [place] Department 05/06/23 [facility] documented as of this encounter
--- OUTSIDE RECORDS SUMMARY | 2024-10-05 14:36 | XMS_ITS ---
Author Organization [facility] Address [address] [facility] [address] [place] [address] Care Team Providers Care Hard Tile Setter Name Role Phone Benjamin Ireland MD Primary Care Provider Leobardo Ortiz RN Unavailable [phone] Diane Sosa Unavailable CM Complex Status:Outreach In Progress (Enrolling) Start date:09/20/2024 Enrollment reason:ADT Feed Overview ADT- Pt admitted to [facility] on 09/19/24. Case Team Name Relationship Phone Leobardo Ortiz RN(Responsible Staff) Registered N amada [phone] Continued Care and Services Coordination
--- OUTSIDE RECORDS SUMMARY | 2024-10-05 14:36 | XMS_ITS | Encounter Summary ---
Author Organization [employer] Address [address] [facility] [address] [place] [address] Care Team Providers Care Pony Cylinder Press Operator Name Role Phone Benjamin Ireland MD Primary Care Provider Leobardo Ortiz RN Unavailable [phone] Diane Sosa Unavailable Reason for Visit * Reason Comments Med Refill Encounter Details Date Type Department Care Team ([facility] Contact Info) Description 07/29/2024 Refill [facility] CHC MED & PEDS [address], [place] [phone] Benjamin Ireland MD [address] [place] [address] Other specified hypothyroidism Social History Tobacco Use [...] documented as of this encounter Care Teams Pony Cylinder Press Operator Relationship Specialty Start Date End Date Benjamin Ireland MD [address] [place] [address] PCP - General Internal Medicine 12/02/17 Leobardo Ortiz, YESSICA [address] [place] [address] Registered Nurse Family Medicine 09/20/24 Diane Sosa 09/20/24 Leena Curtis Dredge MateBookkeeper Receptionist 05/06/23 [facility] documented as of this encounter
--- OUTSIDE RECORDS SUMMARY | 2024-10-05 14:36 | XMS_ITS ---
Author Organization [employer] Address [address] [facility] [address] [place] [address] Care Team Providers Care Rn Social Work Name Role Phone Benjamin Ireland MD Primary Care Provider Leobardo Ortiz RN Unavailable [phone] Diane Sosa Unavailable CHW Complex Status:Outreach In Progress (Enrolling) Start date:09/20/2024 Enrollment reason:ADT Feed Overview ADT- Pt admitted to [facility] on 09/19/24. Case Team Name Relationship Phone Diane Sosa(Responsible Staff) Continued Care and Services Coordination
--- OUTSIDE RECORDS SUMMARY | 2024-10-05 14:37 | XMS_ITS | Encounter Summary ---
Author Organization [employer] Address [address] [facility] [address] [place] [address] Care Team Providers Care Vessel Ordinary Seaman Name Role Phone Benjamin Ireland MD Primary Care Provider Leobardo Ortiz RN Unavailable [phone] Diane Sosa Unavailable Reason for Visit * Reason Comments Med Refill Encounter Details Date Type Department Care Team ([facility] st Contact Info) Description 03/22/2022 Refill [facility] CHC MED & PEDS [address] [place], [place] [phone] Benjamin Ireland MD [address] [place] [address] Moderate persistent allergic asthma (Primary Dx); Type 2 diabetes mellitus with hyperosmolarity without coma, without long-term current use of insulin (CMS/HCC); Other specified hypothyroidism; Stress incontinence of urine; [...] coma, without long-term current use of insulin (CMS/HCC) Other specified hypothyroidism Stress incontinence of urine Intertrigo Other specified erythematous condition documented in this encounter Additional Health Concerns Assessment Noted Time PHQ-9 Depression Total Score: 0 02/14/19 23 11:24 AM EST documented as of this encounter Care Teams Vessel Ordinary Seaman Relationship Specialty Start Date End Date Benjamin Ireland MD [address] [place] [address] PCP - General Internal Medicine 12/02/17 Leobardo Ortiz, YESSICA [address] [place] [address] Registered Nurse Family Medicine 09/20/24 Diane Sosa 09/20/24 Leena Curtis General Surgery Physician AssistantChuck Boner 05/06/23 [facility] 07/13/24 documented as of this encounter
--- OUTSIDE RECORDS SUMMARY | 2024-10-05 14:37 | XMS_ITS | Encounter Summary ---
Author Organization [employer] Address [address] [facility] [address] [place] [address] Care Team Providers Care It Communications Manager Name Role Phone Benjamin Ireland MD Primary Care Provider [phone] Leobardo Ortiz RN Unavailable [phone] Diane Sosa Unavailable Encounter Details Date Type Department Care Team ([facility] st Contact Info) Description 11/19/2023 Orders Only [facility] CHC MED & PEDS [address] [place], [place] [phone] Benjamin Ireland MD [address] [place], [place] [phone] Social History Tobacco Use Types Packs/Day Years [...] as of this encounter Care Teams It Communications Manager Relationship Specialty Start Date End Date Benjamin Ireland MD [address] [place] [address] PCP - General Internal Medicine 12/02/17 Leobardo Ortiz, YESSICA [address] [place] [address] Registered Nurse Family Medicine 09/20/24 Diane Sosa 09/20/24 Leena Curtis Clinical Support NurseNarcotics Detective 05/06/23 [facility] documented as of this encounter
--- OUTSIDE RECORDS SUMMARY | 2024-10-05 14:37 | XMS_ITS | Encounter Summary ---
Author Organization [employer] Address [address] [facility] 7t [place] [address] Care Team Providers Care Eyewear Manufacturing Supervisor Name Role Phone Benjamin Ireland MD Primary Care Provider [phone] Leobardo Ortiz RN Unavailable [phone] Diane Sosa Unavailable Encounter Details Date Type Department Care Team (Late st Contact Info) Description 06/18/2024 Orders Only [facility] CHC MED & PEDS [address] [place], [place] [phone] Benjamin Ireland MD [address] [place], [place] [phone] Chronic pain syndrome Social History Tobacco Use Types Packs/Day Years Used Date Smoking Tobacco: Never Smokeless Tobacco: Never Depression Answer Date Recorded Patient Health Questionnaire-9 Score 12 04/29/2024 Patient Health Questionnaire-9 Score 12 04/29/2024 Last PHQ-9: Questionnaire Data Not on file 0 04/29/2024 Housing Stability Answer Date Recorded What is your housing situation today? I have flavia mindi 04/15/[address] you li [...] documented as of this encounter Care Teams Eyewear Manufacturing Supervisor Relationship Specialty Start Date End Date Benjamin Ireland MD [address] [place] [address] PCP - General Internal Medicine 12/02/17 Leobardo Ortiz, YESSICA [address] [place] [address] Registered Nurse Family Medicine 09/20/24 Diane Sosa 09/20/24 Leena Curtis Director AdultGrease Refiner Operator 05/06/23 [facility] documented as of this encounter
--- OUTSIDE RECORDS SUMMARY | 2024-10-05 14:37 | XMS_ITS | Clinical Summary ---
Author Organization [employer] Address [address] [facility] [address] [place] [address] Care Team Providers Care Partner Name Role Phone Benjamin Ireland MD Primary Care Provider Leobardo Ortiz RN Unavailable [phone] Diane Sosa Unavailable Allergies No known active allergies Medications * [...] 0.1 mL into affected nostril(s). 022 Active Blood Glucose Monitoring Suppl (FreeStyle Lite) device Inject under the skin if needed. Use as instructed Active Elastic Bandages & Supports (Medical Compression Socks) misc Size X-large Activ e FreeStyle lancetsIndication s:Type 2 diabetes mellitus without complication, without long-term current use of insulin ([facility]) 1 each by Other route in the morning. 28 gauge. Use as instructed 100 each 023 Active Januvia 100 MG tabletIndications :Type 2 diabetes mellitus without complication, without long-term current use of insulin ([facility]) ALEJANDRA PRYOR ZAPIEN 90 tablet 1 023 Active Additional Information Patient not taking.Reason: Not effective (pt actively filling Trulicity - duplicative tx), Reported on 07/16/2024 Acetaminophen Extra Strength 500 MG tabletIndications :Body aches TAKE 2 TABLETS (1,000 MG) BY MOUTH IF NEEDED EACH DAY FOR MILD PAIN. 60 tablet 023 Active Advair Diskus 500-50 MCG/ACT aerosol powderIndications :Unspecified asthma with (acute) exacerbation INHALE 1 DOSE BY MOUTH TWICE DAILY 12 HOURS APART. RINSE MOUTH AFTER USE 60 each 5 023 Active FREESTYLE LITE test stripIndications: Type 2 diabetes mellitus without complication, without long-term current use of insulin ([facility]) USE 1 EACH BY OTHER ROUTE 1 (ONE) TIME EACH DAY AT THE SAME TIME. 100 strip 11 024 Active mirtazapine (Remeron SolTab) 15 MG disintegrating tabletIndications :Other depression Take 1 tablet (15 mg) by mouth at bedtime. 30 tablet 024 Active albuterol (2.5 MG/3ML) 0.083% [...] EVERY DAY 90 capsule 3 024 Active Aspirin Low Dose 81 MG EC tablet Take 1 tablet by mouth Once per day. Active atorvastatin (Lipitor) 40 MG tablet Take 40 mg by mouth at bedtime. Active Pulmicort Flexhaler 90 MCG/ACT inhaler Inhale 1 puff if needed in the morning, at noon, in the evening, and at bedtime (wheezing/short ness of breath). Active cyanocobalamin (Vitamin B-12) 1000 MCG tablet Take 1 tablet by mouth Once per day. Active fenofibrate micronized (Antara) 130 MG capsule Take 1 capsule by mouth Once per day. Active montelukast (Singulair) 10 MG tablet Take 10 mg by mouth Once per day. Active traZODone (Desyrel) 100 MG tabletIndications :Primary insomnia Take 2 tablets (200 mg) by mouth at bedtime. 60 tablet Active FLUoxetine (PROzac) 20 MG capsule TAKE 2 CAPSULES BY MOUTH EVERY MORNING 180 capsule 1 Active levothyroxine (Synthroid, Levoxyl) 50 MCG tabletIndications :Other specified hypothyroidism TAKE 1 TABLET BY MOUTH EVERY DAY 90 tablet 1 Active meclizine (Antivert) 12.5 MG tabletIndications :Dizziness Take 1 tablet (12.5 mg) by mouth every 6 (six) hours during the day. 30 tablet 2 Active acetaminophen-cod eine (Tylenol w/ Codeine #3) 300-30 MG tabletIndications :Chronic pain syndrome Take 1 tablet by mouth every 8 (eight) hours. As needed 84 tablet Active cyclobenzaprine (Flexeril) 10 MG tablet Take 1 tablet (10 mg) by mouth 3 times daily for 10 days. 30 tablet 025 2024 Active Ozempic, 0.25 or 0.5 MG/DOSE, 2 MG/3ML solution pen-injector Inject 0.25 mg under the skin every 7 (seven) days. Active tolterodine (Detrol) 2 MG tablet Take 1 tablet by mouth. 2 times every day 021 2024 Discontinued(M ed list cleanup (will not trigger notification to Pharmacy)) magnesium 200 MG tabletIndications :Hypomagnesemia Take 1 tablet by mouth daily 90 tablet 1 023 2024 Discontinued(M ed list cleanup (will not trigger notification to Pharmacy)) lidocaine (Lidoderm) 5 % patchIndications: Back pain, unspecified back location, unspecified back pain laterality, unspecified chronicity Apply 1 patch topically in the morning. Remove & discard patch within 12 hours or as directed by MD. 30 patch 11 023 2024 Discontinued(M ed list cleanup (will not trigger notification to Pharmacy)) triamcinolone (Kenalog) 0.1 % creamIndications: Diabetic necrobiosis lipoidica (CMS/HCC) Apply topically if needed in the morning and at bedtime (pain and swelling). 30 g 2 023 2024 Discontinued(M ed list cleanup (will not trigger notification to Pharmacy)) Advair Diskus 250-50 MCG/ACT aerosol powderIndications :Moderate persistent allergic asthma INHALE 1 PUFF BY MOUTH 2 TIMES EVERY DAY APPROXIMATELY 12 HOURS APART AT THE SAME TIMES EACH DAY 60 each 5 023 2024 Discontinued(M ed list cleanup (will not trigger notification to Pharmacy)) oxybutynin (Ditropan) 5 MG tabletIndications :Stress incontinence of urine TAKE 1 TABLET BY MOUTH EVERY DAY 90 tablet 1 2024 Discontinued(M ed list cleanup (will not trigger notification to Pharmacy)) albuterol (5 MG/ML) 0.5% nebulizer solution TAKE 0.5 ML VIA NEBULIZER EVERY 6 HOURS. BY NEBULIZATION ROUTE 3 TIMES EVERY DAY 20 mL 3 2024 Discontinued(M ed list cleanup (will not trigger notification to Pharmacy)) predniSONE (Deltasone) 20 MG tabletIndications :Moderate persistent asthma with exacerbation,Acut e cough 2 tabs once a day 10 tablet 2024 Discontinued(M ed list cleanup (will not trigger notification to Pharmacy)) cyclobenzaprine (Flexeril) 10 MG tablet Take 1 tablet (10 mg) by mouth 3 times daily for 10 days. 30 tablet 024 2024 Discontinued(R eorder (will not trigger notification to Pharmacy)) Trulicity 0.75 MG/0.5ML solution auto-injector Inject 0.75 mg under the skin 1 (one) time per week. 025 2024 Discontinued(M ed list cleanup (will not trigger notification to Pharmacy)) acetaminophen-cod eine (Tylenol w/ Codeine #3) 300-30 MG tabletIndications :Chronic pain syndrome Take 1 tablet by mouth every 8 (eight) hours. As needed 84 tablet 025 2024 Discontinued(R eorder (will not trigger notification to Pharmacy)) SITagliptin (Januvia) 50 MG tabletIndications :Type 2 diabetes mellitus without complication, without long-term current use of insulin ([facility]) Take 1 tablet (50 mg) by mouth Once per day. 30 tablet 11 025 2024 Discontinued(M ed list cleanup (will not trigger notification to Pharmacy)) predniSONE (Deltasone) 20 MG tablet Take 2 tablets (40 mg) by mouth Once per day for 5 days. 10 tablet 025 2024 benzonatate (Tessalon Perles) 100 MG capsule Take 1 capsule (100 mg) by mouth if needed in the morning, at noon, and at bedtime for cough. Do not crush or chew. 90 capsule 025 2024 Discontinued(M ed list cleanup (will not trigger notification to Pharmacy)) Active Problems Problem Noted Date Diagnosed Date Dysuria 10/01/2024 Assessment & Plan (10/01/2024 11:34 AM EDT): POC dipstick negative nitrates/LE, given recently antibiotic use and diarrhea, concern of doing empiric treatment and worsening symptoms, at this point proceed with Ucx. Abscess, perianal 10/01/2024 Assessment & Plan (10/01/2024 11:40 AM EDT): R sided perianal induration concern of abscess vs phlegmon, given limitations in clinic will need to refer urgently to surgical provider. Patient was also counseled if worsening to visit ED. Neck pain 10/01/2024 Assessment & Plan (10/01/2024 11:41 AM EDT): Paraspinal pain, difficult to assess given fat pad, polytenderness in area difficult to determine location of pain, at this moment proceed with [facility] discharge follow-up 07/20/2024 Assessment & Plan (07/20/2024 3:49 PM EDT): Patient was hospitalized [facility] from 07/08-07/11, due to dizziness, BRENNAN, nausea and unsteady gait for the past week. Stroke workup unremarkable. Patient found to be orthostatic. PT was consulted and recommended patient to be discharged with services. Patient endorsed L eye irritation, in which there was concern for keratitis. Lipid panel found to be elevated with triglycerides to 700 mg/dL and cholesterol regimen adjusted. Patient discharged to home with services to follow up with ophthalmology. Patient refers feeling much better. She has scheduled appointment with ophtalmology. Decreased trazodone to 200mg and will order blood work for further eval Arthritis of lumbar spine 05/18/2024 Overview (05/18/2024): Lumbosacral XR from 01/09/24 at ED: No evidence of acute bony injuries. Osteopenia. Mild degenerative changes in the lumbar spine unchanged. Bilateral hip replacement prosthesis, partially visualized only. Soft tissue calcifications probably in the soft tissues of the buttocks bilaterally. Assessment & Plan (05/18/2024 3:00 PM EDT): -Good engagement and participation with Group Medical Visit model, today was first visit. -Encouraged multifactorial approach to pain control including pharm and non- pharm modalities -UTOX and Pill count as expected detention (current) use of opiate analgesic 09/2024 Overview (05/18/2024): Medication: Tylenol-Codeine #3 Q8hrs PRN Indication: arthritis of lumbar spine, s/p hip surgery Last CLINICAL DOCUMENT IMPROVEMENT EDUCATOR Agreement: 08/12/23 Assessment & Plan (05/18/2024 3:01 PM EDT): Timeline: - 05/18/24: Initial group visit - utox/pill count as expected Moderate episode of recurrent major depressive d isorder 10/06/2023 Uncomplicated bereavement 10/06/2023 Cough 07/19/2021 Diarrhea 05/17/2021 Assessment & Plan (10/01/2024 11:36 AM EDT): Acute on chronic in the setting of recently hospitalization with use of antibiotics no red flags, recommended supportive care. Idiopathic osteoarthritis 05/17/2021 Sleep apnea 04/05/2021 Moderate persistent allergic asthma 03/01/2021 Hypercholesterolemia 02/04/2021 Cramp of both lower extremities 01/31/2021 Symptom of diarrhea 01/31/2021 Mixed stress and urge urinary incontinence 03/01 Chronic pain syndrome 03/07/2017 Hypothyroidism 02/05/2017 Mixed anxiety and depressive disorder 02/05/2017 Obesity 02/05/2017 DM type 2 (diabetes mellitus, type 2) 03/08/2006 Assessment & Plan (08/24/2024 1:35 PM EDT): Om metformin and trulicity, last A1c was 6.5, continue low carb/no sugar diet Encounters Date Type Department Care Team Description 10/05/2024 Orders Only GENERIC EXTERNAL DATA DEPARTMENT Provider, Generic External Data 10/05/2024 Telephone [facility] [address] [place] [address] Benjamin Ireland MD No Show 10/01/2024 10:45 AM EDT Office Visit [facility] [address] [place] [address] Janee Lechuga MD Dysuria (Primary Dx); Diarrhea, unspecified type; Abscess, perianal; Neck pain 10/01/2024 Travel 10/01/2024 Telephone [facility] [address] [place] [address] Benjamin Ireland MD Nurse Triage 09/30/2024 Telephone [facility] [address] [place] [address] Benjamin Ireland MD fyi 09/30/2024 Patient Outreach [facility] [address] [place] [address] [phone] Benjamin Ireland MD 09/30/2024 Patient Outreach [address] [address] Benjamin Ireland MD Care Coordination (C3 CM_LOC Sosa telephone call outreach) 09/29/2024 Telephone [facility] [address] [place] [phone] Marya Montero, RN CLINICAL DOCUMENT IMPROVEMENT EDUCATOR 09/29/2024 Telephone [facility] [address] [place] [address] Benjamin Ireland MD FYI 09/28/[address] [address] Benjamin Ireland MD Nurse Triage 09/27/[address] [phone] Benjamin Ireland MD FYI 09/27/2024 Patient Outreach [facility] [address] [place] [phone] Benjamin Ireland MD Transition Of Care (Tcm) (HDF unscheduled. ) 09/27/[address] [phone] Benjamin Ireland MD Hospital Follow-up 09/21/2024 Patient Outreach [address] [address] Benjamin Ireland MD 09/21/2024 Patient Outreach [address] [phone] Benjamin Ireland MD 09/20/2024 Patient Outreach [address] [address] Benjamin Ireland MD Care Coordination (C3 [facility] Diane Sosa chart review) 09/20/2024 Patient Outreach [address] [phone] Benjamin Ireland MD Care Coordination (C3CM- chart review) 09/20/2024 Patient Outreach [address] [address] Benjamin Ireland MD 09/15/2024 Refill [facility] [address] [place] [address] Benjamin Ireland MD Chronic pain syndrome 09/02/2024 Telephone [facility] [address] [place] [address] Dorina Deluna, OD 09/01/2024 3:00 PM EDT Office Visit [facility] [address] [place] [address] Judith Morales MD Acute bronchitis, unspecified organism (Primary Dx) 09/01/2024 Travel 09/01/2024 Telephone [facility] [address] [place] [address] Benjamin Ireland MD Nurse Triage 08/31/2024 Orders Only GENERIC EXTERNAL DATA DEPARTMENT Provider, Generic External Data 08/26/2024 9:30 AM EDT Office Visit [facility] [address] [place] [address] Benjamin Ireland MD Generalized abdominal pain (Primary Dx); Dizziness; Chronic daily headache; Symptom of diarrhea; Type 2 diabetes mellitus without complication, without long-term current use of insulin ([facility]) 08/26/2024 Travel 08/16/2024 Travel 08/16/2024 Refill [facility] [address] [place] [address] Benjamin Ireland MD Chronic pain syndrome 08/10/2024 Telephone [facility] [address] [place] [address] Benjamin Ireland MD ER Follow-up 08/09/2024 Telephone [facility] [address] [place] [address] Benjamin Ireland MD ER Follow-up 08/05/2024 Refill [facility] [address] [place] [address] Benjamin Ireland MD Other specified hypothyroidism 08/03/2024 Results Follow-Up [facility] [address] [place] [address] Bee Latham RN POCT glucose manually resulted, POCT hemoglobin docked device, Cologuard colon cancer screening, Additional followed-up results: 7 08/02/2024 Orders Only [facility] [address] [place] [address] Jenifer Covarrubias MD Positive colorectal cancer screening using Cologuard test (Primary Dx) 08/02/2024 Refill [facility] [address] [place] [address] Benjamin Ireland MD Other specified hypothyroidism 07/30/[address] [address] Benjamin Ireland MD Medication Question (I?/) 07/30/[address] [address] Benjamin Ireland MD Medication Question 07/29/2024 Refill [facility] [address] [place] [address] Benjamin Ireland MD Other specified hypothyroidism 07/23/2024 Telephone [facility] [address] [place] [address] Rosa Navarro FNP 07/23/[address] [address] Benjamin Ireland MD Nurse Triage 07/22/[address] [address] Benjamin Ireland MD Medication Question 07/21/2024 Refill [facility] [address] [place], [place] [phone] Benjamin Ireland MD Other specified hypothyroidism 07/20/2024 2:45 PM EDT Office Visit [facility] [address] [place] [address] Saad Shankar MD Hospital discharge follow-up (Primary Dx); Type 2 diabetes mellitus without complication, without long-term current use of insulin ([facility]); Primary insomnia 07/20/2024 Travel 07/19/2024 Patient Outreach [facility] [address] [place] [phone] Benjamin Ireland MD Care Coordination (CHW outreach for SDOH PT-1 and food needs-LVM ) 07/19/2024 Telephone [facility] [address] [place] [address] Benjamin Ireland MD PT1 07/17/2024 Refill [facility] [address] [place] [address] Benjamin Ireland MD Other specified hypothyroidism 07/16/2024 Telephone [facility] [address] [place] [address] Benjamin Ireland MD Hospital Follow-up 07/16/2024 Refill [facility] [address] [place] [address] Benjamin Ireland MD Chronic pain syndrome 07/15/2024 Telephone [facility] [address] [place] [phone] Benjamin Ireland MD Med Refill 07/14/2024 Telephone [facility] [address] [place] [address] Benjamin Ireland MD Hospital Follow-up 07/14/2024 Patient Outreach [facility] [address] [place] [address] Benjamin Ireland MD Transition Of Care (Tcm) (HDF unscheduled. ) 07/14/2024 Telephone [facility] [address] [place] [address] Benjamin Ireland MD Hospital Follow-up 07/13/2024 Refill [facility] [address] [place] [address] Benjamin Ireland MD Other specified hypothyroidism 07/13/2024 Telephone [facility] [address] [place] [address] Benjamin Ireland MD requesting call 07/13/2024 Orders Only [facility] [address] [facility] [address] Benjamin Ireland MD 07/12/2024 Telephone [facility] [address] [place] [address] Benjamin Irleand MD Verbal Order 07/11/2024 Refill [facility] [address] [place] [address] Benjamin Ireland MD Other specified hypothyroidism 07/08/2024 Patient Outreach [facility] [address] [place] [address] Benjamin Ireland MD Care Coordination (C3/CM LVM) 07/06/2024 Telephone [facility] [address] [place] [address] Benjamin Ireland MD Medication Question 07/06/2024 Orders Only GENERIC EXTERNAL DATA DEPARTMENT Provider, Generic External Data 07/06/2024 Telephone [facility] [address] [place] [address] Benjamin Ireland MD Results from Last 3 Months Immunizations Immunization Administration Dates Next Due Influenza injectable quadriv alent IIV4 with preservative 02/05/2017 Influenza injectable quadriv alent preservative free 12/25/2022,02/14/2022,01/16/2021 Influenza, IIV3, injectable 01/16/2021, 7 Influenza, Injectable, MDCK, preservative free 03/10/2024 Moderna Covid-19 Vaccine 12+ 05/26/2020,04/29/19 21 Pneumococcal [...] Sign Reading Time Taken Comments Blood Pressure 132/109 09/01/2024 3:09 PM EDT Pulse 85 09/01/2024 3:09 PM EDT Temperature 36.6 C (97.9 F) 09/01/2024 3:09 PM EDT Respiratory Rate 28 09/01/2024 3:09 PM EDT Oxygen Saturation 96% 09/01/2024 3:09 PM EDT Inhaled Oxygen Concentration - - Weight 106 kg (233 lb) 09/01/2024 3:09 PM EDT Height 162.6 cm (5' 4 ) 08/26/2024 9:57 AM EDT Body Mass Index 39.99 08/26/2024 9:57 AM EDT Plan of Treatment Health Maintenance Due Date Last Done Comments CT Colonography 1961 Colonoscopy 1961 FOBT 1961 HIV Screening 1961 Sigmoidoscopy 1961 Disability Screening 1961 Eye Exam 1971 Pap Smear 1982 RSV Patients and Patients Aged 60 years or older (1 - Risk 60-74 years 1-dose series) 2021 FIT 08/05/2021 08/05/2020 Cervical Cancer Screening 10/21/2022 HPV/Cotest 10/21/2022 10/21/2017 Diabetes: Urine Protein Screening 02/14/2023 02/14/2022, 05/08/2020 Influenza Vaccine (#1) 2024 , 12/25/2022, 02/14/2022, Additional history exists Depression Monitoring 10/30/2024 04/29/2024, 025 Diabetes: Hemoglobin A1C 02/26/2025 025, 04/09/2024, 10/06/2023, Additional history exists Alcohol/Substance Use Screening 04/29/2025 04/29/2024 Diabetes: Foot Exam 04/29/2025 04/29/2024, 04/03/2023, 04/03/2023, Additional history exists SDOH Screening 04/29/2025 04/29/2024 Lipid Panel 07/02/2025 07/02/2024, 082 07/2023, 04/03/2023, Additional history exists Tobacco Screening 08/26/2025 08/26/2024 Mammogram 01/18/2026 01/19/2024, 04/2 , 05/30/2021, Additional history exists Colorectal Cancer Screening 07/19/2027 FIT DNA/Cologuard 07/19/2027 07/18/2024 DTaP/Tdap/Td Vaccines (2 - Td or Tdap) 01/22/2029 01/22/2019 Zoster Vaccines Completed 03/30/2019, 01/22/2019 Hepatitis C Screening Completed 02/14/2022 Pneumococcal Vaccine: 50+ Years Completed 04/03/2023 COVID-19 Vaccine Completed 03/10/2024, , 04/28/2020 HIB Vaccines Aged Out No longer eligi [...] patient's age to complete this topic Meningococcal B Vaccine Aged Out No l onger eligible based on patient's age to complete [...] Associated Diagnosis Comments GLUCOSE, WHOLE BLOOD Routine 10/05/2024 1:49 PM EDT URINALYSIS, COMPLETE Routine 10/01/2024 12:38 PM EDT Dysuria CULTURE, URINE, ROUTINE Routine 10/02/19 12:00 AM EDT Dysuria GLUCOSE, WHOLE BLOOD Routine 08/31/2024 1:30 PM EDT POCT GLUCOSE Routine 08/26/2024 10:33 AM EDT Generalized abdominal pain Symptom of diarrhea POCT GLYCATED HEMOGLOBIN, TOTAL Routine 08/26/2024 10:32 AM EDT Generalized abdominal pain Symptom of diarrhea POCT GLUCOSE Routine 07/20/2024 2:21 PM EDT Type 2 diabetes mellitus without complication, without long-term current use of insulin (CMS/HCC) LAB COLOGUARD COLON CANCER SCREEN Routine 07/18/2024 12:30 PM EDT Type 2 diabetes mellitus without complication, without long-term current use of insulin (CMS/HCC) Dizziness Screening for colon cancer GLUCOSE, WHOLE BLOOD Routine 07/06/2024 4:03 PM EDT LIPID PANEL, STANDARD Routine 07/02/2024 12:00 AM EDT Type 2 diabetes mellitus without complication, without long-term current use of insulin (CMS/HCC) Dizziness Screening for colon cancer BI MAMMOGRAM SCREENING TOMOSYNTHESIS BILATERAL Routine 01/19/2024 2:40 PM EST HEPATITIS C AB W/REFL TO HCV RNA, QN, PCR Routine 02/14/2022 12:03 PM EST ALBUMIN, RANDOM URINE W/CREATININE Routine 02/14/2022 12:03 PM EST [facility] HISTORICAL FECAL IMMUNOCHEMICAL TEST X1 (FIT) Routine 08/05/2020 12:00 AM EDT [facility] HISTORICAL HPV MRNA E6/E7 Routine 10/21/2017 10:24 AM EDT from Last 3 Months or Most Recently Relevant to Health Maintenance Results * (ABNORMAL) Glucose, Whole Blood (10/05/2024 1:49 PM EDT) Only the most recent of3 resultswithin the time period is included. Pathologist [facility] Glucose, Whole Blood 118(H) 60 - 115 mg/dL [facility] Comment:METER #: [id number] Testing performed in the Endocrinology Department [address] , [address], [facility]. 10/05/2024 1:49 PM EDT 10/05/2024 1:55 PM EDT us Generic External Data Provider LAB BLOOD ORDERAB LES Final Result [facility] [address] [place] [phone] * (ABNORMAL) Urinalysis Complete (10/01/2024 12:38 PM EDT) Color Urine Dark Yellow [facility] Appearance Urine Clear [facility] PH 5.0 5.0 - 9.0 [facility] Glucose Urine UA Negative Negative mg/dL [facility] Urine Blood Negative Negative [facility] Specific [place] - Urine >=1.030(H) 1.005 - 1.025 [facility] Urine Protein Trace Neg-Trace mg/dL [facility] Urine Ketones Trace Negative mg/dL [facility] Nitrite Urine Negative Negative [facility] Leukocyte Esterase Urine Trace(A) Negative [facility] RBC Urine 0-2 0 - 2 /HPF [facility] Urine WBC 0-5 0 - 5 /HPF [facility] Urine Squamous Epithelial Cell 6-10 0 - 2 /HPF [facility] Urine Bacteria None Seen None Seen [facility] Hyaline Casts, Urine 11-20 0 - 2 /LPF [facility] Urine (Urine, Random) 10/01/2024 12:38 PM EDT 10/01/2024 4:16 PM EDT us Janee Lechuga MD LAB URINE ORDERABLES Final Re sult Performing Organization Address [facility] Co de Phone Number [facility] [address] [place] [phone] * Culture, Urine, Routine (10/01/2024 12:00 AM EDT) Urine Urine specimen obtained by clean catch procedure / Unknown 10/01/2024 10/01/2024 Comment:UACC Narrative [facility] - 10/04/2024 8:44 AM EDT Urine Culture Report Result Urine Culture 10,000 to 50,000 cfu/ml Urine Culture Mixed bacterial aamir characteristic of Urine Culture urogenital contamination. Specimen Source: Urine clean catch us Janee Lechuga MD LAB MICROBIOLOGY - GENERAL OR DERABLES Final Result Performing Organization Address [facility] Co de Phone Number [facility] [address] [place] [phone] * POCT Glucose (08/26/2024 10:33 AM EDT) Only the most recent of2 resultswithin the time period is included. [facility] Glucose Blood, POC 116 60 - 200 mg/dL QC Media Lot # [id number] Lot# Expiration Date ,725 Comment:fasting Blood Capillary blood specimen / Unknown 08/26/2024 10:33 AM EDT Benjamin Ireland MD POINT OF CARE TEST ENTER/ED IT ORDERABLES Final Result * (ABNORMAL) POCT HGB A1C (08/26/2024 10:32 AM EDT) [facility] Hemoglobin A1C 6.2(A) 4.0 - 5.7 % QC Media Lot # [id number] Lot# Expiration Date Blood 08/26/2024 10:3 2 AM EDT Benjamin Ireland MD POINT OF CARE TEST ENTER/ED IT ORDERABLES Final Result * (ABNORMAL) Cologuard?? colon cancer screening (07/18/2024 12:30 PM EDT) [facility] Cologuard Result Positive( A) Negative 07/23/2024 9:30 PM EDT [employer] (CLIA #:[id number]) Comment: The Cologuard (TM) test was performed on this specimen. POSITIVE TEST RESULT. A positive Cologuard result should be followed with a colonoscopy or visual examination of the colon. The normal value (reference range) for this assay is negative. TEST DESCRIPTION: Composite algorithmic analysis of stool DNA-biomarkers with hemoglobin immunoassay. Quantitative values of individual biomarkers are not reportable and are not associated with individual biomarker result reference ranges. Cologuard is intended for colorectal cancer screening of adults of either sex, 45 years or older, who are at average-risk for colorectal cancer (CRC). Cologuard has been approved for use by the U.S. FDA. The performance of Cologuard was established in a cross sectional study of average-risk adults aged 50-84. Cologuard performance in patients ages 45 to 49 years was estimated by sub-group analysis of near-age groups. Colonoscopies performed for a positive result may find as the most clinically significant lesion: colorectal cancer [4.0%], advanced adenoma (including sessile serrated polyps greater than or equal to 1cm diameter) [20%] or non- advanced adenoma [31%]; or no colorectal neoplasia [45%]. These estimates are derived from a prospective cross-sectional screening study of 10,000 individuals at average risk for colorectal cancer who were screened with both Cologuard and colonoscopy. (Smith Almendarez. et al, N Engl J Med 2014;370(14):5956-6807.) Cologuard may produce a false negative or false positive result (no colorectal cancer or precancerous polyp present at colonoscopy follow up). A negative Cologuard test result does not guarantee the absence of CRC or advanced adenoma (pre-cancer). The current Cologuard screening interval is every 3 years. ([place] [employer] and U.S. Multi-Society Task Force). Cologuard performance data in a 10,000 patient pivotal study using colonoscopy as the reference method can be accessed at the following location: www.ioSemantics/results. Additional description of the Cologuard test process, warnings and precautions can be found at www.Data Eliterd.com. Stool specimen (specimen) 07/18/2024 12:30 PM EDT 07/20/2024 1:47 PM EDT us Jenifer Covarrubias MD LAB MOLECULAR DIAGNOSTICS ORD ERABLES Final Result [employer] (CLIA #:[id number]) [address] [place] [address], * (ABNORMAL) Lipid Panel, Standard (07/02/2024 12:00 AM EDT) Triglycerides 582(H) <150 mg/dL [facility] Comment:Desirable Triglyceri de: less than 150 mg/dLBorderline High Triglyceride 150-199 mg/dLHigh Triglyceride: 200-499 mg/dLVery High Triglyceride: greater than or equal to 5OO mg/dL Cholesterol 234(H) <200 mg/dL [facility] Comment:Desirable Cholestero l: less than 200 mg/dLBorderline High Cholesterol: 200-239 mg/dLHigh Cholesterol: greater than 239 mg/dL LDL Cholesterol Calculated TNP <100 mg/dL [facility] Comment:Unable to calculate the LDL. The formula of Friedwald,Jo, and Nam is only valid if the triglycerides areless than 400 mg/dl. HDL Cholesterol 31(L) >40 mg/dL [facility] Comment:Desirable HDL: great er than 40 mg/dL Note: This HDL assay may give artificially low results in patients with liver disease. Blood Venous blood specimen / Unknown 07/02/2024 07/02/2024 us Jenifer Covarrubias MD LAB BLOOD ORDERABLES Final Re sult [facility] [address] [place] [address] [phone] * BI Mammogram Screening Tomosynthesis Bilateral (01/19/2024 2:40 PM EST) Anatomical Region Laterality Modality Breast Bilateral Mammography 01/19/2024 2:40 PM EST Narrative 01/23/2024 5:43 PM EST [facility] [address] [place] [address] Mammography Report Signed Patient: Mel More MR#: [id number] : 1960 Acct:[id number] Age/Sex: 63 / F ADM Date: 01/19/24 Loc: HO.MAMMO Attending Dr: Benjamin Ireland MD Ordering Physician: Benjamin Ireland MD Results: 1 Negative Date of Service: 01/19/24 Follow Up: 1 Year From Orig inal Mammogram Procedure(s): MM tomosynthesis screening BI Accession Number(s): [id number] cc: Benjamin Ireland MD EXAMINATION: MM SCREENING [...] by: Larissa Ware DO 01/23/2024 05:40 PM [facility] Dictated By: Larissa Ware DO Signed By: <Electronically signed by Larissa Ware DO in OV> 01/23/24 1740 DD/ 1440 TD/TT: 01/19/24 1455 Radiologic Electronic Specialist: Procedure Note Donotuseinterpreter, Image - 01/23/2024 [facility] [address] [place], [place] [address] Mammography Report Signed Patient: Mel More#: [id number] : 2Acct:[id number] Age/Sex: 63 / FADM Date: 01/19/24 Loc: HO.MAMMO Attending Dr: Benjamin Ireland MD Ordering Physician: Benjamin Ireland MDResults: 1 Negative Date of Service: 01/19/24Follow Up: 1 Year From Orig inal Mammogram Procedure(s): MM tomosynthesis screening BI Accession Number(s): [id number] cc: Benjamin Ireland MD EXAMINATION: MM SCREENING [...] 01/23/24 1740 DD/ 1440 TD/TT: 01/19/24 1455 Radiologic Electronic Specialist: us Benjamin Ireland MD IMG BI PROCEDURES Final Res ult * (ABNORMAL) Albumin, Random Urine W/Creatinine (02/14/2022 12:03 PM EST) Creatinine, Random Urine 207 20 - 275 mg/dL [facility] [place] [employer] Albumin, Urine 6.6 See Note: mg/dL [facility] [employer] Comment: Reference Range: Reference Range Not established Albumin/Creatinin e Ratio, Random Urine 32(H) <30 mcg/mg creat [facility] Comment: The ADA defines abnormalities in albumin excretion as follows: Albuminuria Category Result (mcg/mg creatinine) Normal to Mildly increased <30 Moderately increased 30-299 Severely increased > OR = 300 The ADA recommends that at least two of three specimens collected within a 3-6 month period be abnormal before considering a patient to be within a diagnostic category. 02/14/2022 12:0 3 PM EST 02/14/2022 12:04 PM EST Benjamin Ireland MD LAB URINE ORDERABLES Final Result Performing Organization Address [facility] [address]/ZIP Co de Phone Number [address], [facility] [address] [facility] [place] [employer] [address] [place] [address], (Nl2) [place] [address] * Hepatitis C Antibody with Reflex to HCV, RNA, Quantitative, Real-Time PCR (02/14/2022 12:03 PM EST) Pathologist [facility] Hepatitis C Antibody NON-REACT [place] NON-REACT [place] [facility] [place] [employer] Index 0.06 <1.00 [facility] [place] [employer] Comment: HCV antibody was non-reactive. There is no laboratory evidence of HCV infection. In most cases, no further action is required. However, if recent HCV exposure is suspected, a test for HCV RNA (test code 82049) is suggested. For additional information please refer to http://education.Vayyar/faq/DVQ57r4 (This link is being provided for informational/ educational purposes only.) 02/14/2022 12:0 3 PM EST 02/14/2022 12:04 PM EST Benjamin Ireland MD LAB BLOOD ORDERABLES Final Result Performing Organization Address [facility] [address]/[facility] Co de Phone Number [address], [place] [address] [employer] [place] [employer] [address] [place] [address], (Nl2) [place] [address] * Fecal immunochemical test x1 (FIT) (08/05/2020 12:00 AM EDT) Pathologist [facility] FIT Date 1 08/04/20 [facility] FIT Date 2 08/04/20 [facility] FIT1 NEGATIVE NEGATIVE [facility] FIT2 NEGATIVE NEGATIVE [facility] 08/05/2020 Historical Provider HISTORICAL/NON ORDERABLE LABS Final Result Performing Organization Address [facility] [address]/ZIP Co de Phone Number [facility] [address] * HPV mRNA E6/E7 (10/21/2017 10:24 AM EDT) HPV mRNA E6/E7 Not Detected NOT DETECTED [facility] Comment: This test was performed using the APTIMA(R) HPV Assay ([employer] This assay detects E6/E7 viral messenger RNA (mRNA) from 14 high-risk HPV types (16,18,31,33,35,39,45,51, 52,56,58,59,66,68). For additional information please refer to: http://education.Vayyar/faq/ULY321y5 (This link is being provided for informational/ educational purposes only.) The analytical performance characteristics of this assay have been determined by [facility] [place], [place]. The modifications have not been cleared or approved by the FDA. This assay has been validated pursuant to the CLIA regulations and is used for clinical purposes. Test Performed by [facility] [place], [facility] [place], [address] [place] [address] Jose C De Leon M.D., Ph.D., Director of Laboratories , CLIA [id number] Please note: Effective 10/23/2015, HPV testing will be performed using [employer]'s APTIMA test which targets mRNA. Detecting mRNA instead of DNA, as in older methods, offers significant improvements in specificity. 10/21/2017 10:2 4 AM EDT Cari Campos CNM HISTORICAL/NON ORDERABLE LABS Final Result Performing Organization Address [facility] [address]/[facility] Co de Phone Number [facility] [address] from Last 3 Months or Most Recently Relevant to Health Maintenance Insurance [facility] C3 Care Teams Partner Relationship Specialty Start Date End Date Benjamin Ireladn MD [address] [place] [address] PCP - General Internal Medicine 12/02/17 Leobardo Ortiz, RN [address] [place] [address] Registered Nurse Family Medicine 09/20/24 Diane Sosa 09/20/24 Leena Curtis Director Of Dementia OperationsDietitian Assistant 05/06/23 [facility]
--- OUTSIDE RECORDS SUMMARY | 2024-10-05 14:37 | XMS_ITS | Encounter Summary ---
Author Organization [employer] Address [address] [facility] [address] [place] [address] Care Team Providers Care Certified Registered Locksmith Name Role Phone Benjamin Ireland MD Primary Care Provider Leobardo Ortiz RN Unavailable [phone] Diane Sosa Unavailable Reason for Visit * Reason Onset Date Comments Care Coordination 06/11/2024 BHN request Encounter Details Date Type Department Care Team ([facility] st Contact Info) Description 06/11/2024 Telephone [facility] CHC MED & PEDS [address] [place], [place] [phone] Benjamin Ireland MD [address] [place] [address] Care Coordination (BHN request) Social History Tobacco Use Types Packs/Day Years [...] Telephone Encounter - Marya Montero RN - 06/18/2024 10:50 AM EDT TC to pt, no answer. Lvm acetaminophen-codeine (Tylenol w/ Codeine #3) 300-30 ready for a garbage pick up man at [facility] pharm. * Telephone Encounter - Giuliana Lynch RN - 06/11/2024 9:23 AM EDT Please f/u with pt and connect her to therapy due to depression from loss of a mother. Pt states she has a therapist but has not heard from the therapist for a while and do not have a contact number. documented in this encounter Plan of Treatment Not on file documented as of this encounter Visit Diagnoses Diagnosis Chronic pain syndrome documented in this encounter Additional Health Concerns Assessment Noted Time PHQ-9 Depression Total Score: 12 025 1:40 PM EDT documented as of this encounter Care Teams Certified Registered Locksmith Relationship Specialty Start Date End Date Benjamin Ireland MD [address] [place] [address] PCP - General Internal Medicine 12/02/17 Leobardo Ortiz, RN [address] [place] [address] Registered Nurse Family Medicine 09/20/24 Diane Sosa 09/20/24 Leena Curtis Framing Mill Operator HelperNurse Infection Control 05/06/23 [facility] documented as of this encounter
--- OUTSIDE RECORDS SUMMARY | 2024-10-05 14:37 | XMS_ITS | Encounter Summary ---
Author Organization [employer] Address [address] [facility] [address] [place] [address] Care Team Providers Care Area Forester Name Role Phone Benjamin Ireland MD Primary Care Provider [phone] Leobardo Ortiz RN Unavailable [phone] Diane Sosa Unavailable Reason for Visit * Reason Onset Date Comments Med Refill 06/14/2024 Encounter Details Date Type Department Care Team (Late st Contact Info) Description 06/14/2024 Telephone [facility] MEDICINE [address] [place] [address] Benjamin Ireland MD [address] [place] [address] Med Refill Social History Tobacco Use Types [...] encounter Miscellaneous Notes * Telephone Encounter - Eriberto Nunes - 06/18/2024 10:17 AM EDT Tc from pt requesting medication status acetaminophen-codeine (Tylenol w/ Codeine #3) 300-30 MG tablet * Telephone Encounter - Dee Blount - 06/17/2024 1:53 PM EDT Tc from pt requesting status. * Telephone Encounter - Dee Blount - 06/14/2024 2:09 PM EDT TC from pt requesting medication refill. Medications needing refill : acetaminophen-codeine (Tylenol w/ Codeine #3) 300-30 MG tablet To be sent to: [facility] documented in this encounter Plan of Treatment Not on file documented as of this encounter Visit Diagnoses Not on filedocumented in this encounter Additional Health Concerns Assessment Noted Time PHQ-9 Depression Total Score: 12 025 1:40 PM EDT documented as of this encounter Care Teams Area Forester Relationship Specialty Start Date End Date Benjamin Ireland MD [address] [place] [address] PCP - General Internal Medicine 12/02/17 Leobardo Ortiz, YESSICA [address] [place] [address] Registered Nurse Family Medicine 09/20/24 Diane Sosa 09/20/24 Leena Curtis Philosophy FacultyUpholstery Tech 05/06/23 [facility] 07/13/24 documented as of this encounter
--- OUTSIDE RECORDS SUMMARY | 2024-10-05 14:37 | XMS_ITS | Encounter Summary ---
Author Organization [employer] Address [address] [facility] [address], [place] [address] Care Team Providers Care Oil Well Services Dispatcher Name Role Phone Benjamin Ireland MD Primary Care Provider Leobardo Ortiz RN Unavailable [phone] Diane Sosa Unavailable Reason for Visit * Reason Comments Med Refill Encounter Details Date Type Department Care Team ([facility] st Contact Info) Description 06/25/2022 Refill [facility] MED[facility]INE [address] [place], [place] [phone] Benjamin Ireland MD [address] [place], [place] [phone] Chronic pain syndrome; Intertrigo Social History Tobacco [...] documented as of this encounter Care Teams Oil Well Services Dispatcher Relationship Specialty Start Date End Date Benjamin Ireland MD [address] [place] [address] PCP - General Internal Medicine 12/02/17 Leobardo Ortiz, RN [address] [facility] [place] [address] Registered Nurse Family Medicine 09/20/24 Diane Sosa 09/20/24 Leena Curtis Community Arts Centre ManagerChief Controller 05/06/23 [facility] 07/13/24 documented as of this encounter
--- OUTSIDE RECORDS SUMMARY | 2024-10-05 14:37 | XMS_ITS | Encounter Summary ---
Author Organization [employer] Address [address] [facility] [address] [place] [address] Care Team Providers Care Portable Grinding Machine Operator Name Role Phone Benjamin Ireland MD Primary Care Provider Leobardo Ortiz RN Unavailable [phone] Diane Sosa Unavailable Reason for Visit * Reason Onset Date Comments Med Refill 05/24/2022 Encounter Details Date Type Department Care Team ([facility] st Contact Info) Description 05/24/2022 Telephone [facility] CHC MED & PEDS [address] [place], [place] [phone] Benjamin Ireland MD [address] [place] [address] Med Refill Social History Tobacco Use Types [...] #3) 300-30 MG tablet Please sent to [facility]/pharmacy #[id number] - [place], [place] - [address] [facility] documented in this encounter Plan of Treatment Not on file documented as of this encounter Visit Diagnoses Not on filedocumented in this encounter Additional Health Concerns Assessment Noted Time PHQ-9 Depression Total Score: 0 02/14/19 11:24 AM EST documented as of this encounter Care Teams Portable Grinding Machine Operator Relationship Specialty Start Date End Date Benjamin Ireland MD [address] [place] [address] PCP - General Internal Medicine 12/02/17 Leobardo Ortiz, YESSICA [address] [place] [address] Registered Nurse Family Medicine 09/20/24 Diane Sosa 09/20/24 Leena Curtis Sports Equipment RepairerProgrammer Engineering And Scientific 05/06/23 [facility] 07/13/24 documented as of this encounter
--- OUTSIDE RECORDS SUMMARY | 2024-10-05 14:37 | XMS_ITS | Encounter Summary ---
Author Organization [employer] Address [address] [facility] [address]t [place] [address] Care Team Providers Care Percussion Welding Machine Operator Name Role Phone Benjamin Ireland MD Primary Care Provider [phone] Leobardo Ortiz RN Unavailable [phone] Diane Sosa Unavailable Reason for Visit * Reason Onset Date Comments Med Refill 07/15/2024 Encounter Details Date Type Department Care Team (Late st Contact Info) Description 07/15/[address] [facility] MEDICINE [address] [place] [address] Benjamin Ireland MD [address] [place] [address] Med Refill Social History Tobacco Use Types [...] encounter Miscellaneous Notes * Telephone Encounter - Pilar Sosa - 07/16/2024 10:14 AM EDT Tc from pt requesting status on prior message * Telephone Encounter - Dee Blount - 07/15/2024 8:32 AM EDT TC from pt requesting medication refill. Medications needing refill : acetaminophen-codeine (Tylenol w/ Codeine #3) 300-30 MG tablet To be sent to: [facility] - [place], [place] - [address] [place] [address] documented in this encounter Plan of Treatment Not on file documented as of this encounter Visit Diagnoses Not on filedocumented in this encounter Additional Health Concerns Assessment Noted Time PHQ-9 Depression Total Score: 12 025 1:40 PM EDT documented as of this encounter Care Teams Percussion Welding Machine Operator Relationship Specialty Start Date End Date Benjamin Ireland MD [address] [place] [address] PCP - General Internal Medicine 12/02/17 Leobardo Ortiz RN [address] [place] [address] [place] [address] Registered Nurse Family Medicine 09/20/24 Diane Sosa 09/20/24 Leena Curtis Ground Crewman Aircraft SupportWelder Setter Electron Beam Machine 05/06/23 [facility] 07/13/24 documented as of this encounter
--- OUTSIDE RECORDS SUMMARY | 2024-10-05 14:37 | XMS_ITS | Encounter Summary ---
Author Organization [employer] Address [address] [facility] [address] [place] [address] Care Team Providers Care Electronic Tech Name Role Phone Benjamin Ireland MD Primary Care Provider [phone] Leobardo Ortiz RN Unavailable [phone] Diane Sosa Unavailable Reason for Visit * Reason Onset Date Comments PT1 07/19/2024 Encounter Details Date Type Department Care Team (Late st Contact Info) Description 07/19/2024 Telephone [facility] MED[facility]INE [address] [place] [address] Benjamin Ireland MD [address] [place] [address] PT1 Social History Tobacco Use Types Packs/Day [...] * Telephone Encounter - David Fuentes - 07/19/2024 1:26 PM EDT Patient calling requesting PT1 Home Address verified: Y/N: Yes Provider name or facility name: [facility] [address] [facility] Escort needed: Y/N: No Do you have a wheelchair: Y/N: No Visits: 4x a month Patient calling requesting PT1 Home Address verified: Y/N: Yes Provider name or facility name: [facility] [address] [place] [address] Escort needed: Y/N: No Do you have a wheelchair: Y/N: No Visits: 2x a month documented in this encounter Plan of Treatment Not on file documented as of this encounter Visit Diagnoses Not on filedocumented in this encounter Additional Health Concerns Assessment Noted Time PHQ-9 Depression Total Score: 12 025 1:40 PM EDT documented as of this encounter Care Teams Electronic Tech Relationship Specialty Start Date End Date Benjamin Ireland MD [address] [place] [address] PCP - General Internal Medicine 12/02/17 Leobardo Ortiz RN [address] [place] [address] Registered Nurse Family Medicine 09/20/24 Diane Sosa 09/20/24 Leena Curtis Production ManagerDeliverer Pharmacy 05/06/23 [facility] documented as of this encounter
--- OUTSIDE RECORDS SUMMARY | 2024-10-05 14:37 | XMS_ITS | Encounter Summary ---
Author Organization [employer] Address [address] [facility] [address] [place] [address] Care Team Providers Care Local Owner Operator Truck Driver Name Role Phone Benjamin Ireland MD Primary Care Provider Leobardo Ortiz RN Unavailable [phone] Diane Sosa Unavailable Reason for Visit * Reason Onset Date Comments Med Refill 06/24/2022 Encounter Details Date Type Department Care Team (Late st Contact Info) Description 06/24/2022 Telephone [facility] MEDICINE [address] [place] [address] Benjamin Ireland MD [address] [place] [address] Med Refill Social History Tobacco Use Types [...] documented as of this encounter Care Teams Local Owner Operator Truck Driver Relationship Specialty Start Date End Date Benjamin Ireland MD [address] [place] [address] PCP - General Internal Medicine 12/02/17 Leobardo Ortiz, YESSICA [address] [place] [address] Registered Nurse Family Medicine 09/20/24 Diane Sosa 09/20/24 Leena Curtis SnaggerIuss Analyst 05/06/23 [facility] 07/13/24 documented as of this encounter
--- OUTSIDE RECORDS SUMMARY | 2024-10-05 14:37 | XMS_ITS | Encounter Summary ---
Author Organization [employer] Address 75 [facility] 7t [place] [address] Care Team Providers Care Grinder Hardboard Name Role Phone Benjamin Ireland MD Primary Care Provider Leobardo Ortiz RN Unavailable [phone] Diane Sosa Unavailable Reason for Visit * Reason Comments Med Refill Encounter Details Date Type Department Care Team ([facility] Contact Info) Description 06/28/2024 Refill [facility] CHC MED & PEDS [address] [place], [place] [phone] Benjamin Ireland MD [address] [place] [address] Other specified hypothyroidism Social History Tobacco Use [...] documented as of this encounter Care Teams Grinder Hardboard Relationship Specialty Start Date End Date Benjamin Ireland MD [address] [place] [address] PCP - General Internal Medicine 12/02/17 Leobardo Ortiz, YESSICA [address] [place] [address] Registered Nurse Family Medicine 09/20/24 Diane Sosa 09/20/24 Leena Curtis Director Biomedical EngineeringBoot Liner Maker 05/06/23 [facility] documented as of this encounter
--- OUTSIDE RECORDS SUMMARY | 2024-10-05 14:37 | XMS_ITS | Encounter Summary ---
Author Organization [employer] Address 75 [facility] 7t [place] [address] Care Team Providers Care Strip Winder Name Role Phone Benjamin Ireland MD Primary Care Provider Leobardo Ortiz RN Unavailable [phone] Diane Sosa Unavailable Reason for Visit * Reason Onset Date Comments Med Refill 04/15/2024 Care Coordination 04/15/2024 C3 initial a ssessment/ enrollment Encounter Details Date Type Department Care Team (Late st Contact Info) Description 04/15/2024 Telephone [facility] MEDICINE [address] [place] [address] Benjamin Ireland MD [address] [place], [place] [phone] Med Refill; Care Coordination ([facility] initial assessment/ enrollment) Social History Tobacco Use Types Packs/Day Years Used Date Smoking Tobacco: Never Smokeless Tobacco: Never Depression Answer Date Recorded Patient Health Questionnaire-9 Score 15 10/06/2023 Patient Health Questionnaire-9 Score 15 10/06/2023 Last PHQ-9: Questionnaire Data Not on file 0 10/06/2023 Housing Stability Answer Date Recorded What is your housing situation today? I have flaviayeimy obregon 04/15/[address] you li ve. Do you have problems with any of the following? None of the above 04/15/2024 Food Insecurity Answer Date Recorded Within the past 12 months, y ou worried that your food would run out before you got money to buy more: Never True 04/15/2024 Within the past 12 months,th e food you bought just didn't last and you didn't have enough money to get more: Never True 07/2024 Transportation Answer Date Recorded In the past [...] Recorded Patient Health Questionnaire-2 Score 6 10/06/2023 Internet Access Answer Date Recorded Internet Access [...] encounter Miscellaneous Notes * Telephone Encounter - Giuliana Lynch RN - 04/19/2024 12:58 PM EDT ROMAN Lynch RN placed outbound call to patient for agreed upon time for initial assessment for enrollment into Adult Care Management Program. Patient's name, , and address were verified. Patient is a 64 year old female with medical history significant for type 2 DM and depressive disorder.ROMAN spoke with patient who states she has an upcoming appointment with [facility] pulmonology on 07/04. Patient states it is a follow up appt after the sleep study. Pt reports her GO CART MECHANIC sends her to all her medical appointment and has 6hrs a day x 6 days with her GO CART MECHANIC. Pt states the GO CART MECHANIC also assists her with bathing and dressing. Pt reports up to date with her rent and utilities but do not have enough food to last her for the month. CHW will refer pt to [facility] program for food insecurity. Pt states she has seen the dentist within 12 months and denies any dental issues. Pt reports she uses a walker for ambulation. According to pt, she is adherent to low carbohydrate diabetic diet and has lost a lot of weight which has helped with her breathing, and she feels much better. Pt states she is compliant withall her medications and denies any side effects. Pt c/o low back and hip pain and only takes pain medication when needed. Pt states she sees her therapist once a month for depression with good effect. Pt states she saw her psychiatrist about 3 months ago and will like to follow up for medication refill but doesn't know the number or name of the psychiatrist. CM advised pt to seek assistance from the therapist with connecting her back with her psychiatrist. Pt t states her depression is well managed with medication, listening to music, taking her prozac and talking to other people. Pt states she feels safe in her home and denies smoking, drinking or taking any illegal drugs. Pt denies any per anabelle goals at this time. CM plan includes Health education, connecting pt to resources and care coordination. Care management program explained and contact information given. Patient verbalizes understanding, and able to repeat back to technical document writer. A follow up call will be placed within 10 days, patient agrees with plan. ROMAN Lynch RN, provided notification to PCP Dr. Ireland of patient's enrollment into [facility]3 Complex Care Program. ROMAN Lynch RN, completed care plan and sent to HIM to be scanned into the medical record. PCP notified and awaiting review from provider. * Telephone Encounter - Dee Blount - 04/15/2024 2:03 PM EST TC from pt requesting medication refill. Medications needing refill : acetaminophen-codeine (Tylenol w/ Codeine #3) 300- 30 MG tablet To be sent to: [facility] *pt states has no pills. documented in this encounter Plan of Treatment Not on file documented as of this encounter Visit Diagnoses Not on filedocumented in this encounter Additional Health Concerns Assessment Noted Time PHQ-9 Depression Total Score: 15 024 10:11 AM EDT documented as of this encounter Care Teams Strip Winder Relationship Specialty Start Date End Date Benjamin Ireland MD [address] [place] [address] PCP - General Internal Medicine 12/02/17 Leobardo Ortiz, RN [address] [place] [address] Registered Nurse Family Medicine 09/20/24 Diane Sosa 09/20/24 Leena Curtis Material ManForensic Science Examiner 05/06/23 [facility] documented as of this encounter
--- OUTSIDE RECORDS SUMMARY | 2024-10-05 14:37 | XMS_ITS | Clinical Summary ---
Author Organization [facility] Address [address] [place] [address] Care Team Providers Care Fountain Brush Assembler Name Role Phone Unavailable Primary Care Provider [...] episode of recurren t major depressive disorder ([facility]) 10/06/2023 Assessment & Plan (12/18/2023 6:26 AM [...] Sleep apnea 04/05/2021 Moderate persistent allergic asthma ([facility]) Hypercholesterolemia 02/04/2021 Cramp of both lower extremities 01/31/2021 Mixed stress and urge urinary incontinence 03/01 Chronic pain disorder 03/07/2017 Hypothyroidism 02/05/2017 Obesity 02/05/2017 Type 2 diabetes mellitus ([facility]) 007 Family History Relation Name Status Comments [...] 2006 Fecal DNA 2006 Flexible Sigmoidoscopy 2006 [id number] () 10/12/2023 021, 04/28/2020 Alcohol and Drug [...] Discontinued Vaginal Pap Discontinued Vulvoscopy Discontinued [place] [employer] [facility]
--- OUTSIDE RECORDS SUMMARY | 2024-10-05 14:38 | XMS_ITS | Encounter Summary ---
Author Organization [employer] Address 75 [facility] 7t [place] [address] Care Team Providers Care Fixing Machine Operator Name Role Phone Benjamin Ireland MD Primary Care Provider [phone] Leobardo Ortiz RN Unavailable [phone] Diane Sosa Unavailable Encounter Details Date Type Department Care Team (Late st Contact Info) Description 03/27/2023 Orders Only [facility] CHC MED & PEDS [address] [place], [place] [phone] Benjamin Ireland MD [address] [place], [place] [phone] Type 2 diabetes mellitus without complication, without long-term current use of insulin ([facility]) (Primary Dx) Social History Tobacco [...] t he electric, gas, oil or water [employer] threatened to shut off services in your [...] as of this encounter Plan of Treatment Scheduled Orders Name Type Priority Associated Diagnoses [...] Free T4 0.35 0.32 - 4.0 uIU/mL [facility] Blood Venous blood specimen / Unknown 04/03/2023 2:12 PM EST 04/03/2023 5:18 PM EST us Benjamin Ireland MD LAB BLOOD ORDERABLES Final Result [facility] [address] [place] [phone] * (ABNORMAL) Lipid Panel, Standard (04/03/2023 2:12 PM EST) Triglycerides 298(H) <150 mg/dL [facility] Comment:Desirable Triglyceri de: less than 150 mg/dLBorderline High Triglyceride 150-199 mg/dLHigh Triglyceride: 200-499 mg/dLVery High Triglyceride: greater than or equal to 5OO mg/dL Cholesterol 203(H) <200 mg/dL [facility] Comment:Desirable Cholestero l: less than 200 mg/dLBorderline High Cholesterol: 200-239 mg/dLHigh Cholesterol: greater than 239 mg/dL LDL Cholesterol Calculated 109(H) <100 mg/dL [facility] Comment:Desirable LDL: less than 100 mg/dLNear Optimal/Above Optimal LDL: 110- 129 mg/dLBorderline High LDL: 130-159 mg/dLHigh LDL: 160-189 mg/dLVery High LDL: greater than or equal to 190 mg/dL HDL Cholesterol 35(L) >40 mg/dL [facility] Comment:Desirable HDL: great er than 40 mg/dL Note: This HDL assay may give artificially low results in patients with liver disease. Blood Venous blood specimen / Unknown 04/03/2023 2:12 PM EST 04/03/2023 5:18 PM EST us Benjamin Ireland MD LAB BLOOD ORDERABLES Final Result [facility] [address] [place] [address] [phone] * (ABNORMAL) Comprehensive Metabolic Panel (04/03/2023 2:12 PM EST) Sodium 140 135 - 145 mmol/L [facility] Potassium 4.3 3.3 - 5.1 mmol/L [facility] Chloride 106 96 - 108 mmol/L [facility] Carbon Dioxide 27 22 - 29 mmol/L [facility] Anion Gap 11(L) 12 - 20 [facility] Urea Nitrogen (BUN) 18(H) 9 - 16 mg/dL [facility] Creatinine, Serum 0.82 0.5 - 1.4 mg/dL [facility] Estimated Glomerular Filt Rate >60 [facility] Comment:NOTE: For -Am erican individuals, multiply the result by 1.210.Chronic Kidney Disease: Estimated GFR < 60 mL/min/1.77t9Ivpvdh Kidney Disease: Estimated GFR < 15 mL/min/1.73m2 Glucose 89 60 - 115 mg/dL [facility] Calcium 9.2 8.4 - 10.2 mg/dL [facility] Bilirubin, Total 0.3 0.0 - 1.0 mg/dL [facility] Aspartate Amino Transferase 20 5 - 31 U/L [facility] Alanine Aminotransferase 16 0 - 31 U/L [facility] Total Protein 6.9 6.5 - 8.0 g/dL [facility] Albumin Level 4.2 3.5 - 5.0 g/dL [facility] Alkaline Phosphatase 97 39 - 117 U/L [facility] Blood Venous blood specimen / Unknown 04/03/2023 2:12 PM EST 04/03/2023 5:18 PM EST us Benjamin Ireland MD LAB BLOOD ORDERABLES Final Result [facility] [address] [place] [address] [phone] documented in this encounter Visit Diagnoses Diagnosis Type 2 diabetes mellitus without complication, without long-term current use of insulin ([facility])- Primary documented in this encounter Additional Health Concerns Assessment Noted Time PHQ-9 Depression Total Score: 0 02/14/19 23 11:24 AM EST documented as of this encounter Care Teams Fixing Machine Operator Relationship Specialty Start Date End Date Benjamin Ireland MD [address] [place] [address] PCP - General Internal Medicine 12/02/17 Leobardo Ortiz RN [address] [place] [address] [place] [address] Registered Nurse Family Medicine 09/20/24 Diane Sosa 09/20/24 Leena Curtis Syrup MixerPlastics Production Machine Operator 05/06/23 [facility] 07/13/24 documented as of this encounter
--- OUTSIDE RECORDS SUMMARY | 2024-10-05 14:38 | XMS_ITS | Encounter Summary ---
Author Organization [employer] Address 75 [facility] 7[place] [address] Care Team Providers Care Cab Station Attendant Name Role Phone Benjamin Ireland MD Primary Care Provider Leobardo Ortiz RN Unavailable [phone] Diane Sosa Unavailable Reason for Visit * Reason Onset Date Comments fyi 09/30/2024 Encounter Details Date Type Department Care Team ([facility] Contact Info) Description 09/30/2024 Telephone [facility] CHC MED & PEDS [address] [place], [place] [phone] Benjamin Ireland MD [address] [place] [address] fyi Social History Tobacco Use Types Packs/Day Years [...] Encounter - Lindsay De Anda RN - 09/30/2024 1:41 PM EDT Noted * Telephone Encounter - Dianna Cabral - 09/30/2024 1:15 PM EDT Tc from Bobby at [facility] stating they attempted to see pt today and yesterday , no answer or call back from pt . Bobby states no more attempts will be made Contact Bobby at [phone] documented in this encounter Plan of Treatment Not on file documented as of this encounter Visit Diagnoses Not on filedocumented in this encounter Additional Health Concerns Assessment Noted Time PHQ-9 Depression Total Score: 12 025 1:40 PM EDT documented as of this encounter Care Teams Cab Station Attendant Relationship Specialty Start Date End Date Benjamin Ireland MD [address] [place] [address] PCP - General Internal Medicine 12/02/17 Leobardo Ortiz RN [address] [place] [address] Registered Nurse Family Medicine 09/20/24 Diane Sosa 09/20/24 Leena Curtis Head Of MathematicsInternal Controls Consultant 05/06/23 [facility] documented as of this encounter
--- OUTSIDE RECORDS SUMMARY | 2024-10-05 14:38 | XMS_ITS | Encounter Summary ---
Author Organization [employer] Address 75 [facility] 7t [place] [address] Care Team Providers Care Pai Gow Manager Name Role Phone Benjamin Ireland MD Primary Care Provider Leobardo Ortiz RN Unavailable [phone] Diane Sosa Unavailable Encounter Details Date Type Department Care Team (Latest Contact Info) Description 10/06/2023 Orders [address] [facility] CHC MED & PEDS [address] [place], [place] [phone] Benjamin Ireland MD [address] [place], [place] [phone] Hypercholesterolemia (Primary Dx); Screening for colon cancer [...] AM EDT documented as of this encounter Functional Status * Over the past 2 weeks, how often have you been bothered by any of the following problems? Question Answer Date of Assessment Author Patient Health Questionnaire-2 Score 6 10/06/2023 10:11 AM Tomi Pedroza * If you checked off any problems on this questionnaire so far, Question Answer Date of Assessment Author How difficult have these problems made it for you to do your work, take care of things at home, or get along with other people? Somewhat difficult 10/06/2023 10:11 AM Tomi Gonzalez * Over the past 2 weeks, how often have you been bothered by any of the following problems? Question Answer Date of Assessment Author Little interest or pleasure in doing things Nearly every day 10/06/2023 10:11 AM Tomi Beltran Feeling down, depressed, or hopeless Nearly every day 10/06/2023 10:11 AM Tomi Gonzalez Trouble falling or staying asleep, or sleeping too much Nearly every day 10/06/2023 10:11 AM Tomi Gonzalez Feeling tired or having little energy Nearly every day 10/06/2023 10:11 AM Tomi Gonzalez Poor appetite or overeating Nearly every day 10/06/2023 10:11 AM Tomi Gonzalez Feeling bad about yourself - or that you are a failure or have let yourself or your family down Not at all 10/06/2023 10:11 AM Tomi Gonzalez Trouble concentrating on things, such as reading the newspaper or watching television Not at all 10/06/2023 10:11 AM EDT Tomi Bautista Moving or speaking so slowly that other people could have noticed? Or the opposite - being so fidgety or restless that you have been moving around a lot more than usual. Not at all 10/06/2023 10:11 AM EDT Tomi Bautista Thoughts that you would be better off or hurting yourself in some way Not at all 10/06/2023 10:11 AM EDT Tomi Bradley Patient Health Questionnaire-9 Score 15 10/06/2023 10:11 AM EDT Tomi Gore documented as of this encounter Plan of Treatment Not on file documented as of this encounter Visit Diagnoses Diagnosis Hypercholesterolemia- Primary Pure hypercholesterolemia Screening for colon cancer Special screening for malignant neoplasms, colon documented in this encounter Additional Health Concerns Assessment Noted Time PHQ-9 Depression Total Score: 15 024 10:11 AM EDT documented as of this encounter Care Teams Pai Gow Manager Relationship Specialty Start Date End Date Benjamin Ireland MD [address] [place] [address] PCP - General Internal Medicine 12/02/17 Leobardo Ortiz, RN [address] [place] [address] Registered Nurse Family Medicine 09/20/24 Diane Sosa 09/20/24 Leena Curtis Unit AideHome Restoration Service Supervisor 05/06/23 [facility] documented as of this encounter
--- OUTSIDE RECORDS SUMMARY | 2024-10-05 14:38 | XMS_ITS | Encounter Summary ---
Author Organization [employer] Address 75 [facility] 7t [place] [address] Care Team Providers Care Asset Protection Professional Name Role Phone Benjamin Ireland MD Primary Care Provider Leobardo Ortiz RN Unavailable [phone] Diane Sosa Unavailable Reason for Visit * Reason Onset Date Comments Nurse Triage 11/19/2023 Encounter Details Date Type Department Care Team ([facility] st Contact Info) Description 11/19/2023 Telephone [facility] CHC MED & PEDS [address] [place], [place] [phone] Benjamin Ireland MD [address] [place] [address] Nurse Triage Social History Tobacco Use Types [...] of Assessment Author Patient Health Questionnaire-2 Score 3 04/11 1:40 PM EDT Deborah Campbell MA * Little interest or pleasure in doing things Answer Date of Assessment Author More than half the days 04/29/2024 1:40 PM EDT Deborah Bennett MA * Feeling down, depressed, or hopeless Answer Date of Assessment Author Several days 04/29/2024 1:40 PM EDT Oswaldo Campbell MA * Trouble falling or staying asleep, or sleeping too much Answer Date of Assessment Author Nearly every day 04/29/2024 1:40 PM EDT Isabel Campbell MA * Feeling tired or having little energy Answer Date of Assessment Author Nearly every day 04/29/2024 1:40 PM EDT Isabel Campbell MA * Poor appetite or overeating Answer Date of Assessment Author Nearly every day 04/29/2024 1:40 PM EDT Isabel Campbell MA * Feeling bad about yourself - or that you are a failure or have let yourself or your family down Answer Date of Assessment Author Not at all 04/29/2024 1:40 PM EDT Oswaldo Campbell MA * Trouble concentrating on things, such as reading the newspaper or watching television Answer Date of Assessment Author Not at all 04/29/2024 1:40 PM EDT Oswaldo Campbell MA * Moving or speaking so slowly that other people could have noticed? Or the opposite - being so fidgety or restless that you have been moving around a lot more than usual. Answer Date of Assessment Author Not at all 04/29/2024 1:40 PM EDT Oswaldo Campbell MA * Thoughts that you would be better off or hurting yourself in some way Answer Date of Assessment Author Not at all 04/29/2024 1:40 PM EDT Oswaldo Campbell MA * Patient Health Questionnaire-9 Score Answer Date of Assessment Author 12 04/29/2024 1:40 PM EDT Oswaldo Capmbell MA * How difficult have these problems made it for you to do your work, take care of things at home, or get along with other people? Answer Date of Assessment Author Somewhat difficult 04/29/2024 1:40 PM EDT Deborah Campbell MA documented as of this encounter Miscellaneous Notes [...] fever) (Exceptions: Already seen by doctor or DOG RACES MANAGER/PA and no new or worsening symptoms.) * [...] accepted this outcome. Please contact pt at [phone] (costa rican) documented in this encounter Plan of Treatment Not on file documented as of this encounter Visit Diagnoses Not on filedocumented in this encounter Additional Health Concerns Assessment Noted Time PHQ-9 Depression Total Score: 15 10/05/ 024 10:11 AM EDT documented as of this encounter Care Teams Asset Protection Professional Relationship Specialty Start Date End Date Benjamin Ireland MD [address] [place] [address] PCP - General Internal Medicine 12/02/17 Leobardo Ortiz, RN [address] [place] [address] Registered Nurse Family Medicine 09/20/24 Diane Sosa 09/20/24 Leena Crutis Retail Event And Sales AssistantTin Can Feeder 05/06/23 [facility] 07/13/24 documented as of this encounter
--- OUTSIDE RECORDS SUMMARY | 2024-10-05 14:38 | XMS_ITS | Encounter Summary ---
Author Organization [employer] Address 75 [facility] [address] [place] [address] Care Team Providers Care Quality Control Assessor Name Role Phone Bejnamin Ireland MD Primary Care Provider Leobardo Ortiz RN Unavailable [phone] Diane Sosa Unavailable Reason for Visit * Reason Onset Date Comments Error 05/27/2023 Encounter Details Date Type Department Care Team ([facility] st Contact Info) Description 05/27/2023 Telephone [facility] MEDICINE [address] [place] [address] Benjamin Ireland MD [address] [place] [address] Error Social History Tobacco Use Types Packs/Day [...] documented as of this encounter Care Teams Quality Control Assessor Relationship Specialty Start Date End Date Benjamin Ireland MD [address] [place] [address] PCP - General Internal Medicine 12/02/17 Leobardo Ortiz, YESSICA [address] [place] [address] Registered Nurse Family Medicine 09/20/24 Diane Sosa 09/20/24 Leena Curtis Refrigerator Room ClerkLead Manufacturing Technician 05/06/23 [facility] 07/13/24 documented as of this encounter
--- OUTSIDE RECORDS SUMMARY | 2024-10-05 14:38 | XMS_ITS | Encounter Summary ---
Author Organization [employer] Address 75 [facility] [address] [place] [address] Care Team Providers Care Platform Mill Supervisor Name Role Phone Benjamin Ireland MD Primary Care Provider Leobardo Ortiz RN Unavailable [phone] Diane Sosa Unavailable Reason for Visit * Reason Onset Date Comments No Show 10/05/2024 Encounter Details Date Type Department Care Team ([facility] Contact Info) Description 10/05/2024 Telephone [facility] CHC MED & PEDS [address] [place], [place] [phone] Benjamin Ireland MD [address] [place] [address] No Show Social History Tobacco Use Types Packs/Day Years [...] encounter Miscellaneous Notes * Telephone Encounter - Michelle South - 10/05/2024 11:15 AM EDT No show 10/05/24 documented in this encounter Plan of Treatment Not on file documented as of this encounter Visit Diagnoses Not on filedocumented in this encounter Additional Health Concerns Assessment Noted Time PHQ-9 Depression Total Score: 12 025 1:40 PM EDT documented as of this encounter Care Teams Platform Mill Supervisor Relationship Specialty Start Date End Date Benjamin Ireland MD [address] [place] [address] PCP - General Internal Medicine 12/02/17 Leobardo Ortiz, RN [address] [place] [address] Registered Nurse Family Medicine 09/20/24 Diane Sosa 09/20/24 Leena Curtis Manager Of SustainabilityImpregnator And Drier 05/06/23 [facility] 07/13/24 documented as of this encounter
--- OUTSIDE RECORDS SUMMARY | 2024-10-05 14:38 | XMS_ITS | Encounter Summary ---
Author Organization [employer] Address [address] 7t [place] [address] Care Team Providers Care Periodicals Clerk Name Role Phone Benjamin Ireland MD Primary Care Provider [phone] Leobardo Ortiz RN Unavailable [phone] Diane Sosa Unavailable Encounter Details Date Type Department Care Team (Latest Contact Info) Description 10/01/2024 Travel Social History Tobacco Use Types Packs/Day [...] documented as of this encounter Care Teams Periodicals Clerk Relationship Specialty Start Date End Date Benjamin Ireland MD [address] [place] [address] PCP - General Internal Medicine 12/02/17 Leobardo Ortiz, YESSICA 505 [place] [address] Registered Nurse Family Medicine 09/20/24 Diane Sosa 09/20/24 Leena Curtis Machinist Helper MarineGang Head Saw Operator 05/06/23 [facility] 07/13/24 documented as of this encounter
--- OUTSIDE RECORDS SUMMARY | 2024-10-05 14:38 | XMS_ITS | Encounter Summary ---
Author Organization [employer] Address [address] [facility] 7t [place] [address] Care Team Providers Care Grades 7 And 8 Visiting Teacher Name Role Phone Benjamin Ireland MD Primary Care Provider Leobardo Ortiz RN Unavailable [phone] Diane Sosa Unavailable Encounter Details Date Type Department Care Team (Late st Contact Info) Description 07/13/2024 Orders Only [facility] CHC MED & PEDS [address] [place], [place] [phone] Benjamin Ireland MD [address] [place], [place] [phone] Social History Tobacco Use Types Packs/Day Years [...] documented as of this encounter Care Teams Grades 7 And 8 Visiting Teacher Relationship Specialty Start Date End Date Benjamin Ireland MD [address] [place] [address] PCP - General Internal Medicine 12/02/17 Leobardo Ortiz, YESSICA [address] [place] [address] Registered Nurse Family Medicine 09/20/24 Diane Sosa 09/20/24 Leena Curtis Short Story WriterPooling Operator 05/06/23 [facility] documented as of this encounter
--- OUTSIDE RECORDS SUMMARY | 2024-10-05 14:38 | XMS_ITS | Encounter Summary ---
Author Organization [employer] Address [address] [facility] 7t [place] [address] Care Team Providers Care Ventilation Equipment Tender Name Role Phone Benjamin Ireland MD Primary Care Provider Leobardo Ortiz RN Unavailable [phone] Diane Sosa Unavailable Reason for Visit * Reason Comments Med Refill Encounter Details Date Type Department Care Team ([facility] st Contact Info) Description 04/10/2023 Refill [facility] CHC MED & PEDS 505 [place], [place] [phone] Benjamin Ireland MD [address] [place] [address] Chronic pain syndrome Social History Tobacco Use [...] that the provider Letter is read for pecan picker at medical records. documented in this encounter Plan of Treatment Not on file documented as of this encounter Visit Diagnoses Diagnosis Chronic pain syndrome documented in this encounter Additional Health Concerns Assessment Noted Time PHQ-9 Depression Total Score: 0 02/14/19 23 11:24 AM EST documented as of this encounter Care Teams Ventilation Equipment Tender Relationship Specialty Start Date End Date Benjamin Ireland MD [address] [place] [address] PCP - General Internal Medicine 12/02/17 Leobardo Ortiz, YESSICA [address] [place] [address] Registered Nurse Family Medicine 09/20/24 Diane Sosa 09/20/24 Leena Curtis Forensic PsychologistFertilizer Loader 05/06/23 [facility] 07/13/24 documented as of this encounter
--- OUTSIDE RECORDS SUMMARY | 2024-10-05 14:38 | XMS_ITS | Encounter Summary ---
Author Organization [employer] Address [address] [facility] 7t [place] [address] Care Team Providers Care Toll Mechanic Name Role Phone Benjamin Ireland MD Primary Care Provider [phone] Leobardo Ortiz RN Unavailable [phone] Diane Sosa Unavailable Encounter Details Date Type Department Care Team ([facility] Contact Info) Description 10/05/2024 Orders Only GENERIC EXTERNAL DATA [...] on file documented as of this encounter Procedures Procedure Name Priority Date/Time Associated Diagnosis Comments GLUCOSE, WHOLE BLOOD Routine 10/05/2024 1:49 PM EDT documented in this encounter Results * (ABNORMAL) Glucose, Whole Blood (10/05/2024 1:49 PM EDT) Glucose, Whole Blood 118(H) 60 - 115 mg/dL [facility] Comment:METER #: [id number] Testing performed in the Endocrinology Department [address] , [address], [facility]. 10/05/2024 1:49 PM EDT 10/05/2024 1:55 PM EDT us Generic External Data Provider LAB BLOOD ORDERAB LES Final Result [facility] [address] [place] [address] [phone] documented in this encounter Visit Diagnoses Not on filedocumented in this encounter Additional Health Concerns Assessment Noted Time PHQ-9 Depression Total Score: 12 025 1:40 PM EDT documented as of this encounter Care Teams Toll Mechanic Relationship Specialty Start Date End Date Benjamin Ireland MD [address] [place] [address] PCP - General Internal Medicine 12/02/17 Leobardo Ortiz, YESSICA [address] [place] [address] Registered Nurse Family Medicine 09/20/24 Diane Sosa 09/20/24 Leena Curtis Dipper OperatorSupervisor Cigarette Making Department 05/06/23 [facility] 07/13/24 documented as of this encounter
--- OUTSIDE RECORDS SUMMARY | 2024-10-05 14:38 | XMS_ITS | Encounter Summary ---
Author Organization [employer] Address [address] [facility] 7t [place] [address] Care Team Providers Care Supervisor Aircraft Cleaning Name Role Phone Benjamin Ireland MD Primary Care Provider [phone] Leobardo Ortiz RN Unavailable [phone] Diane Sosa Unavailable Reason for Visit * Reason Comments Med Refill Encounter Details Date Type Department Care Team ([facility] st Contact Info) Description 07/11/2024 Refill [facility] CHC MED & PEDS [address] [place], [place] [phone] Benjamin Ireland MD [address] [place] [address] Other specified hypothyroidism Social History Tobacco Use [...] documented as of this encounter Care Teams Supervisor Aircraft Cleaning Relationship Specialty Start Date End Date Benjamin Ireland MD [address] [place] [address] PCP - General Internal Medicine 12/02/17 Leobardo Ortiz, YESSICA [address] [place] [address] Registered Nurse Family Medicine 09/20/24 Diane Sosa 09/20/24 Leena Curtis Label Printing MachinistEarly Childhood Educator Aide 05/06/23 [facility] documented as of this encounter
--- OUTSIDE RECORDS SUMMARY | 2024-10-05 14:38 | XMS_ITS | Encounter Summary ---
Author Organization [employer] Address [address] [facility] [address] [place] [address] Care Team Providers Care Foundry Worker General Name Role Phone Benjamin Ireland MD Primary Care Provider Leobardo Ortiz RN Unavailable [phone] Diane Sosa Unavailable Encounter Details Date Type Department Care Team (Late st Contact Info) Description 03/10/2023 Orders Only [facility] CHC MED & PEDS [address] [place], [place] [phone] Benjamin Ireland MD [address] [place] [address] Chronic pain syndrome Social History Tobacco Use [...] documented as of this encounter Care Teams Foundry Worker General Relationship Specialty Start Date End Date Benjamin Ireland MD [address] [place] [address] PCP - General Internal Medicine 12/02/17 Leobardo Ortiz, RN [address] [place] [address] Registered Nurse Family Medicine 09/20/24 Diane Sosa 09/20/24 Leena Curtis Oil WinterizerComparator Operator 05/06/23 [facility] documented as of this encounter
--- OUTSIDE RECORDS SUMMARY | 2024-10-05 14:38 | XMS_ITS | Encounter Summary ---
Author Organization [employer] Address [address] [facility] [address] [place] [address] Care Team Providers Care Engine Lathe Set Up Operator Name Role Phone Benjamin Ireland MD Primary Care Provider Leobardo Ortiz RN Unavailable [phone] Diane Sosa Unavailable Reason for Visit * Reason Onset Date Comments Medication 04/09/2023 Encounter Details Date Type Department Care Team ([facility] st Contact Info) Description 04/09/2023 Telephone [facility] MEDICINE [address] [place] [address] Benjamin Ireland MD [address] [place] [address] Medication Social History Tobacco Use Types Packs/Day [...] 300-30 MG tablet. Medication was sent to [facility] but pt wants medication sent to [facility] pharmacy due to [facility] not having medication. If any questions please contact pt at [phone]. documented in this encounter Plan of Treatment Not on file documented as of this encounter Visit Diagnoses Diagnosis Chronic pain syndrome documented in this encounter Additional Health Concerns Assessment Noted Time PHQ-9 Depression Total Score: 0 02/14/19 23 11:24 AM EST documented as of this encounter Care Teams Engine Lathe Set Up Operator Relationship Specialty Start Date End Date Benjamin Ireland MD [address] [place] [address] PCP - General Internal Medicine 12/02/17 Leobardo Ortiz, YESSICA [address] [place] [address] Registered Nurse Family Medicine 09/20/24 Diane Sosa 09/20/24 Leena Curtis Records Management EngineerLaundry Machine Operator 05/06/23 [facility] 07/13/24 documented as of this encounter
--- OUTSIDE RECORDS SUMMARY | 2024-10-05 14:38 | XMS_ITS | Encounter Summary ---
Author Organization [email or web address] Address [address] [facility] 7t [place] [address] Care Team Providers Care Informatics Scientist Name Role Phone Benjamin Ireland MD Primary Care Provider Leobardo Ortiz RN Unavailable [phone] Diane Sosa Unavailable Reason for Visit * Reason Onset Date Comments Hospital Follow-up 09/27/2024 Encounter Details Date Type Department Care Team (Late st Contact Info) Description 09/27/2024 Telephone [facility] MEDICINE [address] [place] [address] Benjamin Ireland MD [address] [place], [place] [phone] Hospital Follow-up Social History Tobacco Use Types Packs/Day [...] * Telephone Encounter - Pilar Sosa - 09/27/2024 9:31 AM EDT Tc from pt requesting a HDF appt. Hospital: [facility] Date of admission: 09/19 Discharge date: 09/26 Diagnosed: water and infection in the lungs *Send message to [place] Clinical Care Coordinators Contact pt at [phone] Need linux server engineer documented in this encounter Plan of Treatment Not on file documented as of this encounter Visit Diagnoses Not on filedocumented in this encounter Additional Health Concerns Assessment Noted Time PHQ-9 Depression Total Score: 12 025 1:40 PM EDT documented as of this encounter Care Teams Informatics Scientist Relationship Specialty Start Date End Date Benjamin Ireland MD [address] [place] [address] PCP - General Internal Medicine 12/02/17 Leobardo Ortiz, RN [address] [place] [address] Registered Nurse Family Medicine 09/20/24 Diane Sosa 09/20/24 Leena Curtis Hardware EngineerApplication Support Lead 05/06/23 [facility] 07/13/24 documented as of this encounter
--- OUTSIDE RECORDS SUMMARY | 2024-10-05 14:38 | XMS_ITS | Encounter Summary ---
Author Organization [employer] Address [address] [facility] 7t [place] [address] Care Team Providers Care Supervisor Word Processing Name Role Phone Benjamin Ireland MD Primary Care Provider Leobardo Ortiz RN Unavailable [phone] Diane Sosa Unavailable Encounter Details Date Type Department Care Team (Late st Contact Info) Description 09/30/2024 Patient Outreach [facility] MEDICINE [address] [place] [address] Benjamin Ireland MD [address] [place], [place] [phone] Social History Tobacco Use Types Packs/Day Years [...] as of this encounter Care Teams Supervisor Word Processing Relationship Specialty Start Date End Date Benjamin Ireland MD [address] [place] [address] PCP - General Internal Medicine 12/02/17 Leobardo Ortiz, YESSICA [address] [place] [address] Registered Nurse Family Medicine 09/20/24 Diane Sosa 09/20/24 Leena Curtis Farm Equipment Engine MechanicWelfare Interviewer 05/06/23 [facility] documented as of this encounter
--- OUTSIDE RECORDS SUMMARY | 2024-10-05 14:38 | XMS_ITS | Encounter Summary ---
Author Organization [employer] Address [address] [facility] 7t [place] [address] Care Team Providers Care Cyber Threat Analyst Name Role Phone Benjamin Ireland MD Primary Care Provider Leobardo Ortiz RN Unavailable [phone] Diane Sosa Unavailable Reason for Visit * Reason Comments Med Refill Encounter Details Date Type Department Care Team ([facility] st Contact Info) Description 07/13/2024 Refill [facility] CHC MED & PEDS [address] [place], [place] [phone] Benjamin Ireland MD [address] [place] [address] Other specified hypothyroidism Social History Tobacco Use [...] documented as of this encounter Care Teams Cyber Threat Analyst Relationship Specialty Start Date End Date Benjamin Ireland MD [address] [place] [address] PCP - General Internal Medicine 12/02/17 Leobardo Ortiz, YESSICA [address] [place] [address] Registered Nurse Family Medicine 09/20/24 Diane Sosa 09/20/24 Leena Curtis Correctional Agency DirectorHistology Tech 05/06/23 [facility] documented as of this encounter
--- OUTSIDE RECORDS SUMMARY | 2024-10-05 14:38 | XMS_ITS | Encounter Summary ---
Author Organization [employer] Address [address] [facility] 7t [place] [address] Care Team Providers Care Knife Glazer Name Role Phone Benjamin Ireland MD Primary Care Provider Leobardo Ortiz RN Unavailable [phone] Diane Sosa Unavailable Reason for Visit * Reason Onset Date Comments Med Refill 10/02/2023 Encounter Details Date Type Department Care Team (Late st Contact Info) Description 10/02/2023 Telephone [facility] MEDICINE [address] [place] [address] Benjamin Ireland MD [address] [place] [address] Med Refill Social History Tobacco Use Types [...] 30 MG tablet To be sent to: [facility] documented in this encounter Plan of Treatment Not on file documented as of this encounter Visit Diagnoses Not on filedocumented in this encounter Additional Health Concerns Assessment Noted Time PHQ-9 Depression Total Score: 0 02/14/19 23 11:24 AM EST documented as of this encounter Care Teams Knife Glazer Relationship Specialty Start Date End Date Benjamin Ireland MD [address] [place] [address] PCP - General Internal Medicine 12/02/17 Leobardo Ortiz, RN [address] [place] [address] Registered Nurse Family Medicine 09/20/24 Diane Sosa 09/20/24 Leena Curtis Speed WinderBreaker Machine Tender 05/06/23 [facility] 07/13/24 documented as of this encounter
--- OUTSIDE RECORDS SUMMARY | 2024-10-05 14:38 | XMS_ITS | Encounter Summary ---
Author Organization [employer] Address [address] [facility] [address] [address] Care Team Providers Care Bedspread Folder Name Role Phone Benjamin Ireland MD Primary Care Provider Leobardo Ortiz RN Unavailable [phone] Diane Sosa Unavailable Reason for Visit * Reason Onset Date Comments PT1 03/04/2023 Encounter Details Date Type Department Care Team ([facility] st Contact Info) Description 03/04/2023 Telephone [facility] CHC MED & PEDS [address] [place], [place] [phone] Benjamin Ireland MD [address] [place], [place] [phone] PT1 Social History Tobacco Use Types Packs/Day [...] Date: 04/03/23 Time: 1:15 Visits: N/A Address: [address] [place] [address] Facility: [address] [facility] Wheel Chair: No (Uses walker) Program Director Group Work Needed: yes documented in this encounter Plan of Treatment Not on file documented as of this encounter Visit Diagnoses Not on filedocumented in this encounter Additional Health Concerns Assessment Noted Time PHQ-9 Depression Total Score: 0 02/14/19 11:24 AM EST documented as of this encounter Care Teams Bedspread Folder Relationship Specialty Start Date End Date Benjamin Ireland MD [address] [place] [address] PCP - General Internal Medicine 12/02/17 Leobardo Ortiz, YESSICA [address] [place] [address] Registered Nurse Family Medicine 09/20/24 Diane Sosa 09/20/24 Leena Curtis Disabilities Services OfficerLayout Inspector 05/06/23 [facility] documented as of this encounter
--- OUTSIDE RECORDS SUMMARY | 2024-10-05 14:38 | XMS_ITS | Encounter Summary ---
Author Organization [employer] Address [address] [facility] 7 [place] [address] Care Team Providers Care Insurance Follow Up Rep Name Role Phone Benjamin Ireland MD Primary Care Provider Leobardo Ortiz RN Unavailable [phone] Diane Sosa Unavailable Reason for Visit * Reason Onset Date Comments Medication Question 03/07/2023 Encounter Details Date Type Department Care Team ([facility] st Contact Info) Description 03/07/2023 Telephone [facility] MED & PEDS [address] [place], [place] [phone] Benjamin Ireland MD [address] [place] [address] Medication Question Social History Tobacco Use Types [...] Cronin LPN - 03/10/2023 11:20 AM EST Utility System Repairer spoke with pt pharmacy , stated they never received neither medication. I also spoke with PCP stated didn't prescribe Tramadol . Sending to Marya as FYI. * Telephone Encounter - Moy Schwab - 03/07/2023 4:50 PM EST TC from pt stating that [facility] Pharmacy Informs that Medication Tramadol and acetaminophen-codeine (Tylenol w/ Codeine #3) 300-30 MG tablet is not covered by insurance, patient does not know reason in why insurance is not covering medication. Utility System Repairer tried communicating with Pharmacy to verify reason but no answer from pharmacy. Pt also informs she is in a lot of pain. Please contact pt @ [phone] documented in this encounter Plan of Treatment Not on file documented as of this encounter Visit Diagnoses Diagnosis Chronic pain syndrome documented in this encounter Additional Health Concerns Assessment Noted Time PHQ-9 Depression Total Score: 0 02/14/19 11:24 AM EST documented as of this encounter Care Teams Insurance Follow Up Rep Relationship Specialty Start Date End Date Benjamin Ireland MD [address] [place] [address] PCP - General Internal Medicine 12/02/17 Leobardo Ortiz, YESSICA [address] [place] [address] Registered Nurse Family Medicine 09/20/24 Diane Sosa 09/20/24 Leena Curtis Edger Machine OperatorOffice System Analyst 05/06/23 [facility] documented as of this encounter
--- OUTSIDE RECORDS SUMMARY | 2024-10-05 14:38 | XMS_ITS | Encounter Summary ---
Author Organization [employer] Address [address] [facility] 7t [place] [address] Care Team Providers Care Client Coordinator Name Role Phone Benjamin Ireland MD Primary Care Provider [phone] Leobardo Ortiz RN Unavailable [phone] Diane Sosa Unavailable Reason for Visit * Reason Onset Date Comments Hospital Follow-up 07/14/2024 Encounter Details Date Type Department Care Team ([facility] st Contact Info) Description 07/14/2024 Telephone C CHC MED & PEDS [address] [place], [place] [phone] Benjamin Ireland MD [address] [place] [address] Hospital Follow-up Social History Tobacco Use Types [...] encounter Miscellaneous Notes * Telephone Encounter - Dianna Cabral - 07/14/2024 8:47 AM EDT Tc from pt requesting a HDF appt. Hospital: [address] [address] Date of admission: 07/08/24 Discharge date: 07/11/24 Diagnosed: stroke, bacteria in eye and intestine. Contact pt at [phone] (welsh) documented in this encounter Plan of Treatment Not on file documented as of this encounter Visit Diagnoses Diagnosis Chronic pain syndrome documented in this encounter Additional Health Concerns Assessment Noted Time PHQ-9 Depression Total Score: 12 025 1:40 PM EDT documented as of this encounter Care Teams Client Coordinator Relationship Specialty Start Date End Date Benjamin Ireland MD [address] [place] [address] PCP - General Internal Medicine 12/02/17 Leobardo Ortiz, RN [address] [place] [address] Registered Nurse Family Medicine 09/20/24 Diane Sosa 09/20/24 Leena Curtis Horse RacerCooky Packer 05/06/23 [facility] 07/13/24 documented as of this encounter
--- OUTSIDE RECORDS SUMMARY | 2024-10-05 14:38 | XMS_ITS | Encounter Summary ---
Author Organization [employer] Address [address] [facility] 7t [place] [address] Care Team Providers Care Heater Engineer Helper Name Role Phone Benjamin Ireland MD Primary Care Provider Leobardo Ortiz RN Unavailable [phone] Diane Sosa Unavailable Reason for Visit * Reason Onset Date Comments Nurse Triage 10/01/2024 Encounter Details Date Type Department Care Team ([facility] st Contact Info) Description 10/01/2024 Telephone [facility] CHC MED & PEDS [address] [place], [place] [phone] Benjamin Ireland MD [address] [place] [address] Nurse Triage Social History Tobacco Use Types [...] encounter Miscellaneous Notes * Telephone Encounter - Dawna AnneITALO - 10/01/2024 9:32 AM EDT Triage call to patient who reports low pelvic pain and back pain with burning with urination. Urinary complaints started yesterday no blood or pus noted no reported fever. Has had diarrhea for two days. All day yesterday and twice this morning No blood reported in diarrhea. Has taken OTC Tylenol with no noted relief. Disposition reviewed and patient in agreement with plan. ASK/Dr Lechuga today at 1045am. Multiple (2) protocols were used on this call. Disposition for Call: See in Office or Video Visit Today Protocol Used: Urination Pain - Female (Adult) Protocol-Based Disposition: See in Office or Video Visit Today Video visit offer not recorded Positive Triage Question: * All other females with painful urination, or patient wants to be seen * All higher-acuity triage questions were negative Care Advice Discussed: * Drink Extra Fluids * Reasons To Call Back - Fever or back pain occurs - You become worse Protocol Used: Diarrhea (Adult) Protocol-Based Disposition: See in Office or Video Visit Today Video visit not offered Positive Triage Question: * Moderate diarrhea (e.g., 4-6 times / day more than normal) and present > 48 hours (2 days) * All higher-acuity triage questions were negative Care Advice Discussed: * Fluid Therapy During Mild to Moderate Diarrhea * Food and Nutrition During Mild to Moderate Diarrhea * Wash Your Hands * Reasons To Call Back - Signs of dehydration occur (such as no urine over 12 hours, very dry mouth, lightheaded, etc.) - Moderate diarrhea lasts more than 2 days - Diarrhea lasts over 7 days - You become worse * Telephone Encounter - Dianna Cabral - 10/01/2024 9:25 AM EDT Symptoms: Urination Pain, Diarrhea Outcome: Schedule an urgent appointment (within 1 hour) or talk to a nurse or provider soon Reason: Severe pain now The caller accepted this outcome. Contact pt at [phone] (macanese) documented in this encounter Plan of Treatment Not on file documented as of this encounter Visit Diagnoses Not on filedocumented in this encounter Additional Health Concerns Assessment Noted Time PHQ-9 Depression Total Score: 12 025 1:40 PM EDT documented as of this encounter Care Teams Heater Engineer Helper Relationship Specialty Start Date End Date Benjamin Ireland MD [address] [place] [address] PCP - General Internal Medicine 12/02/17 Leobardo Ortiz, RN [address] [place] [address] Registered Nurse Family Medicine 09/20/24 Diane Sosa 09/20/24 Leena Curtis Registered Nurse Maternal ChildTower Switch Operator 05/06/23 [facility] 07/13/24 documented as of this encounter
--- OUTSIDE RECORDS SUMMARY | 2024-10-05 14:38 | XMS_ITS | Encounter Summary ---
Author Organization [employer] Address [address] [facility] [address] [place] [address] Care Team Providers Care Journey Lineman Name Role Phone Benjamin Ireland MD Primary Care Provider Leobardo Ortiz RN Unavailable [phone] Diane Sosa Unavailable Reason for Visit * Reason Onset Date Comments Med Refill 11/06/2023 Encounter Details Date Type Department Care Team (Late st Contact Info) Description 11/06/2023 Telephone [facility] [address] [place] [address] Benjamin Ireland MD [address] [place] [address] Med Refill Social History Tobacco Use Types [...] 30 MG tablet To be sent to: [facility] - [place], [place] - [address] [place] [address] documented in this encounter Plan of Treatment Not on file documented as of this encounter Visit Diagnoses Not on filedocumented in this encounter Additional Health Concerns Assessment Noted Time PHQ-9 Depression Total Score: 15 024 10:11 AM EDT documented as of this encounter Care Teams Journey Lineman Relationship Specialty Start Date End Date Benjamin Ireland MD [address] [place] [address] PCP - General Internal Medicine 12/02/17 Leobardo Ortiz, RN [address] [facility] [place] [address] Registered Nurse Family Medicine 09/20/24 Diane Sosa 09/20/24 Leena Curtis Senior Administrator SupportReinforcing Steel Erector 05/06/23 [facility] 07/13/24 documented as of this encounter
--- OUTSIDE RECORDS SUMMARY | 2024-10-05 14:38 | XMS_ITS | Encounter Summary ---
Author Organization [employer] Address [address] [facility] [address] [place] [address] Care Team Providers Care Plastic Molder Name Role Phone Benjamin Ireland MD Primary Care Provider Leobardo Ortiz RN Unavailable [phone] Diane Sosa Unavailable Reason for Visit * Reason Comments Care Coordination C3 BARON smith telephone call outreach Encounter Details Date Type Department Care Team (Latest Contact Info) Description 09/30/2024 Patient Outreach [facility] [address] [place] [address] Benjamin Ireland MD [address] [place] [address] Care Coordination (C3 BARON Sosa telephone call outreach) Social History Tobacco Use Types Packs/Day Years [...] as of this encounter Progress Notes * Diane Sosa - 09/30/2024 10:51 AM EDT CHW Diane Sosa , placed outbound call to patient in regards to offer services. CHW introducing herself from [facility] CM Department with CHW's name, department and direct contact number requesting call back. Will re-attempt to contact within 5 days. and address not confirmed. documented in this encounter Plan of Treatment Not on file documented as of this encounter Visit Diagnoses Not on filedocumented in this encounter Additional Health Concerns Assessment Noted Time PHQ-9 Depression Total Score: 12 025 1:40 PM EDT documented as of this encounter Care Teams Plastic Molder Relationship Specialty Start Date End Date Benjamin Ireland MD [address] [place] [address] PCP - General Internal Medicine 12/02/17 Leobardo Ortiz, YESSICA [address] [place] [address] Registered Nurse Family Medicine 09/20/24 Diane Sosa 09/20/24 Leena Curtis Hydroelectric Machinery MechanicSander Wooden Pencils 05/06[facility]23 [facility] documented as of this encounter
--- OUTSIDE RECORDS SUMMARY | 2024-10-05 14:38 | XMS_ITS | Encounter Summary ---
Author Organization [employer] Address [address] [facility] [address] [place] [address] Care Team Providers Care Senior Sales Engineer Name Role Phone Benjamin Ireland MD Primary Care Provider [phone] Leobardo Ortiz RN Unavailable [phone] Diane Sosa Unavailable Reason for Visit * Reason Onset Date Comments Med Refill 07/08/2023 Encounter Details Date Type Department Care Team (Late st Contact Info) Description 07/08/[address] 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 threatened to [...] 300-30 MG tablet To be sent to: [facility] documented in this encounter Plan of Treatment Not on file documented as of this encounter Visit Diagnoses Not on filedocumented in this encounter Additional Health Concerns Assessment Noted Time PHQ-9 Depression Total Score: 0 02/14/19 23 11:24 AM EST documented as of this encounter Care Teams Senior Sales Engineer Relationship Specialty Start Date End Date Benjamin Ireland MD [address] [place] [address] PCP - General Internal Medicine 12/02/17 Leobardo Ortiz, RN [address] [place] [address] Registered Nurse Family Medicine 09/20/24 Diane Sosa 09/20/24 Leena Curtis Natural Resource OfficerDesktop Publishing Specialist 05/06/23 [facility] documented as of this encounter
--- OUTSIDE RECORDS SUMMARY | 2024-10-05 14:38 | XMS_ITS | Encounter Summary ---
Author Organization [employer] Address [address] [facility] [address] [place] [address] Care Team Providers Care Tool Machine Setup Operator Name Role Phone Benjamin Ireland MD Primary Care Provider [phone] Leobardo Ortiz RN Unavailable [phone] Diane Sosa Unavailable Encounter Details Date Type Department Care Team (Late st Contact Info) Description 01/15/2022 Abstract [facility] [address] [place], [place] [id number] ProviderRadha MD Social History Tobacco Use Types [...] on filedocumented in this encounter Care Teams Tool Machine Setup Operator Relationship Specialty Start Date End Date Benjamin Ireland MD [address] [place] [address] PCP - General Internal Medicine 12/02/17 Leobardo Ortiz, RN [address] [place] [address] Registered Nurse Family Medicine 09/20/24 Diane Sosa 09/20/24 Leena Curtis Criminology TeacherJunior Account Manager 05/06/23 [facility] 07/13/24 documented as of this encounter
== END 2024-10-05 14:05 | disposition home or self-care (01) ==
LOC: HO.ENCR 13:38
PROVIDERS: PCP Internal Medicine; Visit Provider Physician Assistant Medical
DX: E11.59 Type 2 diabetes mellitus with other circulatory complications (principal); E66.813 Obesity, class 3; R79.89 Other specified abnormal findings of blood chemistry

== ENCOUNTER → 2024-10-05 13:37 | Outpatient (BNVA) | payer MEDICAID, SELFPAY | PROVIDERS: PCP Internal Medicine; Visit Provider Physician Assistant Medical | DX: E11.9 Type 2 diabetes mellitus without complications (principal); E66.813 Obesity, class 3; R79.89 Other specified abnormal findings of blood chemistry | CPT/HCPCS: 82947; 83036; 99212 ==

== ENCOUNTER 2024-12-31 10:24 | Outpatient (AMB) | payer MEDICAID, SELFPAY ==
--- OUTSIDE RECORDS SUMMARY | 2024-12-26 12:36 | XMS_ITS | Continuity of Care Document ---
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 Role Phone Shu NORTON, [facility] Primary Care Physician [phone] [id number] Date(s): 12/23/24 - 12/26/[address] [address] Encounter Diagnosis Asthma exacerbation(Final) - 12/23/24 Discharge Disposition: A-D/C Home Attending Physician: Delicia Montes MD Admitting Physician: Howard Mckeon MD Referring Physician: Not on Staff, Referring MD Encounter Type: Disch IP Allergies, Adverse Reactions, Alerts No Known Allergies Functional Status Functional Status Assessment Assessment Assessment Component Result Effecti ve Date Total Falls Risk Score 6 12/25 Functional Status Assessment Assessment Assessment Component Result Effecti ve Date Total Falls Risk Score 3 12/25 Functional Status Assessment Assessment Assessment Component Result Effecti ve Date Chandu scale total score 21 Functional Status Assessment Assessment Assessment Component Result Effecti ve Date Total score [AUDIT] 0 12/24/24 Functional Status Assessment Assessment Assessment Component Result Effecti ve Date Total Falls Risk Score 8 12/24 Functional Status Assessment Assessment Assessment Component Result Effecti ve Date Chandu scale total score 18 Functional Status Assessment Assessment Assessment Component Result Effecti ve Date Total Falls Risk Score 8 12/24 Immunizations Given and Recorded Vaccine Date Status Refusal Reason influenza virus vaccine, inactivated 01/16/21 Josafat rded influenza virus vaccine, inactivated 02/05/17 Josafat rded SARS-CoV-2 (COVID-19) mRNA-1273 vaccine 05/26/20 R ecorded SARS-CoV-2 (COVID-19) mRNA-1273 vaccine 04/28/20 R ecorded zoster vaccine, inactivated 03/30/19 Recorded zoster vaccine, inactivated 01/22/19 Recorded tetanus/diphtheria/pertussis, acel(Tdap) 01/22/19 Recorded Medications acetaminophen-codeine 300 mg-30 mg oral tablet 1, tablet, Take 1 tablet by mouth every 8 (eight) hours for 3 days. As needed Start Date: 12/09/24 Status: Ordered Medication Dispense Status: Completed Total Allowed Fills: 1 Fills Dispensed: 0 Aerochamber See Instructions, # 1 each, Refills 6, Tot. Refills 6, Maintenance, Use with albuterol, 12/06/21 11:49:00 AM EDT, Supply, 163, cm, 12/06/21 10:50:00 EDT, Height, 112.5, kg, 11/01/21 17:03:00 EDT, DryWeight Start Date: 12/06/21 Status: Ordered Medication Dispense Status: Completed Quantity: 1.0 Unit: each Total Allowed Fills: 7 Fills Dispensed: 0 albuterol 0.083% inhalation solution 3 mL = 2.5 mg, Neb, Every 6 hours, PRN Wheezing/Shortness of Breath, DX: J45.909, # 360 mL, 11 Refills, Maintenance, 09/30/24 2:54:00 PM EDT, Solution, [facility]/pharmacy #[id number], Partial fill upon patient request if the prescription is for a schedule II opioid drug., 157, cm, 09/30/24 14:40:00 EDT, Height,109.1, kg, 09/20/24 1:52:00 EDT, Dry Weight Start Date: 09/30/24 Stop Date: 09/25/25 Status: Ordered Medication Dispense Status: Completed Quantity: 360.0 Unit: mL Total Allowed Fills: 12 Fills Dispensed: 0 albuterol CFC free 90 mcg/inh inhalation aerosol 2, puffs, Inhalation, 4 times a day, PRN, use with pulmicort use with spacer chamber, # 18 Gm, Refills 11, Tot. Refills 11, Maintenance, 10/25/24 2:03:00 PM EDT, Aerosol, Route to Pharmacy Electronically, [id number], [facility]/pharmacy #[id number], 157, cm, 10/25/24 13:43:00 EDT, Height, 109.1, kg, 09/20/24 1:52:00 EDT, Dry Weight Start Date: 10/25/24 Stop Date: 10/20/25 Status: Ordered Medication Dispense Status: Completed Quantity: 18.0 Unit: g Total Allowed Fills: 12 Fills Dispensed: 0 aspirin 81 mg oral delayed release tablet 1 tablet = 81 mg, By Mouth, Daily, # 30 tablet, 0 Refills, Maintenance, 07/11/24 9:53:00 AM EDT, EC Tablet, [facility]/pharmacy #[id number], Partial fill upon patient request if the prescription is for a schedule II opioid drug., 163, cm, 07/11/24 7:30:00 EDT, Height, 107, kg, 07/09/24 2:27:00 EDT, Dry Weight Start Date: 07/11/24 Stop Date: 08/10/24 Status: Ordered Medication Dispense Status: Completed Quantity: 30.0 Unit: tablet Total Allowed Fills: 1 Fills Dispensed: 0 atorvastatin 40 mg oral tablet 1 tablet = 40 mg, By Mouth, Daily at bedtime, # 30 tablet, 0 Refills, Maintenance, 07/11/24 9:47:00 AM EDT, Tablet, [facility]/pharmacy #[id number], Partial fill upon patient request if the prescription is for a schedule II opioid drug., 163, cm, 07/11/24 7:30:00 EDT, Height, 107, kg, 07/09/24 2:27:00 EDT, Dry Weight Start Date: 07/11/24 Stop Date: 08/10/24 Status: Ordered Medication Dispense Status: Completed Quantity: 30.0 Unit: tablet Total Allowed Fills: 1 Fills Dispensed: 0 cetirizine 10 mg oral tablet 1 tablet = 10 mg, By Mouth, 2 times a day, 0 Refills, Maintenance, 09/09/17 5:41:17 PM EDT Start Date: 09/09/17 Status: Ordered Medication Dispense Status: Completed Total Allowed Fills: 1 Fills Dispensed: 0 fenofibrate 130 mg oral capsule 1 capsule = 130 mg, By Mouth, Daily, # 30 capsule, 0 Refills, Maintenance, 07/11/24 9:47:00 AM EDT, Capsule, [facility]/pharmacy #[id number], Partial fill upon patient request if the prescription is for a schedule II opioid drug., 163, cm, 07/11/24 7:30:00 EDT, Height, 107, kg, 07/09/24 2:27:00 EDT, Dry Weight Start Date: 07/11/24 Stop Date: 08/10/24 Status: Ordered Medication Dispense Status: Completed Quantity: 30.0 Unit: capsule Total Allowed Fills: 1 Fills Dispensed: 0 fluticasone/umeclidinium/vilanterol 200 mcg-62.5 mcg-25 mcg/inh inhalation powder 1 puffs, Inhalation, Daily, # 1 each, 11 Refills, Maintenance, 12/06/21 11:48:00 AM EDT, [facility]/pharmacy #[id number], Partial fill upon patient request if the prescription is for a schedule II opioid drug., 1puffs Inhalation Daily,x30 days, 163, cm, 12/06/21 10:50:00 EDT, Height, 112.5, kg, 11/01/21 17:03:00 EDT, Dry Weight Start Date: 12/06/21 Stop Date: 12/01/22 Status: Ordered Medication Dispense Status: Completed Quantity: 1.0 Unit: each Total Allowed Fills: 12 Fills Dispensed: 0 Januvia 100 mg oral tablet 1 tablet = 100 mg, By Mouth, Daily, # 30 tablet, 1 Refills, Maintenance, 09/26/24 11:36:00 AM EDT, Tablet, [facility]/pharmacy #[id number], Partial fill upon patient request if the prescription is for a schedule II opioid drug., 157, cm, 09/26/24 11:17:00 EDT, Height, 109.1, kg, 09/20/24 1:52:00 EDT, Dry Weight Start Date: 09/26/24 Stop Date: 11/25/24 Status: Ordered Medication Dispense Status: Completed Quantity: 30.0 Unit: tablet Total Allowed Fills: 2 Fills Dispensed: 0 levothyroxine 0.05 mg oral tablet TOME SHELLEY TABLETA TODOS LOS D Start Date: 08/11/19 Status: Ordered Medication Dispense Status: Completed Total Allowed Fills: 1 Fills Dispensed: 0 Mapap Arthritis Pain 650 mg oral tablet, extended release PLEASE SEE ATTACHED FOR DETAILED DIRECTIONS Start Date: 08/11/19 Status: Ordered Medication Dispense Status: Completed Total Allowed Fills: 1 Fills Dispensed: 0 metFORMIN 750 mg oral tablet, extended release 1 tablet = 750 mg, TAKE 1 TABLET BY MOUTH EVERY DAY Start Date: 12/09/24 Status: Ordered Medication Dispense Status: Completed Total Allowed Fills: 1 Fills Dispensed: 0 mirtazapine 15 mg oral tablet 1 tablet = 15 mg, TAKE ONE TABLET EVERY NIGHT AT BEDTIME Start Date: 12/09/24 Status: Ordered Medication Dispense Status: Completed Total Allowed Fills: 1 Fills Dispensed: 0 montelukast 10 mg oral tablet See Instructions, ALEJANDRA SHELLEY TABLETA POR VIA ORAL CADA NOCHE, # 90 tablet, Refills 3, Maintenance, 03/29/24 9:54:00 AM EST, Instructions Replace Required Details, Route to Pharmacy Electronically, [facility] [id number], 163, cm, 03/10/24 15:07:00 EST, Height, 102.5, kg, 01/09/24 17:44:00 EST, Dry Weight Start Date: 03/29/24 Status: Ordered Medication Dispense Status: Completed Quantity: 90.0 Unit: tablet Total Allowed Fills: 1 Fills Dispensed: 0 MorPHINE Inj 2 mg, Injection, IV Push Slowly, Every 4 hours, Hold for: sedation, lethargy, RR<12, PRN for Pain , Severe, Routine, 12/23/24 11:41:00 PM EST Start Date: 12/23/24 Stop Date: 12/26/24 Status: Discontinued Medication Dispense Status: Completed Total Allowed Fills: 1 Fills Dispensed: 0 pantoprazole 40 mg oral delayed release tablet 1 tablet, By Mouth, 2 times a day, # 180 tablet, 1 Refills, Maintenance, 02/24/24 1:54:00 PM EST, 163, cm, 01/09/24 17:44:00 EST, Height, 102.5, kg, 01/09/24 17:44:00 EST, Dry Weight Start Date: 02/24/24 Stop Date: 03/25/24 Status: Ordered Medication Dispense Status: Completed Quantity: 180.0 Unit: tablet Total Allowed Fills: 1 Fills Dispensed: 0 predniSONE 20 mg oral tablet = 40 mg, By Mouth, Daily, for 3 days, # 6 tablet, 0 Refills, Acute 12/29/24 9:23:00 AM EST, 12/26/24 9:23:00 AM EST, Tablet, [facility], Partial fill upon patient request if the prescription is for a schedule II opioid drug., 162, cm, 12/26/24 7:09:00 EST, Height, 107, kg, 12/24/24 17:42:00 EST, Dry Weight Start Date: 12/26/24 Stop Date: 12/29/24 Status: Ordered Medication Dispense Status: Completed Quantity: 6.0 Unit: tablet Total Allowed Fills: 1 Fills Dispensed: 0 PROzac 20 mg oral capsule 40 mg, 2, capsule, By Mouth, Daily, # 60 capsule, Refills 0, Maintenance, 08/11/19 11:58:00 AM EDT Start Date: 08/11/19 Status: Ordered Medication Dispense Status: Completed Quantity: 60.0 Unit: capsule Total Allowed Fills: 1 Fills Dispensed: 0 Pulmicort Flexhaler 90 mcg 2 inhalation = 180 mcg, Inhalation, 2 times a day, rinse mouth and throat after use, # 1 each, 0 Refills, Maintenance, 12/26/24 9:23:00 AM EST, Powder, Partial fill upon patient request if the prescription is for a schedule II opioid drug. Start Date: 12/26/24 Status: Ordered Medication Dispense Status: Completed Quantity: 1.0 Unit: each Total Allowed Fills: 1 Fills Dispensed: 0 traZODone 150 mg oral tablet 1 tablet = 150 mg, By Mouth, Daily at bedtime, # 30 tablet, 0 Refills, Maintenance, 09/09/17 5:39:29PM EDT, Tablet Start Date: 09/09/17 Status: Ordered Medication Dispense Status: Completed Quantity: 30.0 Unit: tablet Total Allowed Fills: 1 Fills Dispensed: 0 Ventolin HFA 108 mcg/inh inhalation aerosol with adapter 1 inhalation = 90 mcg, Inhalation, Every 4 hours, PRN as needed for shortness of breath or wheezing, # 18 Gm, 0 Refills, Maintenance, 12/26/24 9:22:00 AM EST, Aerosol, Partial fill upon patient request if the prescription is for a schedule II opioid drug. Start Date: 12/26/24 Status: Ordered Medication Dispense Status: Completed Quantity: 18.0 Unit: g Total Allowed Fills: 1 Fills Dispensed: 0 Vitamin D3 2000 intl units oral tablet 1 tablet = 2,000 International_Units, By Mouth, Daily, 0 Refills, Maintenance, 09/09/17 5:39:36 PM EDT Start Date: 09/09/17 Status: Ordered Medication Dispense Status: Completed Total Allowed Fills: 1 Fills Dispensed: 0 Mental Status Mental Status Assessment Assessment Assessment Component Result Effecti ve Date Kings[place] coma score total 15 Mental Status Assessment Assessment Assessment Component Result Effecti ve Date [place] coma score total 15 Mental Status Assessment Assessment Assessment Component Result Effecti ve Date [place] coma score total 15 Scale weight (physic al object) Patient/family stated 12/23/24 Problem List Condition Confirmation Course Effective Dates Status H ealth Status Informant Obesity hypoventilation syndrome Confirmed Active Asthma Confirmed Active GERD (gastroesophageal reflux disease) Confirmed Active Headache Confirmed Active Hyperlipidemia Confirmed Active Hypertension Confirmed Active Hypothyroid Confirmed Active Anxiety and depression Confirmed Active ELSIE (obstructive sleep apnea) Confirmed Active Severe obesity Confirmed Active TIA (transient ischemic attack) Confirmed Active Non-insulin dependent type 2 diabetes mellitus Confirmed Active Diabetes mellitus type 2 in obese Confirmed Active Results Radiology Reports * Exam Date Time Procedure Performing Provider Status 12/23/24 11:39 PM US Doppler Ext Lower Venous Bilat Auth (Verified) Notes: (US Doppler Ext Lower Venous Bilat) Reason For Exam: Pain in limb;Other: RESULT: US Doppler Ext Lower Venous Bilat US Doppler Ext Lower Venous Bilat Reason: Other:; Pain in limb; Clinical Question(s): Thrombosis COMPARISON: None IMAGING TECHNIQUE: Ultrasound of the veins from the groin through the calf was performed using grayscale, color, and spectral Doppler ultrasound assessing for complete compressibility and normal flowcharacteristics. FINDINGS: RIGHT LOWER EXTREMITY: Common femoral vein: Patent. No thrombosis. Femoral vein: Patent. No thrombosis. Popliteal vein: Patent. No thrombosis. Gastrocnemius veins: The visualized portions are patent without evidence of thrombosis. Peroneal veins: The visualized portions are patent without evidence of thrombosis. Posterior tibial veins: The visualized portions are patent without evidence of thrombosis. LEFT LOWER EXTREMITY: Common femoral vein: Patent. No thrombosis. Femoral vein: Patent. No thrombosis. Popliteal vein: Patent. No thrombosis. Gastrocnemius veins: The visualized portions are patent without evidence of thrombosis. Peroneal veins: The visualized portions are patent without evidence of thrombosis. Posterior tibial veins: The visualized portions are patent without evidence of thrombosis. OTHER FINDINGS: IMPRESSION: No evidence of deep venous thrombosis. WSN: [id number] Ordering Physician: Lindsay Martinez Dictated By: Subhash Kurtz MD Dictated Date/Time: 12/23/24 11:57 p Reviewed By: Subhash Kurtz MD Signed By: Subhash Kurtz MD Signed Date/Time: 12/23/24 11:57 pm Transcribed By: KEELEY Transcribed Date/Time: 12/23/24 11:57 pm * Exam Date Time Procedure Performing Provider Status 12/23/24 6:52 PM Chest 2 Views Frontal and Lat Auth (Verified) Notes: (Chest 2 Views Frontal and Lat) Reason For Exam: Shortness of Breath, Fever;Other: RESULT: Chest 2 Views Frontal and Lat Chest 2 Views Frontal and Lat Hx of Present Illness: from PCP with c o cough and SOB on exertion cough x 10 days. Wheezing throughout, frequent barky cough noted. R lobectomy hx. also c o chest pain.; Reason: Other:; Shortness ofBreath, Fever; Clinical Question(s): Pneumonia COMPARISON: 12/06/2024 FINDINGS: No acute cardiopulmonary process IMPRESSION: No acute abnormality. WSN: [id number] Ordering Physician: Lindsay Martinez Dictated By: Harsh Garnett MD Dictated Date/Time: 12/23/24 6:55 pm Reviewed By: Harsh Garnett MD Signed By: Harsh Garnett MD Signed Date/Time: 12/23/24 6:55 pm Transcribed By: KEELEY Transcribed Date/Time: 12/23/24 6:54 pm Vital Signs Most recent to oldest [Reference Range]: 1 2 3 Height 162 cm (12/26/24 7:09 AM) 162 cm (12/26/24 3:10 AM) 162 cm (12/25/24 11:14 PM) Weight 107 kg (12/24/24 2:54 PM) 108 kg (12/23/24 8:38 PM) 108 kg (12/23/24 7:11 PM) Oxygen Saturation [94-100 %] 94 % (12/26/24 7:09 AM) 93 % *L* (12/26/24 3:10 AM) 93 % *L* (12/25/24 11:14 PM) Pulse Rate [55-90 bpm] 92 bpm *H* (12/26/24 7:09 AM) 91 bpm *H* (12/26/24 3:10 AM) 95 bpm *H* (12/25/24 11:14 PM) Body Mass Index [18.5-24.99 kg/m2] 40.77 kg/m2 *H* (12/24/24 2:54 PM) 41.15 kg/m2 *H* (12/23/24 8:38 PM) 41.15 kg/m2 *H* (12/23/24 7:11 PM) Blood Pressure [90-138/55-84 mm Hg] 143/75mm Hg *H* (12/26/24 7:09 AM) 140/73mm Hg *H* (12/26/24 3:10 AM) 121/75mm Hg (12/25/24 11:14 PM) Respiratory Rate [16-30 br/min] 20 br/min (12/26/24 8:25 AM) 16 br/min (12/26/24 7:09 AM) 22 br/min (12/26/24 4:54 AM) Temperature [96.8-100.4 DegF] 98.1 DegF (12/26/24 7:09 AM) 98.1 DegF (12/26/24 3:10 AM) 98.1 DegF (12/25/24 11:14 PM) Liters per Minute 2 L/min (12/25/24 6:56 PM) 2 L/min (12/25/24 2:59 PM) 2 L/min (12/25/24 10:05 AM) Mode of Delivery (Oxygen) Room air (12/26/24 7:09 AM) Room air (12/26/24 3:10 AM) CPAP (12/25/24 11:14 PM) Blood pressure sites Arm, left (12/26/24 7:09 AM) Arm, left (12/26/24 3:10 AM) Arm, left (12/25/24 11:14 PM) Temperature Route Oral (12/26/24 7:09 AM) Oral (12/26/24 3:10 AM) Axillary (12/25/24 11:14 PM) Dry Weight 107 kg (12/24/24 2:54 PM) 108 kg (12/23/24 8:38 PM) 108 kg (12/23/24 7:11 PM) Weight Obtained Via Bed scale (12/24/24 2:54 PM) Patient/family stated (12/23/24 5:13 PM) Social History Social History Type Response Smoking Status Never (less than 100 in lifetime) entered on: 08/11/19 Sex Sex Representation Female (finding) Status N/A Admission evaluation note * Howard Mckeon MD: PERFORM Event Display: Admission Note Authored Date: Patient: ??HAYDEN DOMINGUEZ ? Age:??64 Years?Sex:??Female?:??1960?LOC:??[facility]?? History of Present Illness 64-year-old female with a history of severe persistent asthma with recent negative IgE and eosinophils, stage III obesity, presumptive untreated ELSIE, [id number] type 2 diabetes mellitus, GERD, hypertension, hypothyroidism, hyperlipidemia, recent admission for asthma exacerbation secondary to parainfluenza 1 infection presenting to the emergency department with complaints of progressively worsening shortness of breath over the past 2 weeks. ?? Patient was discharged recently for asthma exacerbation secondary to parainfluenza 1 infection on 12/10.?? She reports that she feels she was not 100% back to her baseline when she was discharged and continued to have progressively worsening shortness of breath over the past 2 weeks.?? Reports marquez ving a dry cough, no fever or chills, no nausea or vomiting.?? Also reports having central chest pain which worsens when she takes a deep breath and when she coughs.?? Chest pain is nonradiating, nonexertional.?? Currently saturating well on 2 L of O2 via nasal cannula, supplemental O2 was started in the ED for comfort, not hypoxic.?? COVID-19, flu, RSV negative.?? Chest x-ray nonacute.?? EKG with no acute ischemic changes, troponin 15, 14.?? Patient was given albuterol neb, Solu-Medrol, IV morphine in the ED.?? Patient also reports bilateral lower extremity pain for the past 2 days, no priorhistory of DVT, will undergo bilateral lower extremity ultrasound shortly. Review of Systems All systems are reviewed??and are negative except as noted above in the HPI. Objective Vital Signs?? Temperature: 99.2 DegF (12/23/24 22:49:00) Temperature Route: Oral (12/23/24 22:49:00) Pulse Rate:??102 bpm??High (12/23/24 22:49:00) Respiratory Rate: 22 br/min (12/23/24 22:49:00) Systolic Blood Pressure: 123 mm Hg (12/23/24 22:49:00) Diastolic Blood Pressure:??52 mm Hg??Low (12/23/24 22:49:00) Blood pressure sites: Arm, right (12/23/24 22:49:00) Mean Arterial Pressure: 82 mm Hg (12/23/24 20:38:00) Pulse Pressure: 71 mm Hg (12/23/24 22:49:00) Oxygen Saturation: 96 % (12/23/24 22:51:00) Liters per Minute: 2 L/min (12/23/24 22:51:00) Mode of Delivery (Oxygen): Nasal cannula (12/23/24 22:51:00) Early Warning Score: 3 (12/23/24 23:05:30) ? Physical Exam General: Alert, oriented x 3 HEENT: Atraumatic, normocephalic, EOMI, PERRL Neck: Supple, trachea midline Respiratory: Mild expiratory wheezing appreciated in bilateral upper lobes, otherwise has significantly diminished breath sounds throughout, saturating well on 2 L of O2 via NC CVS: S1, S2 regular, no MRG, no JVD Abdomen: Soft, nontender, nondistended, positive bowel sounds Musculoskeletal: Tender to palpation bilateral lower extremities specifically over the calves, no swelling, warmth or erythema noted, bilateral lower extremities symmetrical Neuro: Alert and oriented x 3, no facial asymmetry noted Psych: Appropriate mood and affect, cooperative Assessment/Plan Diagnoses Anxiety ??(F41.9) Asthma attack ??(J45.901) Asthma exacerbation ??(J45.901) Chest pain ??(R07.9) Chronic GERD ??(K21.9) Depression ??(F32.A) Diabetes type 2 ??(E11.9) Elevated troponin ??(R79.89) Hyperlipidemia ??(E78.5) Hypothyroidism ??(E03.9) ELSIE (obstructive sleep apnea) ??(G47.33) ?? Assessment:??64-year-old female with a history of severe persistent asthma with recent negative IgEand eosinophils, stage III obesity, presumptive untreated ELSIE, snt-oncajet-aklixadjt type 2 diabetes mellitus, GERD, hypertension, hypothyroidism, hyperlipidemia, recent admission for asthma exacerbation secondary to parainfluenza 1 infection presenting to the emergency department with complaints of progressively worsening shortness of breath over the past 2 weeks. ?? Asthma exacerbation (J45.901):??Presenting with progressively worsening shortness of breath Reports having a dry cough,??no recent sick contacts COVID-19, flu, RSV negative Chest x-ray nonacute Saturating well on 2 L of O2 via nasal cannula Continue with proactive management of acute asthma exacerbation Continue??DuoNebs [id number]-rhflk and as needed , Pulmicort Solu-Medrol 40 mg IV twice daily and taper accordingly Continue montelukast Continue to monitor??hemodynamics and respiratory status closely ?? Chest pain (R07.9) Elevated troponin (R79.89) ? Chest pain is atypical and pleuritic in nature.??EKG with no acute ischemic changes,??troponin 15, 14.?Continue telemetry ?? Bilateral lower extremity pain:??Reports having pain in bilateral lower extremity specially??in thecalves,??on exam??no swelling/edema noted,??bilateral lower extremities symmetrical,??no erythema, warmth noted.?? Ultrasound is pending which we will follow-up ?? Chronic GERD (K21.9):??Continue PPI ?? Hyperlipidemia (E78.5):??Continue statin, fenofibrate ?? Hypothyroidism (E03.9):??Continue levothyroxine ?? ELSIE (obstructive sleep apnea) (G47.33):??Presumed??ELSIE versus??obesity hypoventilation syndrome perprevious??documentations, last sleep study per patient was??2 years ago,??she??reports that she hasan appointment with her PCP??at the end of this month??who will??order a repeat??sleep study. ?? Diabetes type 2 (E11.9):??Sliding scale insulin while inpatient, glucose POC Holding??Januvia,??metformin ? VTE Prophylaxis:??Lovenox ?VTE Prophylaxis Assessment:??VTE Prophylaxis Ordered ?? Discharge Planning:??Pending clinical course ?? Code Status:??Full code ?Order Code Status:??Code Status Ordered ? Histories Allergies Allergies ?(Active and Proposed Allergies Only) NKA? (Severity: Unknown severity, Onset: Unknown) ? Past Medical History/Problem List Active Problems(13) Anxiety and depression Asthma Diabetes mellitus type 2 in obese GERD (gastroesophageal reflux disease) Headache Hyperlipidemia Hypertension Hypothyroid Non-insulin dependent type 2 diabetes mellitus Obesity hypoventilation syndrome ELSIE (obstructive sleep apnea) Severe obesity TIA (transient ischemic attack) ? Past Surgical History Hysterectomy Appendectomy ? Social History Alcohol Details:??Use: Never. Substance Abuse Details:??Use: Never. Tobacco Details:??Use: Never (less than 100 in lifetime). ? Family History No Family History documented. ? Medications Home Medications Acetaminophen (Mapap Arthritis Pain 650 mg oral tablet, extended release)??PLEASE SEE ATTACHED FOR DETAILED DIRECTIONS Acetaminophen/Codeine (acetaminophen-codeine 300 mg-30 mg oral tablet)??1 tab(s) Take 1 tablet by mouth every 8 (eight) hours for 3 days. As needed Albuterol (albuterol 0.083% inhalation solution)??3 Milliliter 2.5 Milligram Neb Every 6 hours as needed Wheezing/Shortness of Breath for 30 Days DX: J45.909 Albuterol (albuterol CFC free 90 mcg/inh inhalation aerosol)??2 puff(s) Inhalation 4 times a day asneeded for 30 use with pulmicortuse with spacer chamber Days Wheezing/Shortness of Breath Aspirin (aspirin 81 mg oral delayed release tablet)??1 tab(s) 81 Milligram By Mouth Daily for 30 Days Atorvastatin (atorvastatin 40 mg oral tablet)??1 tab(s) 40 Milligram By Mouth Daily at bedtime for 30 Days Cetirizine (cetirizine 10 mg oral tablet)??1 tab(s) 10 Milligram By Mouth 2 times a day Cholecalciferol (Vitamin D3 2000 intl units oral tablet)??1 tab(s) 2,000 International Unit By Mouth Daily Durable Medical Equipment (Aerochamber)??See Instructions Use with albuterol Fenofibrate (fenofibrate 130 mg oral capsule)??1 capsule 130 Milligram By Mouth Daily for 30 Days Fluoxetine (PROzac 20 mg oral capsule)??40 Milligram 2 capsule By Mouth Daily fluticasone/umeclidinium/vilanterol (fluticasone/umeclidinium/vilanterol 200 mcg-62.5 mcg-25 mcg/inh inhalation powder)??1 puff(s) Inhalation Daily for 30 Days Levothyroxine (levothyroxine 0.05 mg oral tablet)??TOME SHELLEY TABLETA TODOS LOS D Metformin (metFORMIN 750 mg oral tablet, extended release)??1 tab(s) 750 Milligram TAKE 1 TABLET BYMOUTH EVERY DAY Mirtazapine (mirtazapine 15 mg oral tablet)??1 tab(s) 15 Milligram TAKE ONE TABLET EVERY NIGHT AT BEDTIME Montelukast (montelukast 10 mg oral tablet)??See Instructions TOME SHELLEY TABLETA POR VIA ORAL CADA NOCHE Pantoprazole (pantoprazole 40 mg oral delayed release tablet)??1 tab(s) By Mouth 2 times a day for 30 Days sitagliptin (Januvia 100 mg oral tablet)??1 tab(s) 100 Milligram By Mouth Daily for 30 Days Trazodone (traZODone 150 mg oral tablet)??1 tab(s) 150 Milligram By Mouth Daily at bedtime ? Results Recent Labs BLOOD COUNT & DIFF WBC 6.5 k/mm3 ()?? 12/23/2024 17:00 RBC 3.64 m/mm3 (Low)?? 12/23/2024 17:00 Hgb 9.6 Gm/dL (Low)?? 12/23/2024 17:00 Hct 31.6 % (Low)?? 12/23/2024 17:00 MCV 86.8 femtoliters ()?? 12/23/2024 17:00 MCH 26.4 pg (Low)?? 12/23/2024 17:00 MCHC 30.4 Gm/dL (Low)?? 12/23/2024 17:00 Platelet Count 210 k/mm3 ()?? 12/23/2024 17:00 RDW-SD 49.1 femtoliters (High)?? 12/23/2024 17:00 MPV 8.7 femtoliters (Low)?? 12/23/2024 17:00 Nucleated RBC (Automated) 0.0 #/100 WBC'S ()?? 12/23/2024 17:00 Abs. NRBC 0.0 k/mm3 ()?? 12/23/2024 17:00 Abs. Neut 4.2 k/mm3 ()?? 12/23/2024 17:00 Abs. Lymph 1.5 k/mm3 ()?? 12/23/2024 17:00 Abs. [place] 0.6 k/mm3 ()?? 12/23/2024 17:00 Abs. Eo 0.1 k/mm3 ()?? 12/23/2024 17:00 Abs. Baso 0.0 k/mm3 ()?? 12/23/2024 17:00 Neut % 64.8 % ()?? 12/23/2024 17:00 Lymph % 23.2 % ()?? 12/23/2024 17:00 [place] % 9.1 % ()?? 12/23/2024 17:00 Eos % 2.0 % ()?? 12/23/2024 17:00 Baso % 0.3 % ()?? 12/23/2024 17:00 Imm Gran 0.6 % ()?? 12/23/2024 17:00 Abs. Imm Gran 0.0 k/mm3 ()?? 12/23/2024 17:00 ?? CARDIAC Nt-Probnp 231 pg/mL (High)?? 12/23/2024 17:00 High Sensitivity Troponin (HSTnT) 14 ng/L (High)?? 12/23/2024 20:27 ?? CHEM GENERAL Sodium 139 mmol/L ()?? 12/23/2024 17:00 Potassium 3.8 mmol/L ()?? 12/23/2024 17:00 Chloride 105 mmol/L ()?? 12/23/2024 17:00 Bicarbonate Level 22 mmol/L ()?? 12/23/2024 17:00 Anion Gap 12 mmol/L ()?? 12/23/2024 17:00 Glucose Level 89 mg/dL ()?? 12/23/2024 17:00 BUN 18 mg/dL ()?? 12/23/2024 17:00 Creatinine-Blood 0.86 mg/dL ()?? 12/23/2024 17:00 Estimated GFR Creatinine 76 ML/MIN/1.73 M2 ()?? 12/23/2024 17:00 Calcium 8.9 mg/dL ()?? 12/23/2024 17:00 ?? URINE OTHER Est Creatinine Clearance 57.28 mL/min ()?? 12/23/2024 17:52 ?? VIROLOGY Influenza A PCR NEGATIVE ()?? 12/23/2024 17:01 Influenza B PCR NEGATIVE ()?? 12/23/2024 17:01 RSV PCR NEGATIVE ()?? 12/23/2024 17:01 COVID-19 PCR Specimen Source NASAL ()?? 12/23/2024 17:01 COVID-19 PCR Result NEGATIVE ()?? 12/23/2024 17:01 ? Electronically Signed on 12/23/24 11:42 PM Linda NORTON, Howard EKG study * Event Display: ECG 12-Lead Authored Date: Please click on pdf link to open report * Event Display: ECG 12-Lead Authored Date: Ventricular Rate: 104 BPM Atrial Rate: 104 BPM P-R Interval: 152 ms QRS Duration: 152 ms Q-T Interval: 470 ms QTC Calculation(Bazett): 618 ms P [place]: 12 degrees R [place]: -49 degrees T [place]: 49 degrees Sinus tachycardia Right bundle branch block Left anterior fascicular block Bifascicular block Minimal voltage criteria for LVH, may be normal variant ( R in aVL ) Abnormal ECG Confirmed by PACO SCHMIDT ([id number]) on 12/24/2024 12:15:53 PM [place]: PACO SCHMIDT * Event Display: ECG 12-Lead Authored Date: Please click on pdf link to open report * Event Display: ECG 12-Lead Authored Date: [id number] Ventricular Rate: 78 BPM Atrial Rate: 78 BPM P-R Interval: 178 ms QRS Duration: 144 ms Q-T Interval: 482 ms QTC Calculation(Bazett): 549 ms P [place]: 36 degrees R [place]: -47 degrees T [place]: 19 degrees Normal sinus rhythm Right bundle branch block Left axis deviation Minimal voltage criteria for LVH, may be normal variant ( R in aVL ) Abnormal ECG When compared with ECG of 06-Dec-2024 18:22, T wave inversion now evident in Inferior leads Confirmed by LISA ODONNELL ([id number]) on 12/24/2024 1:46:13 PM [place]: LISA ODONNELL [facility] Progress note * Anjana Gray RN: PERFORM, SIGN, VERIFY Event Display: Progress Note Hospital Authored Date: [id number] Patient: HAYDEN DOMINGUEZ Age: 64 years Sex: Female : 1960 Associated Diagnoses: None Author: Anjana Gray RN Findings Problem Related to Alteration in Respiratory Function (new) : Alteration in Respiratory Function/new 12/25/2024 21:00 EST Alteration in Resp Status Related to Asthma Goals & Outcomes, Respiratory Pt will maintain/resume baseline physical assessment, Pt will notdevelop complications r/t mechanical ventilation, Pt will maintain adequate nutritional intake, Pt will maintain/resume normal fluid/electrolyte balance, Pt will not develop complications r/t immobility, Pt will demonstrate proper technique w/self care procedures Interventions, Respiratory Assess for and report S&S of respiratory distress, Position for comfort & optimal oxygenation, Monitor sputum color & consistency. Report changes to MD, Teach purse lip breathing as needed for breathing retraining Goals/Interventions, Respiratory Yes Respiratory, Problem Start 12/25/2024 21:00 Reviewed Plan with, Respiratory Patient Patient Progression, Respiratory Plan Initiation . Evaluation Patient AxOx4; denies any dizziness, nausea, dysuria, constipation, or paresthesia in extremities. Patient endorses MAE; non-productive cough; severe back pain at 10/20; and severe frontal headache at10/20. Pain and headache managed with PRN Tylenol 650 mg and PRN IV Morphine 2 mg admin at 2056, effects pending. Skin intact; extremities warm and dry; no edema noted. Palpable radial and pedal pulses, bilaterally. POC: 231 at HS; no s/s of hyper/hypoglycemia noted. Patient afebrile; normotensive. Patient on tele monitoring; NSR, IVCD, 90s. Lung sounds clear in upper lobes; dim at bases; fine crackles auscultated over LLL. Patient on supplemental oxygen via NC at 2LPM; oxygen sat- 98%. Patient on CPAP for the night; oxygen sat: 93%. DuoNeb tx admin at HS, as ordered. Abdomen soft; non-tender;+ BS. LBM- 12/25/24. Patient ambulating with standby assist with walker; voiding on the bedside commode. Call pemberton and personal items in reach. Plan: monitor respiratory function; pain management; telemetry; PO steroids; anticipate discharge tomorrow. For full assessment details, see CIS. Will christy nue monitoring the patient. . Discharge Information Pulmonary Rehab Discharge : Pulmonary Rehab Discharge Status 12/26/2024 0:17 EST CPAP/BiPAP Mask Type Full CPAP/BiPAP Mask Size Small 12/25/2024 4:30 EST CPAP/BiPAP Mask Type Full CPAP/BiPAP Mask Size Small 12/25/2024 1:39 EST CPAP/BiPAP Mask Type Full CPAP/BiPAP Mask Size Small Electronically Signed on 12/26/24 12:29 AM Isaac JUAN, Anjana Montes MD, Delicia: PERFORM Event Display: Progress Note Hospital Authored Date: [id number] Patient: ??HAYDEN DOMINGUEZ ? Age:??64 Years?Sex:??Female?:??1960?LOC:??[facility]?? Subjective seen And examined at bedside Overnight event noted he mention he used CPAP last night and feeling slightly better today Shortness of breath is improving Still coughing a lot and having chest pain with coughing Review of Systems Allergies Allergies ?(Active and Proposed Allergies Only) NKA? (Severity: Unknown severity, Onset: Unknown) ? Objective Measurements?? Height: 162 cm (12/25/24) Weight: 107 kg (12/24/24) Dry Weight: 107 kg (12/24/24) Body Mass Index:??40.77 kg/m2??High (12/24/24) ? Physical Exam GENERAL: In no apparent distress HEENT: Head normocephalic, PERRL,Moist mucous membrane. Neck supple CARDIOVASCULAR: Normal rate and rhythm, no murmurs, no rubs, no gallops RESPIRATORY: Scattered wheezing bilaterally ABDOMEN/GI: Nondistended, soft, nontender, normal bowel sounds EXTREMITIES: No pitting edema APPLICATIONS DEVELOPMENT ANALYST: Alert and oriented x 3.Non focal neuro exam. PSYCHIATRIC: Calm and co-operative SKIN: Warm and dry. ? Results Recent Labs BLOOD COUNT & DIFF WBC 6.3 k/mm3 ()?? 12/24/2024 05:45 RBC 3.64 m/mm3 (Low)?? 12/24/2024 05:45 Hgb 9.6 Gm/dL (Low)?? 12/24/2024 05:45 Hct 30.9 % (Low)?? 12/24/2024 05:45 MCV 84.9 femtoliters ()?? 12/24/2024 05:45 MCH 26.4 pg (Low)?? 12/24/2024 05:45 MCHC 31.1 Gm/dL (Low)?? 12/24/2024 05:45 Platelet Count 220 k/mm3 ()?? 12/24/2024 05:45 RDW-SD 49.4 femtoliters (High)?? 12/24/2024 05:45 MPV 8.5 femtoliters (Low)?? 12/24/2024 05:45 Nucleated RBC (Automated) 0.0 #/100 WBC'S ()?? 12/24/2024 05:45 Abs. NRBC 0.0 k/mm3 ()?? 12/24/2024 05:45 Abs. Neut 5.7 k/mm3 ()?? 12/24/2024 05:45 Abs. Lymph 0.5 k/mm3 (Low)?? 12/24/2024 05:45 Abs. [place] 0.1 k/mm3 (Low)?? 12/24/2024 05:45 Abs. Eo 0.0 k/mm3 ()?? 12/24/2024 05:45 Abs. Baso 0.0 k/mm3 ()?? 12/24/2024 05:45 Neut % 90.5 % (High)?? 12/24/2024 05:45 Lymph % 7.2 % (Low)?? 12/24/2024 05:45 [place] % 1.8 % (Low)?? 12/24/2024 05:45 Eos % 0.0 % ()?? 12/24/2024 05:45 Baso % 0.2 % ()?? 12/24/2024 05:45 Imm Gran 0.3 % ()?? 12/24/2024 05:45 Abs. Imm Gran 0.0 k/mm3 ()?? 12/24/2024 05:45 ?? CHEM GENERAL Sodium 141 mmol/L ()?? 12/24/2024 05:45 Potassium 4.4 mmol/L ()?? 12/24/2024 05:45 Chloride 106 mmol/L ()?? 12/24/2024 05:45 Bicarbonate Level 23 mmol/L ()?? 12/24/2024 05:45 Anion Gap 12 mmol/L ()?? 12/24/2024 05:45 Glucose Level 157 mg/dL (High)?? 12/24/2024 05:45 Glucose, POC 186 mg/dL (High)?? 12/25/2024 10:39 BUN 13 mg/dL ()?? 12/24/2024 05:45 Creatinine-Blood 0.66 mg/dL ()?? 12/24/2024 05:45 Estimated GFR Creatinine 99 ML/MIN/1.73 M2 ()?? 12/24/2024 05:45 Calcium 9.2 mg/dL ()?? 12/24/2024 05:45 ?? URINE OTHER Est Creatinine Clearance 74.64 mL/min ()?? 12/24/2024 06:50 ? Assessment/Plan Diagnoses Anxiety ??(F41.9) Asthma attack ??(J45.901) Asthma exacerbation ??(J45.901) Chest pain ??(R07.9) Chronic GERD ??(K21.9) Depression ??(F32.A) Diabetes type 2 ??(E11.9) Elevated troponin ??(R79.89) Hyperlipidemia ??(E78.5) Hypothyroidism ??(E03.9) ELSIE (obstructive sleep apnea) ??(G47.33) ?64-year-old female with a history of severe persistent asthma with recent negative IgE and eosinophils, stage III obesity, presumptive untreated ELSIE, fic-gsiiklf-kwpearhlt type 2 diabetes mellitus, GERD, hypertension, hypothyroidism, hyperlipidemia, recent admission for asthma exacerbation jocelyn larry to parainfluenza 1 infection presenting to the emergency department with complaints of progressively worsening shortness of breath over the past 2 weeks. ?? Asthma exacerbation (J45.901):??Presenting with progressively worsening shortness of breath Reports having a dry cough,??no recent sick contacts COVID-19, flu, RSV negative Chest x-ray nonacute Improving She is on Solu-Medrol 40 mg twice daily Changed to prednisone 40 mg p.o. daily today Continue DuoNeb ? Chest pain (R07.9) Elevated troponin (R79.89) ? Chest pain is atypical and pleuritic in nature.??EKG with no acute ischemic changes,??troponin 15, 14.?Continue telemetry ?? Bilateral lower extremity pain:??Reports having pain in bilateral lower extremity specially??in thecalves,??on exam??no swelling/edema noted,??bilateral lower extremities symmetrical,??no erythema, warmth noted.?? Ultrasound??b/l LE neg for dvt. ?? Chronic GERD (K21.9):??Continue PPI ?? Hyperlipidemia (E78.5):??Continue statin, fenofibrate ?? Hypothyroidism (E03.9):??Continue levothyroxine ?? ELSIE (obstructive sleep apnea) (G47.33):??Presumed??ELSIE versus??obesity hypoventilation syndrome perprevious??documentations, last sleep study per patient was??2 years ago,??she??reports that she hasan appointment with her PCP??at the end of this month??who will??order a repeat??sleep study. ?? Diabetes type 2 (E11.9):??Sliding scale insulin while inpatient, glucose POC Holding??Januvia,??metformin ?? VTE Prophylaxis:??Lovenox ?VTE Prophylaxis Assessment:??VTE Prophylaxis Ordered ?? Discharge Planning:??Pending clinical course ?? Code Status:??Full code ?Order Code Status:??Code Status Ordered ?OMN: asthma exacerbation ?? Anticipate discharge tomorrow ? Electronically Signed on 12/25/24 01:08 PM Simon NORTON, Delicia * Bernie Carrera LPN: PERFORM, SIGN, VERIFY Event Display: Progress Note Hospital Authored Date: [id number] Patient: HAYDEN DOMINGUEZ Age: 64 years Sex: Female : 1960 Associated Diagnoses: None Author: Bernie Carrera LPN Findings Evaluation Patient alert and oriented x 4. Patient with hacking cough, dyspnea on exertion. Nebulizer tx givenalong with guifenisen with codeine, prn morphine given per patient request for 10/20 pain. LS diminished on left, right eith expiratory wheeze present. On o2 at 2lpm and mainitaining o2 sats in the mid to upper 90's. NSR ivcd on telemetry. . Discharge Information Pulmonary Rehab Discharge : Pulmonary Rehab Discharge Status 12/25/2024 4:30 EST CPAP/BiPAP Mask Type Full CPAP/BiPAP Mask Size Small 12/25/2024 1:39 EST CPAP/BiPAP Mask Type Full CPAP/BiPAP Mask Size Small Electronically Signed on 12/25/24 10:05 AM Bernie Carrera LPN Note * Marina Hirshc RN: PERFORM Event Display: Discharge/Transfer Note Hospital Authored Date: [id number] Nursing Discharge Note Entered On: 12/26/2024 12:45 EST Performed On: 12/26/2024 12:44 EST by Marina Hirsch RN Nursing Discharge Note 2 Discharge Time : 12/26/2024 12:35 EST Discharge Level of Care at Discharge : Home/Detention/Foster Care Patient Left Unit Via : Wheelchair Patient Accompanied Off Unit with : Responsible adult DC Instructions Provided & Signed by Pt : Yes Patient Understands D/C Instructions : Yes Patient Instructions Discharge Signed : Yes Discharge Comments : IV removed. Discharge paperwork reviewed, questions answered. Did Pt have Specialty Bed or Wound Vac : No Marina Hirsch RN - 12/26/2024 12:44 EST Electronically Signed on 12/26/24 12:44 PM Marina Hirsch RN * Simon NORTON, Delicia: MODIFY, PERFORM Event Display: Discharge/Transfer Note Hospital Authored Date: [id number] Patient: ??HAYDEN DOMINGUEZ ? Age:??64 Years?Sex:??Female?:??1960?LOC:??[facility]?? Patient Information Discharge Location: D3B Primary Care Physician: Shu NORTON , Benjamin Admit Date/Time: 12/23/2024 22:43 Discharge Disposition Discharge Disposition: Home: No Services Discharge Diagnosis Asthma exacerbation (J45.901) Asthma attack (J45.901) Diabetes type 2 (E11.9) ELSIE (obstructive sleep apnea) (G47.33) Hypothyroidism (E03.9) Hyperlipidemia (E78.5) Chronic GERD (K21.9) Anxiety (F41.9) Depression (F32.A) Chest pain (R07.9) Elevated troponin (R79.89) _ Discharge Medications Acetaminophen (Mapap Arthritis Pain 650 mg oral tablet, extended release)??PLEASE SEE ATTACHED FOR DETAILED DIRECTIONS Acetaminophen/Codeine (acetaminophen-codeine 300 mg-30 mg oral tablet)??1 tab(s) Take 1 tablet by mouth every 8 (eight) hours for 3 days. As needed Albuterol (albuterol 0.083% inhalation solution)??3 Milliliter 2.5 Milligram Neb Every 6 hours as needed Wheezing/Shortness of Breath for 30 Days DX: J45.909 Albuterol (albuterol CFC free 90 mcg/inh inhalation aerosol)??2 puff(s) Inhalation 4 times a day asneeded for 30 use with pulmicortuse with spacer chamber Days Wheezing/Shortness of Breath Albuterol (Ventolin HFA 108 mcg/inh inhalation aerosol with adapter)??1 inhalation 90 Microgram Inhalation Every 4 hours as needed as needed for shortness of breath or wheezing Aspirin (aspirin 81 mg oral delayed release tablet)??1 tab(s) 81 Milligram By Mouth Daily for 30 Days Atorvastatin (atorvastatin 40 mg oral tablet)??1 tab(s) 40 Milligram By Mouth Daily at bedtime for 30 Days Budesonide (Pulmicort Flexhaler 90 mcg)??2 inhalation 180 Microgram Inhalation 2 times a day rinse mouth and throat after use Cetirizine (cetirizine 10 mg oral tablet)??1 tab(s) 10 Milligram By Mouth 2 times a day Cholecalciferol (Vitamin D3 2000 intl units oral tablet)??1 tab(s) 2,000 International Unit By Mouth Daily Durable Medical Equipment (Aerochamber)??See Instructions Use with albuterol Fenofibrate (fenofibrate 130 mg oral capsule)??1 capsule 130 Milligram By Mouth Daily for 30 Days Fluoxetine (PROzac 20 mg oral capsule)??40 Milligram 2 capsule By Mouth Daily fluticasone/umeclidinium/vilanterol (fluticasone/umeclidinium/vilanterol 200 mcg-62.5 mcg-25 mcg/inh inhalation powder)??1 puff(s) Inhalation Daily for 30 Days Guaifenesin/Codeine (codeine-guaifenesin 10 mg-100 mg/5 mL oral syrup)??5 Milliliter By Mouth Every4 hours as needed Cough for 5 Days Levothyroxine (levothyroxine 0.05 mg oral tablet)??TOME SHELLEY TABLETA TODOS LOS D Metformin (metFORMIN 750 mg oral tablet, extended release)??1 tab(s) 750 Milligram TAKE 1 TABLET BYMOUTH EVERY DAY Mirtazapine (mirtazapine 15 mg oral tablet)??1 tab(s) 15 Milligram TAKE ONE TABLET EVERY NIGHT AT BEDTIME Montelukast (montelukast 10 mg oral tablet)??See Instructions TOME SHELLEY TABLETA POR VIA ORAL CADA NOCHE Pantoprazole (pantoprazole 40 mg oral delayed release tablet)??1 tab(s) By Mouth 2 times a day for 30 Days PredniSONE (predniSONE 20 mg oral tablet)??40 Milligram By Mouth Daily for 3 Days sitagliptin (Januvia 100 mg oral tablet)??1 tab(s) 100 Milligram By Mouth Daily for 30 Days Trazodone (traZODone 150 mg oral tablet)??1 tab(s) 150 Milligram By Mouth Daily at bedtime ? Durable Medical Equipment Discharge recommendations: Home with services (07/09/24) Name of Agency #1: [facility] (12/10/24) Agency [facility]: [phone] (12/10/24) Service Categories #1: Physical Therapy, Care Home (12/10/24) Service Comments #1: Agency will contact you within 48 hours of discharge. please reach out to the number above with any concerns. (12/10/24) CPAP/BiPAP Mask Type: Full (12/26/24) CPAP/BiPAP Mask Size: Small (12/26/24) Ambulatory devices needed: Walker (12/25/24) ? Discharge Medications New Guaifenesin/Codeine (codeine-guaifenesin 10 mg-100 mg/5 mL oral syrup)5 Milliliter Oral every 4 hours as needed Cough for 5 Days. Refills: 0. Changed PredniSONE (predniSONE 20 mg oral tablet)40 Milligram Oral Daily for 3 Days. Refills: 0. Unchanged Acetaminophen (Mapap Arthritis Pain 650 mg oral tablet, extended release)PLEASE SEE ATTACHED FOR DETAILED DIRECTIONS. Acetaminophen/Codeine (acetaminophen-codeine 300 mg-30 mg oral tablet)1 tab(s). Take 1 tablet by mouth every 8 (eight) hours for 3 days. As needed. Albuterol (albuterol 0.083% inhalation solution)3 Milliliter Nebulized inhalation every 6 hours as needed Wheezing/Shortness of Breath for 30 Days. DX: J45.909. Refills: 11. Albuterol (albuterol CFC free 90 mcg/inh inhalation aerosol)2 puff(s) Inhalation 4 times a day as needed Wheezing/Shortness of Breath for 30 Days. use with pulmicort use with spacer chamber. Refills:11. Albuterol (Ventolin HFA 108 mcg/inh inhalation aerosol with adapter)1 inhalation Inhalation every 4hours as needed as needed for shortness of breath or wheezing. Aspirin (aspirin 81 mg oral delayed release tablet)1 tab(s) Oral Daily for 30 Days. Refills: 0. Atorvastatin (atorvastatin 40 mg oral tablet)1 tab(s) Oral Daily at Bedtime for 30 Days. Refills: 0. Budesonide (Pulmicort Flexhaler 90 mcg)2 inhalation Inhalation twice a day. rinse mouth and throat after use. Cetirizine (cetirizine 10 mg oral tablet)1 tab(s) Oral twice a day. Cholecalciferol (Vitamin D3 2000 intl units oral tablet)1 tab(s) Oral Daily. Durable Medical Equipment (Aerochamber)Use with albuterol. Refills: 6. Fenofibrate (fenofibrate 130 mg oral capsule)1 capsule Oral Daily for 30 Days. Refills: 0. Fluoxetine (PROzac 20 mg oral capsule)2 capsule Oral Daily. fluticasone/umeclidinium/vilanterol (fluticasone/umeclidinium/vilanterol 200 mcg-62.5 mcg-25 mcg/inh inhalation powder)1 puff(s) Inhalation Daily for 30 Days. Refills: 11. Levothyroxine (levothyroxine 0.05 mg oral tablet)ALEJANDRA Burton . Metformin (metFORMIN 750 mg oral tablet, extended release)1 tab(s). TAKE 1 TABLET BY MOUTH EVERY DAY. Mirtazapine (mirtazapine 15 mg oral tablet)1 tab(s). TAKE ONE TABLET EVERY NIGHT AT BEDTIME. Montelukast (montelukast 10 mg oral tablet)TOME SHELLEY TABLETA POR VIA ORAL CADA NOCHE. Refills: 3. Pantoprazole (pantoprazole 40 mg oral delayed release tablet)1 tab(s) Oral twice a day for 30 Days.Refills: 1. sitagliptin (Januvia 100 mg oral tablet)1 tab(s) Oral Daily for 30 Days. Refills: 1. Trazodone (traZODone 150 mg oral tablet)1 tab(s) Oral Daily at Bedtime. Discontinued Lisinopril (lisinopril 5 mg oral tablet)TAKE 1 TABLET BY MOUTH EVERY DAY ONE DOSE. Allergies Allergies ?(Active and Proposed Allergies Only) NKA? (Severity: Unknown severity, Onset: Unknown) ? Future Appointments Friday 10:00 AM EST ?? Type: Return With: Andres NORTON, Garland Where: [facility] Status: Pending Friday 2:00 PM EST ?? Type: Sleep New With: Lori RÍOS, Lesyl Smith Where: [facility] [address] [place], [place] [id number]- Status: Pending Friday2025 4:00 PM EDT ?? Type: SN - Endoscopy Where: [facility] Status: Pending Objective Assessment and Plan ?64-year-old female with a history of severe persistent asthma with recent negative IgE and eosinophils, stage III obesity, presumptive untreated ELSIE, uia-[id number]-wmsltcwhe type 2 diabetes mellitus,GERD, hypertension, hypothyroidism, hyperlipidemia, recent admission for asthma exacerbation seconda ry to parainfluenza 1 infection presenting to the emergency department with complaints of progressively worsening shortness of breath over the past 2 weeks. ?? Asthma exacerbation (J45.901):??Presenting with progressively worsening shortness of breath Reports having a dry cough,??no recent sick contacts COVID-19, flu, RSV negative Chest x-ray nonacute Shortness of breath and cough has improved Not requiring supplemental oxygen No wheezing on auscultation Continue prednisone 40 mg p.o. daily for 3 more days Resume home inhalers Use [id number]??cough medication as needed ? Chest pain (R07.9) Elevated troponin (R79.89) ? Chest pain is atypical and pleuritic in nature.??EKG with no acute ischemic changes,??troponin 15, 14.? Bilateral lower extremity pain:??Reports having pain in bilateral lower extremity specially??in thecalves,??on exam??no swelling/edema noted,??bilateral lower extremities symmetrical,??no erythema, warmth noted.?? Ultrasound??b/l LE neg for dvt. ?? Chronic GERD (K21.9):??Continue PPI ?? Hyperlipidemia (E78.5):??Continue statin, fenofibrate ?? Hypothyroidism (E03.9):??Continue levothyroxine ?? ELSIE (obstructive sleep apnea) (G47.33):??Presumed??ELSIE versus??obesity hypoventilation syndrome perprevious??documentations, last sleep study per patient was??2 years ago,??she??reports that she hasan appointment with her PCP??at the end of this month??who will??order a repeat??sleep study. ?? Diabetes type 2 (E11.9):??Resume Januvia and metformin??however ? . Physical Exam .?? GENERAL: In no apparent distress HEENT: Head normocephalic, PERRL,Moist mucous membrane. Neck supple CARDIOVASCULAR: Normal rate and rhythm, no murmurs, no rubs, no gallops RESPIRATORY: Lungs clear to auscultation, no wheezes , no crackles ABDOMEN/GI: Nondistended, soft, nontender, normal bowel sounds EXTREMITIES: No pitting edema APPLICATIONS DEVELOPMENT ANALYST: Alert and oriented x 3.Non focal neuro exam. ? Pending Results No Pending Results Patient Education Titles [employer] Patient Education -?? [employer] Patient Education -?? [employer] Patient Education -?? Follow-Up Appointments Added Follow Up ?Time Frame ?Comments Shu NORTON , Benjamin?1 week Post Discharge Care Discharge ?12/26/24 9:28:00 EST ?Order Comment:?? Discharge Prescriptions ?ePrescribed, 12/26/24 9:28:00 EST ?Order Comment:?? Home Health Face to Face ^HomeHealthFTF Results Discharge Labs BLOOD COUNT & DIFF WBC 6.3 k/mm3 ()?? 12/24/2024 05:45 RBC 3.64 m/mm3 (Low)?? 12/24/2024 05:45 Hgb 9.6 Gm/dL (Low)?? 12/24/2024 05:45 Hct 30.9 % (Low)?? 12/24/2024 05:45 MCV 84.9 femtoliters ()?? 12/24/2024 05:45 MCH 26.4 pg (Low)?? 12/24/2024 05:45 MCHC 31.1 Gm/dL (Low)?? 12/24/2024 05:45 Platelet Count 220 k/mm3 ()?? 12/24/2024 05:45 RDW-SD 49.4 femtoliters (High)?? 12/24/2024 05:45 MPV 8.5 femtoliters (Low)?? 12/24/2024 05:45 Nucleated RBC (Automated) 0.0 #/100 WBC'S ()?? 12/24/2024 05:45 Abs. NRBC 0.0 k/mm3 ()?? 12/24/2024 05:45 Abs. Neut 5.7 k/mm3 ()?? 12/24/2024 05:45 Abs. Lymph 0.5 k/mm3 (Low)?? 12/24/2024 05:45 Abs. Darlington 0.1 k/mm3 (Low)?? 12/24/2024 05:45 Abs. Eo 0.0 k/mm3 ()?? 12/24/2024 05:45 Abs. Baso 0.0 k/mm3 ()?? 12/24/2024 05:45 Neut % 90.5 % (High)?? 12/24/2024 05:45 Lymph % 7.2 % (Low)?? 12/24/2024 05:45 Darlington % 1.8 % (Low)?? 12/24/2024 05:45 Eos % 0.0 % ()?? 12/24/2024 05:45 Baso % 0.2 % ()?? 12/24/2024 05:45 Imm Gran 0.3 % ()?? 12/24/2024 05:45 Abs. Imm Gran 0.0 k/mm3 ()?? 12/24/2024 05:45 ?? CARDIAC Nt-Probnp 231 pg/mL (High)?? 12/23/2024 17:00 High Sensitivity Troponin (HSTnT) 14 ng/L (High)?? 12/23/2024 20:27 ?? CHEM GENERAL Sodium 141 mmol/L ()?? 12/24/2024 05:45 Potassium 4.4 mmol/L ()?? 12/24/2024 05:45 Chloride 106 mmol/L ()?? 12/24/2024 05:45 Bicarbonate Level 23 mmol/L ()?? 12/24/2024 05:45 Anion Gap 12 mmol/L ()?? 12/24/2024 05:45 Glucose Level 157 mg/dL (High)?? 12/24/2024 05:45 Glucose, POC 144 mg/dL (High)?? 12/26/2024 05:46 BUN 13 mg/dL ()?? 12/24/2024 05:45 Creatinine-Blood 0.66 mg/dL ()?? 12/24/2024 05:45 Estimated GFR Creatinine 99 ML/MIN/1.73 M2 ()?? 12/24/2024 05:45 Calcium 9.2 mg/dL ()?? 12/24/2024 05:45 ? HEME OTHER Hold Blue Top SPECIMEN DISCARDED AFTER 4 HOURS. ()?? 12/23/2024 17:00 ? URINE OTHER Est Creatinine Clearance 74.64 mL/min ()?? 12/24/2024 06:50 ? VIROLOGY Influenza A PCR NEGATIVE ()?? 12/23/2024 17:01 Influenza B PCR NEGATIVE ()?? 12/23/2024 17:01 RSV PCR NEGATIVE ()?? 12/23/2024 17:01 COVID-19 PCR Specimen Source NASAL ()?? 12/23/2024 17:01 COVID-19 PCR Result NEGATIVE ()?? 12/23/2024 17:01 ? 35_ minutes spent on discharge Electronically Signed on 12/26/24 12:21 PM Simon NORTON, Delicia Hirsch RN, Marina: PERFORM Event Display: Patient Education/Instruction Authored Date: [id number] Inpatient Adult Discharge Instructions. [address] [address] Name: HAYDEN KING : 1960?? Visit: 12/23/2024 22:43?? Current Date: 12/26/2024 10:20 ?? Account: [id number]?? Inpatient Adult Discharge Instructions We would like to thank you for allowing us to assist you with your healthcare needs. The following includes patient education materials and information regarding your injury/illness. Our entire staffstrives to provide an excellent experience for our patients and their families. PLEASE ENSURE YOU FOLLOW-UP PER THE INSTRUCTIONS BELOW! ?? YOUR OPINION IS IMPORTANT TO US! Please complete the survey you may receive by mail or email. Your feedback will be used to make improvements to the healthcare experiences of our patients and their families. Surveys are administered by [employer] ?? If further treatment with your primary care physician or another doctor is recommended, it is important for you to keep the appointment. Call your primary care physician or return to the Emergency Department immediately if your condition worsens, fails to improve, or new symptoms develop. If you need to find a doctor, you can call [facility] [employer] Link for a referral at [phone] or toll free at [phone] or log in to [email or web address].. ?? [facility], in keeping with [facility] guidance, no longer requires face masks for staff, patientsor visitors in most situations. Similiar to time spent indoors at other locations, there is the chance that you were exposed to repiratory viruses during your time with us (such as flu or COVID-19). If you develop symptoms concerning for a viral respiratory infection, please seek testing (and treatment if indicated) from your medical provider or home test kit. ?? You can view and manage your care through the patient portal or by using a health care gerda of your choosing. [employer] [facility] is a website that allows you to securely view your medical information including your hospital discharge summary, office visit summaries, medications and follow-up visits. You can also request appointments, renew medications, and request access to your medical information using a health care gerda of your choosing, or just ask a question. You are entitled to know the individuals who participated in your treatment. This information is available within your medical record and will be provided upon your request. You can enroll at [email or web address] or register d uring your next office visit. You have been discharged from [facility], Patient Care Unit: D3B??. If you have any questions regarding these instructions, including results of studies pending, afteryou leave, please call us and we will be happy to assist you 02/09. [facility] Your Care Team Attending Physician Delicia Montes MD?? Consulting Providers Delicia Montes MD?? Discharging Providers Delicia Montes MD Reason for Your Visit Pt coming from PCP with c/o cough and SOB on exertion and with cough x 10 days. Wheezing throughout, frequent barky cough noted. R lobectomy?? Your Diagnosis Anxiety Asthma attack Chest pain Chronic GERD Depression Diabetes type 2 Elevated troponin Hyperlipidemia Hypothyroidism ELSIE (obstructive sleep apnea) Tests Performed Below is a partial list of the tests performed during your hospitalization. You may have had other tests and procedures not included in this list. Please discuss all test results with your provider. Basic Metabolic Panel CBC w/ Differential COVID-19, RSV, and Flu A/B, Rapid PCR GLUCOSE POC High??Sensitivity??Troponin T HOLD BLUE TUBE ProBNP Troponin T, High Sensitivity US Doppler Ext Lower Venous Bilat XR Chest 2 Views Frontal and Lat B Type Natriuretic Peptide (NT-proBNP) (ProBNP)?? Basic Metabolic Panel?? CBC w/ Differential?? COVID-19, RSV, and Flu A/B, Rapid PCR?? Glucose POC?? High??Sensitivity??Troponin T (Troponin T, High Sensitivity)?? Hold Blue Top Tube (HOLD BLUE TUBE)?? US Doppler Ext Lower Venous Bilat?? Chest 2 Views Frontal and Lat (XR Chest 2 Views Frontal and Lat)?? Primary Care Provider Benjamin Ireland MD? Advance Directive Health Care Proxy on File Yes - Health Care Proxy Discharge Vitals Temperature: 98.1 DegF Height: 162 cm Pulse Rate:??92 bpm??High Weight: 107 kg Respiratory Rate: 20 br/min Body Mass Index:??40.77 kg/m2??High Systolic Blood Pressure:??143 mm Hg??High Body surface area: 2.19 Diastolic Blood Pressure: 75 mm Hg ?? Oxygen Saturation: 94 % ?? Studies Pending All studies ordered during this hospital stay have been completed unless listed below. Please discuss all pending results with your provider listed above in these instructions. ?? No incomplete studies found?? What to do next Instructions From Your Doctor ?? Orders? 12/26/24 9:28:00 EST?? Prescriptions??, ??12/26/24 9:28:00 EST?? Scheduled Follow-Up Appointments Friday 10:00 AM EST ?? Type: Return With: Garland Campos MD Where: [facility] Status: Pending Friday 2:00 PM EST ?? Type: Sleep New With: Lori RÍOS, Lesly Smith Where: [facility] [address] [place] [address]- Status: Pending Friday2025 4:00 PM EDT ?? Type: SN - Endoscopy Where: [facility] Status: Pending You Need to Schedule the Following Appointments Follow Up with??Benjamin Ireland MD When:Within 1 week Where:[address] [place] [id number]- Discharge Medications HAYDEN DOMINGUEZ :1960 Visit Date:12/23/2024 Medications: Please continue your medications until treatment is completed or stopped by your provider. Medications not listed below should be discontinued. Discuss any questions related to medications with your provider. What How Much When Instructions Next Dose Changed PredniSONE (predniSONE 20 mg oral tablet) 40 Milligram Oral Daily Duration: 3 Days Ordering Physician: Simon NORTON, Delicia Ndiaye at [place] [address] 12/27 am Unchanged Acetaminophen (Mapap Arthritis Pain 650 mg oral tablet, extended release) Special Instructions: PLEASE SEE ATTACHED FOR DETAILED DIRECTIONS ?? Unchanged Acetaminophen/ Codeine (acetaminophen-codeine 300 mg-30 mg oral tablet) 1 tab(s) Special Instructions: Take 1 tablet by mouth every 8 (eight) hours for 3 days. As needed ?? Unchanged Albuterol (albuterol 0.083% inhalation solution) 3 Milliliter Nebulized inhalation Every 6 hours as needed for Wheezing/Shortness of Breath Duration: 30 Days Special Instructions: DX: J45.909 Ordering Physician: Garland Campos MD ?? as needed Unchanged Albuterol (albuterol CFC free 90 mcg/ inh inhalation aerosol) 2 puff(s) Inhalation 4 times a day as needed for Wheezing/Shortness of Breath Duration: 30 Days Special Instructions: use with pulmicort use with spacer chamber Ordering Physician: Garland Campos MD ?? as needed Unchanged Albuterol (Ventolin HFA 108 mcg/ inh inhalation aerosol with adapter) 1 inhalation Inhalation Every 4 hours as needed for as needed for shortness of breath or wheezing as needed Unchanged Aspirin (aspirin 81 mg oral delayed release tablet) 1 tab(s) Oral Daily Duration: 30 Days Ordering Physician: Adilia Busch DO 12/27 am Unchanged Atorvastatin (atorvastatin 40 mg oral tablet) 1 tab(s) Oral Daily at Bedtime Duration: 30 Days Ordering Physician: Adilia Busch DO 12/26 pm Unchanged Budesonide (Pulmicort Flexhaler 90 mcg) 2 inhalation Inhalation Twice a day Special Instructions: rinse mouth and throat after use ?? resume Unchanged Cetirizine (cetirizine 10 mg oral tablet) 1 tab(s) Oral Twice a day 12/26 pm Unchanged Cholecalciferol (Vitamin D3 2000 intl units oral tablet) 1 tab(s) Oral Daily resume Unchanged Durable Medical Equipment (Aerochamber) See instructions Special Instructions: Use with albuterol Ordering Physician: Garland Campos MD ?? Unchanged Fenofibrate (fenofibrate 130 mg oral capsule) 1 capsule Oral Daily Duration: 30 Days Ordering Physician: Adilia Busch DO 12/27 am Unchanged Fluoxetine (PROzac 20 mg oral capsule) 2 capsule Oral Daily 12/27 am Unchanged fluticasone/ umeclidinium/ vilanterol (fluticasone/ umeclidinium/ vilanterol 200 mcg-62.5mcg-25 mcg/ inh inhalation powder) 1 puff(s) Inhalation Daily Duration: 30 Days Ordering Physician: Garland Campos MD resume Unchanged Levothyroxine (levothyroxine 0.05 mg oral tablet) Special Instructions: TOME SHELLEY TABLETA TODOS LOS D ?? 12/27 am Unchanged Metformin (metFORMIN 750 mg oral tablet, extended release) 1 tab(s) Special Instructions: TAKE 1 TABLET BY MOUTH EVERY DAY ?? resume Unchanged Mirtazapine (mirtazapine 15 mg oral tablet) 1 tab(s) Special Instructions: TAKE ONE TABLET EVERY NIGHT AT BEDTIME ?? 12/26 pm Unchanged Montelukast (montelukast 10 mg oral tablet) See instructions Special Instructions: TOME SHELLEY TABLETA POR VIA ORAL CADA NOCHE Ordering Physician: Garland Campos MD ?? 12/27 Unchanged Pantoprazole (pantoprazole 40 mg oral delayed release tablet) 1 tab(s) Oral Twice a day Duration: 30 Days Ordering Physician: Antonieta Mclean NP 12/26 pm Unchanged sitagliptin (Januvia 100 mg oral tablet) 1 tab(s) Oral Daily Duration: 30 Days Ordering Physician: Car Rao MD resume Unchanged Trazodone (traZODone 150 mg oral tablet) 1 tab(s) Oral Daily at Bedtime 12/26 pm [facility] Information [facility]: [address], [place] [id number] [phone] ?? What When Comments Stop Taking Lisinopril (lisinopril 5 mg oral tablet) Special Instructions: TAKE 1 TABLET BY MOUTH EVERY DAY ONE DOSE ?? Prescription Given During Visit PredniSONE (predniSONE 20 mg oral tablet) - 40 mg, By Mouth, Daily, # 6 tablet, 0 Refills, [facility], [address] [place] [phone]?? Laboratory Results Below is a partial list of the most recent Laboratory test results done prior to this discharge. You may have had other tests and procedures not included in this list. Please discuss all test resultswith your provider. Est Creatinine Clearance - 74.64 mL/min (12/24/2024) Basic Metabolic Panel (12/24/2024) ???Sodium - 141 mmol/L???Potassium - 4.4 mmol/L???Chloride - 106 mmol/L???Bicarbonate Level - 23 mmol/L???Anion Gap - 12 mmol/L???Glucose Level - 157 mg/dL???BUN - 13 mg/dL???Creatinine-Blood - 0.66 mg/dL???Estimated GFR Creatinine - 99 ML/MIN/1.73 M2???Calcium - 9.2 mg/dL CBC w/ Differential (12/24/2024) ???WBC - 6.3 k/mm3???RBC - 3.64 m/mm3???Hgb - 9.6 Gm/dL???Hct - 30.9 %???MCV - 84.9 femtoliters???MCH - 26.4 pg???MCHC - 31.1 Gm/dL???Platelet Count - 220 k/mm3???RDW-SD - 49.4 femtoliters???MPV - 8.5 femtoliters???Nucleated RBC (Automated) - 0.0 #/100 WBC'S???Abs. NRBC - 0.0 k/mm3???Abs. Neut - 5.7 k/mm3???Abs. Lymph - 0.5 k/mm3???Abs. Darlington - 0.1 k/mm3???Abs. Eo - 0.0 k/mm3???Abs. Baso - 0.0 k/mm3???Neut % - 90.5 %???Lymph % - 7.2 %???Darlington % - 1.8 %???Eos % - 0.0 %???Baso % - 0.2 %???Imm Gran - 0.3 %???Abs. Imm Gran - 0.0 k/mm3 COVID-19, RSV, and Flu A/B, Rapid PCR (12/23/2024) ???Influenza A PCR - NEGATIVE???Influenza B PCR - NEGATIVE???RSV PCR - NEGATIVE???COVID-19 PCR Specimen Source - NASAL???COVID-19 PCR Result - NEGATIVE GLUCOSE POC (12/26/2024) ???Glucose, POC - 144 mg/dL High??Sensitivity??Troponin T (12/23/2024) ???High Sensitivity Troponin (HSTnT) - 15 ng/L HOLD BLUE TUBE (12/23/2024) ???Hold Blue Top - SPECIMEN DISCARDED AFTER 4 HOURS. ProBNP (12/23/2024) ???Nt-Probnp - 231 pg/mL Troponin T, High Sensitivity (12/23/2024) ???High Sensitivity Troponin (HSTnT) - 14 ng/L Allergies (NKA means No Known Allergies) NKA Problems Active Problems??(13) Anxiety and depression?? Asthma?? Diabetes mellitus type 2 in obese?? GERD (gastroesophageal reflux disease)?? Headache?? Hyperlipidemia?? Hypertension?? Hypothyroid?? Non-insulin dependent type 2 diabetes mellitus?? Obesity hypoventilation syndrome?? ELSIE (obstructive sleep apnea)?? Severe obesity?? TIA (transient ischemic attack)?? Education Materials Below is the list of Educational Leaflet Providered with your Discharge Instructions. [employer] Patient Education -?? [employer] Patient Education -?? [employer] Patient Education -?? Valuables and Belongings I fully understand and agree that [facility] accepts no responsibility for all my personal property including clothing, toilet articles, radios, jewelry, dentures, hearing aids, rings, money, or any other property that is in my possession or is brought to me after admission. I understand certain valuables may be placed in a hospital safe for a short period of time. I understand that the hospital is not liable for loss or damage due to accident, fire, or other natural occurrence while said property is in the safe. I accept full responsibility for any personal property that I keep with me, and will not hold the hospital responsible in case of loss or disappearance. I acknowledge that i have been encouraged to send valuables and belongings home. ?? Date for Pt to Sign Valuables/Belongings: 12/24/24 15:36:00 ?? Other Discharge Information ? Pulmonary Rehab Status?? Pulmonary Rehab Discharge Status?? CPAP/BiPAP Mask Type: Full CPAP/BiPAP Mask Size: Small Respiratory Rate: 20 br/min ? Common Emergency Awareness Tips IS IT A STROKE? Act FAST and Check for these signs: FACE Does the face look uneven? ARM Does one arm drift down? SPEECH Does their speech sound strange? TIME Call at any sign of stroke ?? Heart Attack Signs Chest discomfort: Most heart attacks involve discomfort in the center of the chest and lasts more than a few minutes, or goes away and comes back. It can feel like uncomfortable pressure, squeezing, fullness or pain. Discomfort in upper body: Symptoms can include pain or discomfort in one or both arms, back, neck, jaw or stomach. Shortness of breath: With or without discomfort. Other signs: Breaking out in a cold sweat, nausea, or lightheaded. Remember, MINUTES DO MATTER. If you experience any of these heart attack warning signs, call to get immediate medical attention! ?? Smoking can increase your chances of developing chronic health problems and can cause harmful effects to other family members in your house. If you smoke, you are strongly encouraged to quit. Please call [facility] [employer] [facility] at [phone] or [phone] ([phone]) or log in to [email or web address] for referrals to smoking cessation programs. ?? 155 Suicide & Crisis Lifeline is available 02/09 if you or someone you know needs to find a reason to keep living. By calling 728 you'll be connected to a skilled, trained counselor at a crisis center in your area. INPATIENT DISCHARGE INSTRUCTIONS SIGNATURE PAGE HAYDEN DOMINGUEZ Location:[facility] Registration Date and Time:12/23/2024 22:43 EST Primary Care Physician: Shu NORTON , [place], Attending Physician: Delicia Montes MD, I HAYDEN DOMINGUEZ, have received the above patient education materials/instructions and have verbalized understanding. If ambulance or transport services are being used I further acknowledge being given a choice of service. ?? If you need to contact me, please call me at this number: . Patient/Spinning Supervisor Name: Patient/Spinning Supervisor Signature: Relationship to Patient: Witness Name/Signature: Date: * Delicia Montes MD: PERFORM Event Display: Patient Education Leaflets Authored Date: [id number] [employer] ?? DM8es Asma grave aguda ??Qu?? es el asma grave aguda? El asma grave aguda es un ataque de asma grave y repentino que no mejora despu??s de celena los medicamentos para el asma. Margarita tipo de ataques puede poner en riesgo zaragoza bhavani. Si natalie que alguien tieneun ataque de asma grave, llame al 911de inmediato. El tratamiento principal se realiza en shelley norbert de emergencias o en el hospital. Aysha el tratamiento temprano realizado por los socorristas puede salvar vidas. ?Cu??les son las causas del asma grave aguda? Cualquier persona con asma puede sufrir un ataque de asma grave aguda. Las causas pueden incluir las siguientes: ??? Tener shelley infecci??n, opal el resfriado o la sinusitis ??? Tener shelley reacci??n al??rgica grave ??? Inhalar irritantes ??? No celena los medicamentos recetados ??? Hacer ejercicio ?Anton??kelton est??n en riesgo de sufrir asma grave aguda? Puede correr el riesgo de sufrir asma grave aguda en los siguientes casos: ??? Tuvo un sufrir un ataque de asma grave en el pasado ??? Tiene problemas para darse cuenta de que tiene s??ntomas de asma o de la gravedad de estos s??ntomas ??? Tiene ataques de asma incluso cuando usa glucocorticoides orales ??? No valeria los medicamentos para el asma opal le indicaron ??? Consume drogas il??citas ??? Tiene otros problemas de helene, opal depresi??n, enfermedades del coraz??n o enfermedades de los pulmones ?Cu??les son los s??ntomas del asma grave aguda? Los s??ntomas de un ataque de asma grave aguda suelen durar horas o d??as. Aysha pueden aparecer m??s r??pido. Son los siguientes: ??? Cada vez m??s dificultad para respirar o sibilancias ??? Respiraci??n acelerada ??? Cada vez m??s tos y opresi??n en el pecho ??? Imposibilidad de respirar acostado ??? Dificultades para caminar y hablar ??? Sudoraci??n ??? Frecuencia card??ramez acelerada ??? Confusi??n o irritabilidad ?C??mo se diagnostica el asma grave aguda? El asma grave aguda es un riesgo para la bhavani. Por ello, es importante un diagn??stico r??pido. Si natalie que usted o alguien tiene un ataque de asma grave, llame al 911. Los proveedores de atenci??n m??dica le maxi??n preguntas acerca de susan s??ntomas. Le maxi??n shelley exploraci??n f??kennedy. Puede necesitar las siguientes pruebas: ??? Flujo espiratorio m??ximo.Con esta prueba, se mide la funci??n pulmonar. ??? Oximetr??a de pulso.Con esta prueba, se mide el nivel de ox??moises en el cuerpo. ??? Radiograf??a de t??rax.Esta pruebapuede realizarse en casos graves. O si el proveedor de atenci??n m??dica ntaalie que puede tener alg??n otro problema de helene. ?C??mo se trata el asma grave aguda? El tratamiento del asma grave aguda suele realizarse en un hospital. El proveedor de atenci??n m??dica se concentra en abrir las v??as respiratorias y ayudarlo a respirar mejor. Puede que necesite losiguiente: ??? Medicamentos.El proveedor de atenci??n m??dica puede recetarle medicamentos para aliviar los s??ntomas. Estos medicamentos son para inhalar o tragar o se pueden administrar por v??a intravenosa. ??? Sulfato de magnesio.Se puede usar si otros medicamentos no funcionan. Se administra por v??a intravenosa. ??? Ox??moises suplementario.Es para subir el nivel de ox??moises en el cuerpo. ??? Respirador.Si otros tratamientos no funcionan, es posible que lo conecten a shelley m??quina para que respire mejor. ?Qu?? puedo hacer para prevenir el asma grave aguda? Para prevenir ataques graves agudos, tenga en cuenta lo siguiente: ??? Conozca y evite los factores que le producen ataques. ??? Trate de mantenerse alejado de las personas que est??n enfermas. ??? L??vese las shanice con frecuencia. ??? Hable con zaragoza proveedor de atenci??n m??dica sobre las vacunas que debe darse. ??? Si tiene alergias graves, eliel a un alergista. ??? Si fuma, busque ayuda para dejar de hacerlo. Evite exponerse al humo de cigarrillos de otras personas y a los residuos t??xicos del humo del tabaco. ??? Amory los medicamentos para el asma seg??n lasindicaciones. [place] incluye susan medicamentos de control a mary plazo.??Es importante que los tome, aunque crea que el asma est?? bajo control. ??? Si la actividad f??kennedy es un desencadenante, no olvide usar zaragoza medicamento de alivio r??pido antes de hacer ejercicio. Lleve un inhalador en zaragoza cartera, en el bolso del gimnasio o en la mochila. ??? Elabore un plan de acci??n para controlar el asma junto con zaragoza proveedor. Comparta el plan con susan familiares y amigos cercanos para que sepan cu??ndo deben llamar al?? 911. ?Cu??ndo wai llamar a mi proveedor de atenci??n m??dica? Llame al?? 911de inmediato si tiene un ataque de asma y los s??ntomas no mejoran despu??s de celena los medicamentos de alivio r??pido o de rescate. ?? Informaci??n importante sobre el asma grave aguda ??? El asma grave aguda es un ataque de asma grave y repentino que no mejora despu??s de celena los medicamentos para el asma. ??? Margarita tipo de ataques puede poner en riesgo zaragoza bhavani. Llame al?? 911si natalie que usted o alguien tiene un ataque de asma grave. ??? El asma grave aguda puede tener distintas causas. Algunas son shelley infecci??n o shelley reacci??n al??rgica. ??? El tratamiento puede incluir medicamentos y la administraci??n de ox??moises. ??? Puede prevenir el asma grave aguda si conoce lo que desencadena el asma en usted y se mantiene alejado de estos desencadenantes. ??? El plan de acci??n para controlar el asma les permite a usted, a zaragoza scar y a susan amigos saber qu?? tratamientos se ne cesitan y cu??ndo llamar al?? 911. ?? Pr??ximos pasos Consejos para ayudarlo a aprovechar al m??ximo la visita con zaragoza proveedor de atenci??n m??dica: ???Tenga en bryant la gloria??n de la visita m??dica y qu?? quiere que suceda. ??? Antes de la visita, anote las preguntas que quiere hacer. ??? Lleve a un acompa??ante para que lo ayude a formular las preguntas y a recordar qu?? le dice zaragoza proveedor. ??? En la visita, anote el nombre de los nuevos diagn??sticos y de todo nuevo medicamento, tratamiento o prueba. Tambi??n anote las instrucciones que el proveedor le indique. ??? Sepa por qu?? se receta un tratamiento o un medicamento, y c??mo lo ayudar??. Conozca los efectos secundarios. ??? Pregunte si zaragoza afecci??n se puede tratar de otra forma. ??? S epa por qu?? se recomienda shelley prueba o un procedimiento y qu?? podr??an significar los resultados.??? Sepa qu?? esperar si no valeria el medicamento o no se realiza la prueba o el procedimiento. ??? Si tiene shelley visita de control, anote la fecha, la hora y el objetivo de esta. ??? Sepa c??mo comunicarse con zaragoza proveedor si tiene preguntas. ? [phone] The [employer]. All rights reserved. This information is not intended as a substitute for professional medical care. Always follow your healthcare professional's instructions. ?? * Delicia Montes MD: PERFORM Event Display: Patient Education Leaflets Authored Date: [id number] [employer] ?? [id number] Falta de aire (disnea) La falta de aire es la sensaci??n de que no puede recobrar el aliento ni celena suficiente aire. Tambi??n se conoce opal disnea. La disnea puede ser causada por muchas afecciones diferentes. Estas incluyen: ??? Ataque de asma munira. ??? Empeoramiento de enfermedades pulmonares opal la bronquitis cr??dunia y el enfisema (EPOC). ??? insuficiencia card??ramez. [place] ocurre cuando el m??sculo card??aco debilitado provoca la acumulaci??n de l??quido extra en los pulmones. ??? Ataques de p??beth o ansiedad. El miedo puede provocar respiraci??n r??pida (hiperventilaci??n). ??? Neumon??a o infecci??n en el tejido pulmonar. ??? Exposici??n a sustancias t??xicas, gases, humo o ciertos medicamentos. ??? Co??gulode swathi en el pulm??n (embolia pulmonar). A menudo, se produce a partir de un co??gulo de swathi de shelley vena profunda de la pierna (trombosis venosa profunda) que se desprende y se desplaza hacia los pulmones. ??? Ataque card??aco o dolor en el pecho relacionado con el coraz??n (angina). ??? Anemia. ??? Pulm??n colapsado (neumot??rax). ??? Deshidrataci??n. ??? Embarazo. En funci??n de zaragoza visita de [facility], se desconoce la causa exacta de zaragoza falta de aire. Susan pruebas no muestran ninguna de las causas graves de disnea. Es posible que necesite otras pruebas para averiguarsi tiene un problema grave. Es importante estar atento a cualquier s??ntoma nuevo o s??ntomas que empeoren. Fidencio un seguimiento con zaragoza proveedor de atenci??n m??dica seg??n se lo indiquen. Cuidados en el hogar Siga estos consejos para el cuidado personal en zaragoza casa: ??? Cuando susan s??ntomas mejoren, vuelva asus actividades habituales. ??? Si fuma, debe dejar de hacerlo. ??nase a un programa para dejar de fumar o pida ayuda a zaragoza proveedor de atenci??n m??dica. ??? Coma alimentos saludables y duerma bastante. ??? Fidencio ejercicio con regularidad. Hable con zaragoza proveedor antes de comenzar a hacer ejercicio,especialmente si tiene otros problemas m??dicos. ??? Hable con zaragoza proveedor sobre c??mo reducir la cantidad de cafe??na y estimulantes que consume. ?? Atenci??n de seguimiento Fidencio un seguimiento con zaragoza proveedor de atenci??n m??dica o seg??n se lo indiquen. Si se realizan pruebas, se le informar?? si es necesario cambiar zaragoza tratamiento. Puede llamar, seg??n se lo indiquen, para obtener los resultados. Si se shannon radiograf??as, se le informar?? sobre cualquier hallazgo nuevo que pueda afectar zaragoza atenci??n. ?? Llame al 911 La falta de aire puede ser un signo de un problema m??dico grave. Por ejemplo, puede ser un problema con el coraz??n o los pulmones. Llame al 911 si tiene falta de aire o dificultad para respirar queempeoran, especialmente con cualquiera de los s??ntomas que se indican a continuaci??n: ??? falta de aire o sibilancias; ??? confusi??n o dificultad para despertarse; ??? desmayo o p??rdida del conocimiento; ??? latidos card??acos r??pidos o irregulares; ??? tos con swathi; ??? dolor en el pecho, brazo, hombro, jonathan o parte superior de la espalda; ??? sudoraci??n inusual; ??? sensaci??n de fatalidad; ??? labios o piel de color marleen, socrates o kaleigh; ??? se siente mareado. ?? Cu??ndo consultar al m??dico Comun??quese con zaragoza proveedor de atenci??n m??dica de inmediato si se presenta cualquiera de las siguientes situaciones: ??? enrojecimiento, dolor o hinchaz??n en la pierna, el brazo u otra ??bryson delcuerpo; ??? hinchaz??n en ambas piernas o tobillos; ??? aumento de peso r??pido; ??? debilidad; ??? fiebre de 38?C (100,4?F) o m??s, o seg??n lo que le indique zaragoza proveedor. ?? Last Reviewed Date: 2024 00:00:00 ?? [id number] [employer]. Todos los derechos reservados. Esta informaci??n no pretende sustituir la atenci??n m??dica profesional. S??lo zaragoza m??dico puede diagnosticar y tratar un problema de helene. ?? * Simon NORTON, Delicia: PERFORM Event Display: Patient Education Leaflets Authored Date: [id number] [employer] ?? [id number] Asma (adultos) El asma es shelley enfermedad en la que los conductos de aire dustin??os y medianos que est??n en los pulmones producen espasmos y limitan el flujo de aire. La inflamaci??n e hinchaz??n de las v??as respiratorias provocan shelley obstrucci??n a??n mayor. Suellen un ataque munira de asma, esos factores provocan dificultad para respirar, sibilancias, tos y opresi??n en el pecho. Son varias las cosas que pueden provocar un ataque de asma. Entre los desencadenantes m??s frecuentes se incluyen infecciones, opal el resfriado com??n, la bronquitis y la neumon??a. Irritantes, comoel humo y otros contaminantes en el aire, el aire muy fr??o, las aguilar emociones y el ejercicio tambi??n pueden desencadenar un ataque. En muchos adultos con asma, las alergias al polvo, al moho, al polen y a la caspa de las mascotas pueden provocar un ataque de asma. Si la persona se saltea alguna dosis de zaragoza medicamento diario contra el asma, esto tambi??n puede ocasionarle un ataque de asma. El asma se puede controlar con los medicamentos adecuados recetados por zaragoza proveedor de atenci??n m??dica y manteni??ndose alejado de los al??rgenos e irritantes conocidos. Cuidados en el hogar ??? Amory los medicamentos que le hayan recetado exactamente de la forma indicada. Hable con el equipo de atenci??n m??dica si tiene preguntas sobre c??mo usar el inhalador o el nebulizador. ??? Si necesita un medicamento de alivio r??pido, opal un inhalador o un respirador de aerosol (nebulizador), con m??s frecuencia de la prescrita, comun??quese con zaragoza proveedor de atenci??n m??dica o busque atenci??n m??dica de inmediato. ??? Si le recetaron un antibi??yan o prednisona,use todo el medicamento opal le indicaron. Siga us??ndolos aunque se sienta mejor a los pocos d??as. ??? No fume. P??bimal al proveedor recursos que lo ayuden a dejar de fumar, opal organizaciones y sitios web. Mant??ngase alejado del humo de otras personas que fumen. No permita que nadie fume en sucasa, en zaragoza autom??teresa, ni cerca de usted. ??? Algunas personas con asma experimentan un empeoramiento de los s??ntomas cuando shannon aspirina y medicamentos antinflamatorios no esteroideos (GABY) o me dicamentos para bajar la fiebre, opal el ibuprofeno y el naproxeno. Hable con el proveedor si piensa que le pasa esto. ??? Evite los desencadenantes del asma. ?? Atenci??n de seguimiento Programe shelley aron de seguimiento con el proveedor de atenci??n m??dica, o seg??n le hayan indicado.Cuando visite al proveedor de atenci??n m??dica, siempre lleve todos los medicamentos que est?? tomando. Tambi??n lleve shelley lista completa de los medicamentos, incluso los que no use para el tratamiento del asma. Lleve zaragoza plan de acci??n para controlar el asma a todas las citas. Si todav??a no tiene edie, hable con el proveedor de atenci??n m??dica para hacer edie personalizado. Se recomienda shelley vacuna para la neumon??a (neumoc??cica) y shelley vacuna antigripal anual (cada anushka??o). Preg??ntele al proveedor acerca de esto. ?? Cu??ndo llamar al proveedor de atenci??n m??dica Llame al proveedor de atenci??n m??dica o solicite atenci??n m??dica de inmediato ante cualquiera de los siguientes s??ntomas:? M??s sibilancias o falta de aire ??? Despertares nocturnos con s??ntomas de asma ??? Necesidad de usar los inhaladores de alivio r??pido con mayor frecuencia de la normal sin alivio ??? Fiebre de 100.4?F (38?C) o superior, o seg??n le haya indicado el proveedor ??? Tos con expulsi??n de mucho esputo (mucosidad) de color oscuro o con swathi ??? Dolor de pechocon cada respiraci??n ??? Si usa un medidor de flujo espiratorio m??ximo opal parte de un plan de acci??n para controlar el asma y margarita sigue en la fiordaliza amarilla (de 50??% a 79??%) 15??minutos despu??s de usar el medicamento inhalador de alivio r??pido. ?? Cu??ndo llamar al?? 911 Llame al?? 911 de inmediato si tiene alguno de los siguientes s??ntomas: ??? Dificultad para caminar o hablar debido a la falta de aire ??? Si usa un medidor de flujo espiratorio m??ximo opal parte de un plan de acci??n para controlar el asma y margarita sigue en la fiordaliza celeste (menos del 50??%) 15??minutos despu??s de usar el medicamento inhalador de alivio r??pido ??? Se le est??n poniendo grises, azulados o morados los labios o las u??as de las shanice ??? Sufre desmayos o p??rdida del conocimiento ?? Last Reviewed Date: 2021 00:00:00 ?? [employer]. Todos los derechos reservados. Esta informaci??n no pretende sustituir la atenci??n m??dica profesional. S??lo zaragoza m??dico puede diagnosticar y tratar un problema de helene. ?? Patient Care team information Care Team Personnel Name: Leobardo Ortiz Position: [facility] Outreach Member Role: Lifetime Consulting Physician Name: Jeanna Gant RN Position: [facility] RN Member Role: Primary Care Nurse Name: Benjamin Ireland MD Position: [facility] Outreach Member Role: PCP Address: [address] [place] [address] Telecom: Name: Ivy Phillips RN Position: [facility] ED RN W/OE and Tasks Member Role: Primary Care Nurse Name: Lucrecia Oakley RN Position: [facility] ED RN W/OE and Tasks Member Role: Primary Care Nurse Name: Shama Gamboa RN Position: [facility] RN Member Role: Primary Care Nurse Name: Bernie Carrera LPN Position: [facility] RN Member Role: Primary Care Nurse Name: Suzan Jones RN Position: [facility] RN Member Role: Primary Care Nurse Name: Zeynep Álvarez Position: [facility] Outreach Member Role: Lifetime Consulting Physician Care Team Related Persons Name: VITA MCNEAL Name: FABIO KING Name: CONNIE VALDES Insurance Providers Guarantor name: HAYDEN KING Health Plan Information #: 1 Payer: [employer] Payer Identifier: LEO Member Number: [id number] Group Number: [id number] Subscriber Identifier: [id number] Relationship to Subscriber: self Coverage Type: MEDICAID Coverage Verification Date: LEO Telecom: LEO Address: NA
--- NOTE | 2024-12-31 10:30 | A.OFFVIS_ITS ---
Vital Signs 12/31/24 10:35 Height 5 ft 4 in Weight 235 lb 0.204 oz BMI 40.3 BP 114/74 Blood Pressure Location Rt brachial Position Sitting Pulse 80 Pulse Source Pulse Oximeter Pulse Oximetry (%) 94 Oxygen Delivery Method Room Air Intake Visit Reasons: DMT2 Follow-up Intake Note: Patient present today to follow up on Type 2 Diabetes Mellitus. Last Diabetic Eye exam: 08/2024, [facility] Last Podiatry Visit: Doesn't see a Artist Manager Random Glucose: 112 mg/dL HgA1C: 6.7% 12/31/2024 Income Tax Consultant Required: Yes Income Tax Consultant Language: Sports Official Services: Income Tax Consultant Offered & Declined Accompanied by: Self / Same As Patient Allergies No Known Allergies (No Known Allergies*) Allergy (Verified 12/31/24 10:35) HPI Comments Details: Patient is a 64-year-old female with a significant past medical history of obesity, type 2 diabetes, hyperlipidemia, hypothyroidism, and hypertension presenting today for diabetic management. Declined sports official. She was recently hospitalized due to pneumonia and asthma. She was on steroids. Patient says she is doing better now. Hemoglobin A1c 6.7%. Reviewed glucometer data: In range 95% Lowest 108, highest 195 Current regimen: Metformin 750 mg extended release once a day and Ozempic 0.5 mg weekly Previously on Trulicity which did not help with weight loss. Insurance denied Mounjaro. She denies side effects on Ozempic. Her weight has increased 5 lb. Hypoglycemia: None Complications: PVD, neuropathy Patient has elevated LFTs. Liver ultrasound was ordered, but it needs to be rescheduled due to hospitalization. ROS: Constitutional: No fevers or chills or unexplained weight loss. ENT: Denies congestion, sore throat, ear pain, sinus pain Respiratory: Denies shortness of breath Cardiovascular: No chest pain, chest pressure or chest discomfort. No palpitations. Skin: No open wounds or rashes. Endocrine: No cold or heat intolerance. No polyuria or polydipsia. Physical exam: Constitutional: Alert, in no distress. Neck: Supple, Full range of motion. No lymphadenopathy. Respiratory: Clear to auscultation. Cardiovascular: S1 S2 regular. No murmurs. Extremities: No edema [facility] Medical History (Updated 07/06/24 @ 16:53 by KHUSHBU Shah) Obesity, Class III, BMI 40-49.9 (morbid obesity) LFT elevation Peripheral sensory neuropathy due to type 2 diabetes mellitus Claudication in peripheral vascular disease Controlled type 2 diabetes mellitus Lumbar spondylosis Synovial cyst of popliteal space [Schultz], right knee History of cellulitis Osteoarthritis of right knee ELSIE (obstructive sleep apnea) Environmental allergies Family history of colon cancer in father Urinary frequency Anemia GERD (gastroesophageal reflux disease) Dysphagia Anxiety and depression High cholesterol Diabetes Severe persistent asthma Generalized arthritis Hypothyroid Morbid obesity Surgical History Hx of colonoscopy Hx of appendectomy Hx of hysterectomy, total History of right hip replacement History of left hip replacement Hx of hernia repair Family History Mother HTN (hypertension) Diabetes Skin cancer Father No problems noted. Father HTN (hypertension) Heart attack Social History Household Members: Family Alcohol intake: never Patient Tobacco Use Status: Never used Tobacco Physical Exam Vital Signs: Last Vital Signs Pulse 80 12/31/24 10:35 BP 114/74 12/31/24 10:35 Pulse Ox 94 12/31/24 10:35 Oxygen Delivery Method Room Air 12/31/24 10:35 BMI result Body Mass Index 40.3 Results AMB Hemoglobin A1c AMB Hemoglobin A1c 6.7 % Last Edit by JACKSON Odell on 12/31/24 10:50 Results Reviewed Results Reviewed: Laboratory Last Values Glucose (Clinic) 112 mg/dL (60-115) 12/31/24 10:40 Hgb A1c (Clinic) 6.7 % (4.0-6.0) H 12/31/24 10:42 Laboratory Tests 08/27/23 07/02/24 11:59 Unknown Plt Count 231 Creatinine 0.78 Estimated GFR > 60 AST 33 H ALT 30 Triglycerides 582 H Cholesterol 234 H HDL Cholesterol 31 L Vitamin B12 293 TSH 0.85 Urine Creatinine 130.43 Urine Microalbumin 6.0 Microalb/Creat Ratio 4.6 Assessment & Plan Assessment & Plan (1) Controlled type 2 diabetes mellitus: Code(s): E11.9 - Type 2 diabetes mellitus without complications Category: Medical (2) Obesity, Class III, BMI 40-49.9 (morbid obesity): Code(s): E66.813 - Obesity, class 3 Category: Medical (3) LFT elevation: Code(s): R79.89 - Other specified abnormal findings of blood chemistry Category: Medical Plan In summary this is a 63-year-old female with controlled type 2 diabetes with obesity on metformin and Ozempic. Stop metformin. Increase Ozempic to 1 mg weekly. Bring glucometer to all appointments. Lifestyle modifications reviewed with the patient. Declines referral to dietitian. Check liver ultrasound to screen. Recheck LFTs. Follow up in 6 weeks for type 2 diabetes and obesity. Orders: Orders Comprehensive Met. Panel 6 Weeks E78.00 - Pure hypercholesterolemia, unspecified TSH reflex Free T4 Today E03.9 - Hypothyroidism, unspecified AMB Hemoglobin A1c Today E11.59 - Type 2 diabetes mellitus with other circulatory complications Lipid Panel 6 Weeks E78.00 - Pure hypercholesterolemia, unspecified, E78.5 - Hyperlipidemia, unspecified Microalbumin, Random (w Creat) 6 Weeks E11.9 - Type 2 diabetes mellitus without complications, E78.00 - Pure hypercholesterolemia, unspecified Medications: New semaglutide (Ozempic) 1 mg (0.75 mL) subcut QWEEK 3 mL 2RF Discontinued metformin ER Discontinued Reason: Doctor's Order 750 mg PO DAILY 90 tabs 0RF semaglutide (Ozempic) Discontinued Reason: Doctor's Order 0.5 mg (0.736 mL) subcut QWEEK 3 mL 2RF Coding Level of Care Code Complex visit Add On G2211 Diagnoses Controlled type 2 diabetes mellitus E11.9 Obesity, Class III, BMI 40-49.9 (morbid obesity) E66.813 LFT elevation R79.89
[2024-12-31 10:35] VITALS: BP 114/74; PULSE 80; O2SAT 94; BMI 40.3
[2024-12-31 10:44] LABS: Glucose, Whole Blood 112 mg/dL (60-115)
--- OUTSIDE RECORDS SUMMARY | 2024-12-31 11:06 | XMS_ITS | Encounter Summary ---
Author Organization [email or web address] Address [address] [place] [address] Care Team Providers Care Collections Clerk Name Role Phone Benjamin Ireland MD Primary Care Provider Leobardo Ortiz RN Unavailable [phone] Pattie Cronin Unavailable Reason for Visit * Reason Onset Date Comments new script 12/27/2024 Encounter Details Date Type Department Care Team ([facility] st Contact Info) Description 12/27/2024 Telephone [facility] [address] [place] [address] Benjamin Ireland MD [address] [place] [address] new script Social History Tobacco Use Types Packs/Day Years [...] Answer Date Recorded Patient Health Questionnaire-2 Score 2 11/22/2024 Internet Access Answer Date Recorded Internet Access [...] encounter Miscellaneous Notes * Telephone Encounter - Kisha Kwok RN - 12/28/2024 10:50 AM EST TC to schedule appointment. No answer. Left message to return call to office. * Telephone Encounter - Yessenia Balderas - 12/27/2024 2:30 PM EST Tc from requesting a new script for Cpap machine. Pt stated has been going to hospital multiples time due to doesn't have a cpap machine and her oxygen levels are very low. PCP Dr. Ireland documented in this encounter Plan of Treatment Not on file documented as of this encounter Goals Goal Patient Goal Type Associated Problems Recent Progress Patient-Stated? Author Help patients manage their type 2 diabetes Care Plan Help patients manage their type 2 diabetes No Deborah Campbell MA Patient has chronic kidney disease Care Plan Patient has chronic kidney disease No Deborah Campbell MA Patient has chronic kidney disease Care Plan Patient has chronic kidney disease No Morelia Mayorga, RN Patient has chronic kidney disease Care Plan Patient has chronic kidney disease No Leobardo Ortiz, YESSICA Patient has chronic kidney disease Care Plan Patient has chronic kidney disease No Pattie Cronin Patient has chronic kidney disease Care Plan Patient has chronic kidney disease No Yessenia Balderas Patient has chronic kidney disease Care Plan Patient has chronic kidney disease No Yessenia Balderas Patient has chronic kidney disease Care Plan Patient has chronic kidney disease No Sherri Alves documented as of this encounter Visit Diagnoses Not on filedocumented in this encounter Additional Health Concerns Active Problems Noted Date Diagnosed Date Help patients manage their type 2 diabetes 12/23 Patient has chronic kidney disease 12/23/2024 Patient has chronic kidney disease 12/24/2024 Patient has chronic kidney disease 12/24/2024 Patient has chronic kidney disease 12/24/2024 Patient has chronic kidney disease 12/27/2024 Patient has chronic kidney disease 12/27/2024 Patient has chronic kidney disease 12/27/2024 Assessment Noted Time PHQ-9 Depression Total Score: 12 025 1:40 PM EDT documented as of this encounter Care Teams Collections Clerk Relationship Specialty Start Date End Date Benjamin Ireland MD [address] [place] [address] PCP - General Internal Medicine 12/02/17 Leobardo Ortiz, YESSICA [address] [place] [id number] Registered Nurse Family Medicine 12/24/24 Pattie Cronin 12/24/24 Leena Curtis Senior Wealth AdvisorPhysical Security Engineer 05/06/23 [facility] 07/13/24 documented as of this encounter
--- OUTSIDE RECORDS SUMMARY | 2024-12-31 11:06 | XMS_ITS | Encounter Summary ---
Author Organization [employer] Address [address] [facility] [address] [address] [place] [address] Care Team Providers Care Water Superintendent Name Role Phone Benjamin Ireland MD Primary Care Provider Leobardo Ortiz RN Unavailable [phone] Pattie Cronin Unavailable Reason for Visit * Reason Comments Med Refill Encounter Details Date Type Department Care Team ([facility] st Contact Info) Description 12/31/2024 Refill [facility] [address] [place], [place] [id number] Benjamin Ireland MD [address] [place] [address] Primary insomnia; Other depression Social History Tobacco Use Types Packs/Day Years [...] has chronic kidney disease No Morelia Mayorga, YESSICA Patient has chronic kidney disease Care [...] has chronic kidney disease No Sherri Alves Patient has chronic kidney disease Care Plan Patient has chronic kidney disease No Yessenia Balderas Patient has chronic kidney disease Care Plan Patient has chronic kidney disease No Pattie Cronin documented as of this encounter Visit Diagnoses Diagnosis Primary insomnia Persistent disorder of initiating or maintaining sleep Other depression documented in this encounter Additional Health Concerns Active [...] disease 12/27/2024 Patient has chronic kidney disease 12/28/2024 Patient has chronic kidney disease 12/28/2024 Assessment Noted Time PHQ-9 Depression Total Score: 12 025 1:40 PM EDT documented as of this encounter Care Teams Water Superintendent Relationship Specialty Start Date End Date Benjamin Ireland MD [address] [place] [address] PCP - General Internal Medicine 12/02/17 Leobardo Ortiz, YESSICA [address] [place] [address] Registered Nurse Family Medicine 12/24/24 Pattie Cronin 12/24/24 Leena Curtis Business English InstructorVice President Global Advertising Sales 05/06/23 [facility] 07/13/24 documented as of this encounter
--- OUTSIDE RECORDS SUMMARY | 2024-12-31 11:06 | XMS_ITS | Clinical Summary ---
Author Organization [employer] Address [address] [facility] [address] [place] [address] Care Team Providers Care Chiropractic Assistant Name Role Phone Benjamin Ireland MD Primary Care Provider Leobardo Ortiz RN Unavailable [phone] Pattie Cronin Unavailable Allergies No known active allergies Medications * This document contains information received from the source organization and may not represent a complete record from that organization. Spacer/Aero-Holdi ng Chambers device Inhale. 020 Active albuterol 108 (90 Base) MCG/ACT inhaler Inhale 2 puffs. 020 Active fluticasone (Flonase) 50 MCG/ACT nasal spray spray 1 spray by intranasal route every day in each nostril 022 Active Multiple Vitamins-Iron (One-Daily/Iron) tablet 1 tab a day 019 Active Blood Glucose Monitoring Suppl (FreeStyle Lite) device Inject under the skin if needed. Use as instructed Active Elastic Bandages & Supports (Medical Compression Socks) misc Size X-large Activ e FreeStyle lancetsIndication s:Type 2 diabetes mellitus without complication, without long-term current use of insulin (HCC) 1 each by Other route in the morning. 28 gauge. Use as instructed 100 each 023 Active Januvia 100 MG tabletIndications :Type 2 diabetes mellitus without complication, without long-term current use of insulin (HCC) TOME EULALIA TABLETA TODOS LOS ZAPIEN 90 tablet 1 023 Active Additional [...] complication, without long-term current use of insulin (HCC) USE 1 EACH BY OTHER ROUTE 1 (ONE) TIME EACH DAY AT THE SAME TIME. 100 strip 11 024 Active albuterol (2.5 MG/3ML) 0.083% nebulizer solutionIndicatio ns:Moderate persistent asthma with exacerbation,Acut e cough Take 3 mL (2.5 mg) by nebulization every 6 (six) hours if needed for wheezing. 75 mL 11 024 Active omeprazole (PriLOSEC) [address] capsuleIndication s:Gastroesophagea l reflux disease without esophagitis TAKE 1 CAPSULE BY MOUTH EVERY MORNING 90 capsule 3 024 Active Pulmicort Flexhaler 90 MCG/ACT inhaler Inhale 1 puff if needed in the morning, at noon, in the evening, and at bedtime (wheezing/short ness of breath). 025 Active cyanocobalamin (Vitamin B-12) 1000 MCG tablet Take 1 tablet by mouth Once per day. 025 Active fenofibrate micronized (Antara) 130 MG capsule Take 1 capsule by mouth Once per day. 025 Active montelukast (Singulair) 10 MG tablet Take 10 mg by mouth Once per day. Active FLUoxetine (PROzac) 20 MG capsule TAKE 2 CAPSULES BY MOUTH EVERY MORNING 180 capsule 1 025 Active levothyroxine (Synthroid, Levoxyl) 50 MCG tabletIndications :Other specified hypothyroidism TAKE 1 TABLET BY MOUTH EVERY DAY 90 tablet 1 025 Active meclizine (Antivert) 12.5 MG tabletIndications :Dizziness Take 1 tablet (12.5 mg) by mouth every 6 (six) hours during the day. 30 tablet 2 025 Active cyclobenzaprine (Flexeril) 10 MG tablet Take 1 tablet (10 mg) by mouth 3 times daily for 10 days. 30 tablet Active Ozempic, 0.25 or 0.5 MG/DOSE, 2 MG/3ML solution pen-injector Inject 0.25 mg under the skin every 7 (seven) days. Active naloxone (Narcan) 4 mg/0.1 mL nasal spray Administer 1 spray (4 mg) into affected nostril(s) if needed for opioid reversal. 2 each 1 Active mirtazapine (Remeron SolTab) 15 MG disintegrating tabletIndications :Other depression Take 1 tablet (15 mg) by mouth at bedtime. 30 tablet Active traZODone (Desyrel) 300 MG tabletIndications :Primary insomnia Take 1 tablet (300 mg) by mouth at bedtime. 30 tablet Active Aspirin Low Dose 81 MG EC tablet Take 1 tablet (81 mg) by mouth Once per day. 90 tablet Active atorvastatin (Lipitor) 40 MG tablet Take 1 tablet (40 mg) by mouth at bedtime. 90 tablet Active cetirizine (ZyrTEC) 10 MG tablet Take 1 tablet by mouth daily 90 tablet Active cholecalciferol VITAMIN D (Vitamin D-3) 50 MCG (1999 UT) capsuleIndication s:Vitamin D deficiency TAKE 1 CAPSULE BY MOUTH EVERY DAY 90 capsule 3 Active benzonatate (Tessalon) 100 MG capsuleIndication s:Acute cough Take 1 capsule (100 mg) by mouth if needed in the morning, at noon, and at bedtime for cough. 3 times every day 20 capsule Active benzonatate (Tessalon) 100 MG capsule Take 1 capsule by mouth. 3 times every day 022 2024 Discontinued(R eorder (will not trigger notification to Pharmacy)) cetirizine (ZyrTEC) 10 MG tablet Take 1 tablet by mouth. 2 times daily 022 2024 Discontinued(R eorder (will not trigger notification to Pharmacy)) cholecalciferol VITAMIN D (Vitamin D-3) 50 MCG (1999 UT) capsuleIndication s:Vitamin D deficiency TAKE 1 CAPSULE BY MOUTH EVERY DAY 90 capsule 3 024 2024 Discontinued(R eorder (will not trigger notification to Pharmacy)) Aspirin Low Dose 81 MG EC tablet Take 1 tablet by mouth Once per day. 2024 Discontinued(R eorder (will not trigger notification to Pharmacy)) atorvastatin (Lipitor) 40 MG tablet Take 40 mg by mouth at bedtime. 2024 Discontinued(R eorder (will not trigger notification to Pharmacy)) acetaminophen-cod eine (Tylenol w/ Codeine #3) 300-30 MG tabletIndications :Chronic pain syndrome Take 1 tablet by mouth every 8 (eight) hours for 28 days. 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 09/2024 Overview (05/18/2024): Medication: Tylenol-Codeine #3 Q8hrs PRN Indication: arthritis of lumbar spine, s/p hip surgery 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 Date Type Department Care Team Description 12/31/2024 Orders Only GENERIC EXTERNAL DATA DEPARTMENT Provider, Generic External Data 12/31/2024 Refill [facility] [address] [place] [address] Benjamin Ireland MD Primary insomnia; Other depression 12/28/2024 Patient Outreach [facility] [address] [place] [address] Benjamin Ireland MD Care Coordination (C3/CM Outreach) 12/28/2024 Telephone [facility] [address] [place] [phone] eBnjamin Ireland MD Call Back Request 12/27/2024 Patient Outreach [facility] [address] [place] [phone] Benjamin Irelnad MD Transition Of Care (Tcm) (HDF unscheduled) 12/27/2024 Telephone [facility] [address] [place] [phone] Benjamin Ireland MD new script 12/27/[address] [phone] Benjamin Ireland MD Hospital Follow-up 12/24/2024 Patient Outreach [facility] [address] [place] [address] Benjamin Ireland MD Care Coordination (C3/CM Outreach) 12/24/2024 Patient Outreach [facility] [address] [place] [address] Benjamin Ireland MD Care Coordination (C3CM- CHART REVIEW) 12/24/2024 Patient Outreach [address] [address] Benjamin Ireland MD 12/23/2024 2:45 PM EST Office Visit [facility] [address] [place] [address] Benjamin Ireland MD Moderate persistent asthma with exacerbation (Primary Dx); Type 2 diabetes mellitus without complication, without long-term current use of insulin (HCC) 12/23/2024 Travel 12/16/2024 Telephone [facility] [address] [place] [address] Benjamin Ireland MD 12/16/2024 Refill [facility] [address] [place] [address] Benjamin Ireland MD Chronic pain syndrome 12/16/2024 Telephone [facility] [address] [place] [address] Benjamin Ireland MD Med Refill 12/15/[address] [address] Benjamin Ireland MD Medication Question; call back required 12/15/2024 Orders Only [facility] [address] [place] [phone] Benjamin Ireland MD Acute cough (Primary Dx) 12/14/2024 Patient Outreach [address] [phone] Benjamin Ireland MD Care Coordination (C3 CM-[facility] Diane Sosa telephone call outreach) 12/14/[address] [address] Benjamin Ireland MD Call Back Request 12/14/2024 Refill [facility] [address] [place] [phone] Benjamin Ireland MD Vitamin D deficiency 12/13/[address] [address] Benjamin Ireland MD Nurse Triage 12/07/2024 Patient Outreach [address] [address] Benjamin Ireland MD Care Coordination (C3 CM-[facility] telephone call outreach) 11/23/2024 Patient Outreach [address] [address] Benjamin Ireland MD Care Coordination (C3 -[facility] telephone call outreach) 11/22/2024 11:00 AM EDT Office Visit [facility] [address] [place] [address] Benjamin Ireland MD Type 2 diabetes mellitus without complication, without long-term current use of insulin (HCC) (Primary Dx); Acquired hypothyroidism; Hypercholesterolemia ; Mixed anxiety and depressive disorder; Primary insomnia; Other depression; Chronic pain syndrome; Chronic pain syndrome; Encounter for immunization 11/22/2024 Telephone [facility] [address] [place] [address] Benjamin Ireland MD 11/22/2024 Refill [facility] [address] [place] [address] Benjamin Ireland MD Chronic pain syndrome 11/22/2024 Refill [facility] [address] [place] [phone] Benjamin Ireland MD Primary insomnia 11/22/2024 Travel 11/19/2024 Telephone [facility] [address] [place] [address] Benjamin Ireland MD chart prep 11/16/2024 Refill [facility] [address] [place] [address] Marya Montero RN Chronic pain syndrome 11/16/2024 Telephone [facility] [address] [place] [address] Benjamin Ireland MD Med Refill 11/16/2024 Patient Outreach [address] [address] Benjamin Ireland MD Care Coordination (C3 [facility] Diane Sosa telephone call outreach) 11/12/2024 Patient Outreach [facility] [address] [place] [phone] Benjamin Ireland MD Pre-visit Planning (Pre visit planning LVM ) 11/09/2024 Refill [facility] [address] [place], [place] [phone] Benjamin Ireland MD Chronic pain syndrome 10/29/2024 Refill [facility] [address] [place] [address] Benjamin Ireland MD Primary insomnia 10/27/2024 Refill [facility] [address] [place], [place] [phone] Benjamin Ireland MD Chronic pain syndrome 10/14/2024 Refill [facility] [address] [place] [address] Benjamin Ireland MD Chronic pain syndrome 10/07/2024 Patient Outreach [facility] [address] [place] [phone] Benjamin Ireland MD Care Coordination (C3 [facility] Diane Sosa telephone call outeach) 10/05/2024 Orders Only GENERIC EXTERNAL DATA DEPARTMENT Provider, Generic External Data 10/05/2024 Telephone [facility] [address] [place] [address] Benjamin Ireland MD No Show 10/01/2024 10:45 AM EDT Office Visit [facility] [address] [place] [address] Janee Lechuga MD Dysuria (Primary Dx); Diarrhea, unspecified type; Abscess, perianal; Neck pain 10/01/2024 Travel 10/01/2024 Telephone [facility] [address] [place] [address] Benjamin Ireland MD Nurse Triage 09/30/2024 Telephone [facility] [address] [place], [place] [phone] Benjamin Ireland MD fyi 09/30/2024 Patient Outreach [address] [address] Benjamin Ireland MD 09/30/2024 Patient Outreach [address] [address] Benjamin Ireland MD Care Coordination (C3 CM_[facility] Diane Sosa telephone call outreach) from Last 3 Months Immunizations Immunization Administration Dates Next Due Influenza injectable quadriv alent IIV4 with preservative 02/05/2017 Influenza injectable quadriv alent preservative free 12/25/2022,02/14/2022,01/16/2021 Influenza, IIV3, injectable 01/16/2021, 7 Influenza, Injectable, MDCK, preservative free 03/10/2024 Influenza, seasonal, injecta ble, preservative free 11/22/2024 Moderna Covid-19 Vaccine 12+ 05/26/2020,04/29/19 21 Pneumococcal [...] is your housing situation today? I have lfavia obregon 04/15/[address] you [...] Sign Reading Time Taken Comments Blood Pressure 123/101 12/23/2024 2:41 PM EST Pulse 88 12/23/2024 2:41 PM EST Temperature 36.6 C (97.9 F) 09/01/2024 3:09 PM EDT Respiratory Rate 21 12/23/2024 2:41 PM EST Oxygen Saturation 90% 12/23/2024 2:41 PM EST Inhaled Oxygen Concentration - - Weight 108 kg (238 lb) 12/23/2024 2:41 PM EST Height 162.6 cm (5' 4 ) 12/23/2024 2:41 PM EST Body Mass Index 40.85 12/23/2024 2:41 PM EST Plan of Treatment Health Maintenance Due Date Last Done Comments CT Colonography 1960 Colonoscopy 1960 HIV Screening 1960 Sigmoidoscopy 1960 Disability Screening 1960 Hepatitis A Vaccines (1 of 2 - Risk 2-dose series) 02/14/1980 Pap Smear 1982 RSV Patients and Patients Aged 60 years or older (1 - Risk 50-74 years 1-dose series) 2011 Hepatitis B Vaccines (1 of 3 - Risk 3-dose series) 2021 FIT 08/05/2021 08/05/2020, 08/05/2020 Cervical Cancer Screening 10/21/2022 HPV/Cotest 10/21/2022 10/21/2017 Diabetes: Urine Protein Screening 08/26/2024 08/27/2023, 02/14/2022, 05/08/2020 COVID-19 Vaccine ( season) 2024 03/10/2024, 05/26/2020, 04/28/2020 Alcohol/Substance Use Screening 04/29/2025 04/29/2024 Diabetes: Foot Exam 04/29/2025 04/29/2024, 04/03/2023, 04/03/2023, Additional history exists SDOH Screening 04/29/2025 04/29/2024 Depression Monitoring 05/23/2025 11/22/2024, 025 Diabetes: Hemoglobin A1C 05/23/2025 025, 08/26/2024, 04/09/2024, Additional history exists Lipid Panel 07/02/2025 07/02/2024, 082 07/2023, 04/03/2023, Additional history exists FOBT 07/18/2025 07/18/2024 Eye Exam 08/04/2025 Tobacco Screening 12/23/2025 12/23/2024 Mammogram 01/18/2026 01/19/2024, 04, 05/30/2021, Additional history exists Colorectal Cancer Screening 07/19/2027 FIT DNA/Cologuard 07/19/2027 07/18/2024 DTaP/Tdap/Td Vaccines (2 - Td or Tdap) 01/22/2029 01/22/2019 Zoster Vaccines Completed 03/30/2019, 01/22/2019 Hepatitis C Screening Completed 02/14/2022 Pneumococcal Vaccine: 50+ Years Completed 04/03/2023 Influenza Vaccine Completed 11/22/2024, , 12/25/2022, Additional history exists HIB Vaccines Aged Out [...] on patient's age to complete this topic Goals Goal Patient Goal Type Associated Problems [...] Patient has chronic kidney disease No Leobardo Ortiz RN Patient has chronic kidney disease Care [...] has chronic kidney disease No Pattie Cronin Procedures Procedure Name Priority Date/Time Associated Diagnosis Comments GLUCOSE, WHOLE BLOOD Routine 12/31/2024 10:40 AM EST POCT GLUCOSE Routine 12/23/2024 3:11 PM EST Type 2 diabetes mellitus without complication, without long-term current use of insulin (HCC) POCT GLUCOSE Routine 11/22/2024 11:57 AM EDT Type 2 diabetes mellitus without complication, without long-term current use of insulin (HCC) POCT GLYCATED HEMOGLOBIN, TOTAL Routine 11/22/2024 11:56 AM EDT Type 2 diabetes mellitus without complication, without long-term current use of insulin (HCC) GLUCOSE, WHOLE BLOOD Routine 10/05/2024 1:49 PM EDT URINALYSIS, COMPLETE Routine 10/01/2024 12:38 PM EDT Dysuria CULTURE, URINE, ROUTINE Routine 10/02/19 12:00 AM EDT Dysuria LAB COLOGUARD COLON CANCER SCREEN Routine 07/18/2024 12:30 PM EDT Type 2 diabetes mellitus without complication, without long-term current use of insulin (CMS/HCC) Dizziness Screening for colon cancer LIPID PANEL, STANDARD Routine 07/02/2024 12:00 AM EDT Type 2 diabetes mellitus without complication, without long-term current use of insulin (CMS/HCC) Dizziness Screening for colon cancer BI MAMMOGRAM SCREENING TOMOSYNTHESIS BILATERAL Routine 01/19/2024 2:40 PM EST HEPATITIS C AB W/REFL TO HCV RNA, QN, PCR Routine 02/14/2022 12:03 PM EST ALBUMIN, RANDOM URINE W/CREATININE Routine 02/14/2022 12:03 PM EST ZROMANA HISTORICAL FECAL IMMUNOCHEMICAL TEST X1 (FIT) Routine 08/05/2020 12:00 AM EDT ZZZ HISTORICAL HPV MRNA E6/E7 Routine 10/21/2017 10:24 AM EDT from Last 3 Months or Most Recently Relevant to Health Maintenance Results * Glucose, Whole Blood (12/31/2024 10:40 AM EST) Only the most recent of2 resultswithin the time period is included. Glucose, Whole Blood 112 60 - 115 mg/dL [facility] Comment:METER #: [id number] 0Testing performed in the Endocrinology Department [address] , [address], [facility]. 12/31/2024 10:4 0 AM EST 12/31/2024 10:44 AM EST us Generic External Data Provider LAB BLOOD ORDERAB LES Final Result [facility] [address] [place] [address] [phone] * POCT Glucose (12/23/2024 3:11 PM EST) Only the most recent of2 resultswithin the time period is included. Glucose Blood, POC 98 60 - 200 mg/dL QC Media Lot # [id number] Lot# Expiration Date [id number] Comment:random Blood Capillary blood specimen / Unknown 12/23/2024 3:11 PM EST Benjamin Ireland MD POINT OF CARE TEST ENTER/ED IT ORDERABLES Final Result * (ABNORMAL) POCT Hgb A1c (11/22/2024 11:56 AM EDT) Hemoglobin A1C 6.3(A) 4.0 - 5.7 % QC Media Lot # [id number] Lot# Expiration Date [id number] Blood 11/22/2024 11:5 6 AM EDT Benjamin Ireland MD POINT OF CARE TEST ENTER/ED IT ORDERABLES Final Result * (ABNORMAL) Urinalysis Complete (10/01/2024 12:38 PM EDT) Color Urine Dark Yellow [facility] Appearance Urine Clear [facility] PH 5.0 5.0 - 9.0 [facility] Glucose Urine UA Negative Negative mg/dL [facility] Urine Blood Negative Negative [facility] Specific [place] - Urine >=1.030(H) 1.005 - 1.025 [facility] Urine Protein Trace Neg-Trace mg/dL [facility] Urine Ketones Trace Negative mg/dL [facility] Nitrite Urine Negative Negative [facility] Leukocyte Esterase Urine Trace(A) Negative [facility] RBC Urine 0-2 0 - 2 /HPF [facility] Urine WBC 0-5 0 - 5 /HPF [facility] Urine Squamous Epithelial Cell 6-10 0 - 2 /HPF [facility] Urine Bacteria None Seen None Seen [facility] Hyaline Casts, Urine 11-20 0 - 2 /LPF [facility] Urine (Urine, Random) 10/01/2024 12:38 PM EDT 10/01/2024 4:16 PM EDT Janee Lechuga MD LAB URINE ORDERABLES Final Re sult Performing Organization Address [facility] Co de Phone Number [facility] [address] [place] [phone] * Culture, Urine, Routine (10/01/2024 12:00 AM EDT) Urine Urine specimen obtained by clean catch procedure / Unknown 10/01/2024 10/01/2024 Comment:UACC Narrative [facility] - 10/04/2024 8:44 AM EDT Urine Culture Report Result Urine Culture 10,000 to 50,000 cfu/ml Urine Culture Mixed bacterial aamir characteristic of Urine Culture urogenital contamination. Specimen Source: Urine clean catch Janee Lechuga MD LAB MICROBIOLOGY - GENERAL OR DERABLES Final Result Performing Organization Address [facility] Co de Phone Number [facility] [address] [place] [phone] * (ABNORMAL) Cologuard?? colon cancer screening (07/18/2024 12:30 PM EDT) Cologuard Result Positive( A) Negative 07/23/2024 9:30 PM EDT [facility] (CLIA #:[id number]) Comment: The Cologuard (TM) test was performed [...] screened with both Cologuard and colonoscopy. (Smith Gonzalez et al, N Engl J Med 2014;370(14):2319-5925.) Cologuard may produce a false negative or false positive result (no colorectal cancer or precancerous polyp present at colonoscopy follow up). A negative Cologuard test result does not guarantee the absence of CRC or advanced adenoma (pre-cancer). The current Cologuard screening interval is every 3 years. ([place] [employer] Society and U.S. Multi-Society Task Force). Cologuard performance data in a 10,000 patient pivotal study using colonoscopy as the reference method can be accessed at the following location: [email or web address].[employer]/results. Additional description of the Cologuard test process, warnings and precautions can be found at [email or web address].com. Stool specimen (specimen) 07/18/2024 12:30 PM EDT 07/20/2024 1:47 PM EDT Jenifer Covarrubias MD LAB MOLECULAR DIAGNOSTICS ORD ERABLES Final Result [facility] (CLIA #:[id number]) [address] [place] [phone], * (ABNORMAL) Lipid Panel, Standard (07/02/2024 12:00 AM EDT) Triglycerides 582(H) <150 mg/dL [facility] Comment:Desirable Triglyceri de: less than 150 mg/dLBorderline High Triglyceride 150-199 mg/dLHigh Triglyceride: 200-499 mg/dLVery High Triglyceride: greater than or equal to 5OO mg/dL Cholesterol 234(H) <200 mg/dL [facility] Comment:Desirable Cholestero l: less than 200 mg/dLBorderline High Cholesterol: 200-239 mg/dLHigh Cholesterol: greater than 239 mg/dL LDL Cholesterol Calculated TNP <100 mg/dL [facility] Comment:Unable to calculate the LDL. The formula of Friedwald,Jo, and Nam is only valid if the triglycerides areless than 400 mg/dl. HDL Cholesterol 31(L) >40 mg/dL [facility] Comment:Desirable HDL: great er than 40 mg/dL Note: This HDL assay may give artificially low results in patients with liver disease. Blood Venous blood specimen / Unknown 07/02/2024 07/02/2024 Jenifer Covarrubias MD LAB BLOOD ORDERABLES Final Re sult [facility] [address] [facility], [place] [phone] * BI Mammogram Screening Tomosynthesis Bilateral (01/19/2024 2:40 PM EST) Anatomical Region Laterality Modality Breast Bilateral Mammography 01/19/2024 2:40 PM EST Narrative 01/23/2024 5:43 PM EST [facility] [address] [place] [address] Mammography Report Signed Patient: Mel More MR#: [id number] : 1960 Acct:[id number] Age/Sex: 63 / F ADM Date: 01/19/24 Loc: HO.MAMMO Attending Dr: Benjamin Ireland MD Ordering Physician: Benjamin Ireland MD Results: 1 Negative Date of Service: 01/19/24 Follow Up: 1 Year From Orig inal Mammogram Procedure(s): MM tomosynthesis screening BI Accession Number(s): [id number] cc: Benjamin Ireland MD EXAMINATION: MM SCREENING [...] by: Larissa Ware DO 01/23/2024 05:40 PM [facility] [place] Dictated By: Larissa Ware DO Signed By: <Electronically signed by Larissa Ware DO in OV> 01/23/24 1740 DD/ 1440 TD/TT: 01/19/24 1455 Associate Material Handler: Procedure Note Donotuseinterpreter, Image - [facility]/23/2024 [facility] [address] [place] [address] Mammography Report Signed Patient: Mel MoreMR#: [id number] : 1960cct:[id number] Age/Sex: 63 / FADM Date: 01/19/24 Loc: HO.MAMMO Attending Dr: Benjamin Ireland MD Ordering Physician: Benjamin Ireland MDResults: 1 Negative Date of Service: 01/19/24Follow Up: 1 Year From Orig ina Mammogram Procedure(s): MM tomosynthesis screening BI Accession Number(s): [id number] cc: Benjamin Ireland MD EXAMINATION: MM SCREENING [...] 01/23/24 1740 DD/ 1440 TD/TT: 01/19/24 1455 Associate Material Handler: us Benjamin Ireland MD IMG BI PROCEDURES Final Res ult * (ABNORMAL) Albumin, Random Urine W/Creatinine (02/14/2022 12:03 PM EST) Creatinine, Random Urine 207 20 - 275 mg/dL [facility] [place] [facility] Albumin, Urine 6.6 See Note: mg/dL [facility] [place] [facility] Comment: Reference Range: Reference Range Not established Albumin/Creatinin e Ratio, Random Urine 32(H) <30 mcg/mg creat [facility] [facility] Comment: The ADA defines abnormalities in albumin [...] URINE ORDERABLES Final Result Performing Organization Address [facility] Co de Phone Number [address], [facility] [place] [address] [facility] [place] [facility] [address] [place] [address], (Nl2) [place] [address] * Hepatitis C Antibody with Reflex to HCV, RNA, Quantitative, Real-Time PCR (02/14/2022 12:03 PM EST) Hepatitis C Antibody NON-REACT [place] NON-REACT [place] [facility] [facility] Index 0.06 <1.00 [facility] Comment: HCV antibody was non-reactive. There is no laboratory evidence of HCV infection. In most cases, no further action is required. However, if recent HCV exposure is suspected, a test for HCV RNA (test code 74632) is suggested. For additional information please refer to http://education.[facility]ató[facility]/faq/GEQ68h6 (This link is being provided for informational/ educational purposes only.) 02/14/2022 12:0 3 PM EST 02/14/2022 12:04 PM EST Benjamin Ireland MD LAB BLOOD ORDERABLES Final Result Performing Organization Address [facility] Co de Phone Number [address], [place] [address] [place] [address], (Nl2) [place] [address] * Fecal immunochemical test x1 (FIT) (08/05/2020 12:00 AM EDT) FIT Date 1 08/04/20 [facility] FIT Date 2 08/04/20 [facility] FIT1 NEGATIVE NEGATIVE [facility] FIT2 NEGATIVE NEGATIVE [facility] 08/05/2020 us Historical Provider MD HISTORICAL/NON ORDERABLE LABS Final Result [facility] [address] * HPV mRNA E6/E7 (10/21/2017 10:24 AM EDT) HPV mRNA E6/E7 Not Detected NOT DETECTED [facility] Comment: This test was performed using the APTIMA(R) HPV Assay ([employer] This assay detects E6/E7 viral messenger RNA (mRNA) from 14 high-risk HPV types (16,18,31,33,35,39,45,51, 52,56,58,59,66,68). For additional information please refer to: http://education.[facility]ató[facility]/faq/JSL171l6 (This link is being provided for informational/ educational purposes only.) The analytical performance characteristics of this assay have been determined by [employer] [place], [place]. The modifications have not been cleared or approved by the FDA. This assay has been validated pursuant to the CLIA regulations and is used for clinical purposes. Test Performed by [facility], [employer] [place], [address] [place] [address] Jose C De Leon M.D., Ph.D., Director of Laboratories , CLIA [id number] Please note: Effective 10/23/2015, HPV testing will be performed using [employer]'s APTIMA test which targets mRNA. Detecting mRNA instead of DNA, as in older methods, offers significant improvements in specificity. 10/21/2017 10:2 4 AM EDT us Cari Campos CNM HISTORICAL/NON ORDERABLE LABS Final Result [facility] [address] from Last 3 Months or Most Recently Relevant to Health Maintenance Additional Health Concerns Active Problems Noted Date [...] 12/28/2024 Patient has chronic kidney disease 12/28/[address] [place] [address] C3 Care Teams Chiropractic Assistant Relationship Specialty Start Date End Date Benjamin Ireland MD 505 [place] [address] PCP - General Internal Medicine 12/02/17 Leobardo Ortiz, YESSICA 505 [facility] [address] Registered Nurse Family Medicine 12/24/24 Pattie Cronin 12/24/24 Leena Curtis Materials And Processes ManagerAccountant Bookkeeper 05/06/23 [facility]
--- OUTSIDE RECORDS SUMMARY | 2024-12-31 11:06 | XMS_ITS | Encounter Summary ---
Author Organization [employer] Address 75 [facility] 7t [place] [address] Care Team Providers Care Body Straightener Name Role Phone Benjamin Ireland MD Primary Care Provider Leobardo Ortiz RN Unavailable [phone] Diane Sosa Unavailable Leobardo Ortiz RN Unavailable [phone] Pattie Cronin Unavailable Reason for Visit * Reason Comments Med Refill Encounter Details Date Type Department Care Team ([facility] st Contact Info) Description 07/29/2024 Refill [facility] CH[facility] MED & PEDS 505 [place], [place] [phone] Benjamin Ireland MD 505 [place], [place] [phone] Other specified hypothyroidism Social History Tobacco Use [...] documented as of this encounter Care Teams Body Straightener Relationship Specialty Start Date End Date Benjamin Ireland MD 505 [place] [address] PCP - General Internal Medicine 12/02/17 Leobardo Ortiz, RN 505 [place] [address] Registered Nurse Family Medicine 09/20/24 12/14/24 Diane Sosa 09/20/24 12/14/24 Leobardo Ortiz, YESSICA 505 [place] [address] Registered Nurse Family Medicine 12/24/24 Pattie Cronin 12/24/24 Leena Curtis Women'S Swim CoachGraphic Technician 05/06/23 [facility] 07/13/24 documented as of this encounter
--- OUTSIDE RECORDS SUMMARY | 2024-12-31 11:06 | XMS_ITS | Encounter Summary ---
Author Organization [employer] Address 75 [facility] 7t [place] [address] Care Team Providers Care Grey Inspector Name Role Phone Benjamin Ireland MD Primary Care Provider [phone] Leobardo Ortiz RN Unavailable [phone] Pattie Cronin Unavailable Encounter Details Date Type Department Care Team ([facility] st Contact Info) Description 12/15/2024 Orders Only [facility] CHC MED & PEDS 505 [place], [place] [phone] Benjamin Ireland MD 505 [place], [place] [phone] Acute cough (Primary Dx) Social History Tobacco Use Types [...] as of this encounter Visit Diagnoses Diagnosis Acute cough- Primary documented in this encounter Additional Health Concerns Assessment Noted Time PHQ-9 Depression Total Score: 12 025 1:40 PM EDT documented as of this encounter Care Teams Grey Inspector Relationship Specialty Start Date End Date Benjamin Ireland MD 505 [place] [address] PCP - General Internal Medicine 12/02/17 Leobardo Ortiz, YESSICA 505 [place] [address] Registered Nurse Family Medicine 12/24/24 Pattie Cronin 12/24/24 Leena Curtis School Speech Language PathologistClinical Medical Assistant 05/06/23 [facility] 07/13/24 documented as of this encounter
--- OUTSIDE RECORDS SUMMARY | 2024-12-31 11:06 | XMS_ITS | Encounter Summary ---
Author Organization [employer] Address 75 [facility] 7t [place] [address] Care Team Providers Care Burlesque Dancer Name Role Phone Benjamin Ireland MD Primary Care Provider Leobardo Ortiz RN Unavailable [phone] Diane Sosa Unavailable Leobardo Ortiz RN Unavailable [phone] Pattie Cronin Unavailable Reason for Visit * Reason Onset Date Comments Med Refill 04/15/2024 Care Coordination 04/15/2024 C3 initial a ssessment/ enrollment Encounter Details Date Type Department Care Team (Late st Contact Info) Description 04/15/2024 Telephone [facility] MEDICINE [address] [place] [address] Benjamin Ireland MD [address] [place] [address] Med Refill; Care Coordination ([facility] initial assessment/ enrollment) Social History Tobacco Use [...] significant for type 2 DM and depressive disorder.CM spoke with patient who states she has an upcoming appointment with [facility] pulmonology on 07/04. Patient states it is a follow up appt after the sleep study. Pt reports her PAINTING TECHNICIAN sends her to all her medical appointment and has 6hrs a day x 6 days with her PAINTING TECHNICIAN. Pt states the PAINTING TECHNICIAN also assists her with bathing and dressing. Pt reports up to date with her rent and utilities but do not have enough food to last her for the month. CHW will refer pt to [email or web address] program for food insecurity. Pt states she [...] understanding, and able to repeat back to va underwriter. A follow up call will be placed [...] 30 MG tablet To be sent to: [facility] *pt states has no pills. documented in this encounter Plan of Treatment Not on file documented as of this encounter Visit Diagnoses Not on filedocumented in this encounter Additional Health Concerns Assessment Noted Time PHQ-9 Depression Total Score: 15 024 10:11 AM EDT documented as of this encounter Care Teams Burlesque Dancer Relationship Specialty Start Date End Date Benjamin Ireland MD 505 [place] [address] PCP - General Internal Medicine 12/02/17 Leobardo Ortiz, RN 505 [place] [address] Registered Nurse Family Medicine 09/20/24 12/14/24 Diane Sosa 09/20/24 12/14/24 Leobardo Ortiz, YESSICA 505 [place], [place] [phone] Registered Nurse Family Medicine 12/24/24 Pattie Cronin 12/24/24 Leena Curtis Attending PhysicianMarketing Content Manager 05/06/23 [facility] documented as of this encounter
--- OUTSIDE RECORDS SUMMARY | 2024-12-31 11:06 | XMS_ITS | Encounter Summary ---
Author Organization [employer] Address 75 [facility] [address] [place] [address] Care Team Providers Care Network Analyst Name Role Phone Benjamin Ireland MD Primary Care Provider Leobardo Ortiz RN Unavailable [phone] Pattie Cronin Unavailable Reason for Visit * Reason Onset Date Comments Hospital Follow-up 12/27/2024 Encounter Details Date Type Department Care Team ([facility] st Contact Info) Description 12/27/2024 Telephone [facility] MEDICINE 230 [place] [address] Benjmain Ireland MD 505 [place] [address] Hospital Follow-up Social History Tobacco Use Types [...] encounter Miscellaneous Notes * Telephone Encounter - Yessenia Balderas - 12/27/2024 2:28 PM EST Tc from pt requesting a HDF appt. Hospital: [facility] Date of admission: 12/22 Discharge date: 12/26 Diagnosed: low oxygen *Send message to [place] [facility] Coordinators PCP Dr. Ireland documented in this encounter [...] documented as of this encounter Care Teams Network Analyst Relationship Specialty Start Date End Date Benjamin Ireland MD [address] [place] [address] PCP - General Internal Medicine 12/02/17 Leobardo Ortiz, YESSICA [address] [place] [address] Registered Nurse Family Medicine 12/24/24 Pattie Cronin 12/24/24 Leena Curtis Medical NurseSwimming Pool Cleaner 05/06/23 [facility] 07/13/24 documented as of this encounter
--- OUTSIDE RECORDS SUMMARY | 2024-12-31 11:06 | XMS_ITS | Encounter Summary ---
Author Organization [employer] Address 75 [facility] 7t [place] [address] Care Team Providers Care Planning Director Name Role Phone Benjamin Ireland MD Primary Care Provider Leobardo Ortiz RN Unavailable [phone] Pattie Cronin Unavailable Reason for Visit * Reason Onset Date Comments Call Back Request 12/28/2024 Encounter Details Date Type Department Care Team ([facility] st Contact Info) Description 12/28/2024 Telephone [facility] MEDICINE 230 [place] [address] Benjamin Ireland MD 505 [place] [address] Call Back Request Social History Tobacco Use Types Packs/Day [...] Encounter - Kisha Kwok RN - 12/28/2024 10:48 AM EST TC to patient to schedule hospital follow up. No answer. Message left to call office back. * Telephone Encounter - Kisha Kwok RN - 12/28/2024 10:42 AM EST TC to Yennifer, reviewed medications with discharge summary for asthma exacerbation. On discharge summary, patient is suppose to use Pulmicort inhaler, but there is not one in the home, Trilogy inhaler she should be using, but there is not one in the home. Yennifer stated she has an appointment with Pulmon Friday and will address with them. Fenofibrate 130 mg is on patient list, but she has not been taking. Will reach out to provider regarding this medication. * Telephone Encounter - Yessenia Balderas - 12/28/2024 10:03 AM EST Tc from yennifer with [facility] requesting a call back to clarify medications. To contcat Yennifer at [phone] Ireland documented in this encounter [...] Patient has chronic kidney disease No Morelia Mayorga RN Patient has chronic kidney disease Care [...] documented as of this encounter Care Teams Planning Director Relationship Specialty Start Date End Date Benjamin Ireland MD 505 [place] [address] PCP - General Internal Medicine 12/02/17 Leobardo Ortiz, RN 505 [place] [address] Registered Nurse Family Medicine 12/24/24 Pattie Cronin 12/24/24 Leena Curtis Incident Response EngineerUtility Operator Yarn 05/06/23 [facility] 07/13/24 documented as of this encounter
--- OUTSIDE RECORDS SUMMARY | 2024-12-31 11:06 | XMS_ITS | Encounter Summary ---
Author Organization [employer] Address 75 [facility] 7t [place] [address] Care Team Providers Care Lubricating Machine Tender Name Role Phone Benjamin Ireland MD Primary Care Provider Leobardo Ortiz RN Unavailable [phone] Pattie Cronin Unavailable Reason for Visit * Reason Onset Date Comments Med Refill 12/16/2024 Encounter Details Date Type Department Care Team ([facility] st Contact Info) Description 12/16/2024 Telephone [facility] CHC MED & PEDS 505 [place], [place] [phone] Benjamin Ireland MD 505 [place] [address] Med Refill Social History Tobacco Use Types [...] * Telephone Encounter - Dianna Cabral - 12/16/2024 9:05 AM EST TC from pt requesting medication refill. Medications needing refill : acetaminophen-codeine (Tylenol w/ Codeine #3) 300- 30 MG tablet To be sent to: [facility] - [place], [place] - [address] [place] [address] documented in this encounter Plan of Treatment Not on file documented as of this encounter Visit Diagnoses Not on filedocumented in this encounter Additional Health Concerns Assessment Noted Time PHQ-9 Depression Total Score: 12 025 1:40 PM EDT documented as of this encounter Care Teams Lubricating Machine Tender Relationship Specialty Start Date End Date Benjamin Ireland MD [address] [place] [address] PCP - General Internal Medicine 12/02/17 Leobardo Ortiz, YESSICA [address] [place] [address] Registered Nurse Family Medicine 12/24/24 Pattie Cronin 12/24/24 Leena Curtis Auxiliary OperatorRoll Scale Man 05/06/23 [facility] 07/13/24 documented as of this encounter
--- OUTSIDE RECORDS SUMMARY | 2024-12-31 11:06 | XMS_ITS | Encounter Summary ---
Author Organization [employer] Address 75 [facility] 7t [place] [address] Care Team Providers Care Physician Chief Of Pathology Name Role Phone Benjamin Ireland MD Primary Care Provider [phone] Leobardo Ortiz RN Unavailable Pattie Cronin Unavailable Encounter Details Date Type Department Care Team ([facility] Contact Info) Description 12/31/2024 Orders Only GENERIC EXTERNAL DATA [...] Pattie Cronin documented as of this encounter Procedures Procedure Name Priority Date/Time Associated Diagnosis Comments GLUCOSE, WHOLE BLOOD Routine 12/31/2024 10:40 AM EST documented in this encounter Results * Glucose, Whole Blood (12/31/2024 10:40 AM EST) Glucose, Whole Blood 112 60 - 115 mg/dL [facility] Comment:METER #: [id number] 0Testing performed in the Endocrinology Department [address] , [address], [facility]. 12/31/2024 10:4 0 AM EST 12/31/2024 10:44 AM EST us Generic External Data Provider LAB BLOOD ORDERAB LES Final Result [facility] [address] [place] [address] [phone] documented in this encounter Visit Diagnoses [...] documented as of this encounter Care Teams Physician Chief Of Pathology Relationship Specialty Start Date End Date Benjamin Ireland MD [address] [place] [address] PCP - General Internal Medicine 12/02/17 Leobardo Ortiz, YESSICA 505 [place] [address] Registered Nurse Family Medicine 12/24/24 Pattie Cronin 12/24/24 Leena Curtis Waiter/Waitress CaptainService Crew Leader 05/06/23 [facility] 07/13/24 documented as of this encounter
--- OUTSIDE RECORDS SUMMARY | 2024-12-31 11:06 | XMS_ITS | Encounter Summary ---
Author Organization [employer] Address 75 [facility] 7t [place] [address] Care Team Providers Care Special Projects Manager Name Role Phone Benjamin Ireland MD Primary Care Provider Leobardo Ortiz RN Unavailable [phone] Diane Sosa Unavailable Leobardo Ortiz RN Unavailable [phone] Pattie Cronin Unavailable Reason for Visit * Reason Comments Med Refill Encounter Details Date Type Department Care Team ([facility] st Contact Info) Description 07/21/2024 Refill [facility] CHC MED & PEDS 505 [place], [place] [phone] Benjamin Ireland MD 505 [place], [place] [phone] Other specified hypothyroidism Social History Tobacco Use [...] documented as of this encounter Care Teams Special Projects Manager Relationship Specialty Start Date End Date Benjamin Ireland MD 505 [place] [address] PCP - General Internal Medicine 12/02/17 Leobardo Ortiz, RN 505 [place] [address] Registered Nurse Family Medicine 09/20/24 12/14/24 Diane Sosa 09/20/24 12/14/24 Leobardo Ortiz, YESSICA 505 [place] [address] Registered Nurse Family Medicine 12/24/24 Pattie Cronin 12/24/24 Leena Curtis Field Operations Farm ManagerParachute Rigger 05/06/23 [facility] 07/13/24 documented as of this encounter
--- OUTSIDE RECORDS SUMMARY | 2024-12-31 11:06 | XMS_ITS | Encounter Summary ---
Author Organization [employer] Address 75 [facility] 7t [place] [address] Care Team Providers Care Gold Miner Blasting Name Role Phone Benjamin Ireland MD Primary Care Provider Leobardo Ortiz RN Unavailable [phone] Diane Sosa Unavailable Leobardo Ortiz RN Unavailable [phone] Pattie Cronin Unavailable Reason for Visit * Reason Onset Date Comments PT1 07/19/2024 Encounter Details Date Type Department Care Team (Late st Contact Info) Description 07/19/2024 Telephone [facility] MEDICINE [address] [place] [address] Benjamin Ireland MD 505 [place], [place] [phone] PT1 Social History Tobacco Use Types Packs/Day [...] Y/N: Yes Provider name or facility name: [facility] 505 [facility] Escort needed: Y/N: No Do you have a wheelchair: Y/N: No Visits: 4x a month Patient calling requesting PT1 Home Address verified: Y/N: Yes Provider name or facility name: [facility] [address] [place] [address] Escort needed: Y/N: No Do you have a wheelchair: Y/N: No Visits: 2x a month documented in this encounter Plan of Treatment Not on file documented as of this encounter Visit Diagnoses Not on filedocumented in this encounter Additional Health Concerns Assessment Noted Time PHQ-9 Depression Total Score: 12 025 1:40 PM EDT documented as of this encounter Care Teams Gold Miner Blasting Relationship Specialty Start Date End Date Benjamin Ireland MD 505 [place] [address] PCP - General Internal Medicine 12/02/17 Leobardo rOtiz, RN 505 [facility] [place] [address] Registered Nurse Family Medicine 09/20/24 12/14/24 Diane Sosa 09/20/24 12/14/24 Leobardo Ortiz, YESSICA 505 [facility] [address] Registered Nurse Family Medicine 12/24/24 Pattie Cronin 12/24/24 Leena Curtis Senior Mechanical Development EngineerRepairer Engine Production 05/06/23 [facility] 07/13/24 documented as of this encounter
--- OUTSIDE RECORDS SUMMARY | 2024-12-31 11:06 | XMS_ITS | Encounter Summary ---
Author Organization [employer] Address 75 [facility] 7t [place] [address] Care Team Providers Care Financial Reporting Director Name Role Phone Benjamin Ireland MD Primary Care Provider Leobardo Ortiz RN Unavailable [phone] Diane Sosa Unavailable Leobardo Ortiz RN Unavailable [phone] Pattie Cronin Unavailable Reason for Visit * Reason Comments Med Refill Encounter Details Date Type Department Care Team ([facility] st Contact Info) Description 08/02/2024 Refill [facility] CHC MED & PEDS 505 [place], [place] [phone] Benjamin Ireland MD 505 [place], [place] [phone] Other specified hypothyroidism Social History Tobacco Use [...] documented as of this encounter Care Teams Financial Reporting Director Relationship Specialty Start Date End Date Benjamin Ireland MD [address] [place] [address] PCP - General Internal Medicine 12/02/17 Leobardo Ortiz, RN 505 [place] [address] Registered Nurse Family Medicine 09/20/24 12/14/24 Diane Sosa 09/20/24 12/14/24 Leobardo Ortiz, YESSICA [address] [place] [address] Registered Nurse Family Medicine 12/24/24 Pattie Cronin 12/24/24 Leena Curtis Surgical Physician AssistantCement Tile Maker 05/06/23 [facility] 07/13/24 documented as of this encounter
--- OUTSIDE RECORDS SUMMARY | 2024-12-31 11:06 | XMS_ITS | Encounter Summary ---
Author Organization [employer] Address 75 [facility] 7t [place] [address] Care Team Providers Care Dishwashing Machine Operator Name Role Phone Benjamin Ireland MD Primary Care Provider Leobardo Ortiz RN Unavailable [phone] Pattie Cronin Unavailable Reason for Visit * Reason Comments Care Coordination C3/CM Outreach Encounter Details Date Type Department Care Team (Latest Contact Info) Description 12/28/2024 Patient Outreach [facility] CHC MED & PEDS [address] [place], [place] [phone] Benjamin Ireland MD [address] [place] [address] Care Coordination (C3/CM Outreach) Social History Tobacco Use Types Packs/Day Years [...] encounter Progress Notes * Pattie Cronin - 12/28/2024 11:01 AM EST CHW Pattie Cronin , placed outbound call to patient in regards to offer services. CHW introducing herself from [facility] CM Department with CHW's name, department and direct contact [phone] call back. Will re-attempt to contact within [...] Care Plan Patient has chronic kidney disease Deborah Davila [place] Patient has chronic kidney disease Care [...] documented as of this encounter Care Teams Dishwashing Machine Operator Relationship Specialty Start Date End Date Benjamin Ireland MD [address] [place] [address] PCP - General Internal Medicine 12/02/17 Leobardo Ortiz, YESSICA 505 [place] [address] Registered Nurse Family Medicine 12/24/24 Pattie Cronin 12/24/24 Leena Curtis Roll Or Tape Edge Machine OperatorManager Storage 05/06/23 [facility] 07/13/24 documented as of this encounter
--- OUTSIDE RECORDS SUMMARY | 2024-12-31 11:06 | XMS_ITS | Encounter Summary ---
Author Organization [employer] Address [address] [facility] [address] [place] [address] Care Team Providers Care Access Representative Name Role Phone Benjamin Ireland MD Primary Care Provider Leobardo Ortiz RN Unavailable [phone] Pattie Cronin Unavailable Reason for Visit * Reason Comments Transition Of Care (Tcm) HDF unscheduled Encounter Details Date Type Department Care Team ([facility] st Contact Info) Description 12/27/2024 Patient Outreach [facility] MEDICINE [address] [place] [address] Benjamin Ireland MD 505 [place] [address] Transition Of Care (Tcm) (HDF unscheduled) Social History Tobacco Use Types Packs/Day Years [...] as of this encounter Progress Notes * Sherri Alves - 12/27/2024 2:47 PM EST Care coordinators received internal message from Yessenia patient called to be scheduled for an HDF. Patient was call and no answer. Utilization Specialist left a detail message to return call to offer an HDF. [facility] discharge summary has been scanned into patient chart for review. documented in this encounter Plan of Treatment [...] as of this encounter Care Teams Access Representative Relationship Specialty Start Date End Date Benjamin Ireland MD 505 [place] [address] PCP - General Internal Medicine 12/02/17 Leobardo Ortiz, YESSICA 505 [place] [address] Registered Nurse Family Medicine 12/24/24 Pattie Cronin 12/24/24 Leena Curtis CstDice Manager 05/06/23 [facility] 07/13/24 documented as of this encounter
--- OUTSIDE RECORDS SUMMARY | 2024-12-31 11:07 | XMS_ITS | Encounter Summary ---
Author Organization [employer] Address [address] [facility] 7t [place] [address] Care Team Providers Care Process Excellence Manager Name Role Phone Benjamin Ireland MD Primary Care Provider Leobardo Ortiz RN Unavailable [phone] Diane Sosa Unavailable Leobardo Ortiz RN Unavailable [phone] Pattie Cronin Unavailable Reason for Visit * Reason Comments Med Change Request Encounter Details Date Type Department Care Team (Late st Contact Info) Description 11/22/2024 Refill [facility] MEDICINE [address] [place] [address] Benjamin Ireland MD 505 [place] [address] Primary insomnia Social History Tobacco Use Types [...] of Assessment Author Patient Health Questionnaire-2 Score 2 11/10 11:46 AM EDT Deborah Campbell MA * Little interest or pleasure in doing things Answer Date of Assessment Author Several days 11/22/2024 11:46 AM EDT Isabel Campbell MA * Feeling down, depressed, or hopeless Answer Date of Assessment Author Several days 11/22/2024 11:46 AM Isabel Vieira MA * Trouble falling or staying asleep, or sleeping too much Answer Date of Assessment Author Nearly every day 11/22/2024 11:46 AM EDT Deborah Campbell MA * Feeling tired or having little energy Answer Date of Assessment Author Several days 11/22/2024 11:46 AM EDT Isabel Campbell MA * Poor appetite or overeating Answer Date of Assessment Author More than half the days 11/22/2024 11:46 AM KAMIT Deborah Campbell MA * Feeling bad about yourself - or that you are a failure or have let yourself or your family down Answer Date of Assessment Author Not at all 11/22/2024 11:46 AM Isabel Vieira MA documented as of this encounter Plan of Treatment Not on file documented as of this encounter Visit Diagnoses Diagnosis Primary insomnia Persistent disorder of initiating or maintaining sleep documented in this encounter Additional Health Concerns Assessment Noted Time PHQ-9 Depression Total Score: 12 04/29/ 025 1:40 PM EDT documented as of this encounter Care Teams Process Excellence Manager Relationship Specialty Start Date End Date Benjamin Ireland MD [address] [place] [address] PCP - General Internal Medicine 12/02/17 Leobardo Ortiz, RN 505 [place] [address] Registered Nurse Family Medicine 09/20/24 12/14/24 Diane Sosa 09/20/24 12/14/24 Leobardo Ortiz, RN [address] [place] [address] Registered Nurse Family Medicine 12/24/24 Pattie Cronin 12/24/24 Leena Curtis Rerolling Machine OperatorTheatrical Dresser 05/06/23 [facility] documented as of this encounter
--- OUTSIDE RECORDS SUMMARY | 2024-12-31 11:07 | XMS_ITS | Encounter Summary ---
Author Organization [employer] Address [address] [facility] [address] [place] [address] Care Team Providers Care Coupon Collection Clerk Name Role Phone Benjamin Ireland MD Primary Care Provider [phone] Leobardo Ortiz RN Unavailable [phone] Diane Sosa Unavailable Leobardo Ortiz RN Unavailable [phone] Pattie Cronin Unavailable Reason for Visit * Reason Comments Med Refill Encounter Details Date Type Department Care Team (Late st Contact Info) Description 06/25/2022 Refill [facility] MEDICINE [address] [place] [address] Benjamin Ireland MD 505 [place] [address] Chronic pain syndrome; Intertrigo Social History Tobacco [...] documented as of this encounter Care Teams Coupon Collection Clerk Relationship Specialty Start Date End Date Benjamin Ireland MD 505 [place] [address] PCP - General Internal Medicine 12/02/17 Leobardo Ortiz, RN 505 [place], [place] [address] Registered Nurse Family Medicine 09/20/24 12/14/24 Diane Sosa 09/20/24 12/14/24 Leobardo Ortiz, YESSICA [address] [place], [place] [address] Registered Nurse Family Medicine 12/24/24 Pattie Cronin 12/24/24 Leena Curtis Qa Software Test EngineerNc Manager 05/06/23 [facility] 07/13/24 documented as of this encounter
--- OUTSIDE RECORDS SUMMARY | 2024-12-31 11:07 | XMS_ITS | Encounter Summary ---
Author Organization [employer] Address [address] [facility] 7t [place] [address] Care Team Providers Care Casino Runner Name Role Phone Benjamin Ireland MD Primary Care Provider Leobardo Ortiz RN Unavailable [phone] Diane Sosa Unavailable Leobardo Ortiz RN Unavailable [phone] Pattie Cronin Unavailable Encounter Details Date Type Department Care Team ([facility] st Contact Info) Description 01/15/2022 Abstract [facility] MED & PEDS [address] [place] [address] Provider, MD Radha Social History Tobacco Use Types Packs/Day Years [...] on filedocumented in this encounter Care Teams Casino Runner Relationship Specialty Start Date End Date Benjamin Ireland MD 505 [place] [address] PCP - General Internal Medicine 12/02/17 Leobardo Ortiz, RN 505 [place] [address] Registered Nurse Family Medicine 09/20/24 12/14/24 Diane Sosa 09/20/24 12/14/24 Leobardo Ortiz, RN [address] [place] [address] Registered Nurse Family Medicine 12/24/24 Pattie Cronin 12/24/24 Leena Curtis Marine Pipe WelderStation Examiner 05/06/23 [facility] 07/13/24 documented as of this encounter
--- OUTSIDE RECORDS SUMMARY | 2024-12-31 11:07 | XMS_ITS | Encounter Summary ---
Author Organization [employer] Address [address] [facility] 7t [place] [address] Care Team Providers Care Tele Tech Name Role Phone Benjamin Ireland MD Primary Care Provider [phone] Leobardo Ortiz RN Unavailable [phone] Diane Sosa Unavailable Leobardo Ortiz RN Unavailable [phone] Pattie Cronin Unavailable Reason for Visit * Reason Onset Date Comments Med Refill 11/16/2024 Encounter Details Date Type Department Care Team (Late st Contact Info) Description 11/16/2024 Telephone [facility] MEDICINE [address] [place] [address] Benjamin Ireland MD [address] [place] [address] Med Refill Social History Tobacco Use Types Packs/Day Years Used Date Smoking Tobacco: Never Smokeless Tobacco: Never Depression Answer Date Recorded Patient Health Questionnaire-9 Score 12 04/29/2024 Patient Health Questionnaire-9 Score 12 04/29/2024 Last PHQ-9: Questionnaire Data Not on file 0 04/29/2024 Housing Stability Answer Date Recorded What is your housing situation today? I have flavia sing 04/15/[address] you li [...] Miscellaneous Notes * Telephone Encounter - Moy Schwab - 11/16/2024 2:19 PM EDT TC from pt requesting medication refill. Medications needing refill: acetaminophen-codeine (Tylenol w/ Codeine #3) 300-30 MG tablet To be sent to: [facility] - [place], [place] - [address] [place] [address] documented in this encounter Plan of Treatment Not on file documented as of this encounter Visit Diagnoses Not on filedocumented in this encounter Additional Health Concerns Assessment Noted Time PHQ-9 Depression Total Score: 12 025 1:40 PM EDT documented as of this encounter Care Teams Tele Tech Relationship Specialty Start Date End Date Benjamin Ireland MD 505 [place] [address] PCP - General Internal Medicine 12/02/17 Leobardo Ortiz, RN 505 [facility] [place] [address] Registered Nurse Family Medicine 09/20/24 12/14/24 Diane Sosa 09/20/24 12/14/24 Leobardo Ortiz, RN [address] [place] [address] Registered Nurse Family Medicine 12/24/24 Pattie Cronin 12/24/24 Leena Curtis Environmental AidMeteorological Equipment Repairer 05/06/23 [facility] 07/13/24 documented as of this encounter
--- OUTSIDE RECORDS SUMMARY | 2024-12-31 11:07 | XMS_ITS | Encounter Summary ---
Author Organization [employer] Address 75 [facility] 7t [place] [address] Care Team Providers Care Dock Loader Name Role Phone Benjamin Ireland MD Primary Care Provider Leobardo Ortiz RN Unavailable [phone] Diane Sosa Unavailable Leobardo Ortiz RN Unavailable [phone] Pattie Cronin Unavailable Reason for Visit * Reason Onset Date Comments Med Refill 11/06/2023 Encounter Details Date Type Department Care Team (Late st Contact Info) Description 11/06/2023 Telephone [facility] MEDICINE 230 [place] [address] Benjamin Ireland MD [address] [place] [address] Med Refill Social History Tobacco Use Types [...] 30 MG tablet To be sent to: [facility] - [place], [place] - [address] [place] [address] documented in this encounter Plan of Treatment Not on file documented as of this encounter Visit Diagnoses Not on filedocumented in this encounter Additional Health Concerns Assessment Noted Time PHQ-9 Depression Total Score: 15 024 10:11 AM EDT documented as of this encounter Care Teams Dock Loader Relationship Specialty Start Date End Date Benjamin Ireland MD [address] [place] [address] PCP - General Internal Medicine 12/02/17 Leobardo Ortiz, YESSICA 505 [place] [address] Registered Nurse Family Medicine 09/20/24 12/14/24 Diane Sosa 09/20/24 12/14/24 Leobardo Ortiz, RN [address] [place] [address] Registered Nurse Family Medicine 12/24/24 Pattie Cronin 12/24/24 Leena Curtis Carpet Cleaning TechnicianDock Loader 05/06/23 [facility] 07/13/24 documented as of this encounter
--- OUTSIDE RECORDS SUMMARY | 2024-12-31 11:07 | XMS_ITS | Encounter Summary ---
Author Organization [employer] Address [address] [facility] 7t [place] [address] Care Team Providers Care Strategic Account Director Name Role Phone Benjamin Ireland MD Primary Care Provider Leobardo Ortiz RN Unavailable [phone] Diane Sosa Unavailable Leobardo Ortiz RN Unavailable [phone] Pattie Cronin Unavailable Reason for Visit * Reason Onset Date Comments Error 05/27/2023 Encounter Details Date Type Department Care Team (Late st Contact Info) Description 05/27/2023 Telephone [facility] MEDICINE 230 [place] [address] Benjamin Ireland MD [address] [place], [place] [phone] Error Social History Tobacco Use Types Packs/Day [...] documented as of this encounter Care Teams Strategic Account Director Relationship Specialty Start Date End Date Benjamin Ireland MD [address] [place] [address] PCP - General Internal Medicine 12/02/17 Leobardo Ortiz RN 505 [place] [address] Registered Nurse Family Medicine 09/20/24 12/14/24 Diane Sosa 09/20/24 12/14/24 Leobardo Ortiz, RN [address] [place] [address] Registered Nurse Family Medicine 12/24/24 Pattie Cronin 12/24/24 Leena Curtis Display DirectorPhotographic Restorer 05/06/23 [facility] documented as of this encounter
--- OUTSIDE RECORDS SUMMARY | 2024-12-31 11:07 | XMS_ITS | Encounter Summary ---
Author Organization [employer] Address [address] [facility] 7t [place] [address] Care Team Providers Care Hyperion Administrator Name Role Phone Benjamin Ireland MD Primary Care Provider Leobardo Ortiz RN Unavailable [phone] Diane Sosa Unavailable Leobardo Ortiz RN Unavailable [phone] Pattie Cronin Unavailable Reason for Visit * Reason Onset Date Comments Med Refill 06/14/2024 Encounter Details Date Type Department Care Team (Late st Contact Info) Description 06/14/2024 Telephone [facility] MEDICINE [address] [place] [address] Benjamin Ireland MD [address] [place] [address] Med Refill Social History Tobacco Use Types [...] 300-30 MG tablet To be sent to: [facility] documented in this encounter Plan of Treatment Not on file documented as of this encounter Visit Diagnoses Not on filedocumented in this encounter Additional Health Concerns Assessment Noted Time PHQ-9 Depression Total Score: 12 025 1:40 PM EDT documented as of this encounter Care Teams Hyperion Administrator Relationship Specialty Start Date End Date Benjamin Ireland MD [address] [place] [address] PCP - General Internal Medicine 12/02/17 Leobardo Ortiz, YESSICA 505 [place] [address] Registered Nurse Family Medicine 09/20/24 12/14/24 Diane Sosa 09/20/24 12/14/24 Leobardo Ortiz, YESSICA 505 [place] [address] Registered Nurse Family Medicine 12/24/24 Pattie Cronin 12/24/24 Leena Curtis Home Care AideRoadside Mechanic 05/06/23 [facility] 07/13/24 documented as of this encounter
--- OUTSIDE RECORDS SUMMARY | 2024-12-31 11:07 | XMS_ITS | Encounter Summary ---
Author Organization [employer] Address 75 [facility] 7t [place] [address] Care Team Providers Care Sports Cartoonist Name Role Phone Benjamin Ireland MD Primary Care Provider Leobardo Ortiz RN Unavailable [phone] Diane Sosa Unavailable Leobardo Ortiz RN Unavailable [phone] Pattie Cronin Unavailable Encounter Details Date Type Department Care Team ([facility] st Contact Info) Description 06/18/2024 Orders Only [facility] MED [facility] PEDS [address] [place], [place] [phone] Benjamin Ireland MD [address] [place] [address] Chronic pain syndrome Social History Tobacco Use [...] documented as of this encounter Care Teams Sports Cartoonist Relationship Specialty Start Date End Date Benjamin Ireland MD [address] [place] [address] PCP - General Internal Medicine 12/02/17 Leobardo Ortiz, RN 505 [place] [address] Registered Nurse Family Medicine 09/20/24 12/14/24 Diane Sosa 09/20/24 12/14/24 Leobardo Ortiz, YESSICA 505 [place] [address] Registered Nurse Family Medicine 12/24/24 Pattie Cronin 12/24/24 Leena Curtis LswHome Health Aid 05/06/23 [facility] 07/13/24 documented as of this encounter
--- OUTSIDE RECORDS SUMMARY | 2024-12-31 11:07 | XMS_ITS | Encounter Summary ---
Author Organization [employer] Address [address] [facility] 7t [place] [address] Care Team Providers Care Stamp Pad Finisher Name Role Phone Benjamin Ireland MD Primary Care Provider Leobardo Ortiz RN Unavailable [phone] Diane Sosa Unavailable Leobardo Ortiz RN Unavailable [phone] Pattie Cronin Unavailable Reason for Visit * Reason Onset Date Comments Med Refill 07/08/2023 Encounter Details Date Type Department Care Team (Late st Contact Info) Description 07/08/2023 Telephone [facility] MEDICINE 230 [place] [address] Benjamin Ireland MD [address] [place], [place] [phone] Med Refill Social History Tobacco Use Types [...] Miscellaneous Notes * Telephone Encounter - Josselin Nicholsno - 07/08/2023 12:22 PM EDT TC from pt requesting medication refill. Medications needing refill : acetaminophen-codeine (Tylenol w/ Codeine #3) 300-30 MG tablet To be sent to: [facility] documented in this encounter Plan of Treatment Not on file documented as of this encounter Visit Diagnoses Not on filedocumented in this encounter Additional Health Concerns Assessment Noted Time PHQ-9 Depression Total Score: 0 02/14/19 23 11:24 AM EST documented as of this encounter Care Teams Stamp Pad Finisher Relationship Specialty Start Date End Date Benjamin Ireland MD [address] [place] [address] PCP - General Internal Medicine 12/02/17 Leobardo Ortiz, RN 505 [place] [address] Registered Nurse Family Medicine 09/20/24 12/14/24 Diane Sosa 09/20/24 12/14/24 Leobardo Ortiz RN 505 [place] [address] Registered Nurse Family Medicine 12/24/24 Pattie Cronin 12/24/24 Leena Curtis High Speed Warper TenderHigh Speed Warper Tender 05/06/23 [facility] documented as of this encounter
--- OUTSIDE RECORDS SUMMARY | 2024-12-31 11:07 | XMS_ITS | Encounter Summary ---
Author Organization [employer] Address 75 [facility] 7t [place] [address] Care Team Providers Care Turntable Operator Name Role Phone Benjamin Ireland MD Primary Care Provider Leobardo Ortiz RN Unavailable [phone] Diane Sosa Unavailable Leobardo Ortiz RN Unavailable [phone] Pattie Cronin Unavailable Encounter Details Date Type Department Care Team (Latest Contact Info) Description 10/06/[address] [facility] MED & PEDS 505 [place], [place] [phone] Benjamin Ireland MD [address] [place] [address] Hypercholesterolemia (Primary Dx); Screening for colon cancer [...] Health Questionnaire-2 Score 6 10/06/2023 10:11 AM EDT Tomi Gore LMHC * How difficult have these problems made it for you to do your work, take care of things at home, or get along with other people? Answer Date of Assessment Author Somewhat difficult 10/06/2023 10:11 AM EDT Tomi Madden LMHC * Over the past 2 weeks, how often have you been bothered by any of the following problems? Question Answer Date of Assessment Author Little interest or pleasure in doing things Nearly every day 10/06/2023 10:11 AM Tomi Beltran LMHC Feeling down, depressed, or hopeless Nearly every day 10/06/2023 10:11 AM EDT Tomi Bautista LMHC Trouble falling or staying asleep, or sleeping too much Nearly every day 10/06/2023 10:11 AM KAMIT Tomi Bautista LMHC Feeling tired or having little energy Nearly every day 10/06/2023 10:11 AM Tomi Gonzalez LMHC Poor appetite or overeating Nearly every day 10/06/2023 10:11 AM KAMIT Tomi Bautista LMHC Feeling bad about yourself - or that you are a failure or have let yourself or your family down Not at all 10/06/2023 10:11 AM EDT Tomi Bautista LMHC Trouble concentrating on things, such as reading the newspaper or watching television Not at all 10/06/2023 10:11 AM EDT Tomi Bautista LMHC Moving or speaking so slowly that other people could have noticed? Or the opposite - being so fidgety or restless that you have been moving around a lot more than usual. Not at all 10/06/2023 10:11 AM EDT Tomi Bautista LMHC Thoughts that you would be better off or hurting yourself in some way Not at all 10/06/2023 10:11 AM EDT Tomi Bradley LMHC Patient Health Questionnaire-9 Score 15 10/06/2023 10:11 AM EDT Tomi Gore LMHC documented as of this encounter Plan of Treatment Not on file documented as of this encounter Visit Diagnoses Diagnosis Hypercholesterolemia- Primary Pure hypercholesterolemia Screening for colon cancer Special screening for malignant neoplasms, colon documented in this encounter Additional Health Concerns Assessment Noted Time PHQ-9 Depression Total Score: 15 024 10:11 AM EDT documented as of this encounter Care Teams Turntable Operator Relationship Specialty Start Date End Date Benjamin Ireland MD [address] [place] [address] PCP - General Internal Medicine 12/02/17 Leobardo Ortiz RN 505 [place] [address] Registered Nurse Family Medicine 09/20/24 12/14/24 Diane Sosa 09/20/24 12/14/24 Leobardo Ortiz RN [address] [place] [address] Registered Nurse Family Medicine 12/24/24 Pattie Cronin 12/24/24 Leena Curtis Protection Chief Industrial PlantNetwork Relations Consultant 05/06/23 [facility] documented as of this encounter
--- OUTSIDE RECORDS SUMMARY | 2024-12-31 11:07 | XMS_ITS | Encounter Summary ---
Author Organization [employer] Address [address] [facility] 7t [place] [address] Care Team Providers Care Gender Studies Professor Name Role Phone Benjamin Ireland MD Primary Care Provider Leobardo Ortiz RN Unavailable [phone] Diane Sosa Unavailable Leobardo Ortiz RN Unavailable [phone] Pattie Cronin Unavailable Encounter Details Date Type Department Care Team ([facility] st Contact Info) Description 11/19/2023 Orders Only [facility] MED & PEDS 505 [place], [place] [phone] Benjamin Ireland MD [address] [place], [place] [phone] Social History Tobacco Use Types Packs/Day Years [...] documented as of this encounter Care Teams Gender Studies Professor Relationship Specialty Start Date End Date Benjamin Ireland MD [address] [place] [address] PCP - General Internal Medicine 12/02/17 Leobardo Ortiz, RN [address] [place] [address] Registered Nurse Family Medicine 09/20/24 12/14/24 Diane Sosa 09/20/24 12/14/24 Leobardo Ortiz RN [address] [place] [address] Registered Nurse Family Medicine 12/24/24 Pattie Cronin 12/24/24 Leena Curtis Electronics Engineering ProfessorFlight Agent 05/06/23 [facility] 07/13/24 documented as of this encounter
--- OUTSIDE RECORDS SUMMARY | 2024-12-31 11:07 | XMS_ITS | Encounter Summary ---
Author Organization [employer] Address [address] [facility] 7t [place] [address] Care Team Providers Care Digital Ad Trafficker Name Role Phone Benjamin Ireland MD Primary Care Provider [phone] Leobardo Ortiz RN Unavailable [phone] Diane Sosa Unavailable Leobardo Ortiz RN Unavailable [phone] Pattie Cronin Unavailable Reason for Visit * Reason Comments Med Refill Encounter Details Date Type Department Care Team ([facility] st Contact Info) Description 06/28/2024 Refill [facility] MED & PEDS 505 [place], [place] [phone] Benjamin Ireland MD [address] [place], [place] [phone] Other specified hypothyroidism Social History Tobacco Use [...] as of this encounter Care Teams Digital Ad Trafficker Relationship Specialty Start Date End Date Benjamin Ireland MD [address] [place] [address] PCP - General Internal Medicine 12/02/17 Leobardo Ortiz, RN 505 [place] [address] Registered Nurse Family Medicine 09/20/24 12/14/24 Diane Sosa 09/20/24 12/14/24 Leobardo Ortiz, YESSICA [address] [place] [address] Registered Nurse Family Medicine 12/24/24 Pattie Cronin 12/24/24 Leena Curtis Store LeadCosmetic Sales 05/06/23 [facility] 07/13/24 documented as of this encounter
--- OUTSIDE RECORDS SUMMARY | 2024-12-31 11:07 | XMS_ITS ---
Author Organization [facility] Address [address] [facility] 7t [place] [address] Care Team Providers Care Electrician Control Equipment Name Role Phone Benjamin Ireland MD Primary Care Provider Leobardo Ortiz RN Unavailable [phone] Pattie Cronin Unavailable CM Complex Status:Outreach In Progress (Enrolling) Start date:12/24/2024 Enrollment reason:ADT Feed Overview ADT- Pt admitted to [facility] on 12/23/24. Case Team Name Relationship Phone Leobardo Ortiz RN(Responsible Staff) Registered [facility] [phone] Continued Care and Services Coordination
--- OUTSIDE RECORDS SUMMARY | 2024-12-31 11:07 | XMS_ITS | Encounter Summary ---
Author Organization [employer] Address [address] [facility] 7t [place] [address] Care Team Providers Care Enterprise Records Analyst Name Role Phone Benjamin Ireland MD Primary Care Provider Leobardo Ortiz RN Unavailable [phone] Diane Sosa Unavailable Leobardo Ortiz RN Unavailable [phone] Pattie Cronin Unavailable Reason for Visit * Reason Onset Date Comments Medication 04/09/2023 Encounter Details Date Type Department Care Team (Late st Contact Info) Description 04/09/2023 Telephone [facility] MEDICINE [address] [place] [address] Benjamin Ireland MD [address] [place], [place] [phone] Medication Social History Tobacco Use Types Packs/Day [...] * Telephone Encounter - Moy Schwab - 04/09/2023 4:10 PM EST Tc from pt calling in regards to acetaminophen-codeine (Tylenol w/ Codeine #3) 300-30 MG tablet. Medication was sent to [facility] but pt wants medication sent to [facility] pharmacy due to [facility] having [facility]. If any questions please contact pt at [phone]. documented in this encounter Plan of Treatment Not on file documented as of this encounter Visit Diagnoses Diagnosis Chronic pain syndrome documented in this encounter Additional Health Concerns Assessment Noted Time PHQ-9 Depression Total Score: 0 02/14/19 23 11:24 AM EST documented as of this encounter Care Teams Enterprise Records Analyst Relationship Specialty Start Date End Date Benjamin Ireland MD [address] [place] [address] PCP - General Internal Medicine 12/02/17 Leobardo Ortiz RN [address] [place] [address] Registered Nurse Family Medicine 09/20/24 12/14/24 Diane Sosa 09/20/24 12/14/24 Leobardo Ortiz RN [address] [place] [address] Registered Nurse Family Medicine 12/24/24 Pattie Cronin 12/24/24 Leena Curtis Plant EtiologistManager Sales Training 05/06/23 [facility] 07/13/24 documented as of this encounter
--- OUTSIDE RECORDS SUMMARY | 2024-12-31 11:07 | XMS_ITS | Encounter Summary ---
Author Organization [employer] Address [address] [facility] 7t [place] [address] Care Team Providers Care Reimbursement Auditor Name Role Phone Benjamin Ireland MD Primary Care Provider [phone] Leobardo Ortiz RN Unavailable [phone] Diane Sosa Unavailable Leobardo Ortiz RN Unavailable [phone] Pattie Cronin Unavailable Encounter Details Date Type Department Care Team (Late st Contact Info) Description 03/27/2023 Orders Only [facility] MED & PEDS [address] [place], [place] [phone] Benjamin Ireland MD [address] [place], [place] [phone] Type 2 diabetes mellitus without complication, without long-term current use of insulin (CMS/FORMERLY [facility]) (Primary Dx) Social History Tobacco Use Types [...] Free T4 0.35 0.32 - 4.0 uIU/mL [facility] Blood Venous blood specimen / Unknown 04/03/2023 2:12 PM EST 04/03/2023 5:18 PM EST us Benjamin Ireland MD LAB BLOOD ORDERABLES Final Result [facility] [address] [place] [address] [phone] * (ABNORMAL) Lipid Panel, Standard (04/03/2023 2:12 PM EST) Triglycerides 298(H) <150 mg/dL [facility] Comment:Desirable Triglyceri de: less than 150 mg/dLBorderline High Triglyceride 150-199 mg/dLHigh Triglyceride: 200-499 mg/dLVery High Triglyceride: greater than or equal to 5OO mg/dL Cholesterol 203(H) <200 mg/dL [facility] Comment:Desirable Cholestero l: less than 200 mg/dLBorderline High Cholesterol: 200-239 mg/dLHigh Cholesterol: greater than 239 mg/dL LDL Cholesterol Calculated 109(H) <100 mg/dL [facility] Comment:Desirable LDL: less than 100 mg/dLNear [...] 2:12 PM EST 04/03/2023 5:18 PM EST Benjamin Ireland MD LAB BLOOD ORDERABLES Final Result [facility] [address] [place] [address] [phone] * (ABNORMAL) Comprehensive Metabolic Panel (04/03/2023 2:12 PM EST) Sodium 140 135 - 145 mmol/L [facility] Potassium 4.3 3.3 - 5.1 mmol/L [facility] Chloride 106 96 - 108 mmol/L [facility] Carbon Dioxide 27 22 - 29 mmol/L [facility] Anion Gap 11(L) 12 - 20 [facility] Urea Nitrogen (BUN) 18(H) 9 - 16 mg/dL [facility] Creatinine, Serum 0.82 0.5 - 1.4 mg/dL [facility] Estimated Glomerular Filt Rate >60 [facility] Comment:NOTE: For -Am erican individuals, multiply the result by 1.210.Chronic Kidney Disease: Estimated GFR < 60 mL/min/1.28q9Sssmya Kidney Disease: Estimated GFR < 15 mL/min/1.73m2 Glucose 89 60 - 115 mg/dL [facility] Calcium 9.2 8.4 - 10.2 mg/dL [facility] Bilirubin, Total 0.3 0.0 - 1.0 mg/dL [facility] Aspartate Amino Transferase 20 5 - 31 U/L [facility] Alanine Aminotransferase 16 0 - 31 U/L [facility] Total Protein 6.9 6.5 - 8.0 g/dL [facility] Albumin Level 4.2 3.5 - 5.0 g/dL [facility] Alkaline Phosphatase 97 39 - 117 U/L [facility] Blood Venous blood specimen / Unknown 04/03/2023 2:12 PM EST 04/03/2023 5:18 PM EST us Benjamin Ireland MD LAB BLOOD ORDERABLES Final Result [facility] [address] [place] [address] [phone] documented in this encounter Visit Diagnoses Diagnosis Type 2 diabetes mellitus without complication, without long-term current use of insulin (HCC)- Primary documented in this encounter Additional Health Concerns Assessment Noted Time PHQ-9 Depression Total Score: 0 02/14/19 23 11:24 AM EST documented as of this encounter Care Teams Reimbursement Auditor Relationship Specialty Start Date End Date Benjamin Ireland MD [address] [place] [address] PCP - General Internal Medicine 12/02/17 Leobardo Ortiz, RN [address] [place] [address] Registered Nurse Family Medicine 09/20/24 12/14/24 Diane Sosa 09/20/24 12/14/24 Leobardo Ortiz, RN [address] [place] [address] Registered Nurse Family Medicine 12/24/24 Pattie Cronin 12/24/24 Leena Curtis Database Programmer AnalystElement Setter 05/06/23 [facility] 07/13/24 documented as of this encounter
--- OUTSIDE RECORDS SUMMARY | 2024-12-31 11:07 | XMS_ITS | Encounter Summary ---
Author Organization [employer] Address [address] [facility] 7t [place] [address] Care Team Providers Care Laborer Dairy Farm Name Role Phone Benjamin Ireland MD Primary Care Provider Leobardo Ortiz RN Unavailable [phone] Diane Sosa Unavailable Leobardo Ortiz RN Unavailable [phone] Pattie Cronin Unavailable Reason for Visit * Reason Onset Date Comments Hospital Follow-up 07/14/2024 Encounter Details Date Type Department Care Team ([facility] st Contact Info) Description 07/14/2024 Telephone [facility] MED & PEDS [address] [place], [place] [phone] Benjamin Ireland MD [address] [place], [place] [phone] Hospital Follow-up Social History Tobacco Use Types [...] from pt requesting a HDF appt. Hospital: [address] [address] Date of admission: 07/08/24 Discharge date: 07/11/24 Diagnosed: stroke, bacteria in eye and intestine. Contact pt at [phone] (kyrgyz) documented in this encounter Plan of Treatment Not on file documented as of this encounter Visit Diagnoses Diagnosis Chronic pain syndrome documented in this encounter Additional Health Concerns Assessment Noted Time PHQ-9 Depression Total Score: 12 025 1:40 PM EDT documented as of this encounter Care Teams Laborer Dairy Farm Relationship Specialty Start Date End Date Benjamin Ireland MD [address] [place] [address] PCP - General Internal Medicine 12/02/17 Leobardo Ortiz, YESSICA [address] [place] [address] Registered Nurse Family Medicine 09/20/24 12/14/24 Diane Sosa 09/20/24 12/14/24 Leobardo Ortiz, RN [address] [place] [address] Registered Nurse Family Medicine 12/24/24 Pattie Cronin 12/24/24 Leena Curtis B2B Appointment SetterKnock Up Assembler 05/06/23 [facility] 07/13/24 documented as of this encounter
--- OUTSIDE RECORDS SUMMARY | 2024-12-31 11:07 | XMS_ITS | Encounter Summary ---
Author Organization [employer] Address [address] [facility] [address] [place] [address] Care Team Providers Care Evaporator Helper Name Role Phone Benjamin Ireland MD Primary Care Provider Leobardo Ortiz RN Unavailable [phone] Diane Sosa Unavailable Leobardo Ortiz RN Unavailable [phone] Pattie Cronin Unavailable Reason for Visit * Reason Onset Date Comments Med Refill 05/24/2022 Encounter Details Date Type Department Care Team ([facility] st Contact Info) Description 05/24/2022 Telephone [facility] MED & PEDS [address] [place], [place] [phone] Benjamin Ireland MD [address] [place], [place] [phone] Med Refill Social History Tobacco Use Types [...] #3) 300-30 MG tablet Please sent to [facility]/pharmacy #[id number] - [place], [place] - [address] [facility] documented in this encounter Plan of Treatment Not on file documented as of this encounter Visit Diagnoses Not on filedocumented in this encounter Additional Health Concerns Assessment Noted Time PHQ-9 Depression Total Score: 0 02/14/19 11:24 AM EST documented as of this encounter Care Teams Evaporator Helper Relationship Specialty Start Date End Date Benjamin Ireland MD [address] [place] [address] PCP - General Internal Medicine 12/02/17 Leobardo Ortiz, RN [address] [place] [address] Registered Nurse Family Medicine 09/20/24 12/14/24 Diane Sosa 09/20/24 12/14/24 Leobardo Ortiz, YESSICA [address] [place] [address] Registered Nurse Family Medicine 12/24/24 Pattie Cronin 12/24/24 Leena Curtis Coping Machine OperatorOwner/Operator 05/06/23 [facility] documented as of this encounter
--- OUTSIDE RECORDS SUMMARY | 2024-12-31 11:07 | XMS_ITS | Encounter Summary ---
Author Organization [employer] Address [address] [facility] 7t [place] [address] Care Team Providers Care Radio Television Technical Director Name Role Phone Benjamin Ireland MD Primary Care Provider [phone] Leobardo Ortiz RN Unavailable [phone] Diane Sosa Unavailable Leobardo Ortiz RN Unavailable [phone] Pattie Cronin Unavailable Reason for Visit * Reason Comments Med Refill Encounter Details Date Type Department Care Team ([facility] st Contact Info) Description 11/22/2024 Refill [facility] MED & PEDS [address] [place], [place] [phone] Benjamin Ireland MD [address] [place], [place] [phone] Chronic pain syndrome Social History Tobacco Use [...] 11:46 AM EDT Isabel Campbell MA * Trouble falling or staying [...] than half the days 11/22/2024 11:46 AM EDT Deborah Campbell MA * Feeling bad about yourself - or that you are a failure or have let yourself or your family down Answer Date of Assessment Author Not at all 11/22/2024 11:46 AM KAMIT Isabel Campbell MA documented as of this encounter Plan of Treatment Not on file documented as of this encounter Visit Diagnoses Diagnosis Chronic pain syndrome documented in this encounter Additional Health Concerns Assessment Noted Time PHQ-9 Depression Total Score: 12 025 1:40 PM EDT documented as of this encounter Care Teams Radio Television Technical Director Relationship Specialty Start Date End Date Benjamin Ireland MD [address] [place] [address] PCP - General Internal Medicine 12/02/17 Leobardo Ortiz, RN [address] [place] [address] Registered Nurse Family Medicine 09/20/24 12/14/24 Diane Sosa 09/20/24 12/14/24 Leobardo Ortiz, RN [address] [place] [address] Registered Nurse Family Medicine 12/24/24 Pattie Cronin 12/24/24 Leena Curtis Wax Pot Tender6Th Grade Teacher 05/06/23 [facility] documented as of this encounter
--- OUTSIDE RECORDS SUMMARY | 2024-12-31 11:07 | XMS_ITS | Encounter Summary ---
Author Organization [employer] Address [address] [facility] 7t [place] [address] Care Team Providers Care Hose Tubing Backer Name Role Phone Benjamin Ireland MD Primary Care Provider Leobardo Ortiz RN Unavailable [phone] Diane Sosa Unavailable Leobardo Ortiz RN Unavailable [phone] Pattie Cronin Unavailable Reason for Visit * Reason Onset Date Comments Med Refill 07/15/2024 Encounter Details Date Type Department Care Team (Late st Contact Info) Description 07/15/2024 Telephone [facility] MEDICINE [address] [place] [address] Benjamin Ireland MD [address] [place] [address] Med Refill Social History Tobacco Use Types [...] 300-30 MG tablet To be sent to: [facility] [place] - [address] [place] [address] documented in this encounter Plan of Treatment Not on file documented as of this encounter Visit Diagnoses Not on filedocumented in this encounter Additional Health Concerns Assessment Noted Time PHQ-9 Depression Total Score: 12 025 1:40 PM EDT documented as of this encounter Care Teams Hose Tubing Backer Relationship Specialty Start Date End Date Benjamin Ireland MD [address] [place] [address] PCP - General Internal Medicine 12/02/17 Leobardo Ortiz, RN [address] [place] [address] Registered Nurse Family Medicine 09/20/24 12/14/24 Diane Sosa 09/20/24 12/14/24 Leobardo Ortiz, RN [address] [place] [address] Registered Nurse Family Medicine 12/24/24 Pattie Cronin 12/24/24 Leena Curtis Volunteer SpecialistCopy Messenger 05/06/23 [facility] 07/13/24 documented as of this encounter
--- OUTSIDE RECORDS SUMMARY | 2024-12-31 11:07 | XMS_ITS | Encounter Summary ---
Author Organization [employer] Address [address] [facility] 7t [place] [address] Care Team Providers Care Manager Printing Name Role Phone Benjamin Ireland MD Primary Care Provider Leobardo Ortiz RN Unavailable [phone] Diane Sosa Unavailable Leobardo Ortiz RN Unavailable [phone] Pattie Cronin Unavailable Reason for Visit * Reason Onset Date Comments Med Refill 10/02/2023 Encounter Details Date Type Department Care Team (Late st Contact Info) Description 10/02/2023 Telephone [facility] MEDICINE [address] [place] [address] Benjamin Ireland MD [address] [place] [address] Med Refill Social History Tobacco Use Types [...] Miscellaneous Notes * Telephone Encounter - Elisha Dixon Brandt - 10/02/2023 10:42 AM EDT TC from pt requesting medication refill. Medications needing refill : acetaminophen-codeine (Tylenol w/ Codeine #3) 300- 30 MG tablet To be sent to: [facility] documented in this encounter Plan of Treatment Not on file documented as of this encounter Visit Diagnoses Not on filedocumented in this encounter Additional Health Concerns Assessment Noted Time PHQ-9 Depression Total Score: 0 02/14/19 23 11:24 AM EST documented as of this encounter Care Teams Manager Printing Relationship Specialty Start Date End Date Benjamin Ireland MD [address] [place] [address] PCP - General Internal Medicine 12/02/17 Leobardo Ortiz RN [address] [place] [address] Registered Nurse Family Medicine 09/20/24 12/14/24 Diane Sosa 09/20/24 12/14/24 Leobardo Ortiz, RN [address] [place] [address] Registered Nurse Family Medicine 12/24/24 Pattie Cronin 12/24/24 Leena Curtis Reimbursement DirectorRigger 05/06/23 [facility] 07/13/24 documented as of this encounter
--- OUTSIDE RECORDS SUMMARY | 2024-12-31 11:07 | XMS_ITS | Encounter Summary ---
Author Organization [employer] Address [address] [facility] 7t [place] [address] Care Team Providers Care Job Counselor Name Role Phone Benjamin Ireland MD Primary Care Provider Leobardo Ortiz RN Unavailable [phone] Diane Sosa Unavailable Leobardo Ortiz RN Unavailable [phone] Pattie Cronin Unavailable Reason for Visit * Reason Comments Med Refill Encounter Details Date Type Department Care Team ([facility] st Contact Info) Description 04/10/2023 Refill [facility] MED & PEDS [address] [place], [place] [phone] Benjamin Ireland MD [address] [place], [place] [phone] Chronic pain syndrome Social History Tobacco Use [...] the provider Letter is read for pick out hand at medical records. documented in this encounter Plan of Treatment Not on file documented as of this encounter Visit Diagnoses Diagnosis Chronic pain syndrome documented in this encounter Additional Health Concerns Assessment Noted Time PHQ-9 Depression Total Score: 0 02/14/19 23 11:24 AM EST documented as of this encounter Care Teams Job Counselor Relationship Specialty Start Date End Date Benjamin Ireland MD [address] [place] [address] PCP - General Internal Medicine 12/02/17 Leobardo Ortiz RN [address] [place] [address] Registered Nurse Family Medicine 09/20/24 12/14/24 Diane Sosa 09/20/24 12/14/24 Leobardo Ortiz RN [address] [place] [address] Registered Nurse Family Medicine 12/24/24 Pattie Cronin 12/24/24 Leena Curtis Prototype Deicer AssemblerSupervising Floorperson 05/06/23 [facility] 07/13/24 documented as of this encounter
--- OUTSIDE RECORDS SUMMARY | 2024-12-31 11:07 | XMS_ITS | Encounter Summary ---
Author Organization [employer] Address [address] [facility] 7t [place] [address] Care Team Providers Care Burglary Investigator Name Role Phone Benjamin Ireland MD Primary Care Provider Leobardo Ortiz RN Unavailable [phone] Diane Sosa Unavailable Leobardo Ortiz RN Unavailable [phone] Pattie Cronin Unavailable Reason for Visit * Reason Comments Med Refill Encounter Details Date Type Department Care Team ([facility] st Contact Info) Description 07/13/2024 Refill [facility] CH[facility] MED & PEDS [address] [place], [place] [phone] Benjamin Ireland MD [address] [place], [place] [phone] Other specified hypothyroidism Social History Tobacco Use [...] documented as of this encounter Care Teams Burglary Investigator Relationship Specialty Start Date End Date Benjamin Ireland MD [address] [place] [address] PCP - General Internal Medicine 12/02/17 Leobardo Ortiz, RN [address] [place] [address] Registered Nurse Family Medicine 09/20/24 12/14/24 Diane Sosa 09/20/24 12/14/24 Leobardo Ortiz, YESSICA [address] [place] [address] Registered Nurse Family Medicine 12/24/24 Pattie Cronin 12/24/24 Leena Curtis Prefinish OperatorLandscape Nurseryman 05/06/23 [facility] 07/13/24 documented as of this encounter
--- OUTSIDE RECORDS SUMMARY | 2024-12-31 11:07 | XMS_ITS | Encounter Summary ---
Author Organization [employer] Address [address] [facility] 7[address] [place] [address] Care Team Providers Care Service Desk Lead Name Role Phone Benjamin Ireland MD Primary Care Provider Leobardo Ortiz RN Unavailable [phone] Diane Sosa Unavailable Leobardo Ortiz RN Unavailable [phone] Pattie Cronin Unavailable Reason for Visit * Reason Onset Date Comments Med Refill 06/24/2022 Encounter Details Date Type Department Care Team (Late st Contact Info) Description 06/24/2022 Telephone [facility] MEDICINE [address] [place] [address] Benjamin Ireland MD [address] [place] [address] Med Refill Social History Tobacco Use Types [...] Miscellaneous Notes * Telephone Encounter - Marvin Balesos - 06/24/2022 11:56 AM EDT Tc from [...] as of this encounter Care Teams Service Desk Lead Relationship Specialty Start Date End Date Benjamin Ireland MD 505 [place] [address] PCP - General Internal Medicine 12/02/17 Leobardo Ortiz, YESSICA [address] [place] [address] Registered Nurse Family Medicine 09/20/24 12/14/24 Diane Sosa 09/20/24 12/14/24 Leobardo Ortiz, YESSICA [address] [place] [address] Registered Nurse Family Medicine 12/24/24 Pattie Cronin 12/24/24 Leena Curtis Fire Alarm TechnicianAccounting Manager 05/06/23 [facility] 07/13/24 documented as of this encounter
--- OUTSIDE RECORDS SUMMARY | 2024-12-31 11:07 | XMS_ITS | Encounter Summary ---
Author Organization [employer] Address [address] [facility] 7t [place] [address] Care Team Providers Care Crop Supervisor Name Role Phone Benjamin Ireland MD Primary Care Provider Leobardo Ortiz RN Unavailable [phone] Diane Sosa Unavailable Leobardo Ortiz RN Unavailable [phone] Pattie Cronin Unavailable Encounter Details Date Type Department Care Team ([facility] st Contact Info) Description 07/13/2024 Orders Only [facility] CHC MED & PEDS [address] [place], [place] [phone] Benjamin Ireland MD [address] [place], [place] [phone] Social History Tobacco Use Types Packs/Day Years [...] as of this encounter Care Teams Crop Supervisor Relationship Specialty Start Date End Date Benjamin Ireland MD [address] [place] [address] PCP - General Internal Medicine 12/02/17 Leobardo Ortiz, RN [address] [place] [address] Registered Nurse Family Medicine 09/20/24 12/14/24 Diane Sosa 09/20/24 12/14/24 Leobardo Ortiz, RN [address] [place] [address] Registered Nurse Family Medicine 12/24/24 Pattie Cronin 12/24/24 Leena Curtis Junior Account ManagerSenior Category Manager 05/06/23 [facility] 07/13/24 documented as of this encounter
--- OUTSIDE RECORDS SUMMARY | 2024-12-31 11:07 | XMS_ITS | Encounter Summary ---
Author Organization [employer] Address [address] [facility] 7t [place] [address] Care Team Providers Care Video Software Engineer Name Role Phone Benjamin Ireland MD Primary Care Provider Leobardo Ortiz RN Unavailable [phone] Diane Sosa Unavailable Leobardo Ortiz RN Unavailable [phone] Pattie Cronin Unavailable Reason for Visit * Reason Comments Med Refill Encounter Details Date Type Department Care Team (Late st Contact Info) Description 03/22/2022 Refill [facility] CH[facility] MED & PEDS [address] [place], [place] [phone] Benjamin Ireland MD [address] [place], [place] [phone] Moderate persistent allergic asthma (Primary Dx); Type 2 diabetes mellitus with hyperosmolarity without coma, without long-term current use of insulin ([facility]); Other specified hypothyroidism; Stress incontinence of [...] coma, without long-term current use of insulin (HCC) Other specified hypothyroidism Stress incontinence of urine Intertrigo Other specified erythematous condition documented in this encounter Additional Health Concerns Assessment Noted Time PHQ-9 Depression Total Score: 0 02/14/19 23 11:24 AM EST documented as of this encounter Care Teams Video Software Engineer Relationship Specialty Start Date End Date Benjamin Ireland MD [address] [place] [address] PCP - General Internal Medicine 12/02/17 Leobardo Ortiz, YESSICA [address] [place] [address] Registered Nurse Family Medicine 09/20/24 12/14/24 Diane Sosa 09/20/24 12/14/24 Leobardo Ortiz, YESSICA [address] [place] [address] Registered Nurse Family Medicine 12/24/24 Pattie Cronin 12/24/24 Leena Curtis Inspector GeneralDumper [employer] 05/06/23 [facility] 07/13/24 documented as of this encounter
--- OUTSIDE RECORDS SUMMARY | 2024-12-31 11:07 | XMS_ITS ---
Author Organization [employer] Address [address] [facility] 7t [place] [address] Care Team Providers Care Oracle Database Architect Name Role Phone Benjamin Ireland MD Primary Care Provider [phone] Leobardo Ortiz RN Unavailable [phone] Pattie Cronin Unavailable [facility] Complex Status:Outreach In Progress (Enrolling) Start date:12/24/2024 Enrollment reason:ADT Feed Overview ADT- Pt admitted to [facility] on 12/23/24. Case Team Name Relationship Phone Pattie Cronin(Responsible Staff) [phone] Continued Care and Services Coordination
--- OUTSIDE RECORDS SUMMARY | 2024-12-31 11:07 | XMS_ITS | Encounter Summary ---
Author Organization [employer] Address [address] [facility] [address] [place] [address] Care Team Providers Care Public Transit Bus Driver Name Role Phone Benjamin Ireland MD Primary Care Provider Leobardo Ortiz RN Unavailable [phone] Diane Sosa Unavailable Leobardo Ortiz RN Unavailable [phone] Pattie Cronin Unavailable Reason for Visit * Reason Comments Med Refill Encounter Details Date Type Department Care Team ([facility] st Contact Info) Description 07/11/2024 Refill [facility] [address] [place], [place] [phone] Benjamin Ireland MD [address] [place], [place] [id number] Other specified hypothyroidism Social History Tobacco Use [...] as of this encounter Care Teams Public Transit Bus Driver Relationship Specialty Start Date End Date Benjamin Ireland MD [address] [place] [address] PCP - General Internal Medicine 12/02/17 Leobardo Ortiz, RN [address] [place] [address] Registered Nurse Family Medicine 09/20/24 12/14/24 Diane Sosa 09/20/24 12/14/24 Leobardo Ortiz, YESSICA [address] [place] [address] Registered Nurse Family Medicine 12/24/24 Pattie Cronin 12/24/24 Leena Curtis Long Wall Mining Machine HelperPaleologist 05/06/23 [facility] 07/13/24 documented as of this encounter
--- OUTSIDE RECORDS SUMMARY | 2024-12-31 11:08 | XMS_ITS | Encounter Summary ---
Author Organization [employer] Address [address] [facility] [address] [place] [address] Care Team Providers Care Javascript Software Engineer Name Role Phone Benjamin Ireland MD Primary Care Provider Leobardo Ortiz RN Unavailable [phone] Diane Sosa Unavailable Leobardo Ortiz RN Unavailable [phone] Pattie Cronin Unavailable Reason for Visit * Reason Onset Date Comments Medication Question 03/07/2023 Encounter Details Date Type Department Care Team ([facility] Contact Info) Description 03/07/2023 Telephone [facility] [address] [place], [place] [phone] Benjamin Ireland MD [address] [place], [place] [phone] Medication Question Social History Tobacco Use Types [...] of stock of Tylenol-Codeine #3. Call to [facility] pharm, per pharmacist med in stock., will send rx there. * Telephone Encounter - Nora Cronin LPN - 03/10/2023 11:20 AM EST Risk Control Director spoke with pt pharmacy , stated they never received neither medication. I also spoke with PCP stated didn't prescribe Tramadol . Sending to Marya as FYI. * Telephone Encounter - Moy Schwab - 03/07/2023 4:50 PM EST TC from pt stating that [facility] Informs that Medication Tramadol and acetaminophen-codeine (Tylenol w/ Codeine #3) 300-30 MG tablet is not covered by insurance, patient does not know reason in why insurance is not covering medication. Risk Control Director tried communicating with Pharmacy to verify reason but no answer from pharmacy. Pt also informs she is in a lot of pain. Please contact pt @ [phone] documented in this encounter Plan of Treatment Not on file documented as of this encounter Visit Diagnoses Diagnosis Chronic pain syndrome documented in this encounter Additional Health Concerns Assessment Noted Time PHQ-9 Depression Total Score: 0 02/14/19 23 11:24 AM EST documented as of this encounter Care Teams Javascript Software Engineer Relationship Specialty Start Date End Date Benjamin Ireland MD [address] [place] [address] PCP - General Internal Medicine 12/02/17 Leobardo Ortiz, RN [address] [place] [address] Registered Nurse Family Medicine 09/20/24 12/14/24 Diane Sosa 09/20/24 12/14/24 Leobardo Ortiz, RN [address] [place] [address] [place] [address] Registered Nurse Family Medicine 12/24/24 Pattie Cronin 12/24/24 Leena Curtis Health Insurance AgentUser Interface Designer 05/06/23 [facility] 07/13/24 documented as of this encounter
--- OUTSIDE RECORDS SUMMARY | 2024-12-31 11:08 | XMS_ITS | Encounter Summary ---
Author Organization [employer] Address [address] [facility] [address] [place] [address] Care Team Providers Care Criminal Records Technician Name Role Phone Benjamin Ireland MD Primary Care Provider [phone] Leobardo Ortiz RN Unavailable [phone] Diane Sosa Unavailable Leobardo Ortiz RN Unavailable [phone] Pattie Cronin Unavailable Reason for Visit * Reason Onset Date Comments PT1 03/04/2023 Encounter Details Date Type Department Care Team ([facility] st Contact Info) Description 03/04/2023 Telephone [facility] MED [facility] [address] [place], [place] [phone] Benjamin Ireland MD [address] [place], [place] [phone] PT1 Social History Tobacco Use Types Packs/Day [...] 04/03/23 Time: 1:15 Visits: N/A Address: [address] [place] [address] Facility: [address] [place] [address] Wheel Chair: No (Uses walker) Stave Log Ripsaw Operator Needed: yes documented in this encounter Plan of Treatment Not on file documented as of this encounter Visit Diagnoses Not on filedocumented in this encounter Additional Health Concerns Assessment Noted Time PHQ-9 Depression Total Score: 0 02/14/19 11:24 AM EST documented as of this encounter Care Teams Criminal Records Technician Relationship Specialty Start Date End Date Benjamin Ireland MD [address] [place] [address] PCP - General Internal Medicine 12/02/17 Leobardo Ortiz, RN [address] [place] [address] Registered Nurse Family Medicine 09/20/24 12/14/24 Diane Sosa 09/20/24 12/14/24 Leobardo Ortiz, RN [address] [place] [address] Registered Nurse Family Medicine 12/24/24 Pattie Cronin 12/24/24 Leena Curtis Piano InstructorLithographic Plate Maker 05/06/23 [facility] documented as of this encounter
--- OUTSIDE RECORDS SUMMARY | 2024-12-31 11:08 | XMS_ITS | Encounter Summary ---
Author Organization [employer] Address [address] [facility] [address] [place] [address] Care Team Providers Care Food Service Worker Name Role Phone Benjamin Ireland MD Primary Care Provider Leobardo Ortiz RN Unavailable [phone] Diane Ssoa Unavailable Leobardo Ortiz RN Unavailable [phone] Pattie Cronin Unavailable Encounter Details Date Type Department Care Team ([facility] st Contact Info) Description 03/10/2023 Orders Only [facility] [address] [place], [place] [phone] Benjamin Ireland MD [address] [place] [address] Chronic pain syndrome Social History Tobacco Use [...] documented as of this encounter Care Teams Food Service Worker Relationship Specialty Start Date End Date Benjamin Ireland MD [address] [place] [address] PCP - General Internal Medicine 12/02/17 Leobardo Ortiz, RN [address] [place] [address] Registered Nurse Family Medicine 09/20/24 12/14/24 Diane Sosa 09/20/24 12/14/24 Leobardo Ortiz, YESSICA [address] [place] [address] Registered Nurse Family Medicine 12/24/24 Pattie Cronin 12/24/24 Leena Curtis Franchise SpecialistOutside Operator 05/06/23 [facility] 07/13/24 documented as of this encounter
== END 2024-12-31 11:07 | disposition home or self-care (01) ==
LOC: HO.ENCR 10:25
PROVIDERS: PCP Internal Medicine; Visit Provider Physician Assistant Medical
DX: E11.9 Type 2 diabetes mellitus without complications (principal); E66.813 Obesity, class 3; R79.89 Other specified abnormal findings of blood chemistry; E11.59 Type 2 diabetes mellitus with other circulatory complications

== ENCOUNTER → 2024-12-31 10:24 | Outpatient (BNVA) | payer MEDICAID, SELFPAY | PROVIDERS: PCP Internal Medicine; Visit Provider Physician Assistant Medical | DX: E11.9 Type 2 diabetes mellitus without complications (principal) | CPT/HCPCS: 82947; 83036 ==